=== PATIENT | female | born 1990 | race Caucasian/White ===

== ENCOUNTER 2019-09-07 11:00 | Emergency (ER) | payer OTHER, SELFPAY ==
[2019-09-07 11:12] VITALS: BP 126/60; PULSE 77; RESP 20; TEMP 37; O2SAT 100
--- NOTE | 2019-09-07 11:56 | ED.EYEPROB ---
HPI - Eye Problem General Chief complaint: Eye Problems Stated complaint: FB EYE Time Seen by Provider: 09/07/19 11:15 History of Present Illness HPI Narrative: This is a 28-year-old female who presents with complaint of foreign body sensation in the right eye. Patient states she had eyelash extensions placed 3 weeks ago and an eyelash fell out and into her eye last night. She was able to remove an eyelash but continued to have sensation of something in her eye. Positive complaint of tearing, no changes in vision. Last tetanus unknown. Related Data Home Medications Medication Instructions Recorded Confirmed fluoxetine 60 mg PO DAILY 09/07/19 09/07/19 Allergies Allergy/AdvReac Type Severity Reaction Status Date / Time No Known Allergies Allergy Verified 09/07/19 11:22 Review of Systems Review of Systems: Narrative: CONSTITUTIONAL: Denies fever, chills, or sweats. EYES: Reports foreign body sensation, tearing. ENT: Denies rhinorrhea, congestion, sore throat, or otalgia. RESPIRATORY: Denies cough or dyspnea. All systems reviewed & are unremarkable except as noted in HPI and below PMFSH Past Medical History Medical History (Updated 09/07/19 @ 12:57 by ANA Mims) Patient denies allergies Exam Narrative: Exam Narrative: GENERAL: Well-appearing, well-nourished, and in no acute distress. HEAD: Normocephalic, atraumatic. EYES: Tearing to the right eye, upper lid everted and no FB noted, no FB noted on external exam. Upper eyelid with mild erythema and edema-pt rubnbing eye in room. Kim lamp exam performed with corneal abrasion noted at approx 3 o'clock ENT: Nares clear, no rhinorrhea or epistaxis. Mucous membranes moist. CHEST: Clear to auscultation. No respiratory distress. HEART: Regular rate and rhythm. No murmur heard. Normal peripheral pulses. SKIN: Warm, dry, no rash. PSYCH: Normal mood and affect. Course Vital Signs Vital signs: Vital Signs Temperature 37.0 C 09/07/19 11:12 Pulse Rate 77 09/07/19 11:12 Respiratory Rate 20 09/07/19 11:12 Blood Pressure 126/60 09/07/19 11:12 Pulse Oximetry 100 09/07/19 11:12 Temperature 37.0 C 09/07/19 11:12 Pulse Rate 77 09/07/19 11:12 Respiratory Rate 20 09/07/19 11:12 Blood Pressure 126/60 09/07/19 11:12 Pulse Oximetry 100 09/07/19 11:12 Procedures Other Procedure Procedure 1: Other Procedure: Right eye Kim lamp exam performed. Tetracaine and fluorescein to the right eye and evaluated under lamp. Small cresecent shaped line with fluorescein uptake at approx 3 o'clock. Eye irrigated with NS post examination. MDM - Eye Problem MDM Narrative Medical decision making narrative: Kmi lamp exam revealed small corneal abrasion at 3 o'clock. Given FB sensation and history of FB of eyelash extension noted in eye last night with treat for corneal abrasion. TDAP updated as well. Will follow up with eye doctor or PCP. Differential Diagnosis Differential diagnosis: Likely corneal abrasion, conjunctivitis, periorbital cellulitis, corneal ulcer and other (FB) Discharge Plan Discharge Clinical Impression: Corneal abrasion Qualifiers: Encounter type: initial encounter Laterality: right Qualified Code(s): S05.01XA - Injury of conjunctiva and corneal abrasion without foreign body, right eye, initial encounter Patient Disposition: Home, Self-Care Condition: Improved Instructions: Antibiotic Form Additional Instructions: Follow up with your primary care doctor or eye doctor in 48 hours if no relief--sooner for worsening. You should have a recheck in 72 hours otherwise. Return to the ER if you develop fever, pain, changes in vision, worsening of symptoms.You had a TDAP immunization today. Prescriptions: New ciprofloxacin HCl 0.3 % drops See Rx Instructions .ROUTE .COMPLEX Qty: 5 RF: 0 No Action fluoxetine 60 mg tablet 60 mg PO DAILY RF: 0 Follow-up/Referrals: Phong,Lauren Mendez, ANA-
[2019-09-07] MEDS: TETANUS,DIPHTHERIA,AC PERTUSSIS ADULT 0.5 ML (ADACEL) IM (12:33)
[2019-09-07 12:55] VITALS: BP 113/85; PULSE 86; RESP 18; TEMP 36.6; O2SAT 100
== END 2019-09-07 12:55 | disposition home or self-care (01) ==
PROVIDERS: PCP Nurse Practitioner Family
DX: S05.01XA Injury of conjunctiva and corneal abrasion without foreign body, right eye, initial encounter (principal); Z23 Encounter for immunization; X58.XXXA Exposure to other specified factors, initial encounter
CPT/HCPCS: 65222; 90471; 90715; 99283; A9270

== ENCOUNTER 2020-02-27 20:45 | Emergency (ER) | payer OTHER, SELFPAY ==
--- NOTE | ~2020-02-27 | XR_ITS ---
XR tibia fibula RT 2V DATE: 02/27/2020 21:01 INDICATION: Injury, pain TECHNIQUE: AP and lateral views COMPARISON: None FINDINGS: No fracture or dislocation, periosteal reaction or bone destruction. IMPRESSION: Negative Reviewed, dictated and finalized at location A. IMPRESSION: Negative
[2020-02-27 20:48] VITALS: BP 122/74; PULSE 79; RESP 18; TEMP 36.3; O2SAT 100
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
== END 2020-02-27 21:40 | disposition home or self-care (01) ==
LOC: ANHED 21:17
PROVIDERS: Emergency Provider Emergency Medicine; PCP Nurse Practitioner Family
DX: S80.11XA Contusion of right lower leg, initial encounter (principal); W22.8XXA Striking against or struck by other objects, initial encounter
CPT/HCPCS: 73590; 99283

== ENCOUNTER 2020-03-02 19:20 | Emergency (ER) | payer OTHER, SELFPAY ==
--- NOTE | ~2020-03-02 | XR_ITS ---
EXAMINATION: XR tibia fibula RT 2V EXAM DATE: 03/02/2020 20:27 INDICATION: Initial encounter following injury, with pain of the right tibia/fibula. TECHNIQUE: Right tibia/fibula frontal and lateral projections obtained and reviewed. Correlation is m rick to right ankle exam same date. FINDINGS: Right tibial and fibular shafts unremarkable. There are no acute fractures or dislocations identified. There is no subcutaneous gas. The soft tissue is unremarkable. There are no radiopaq ue foreign bodies. IMPRESSION: 1. Right tibia/fibula exam without acute osseous findings. Reviewed, dictated and finalized at location A.
--- NOTE | ~2020-03-02 | XR_ITS ---
EXAMINATION: XR ankle RT min 3V EXAM DATE: 03/02/2020 19:58 INDICATION: Fall, right ankle pain. Initial encounter. TECHNIQUE: Right ankle frontal, lateral and oblique projections obtained and reviewed. There is no p rior study for comparison. FINDINGS: The right ankle mortise appears intact. Sequela from prior lateral malleolar avulsion fr acture. There are no acute fractures or dislocations identified. There is no subcutaneous gas. The soft tissue is unremarkable. There are no radiopaque foreign bodies. IMPRESSION: 1. XR ankle RT min 3V exam without acute osseous findings. Reviewed, dictated and finalized at location A.
[2020-03-02 19:34] VITALS: BP 113/84; PULSE 79; RESP 17; TEMP 36.3; O2SAT 98
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
[2020-03-02] MEDS: IBUPROFEN 600 MG TABLET PO (19:58)
== END 2020-03-02 21:12 | disposition home or self-care (01) ==
PROVIDERS: Emergency Provider Emergency Medicine; PCP Nurse Practitioner Family
DX: S80.11XA Contusion of right lower leg, initial encounter (principal); W22.8XXA Striking against or struck by other objects, initial encounter
CPT/HCPCS: 73590; 73610; 99284; A9270

== ENCOUNTER 2022-04-02 09:32 | Outpatient (CLI) | payer OTHER, SELFPAY ==
--- NOTE | ~2022-04-02 | XR_ITS ---
EXAMINATION: XR ankle RT min 3V DATE: 04/02/2022 09:58 INDICATION: Right ankle injury and pain. TECHNIQUE: 4 views of right ankle were obtained. COMPARISON: Right ankle radiographs 03/02/2020 FINDINGS: Bone alignment is normal. No acute fracture. There is chronic heterotopic ossification dist al to lateral malleolus. There is mild osteoarthritis of talonavicular joint. There is ankle soft tis felicia swelling. IMPRESSION: 1. No acute fracture. Reviewed, dictated and finalized at location A. IMPRESSION: 1. No acute fracture.
== END 2022-04-02 09:33 | disposition home or self-care (01) ==
PROVIDERS: PCP Nurse Practitioner Family; Visit Provider Pediatrics Adolescent Medicine
DX: M79.671 Pain in right foot (principal)
CPT/HCPCS: 73610

== ENCOUNTER 2022-04-15 17:08 | Outpatient (CLI) | payer OTHER, SELFPAY ==
--- NOTE | ~2022-04-15 | XR_ITS ---
XR ankle RT min 3V DATE: 04/15/2022 17:33 INDICATION: Lateral ankle pain after rolling ankle 2 weeks ago TECHNIQUE: 4 views COMPARISON: 04/02/2022 right ankle FINDINGS: There is mild lateral soft tissue swelling. No fracture or dislocation of the ankle or disr uption of the ankle mortise is detected. Chronic accessory ossicle subjacent to the lateral malleolus . IMPRESSION: Mild lateral soft tissue swelling; no fracture or dislocation Reviewed, dictated and finalized at location A.
== END 2022-04-15 17:09 | disposition home or self-care (01) ==
LOC: ANHIMG 17:11
PROVIDERS: PCP Nurse Practitioner Family; Visit Provider Pediatrics Adolescent Medicine
DX: M25.571 Pain in right ankle and joints of right foot (principal); M79.89 Other specified soft tissue disorders
CPT/HCPCS: 73610

== ENCOUNTER 2024-12-04 15:35 | Emergency (ER) | payer OTHER, SELFPAY ==
[2024-12-04] VITALS (7 sets, daily range): BP systolic 95–112; BP diastolic 34–65; PULSE 78–96; RESP 16–22; TEMP 36.7; O2SAT 97–100
--- NOTE | 2024-12-04 15:55 | ECG_ITS ---
Test Date: 2024-12-04 16:14:27 Measurements Intervals [place] Rate: 76 P: 51 NH: 153 QRS: 52 QRSD: 96 T: 25 QT: 368 QTc: 415 Interpretive Statements SINUS RHYTHM BASELINE ARTIFACT- I, II, AVR, AVL NORMAL ECG No previous ECG available for comparison Electronically Signed On 12-04-2024 20:54:20 CDT by Dalton Brown D.O.
--- NOTE | 2024-12-04 15:56 | ED_ITS ---
HPI - General Adult General Chief complaint: Syncope Stated complaint: syncope History of Present Illness HPI narrative: 33-year-old female presents to the emergency department for evaluation for a near syncopal episode. Patient states she has not had much food to eat but did have some water but patient has been having a headache today and patient was attempting to get a soda at a gas station when she had onset of lightheaded dizziness and had a near syncopal episode. Patient was able to announce to her that she was having this episode and he was able to catch her and prevent her from having an injury. EMS was called. Patient states she does still have a mild headache but denies any chest pain shortness of breath. Patient denies any nausea vomiting diarrhea. Patient denies any abdominal pain or vaginal bleeding. Patient is approximately 13 weeks . Patient did have a prior episode of syncope with her 1st but has no other issues with syncope. Patient denies any cardiac history. Related Data Home Medications ?Medication ?Instructions ?Recorded ?Confirmed ?Last Taken ?Type fluoxetine 60 mg tablet 60 mg PO DAILY 09/07/19 09/07/19 09/07/19 History 60 mg Allergies Allergy/AdvReac Type Severity Reaction Status Date / Time No Known Allergies Allergy Verified 12/04/24 17:27 Review of Systems 2 Review of Systems: All systems reviewed & are unremarkable except as noted in HPI and below PMFSH Past Medical History Medical History (Updated 12/04/24 @ 17:41 by Benjamin Cohn MD) Patient denies allergies Social History Social History Gender identity (if verbalized by the patient): Female Exam 2 Narrative: APPEARANCE: Well appearing, no pain, no distress, well-nourished. HEAD: normocephalic, atraumatic. EYES: PERRLA/EOMI, conjunctivae clear. NOSE: Normal no drainage EARS:TMS clear with good light reflex. THROAT: Pharynx clear, no exudate. NECK: Supple. No adenopathy, no masses. RESPIRATORY: Airway patent, respirations nonlabored. Clear to auscultation bilaterally, no rales, rhonchi, wheezing. CARDIOVASCULAR: Regular rate and rhythm without murmurs rubs or gallops. ABDOMINAL: Soft, nontender, nondistended, normal bowel sounds MUSCULOSKELETAL: Moves all extremities. Strength/ROM intact, No edema, No calf tenderness. NEURO: Alert. Cranial nerves II through XII intact. Good gait. Good coordination SKIN: Warm, dry. Normal Color Course Vital Signs Vital signs: Vital Signs Temperature 98.1 F 12/04/24 15:31 Pulse Rate 96 12/04/24 15:31 Respiratory Rate 16 12/04/24 15:31 Blood Pressure 112/58 L 12/04/24 15:31 Pulse Oximetry 100 12/04/24 15:31 Oxygen Delivery Room Air 12/04/24 15:31 Temperature 98.1 F 12/04/24 15:31 Pulse Rate 80 12/04/24 17:50 Respiratory Rate 16 12/04/24 17:50 Blood Pressure 100/53 L 12/04/24 17:50 Pulse Oximetry 97 12/04/24 17:50 Oxygen Delivery Room Air 12/04/24 15:31 Medical Decision Making MDM Narrative Medical decision making narrative: 33-year-old female presents to the emergency department for evaluation for a syncopal episode. Patient did feel lightheaded prior to the episode. Patient states she did not drink much fluid did not have very much to eat today. Patient did feel improved with rehydration. Patient does have a leukocytosis of 10.1 hemoglobin of 12.4. UA did have trace red blood cells trace white blood cells with rare bacteria, urine culture was ordered. Suspect orthostatic hypotension versus dehydration. Patient was updated the results of her workup patient was comfortable the plan for discharge and close follow-up. Differential Diagnosis Differential Diagnosis: Syncope, dehydration, UTI, orthostatic hypotension Vital Signs Vital Signs: Vital Signs Temperature 98.1 F 12/04/24 15:31 Pulse Rate 96 12/04/24 15:31 Respiratory Rate 16 12/04/24 15:31 Blood Pressure 112/58 L 12/04/24 15:31 Pulse Oximetry 100 12/04/24 15:31 Oxygen Delivery Room Air 12/04/24 15:31 Temperature 98.1 F 12/04/24 15:31 Pulse Rate 80 12/04/24 17:50 Respiratory Rate 16 12/04/24 17:50 Blood Pressure 100/53 L 12/04/24 17:50 Pulse Oximetry 97 12/04/24 17:50 Oxygen Delivery Room Air 12/04/24 15:31 Lab Data Lab results reviewed: Yes I reviewed the patient's lab results. 12/04/24 16:33 Labs: Lab Results 12/04/24 Range/Units 16:33 WBC 10.1 H (4.5-10.0) K/mm3 RBC 3.91 L (4.2-5.4) M/mm3 Hgb 12.4 (12.0-15.0) g/dL Hct 36.1 L (37.0-47.0) % MCV 92.3 (80-100) fl MCH 31.7 (26-34) pg MCHC 34.3 (32-36) g/dl RDW 12.4 (11.5-14.5) % Plt Count 202 (150-375) k/mm3 MPV 10.1 (7.4-10.4) fl Immature Gran % (Auto) 0.3 (0-0.5) % Neut % (Auto) 80.1 H (45.5-73.1) % Lymph % (Auto) 13.2 L (18.3-44.2) % Humphreys % (Auto) 5.3 (2.6-8.5) % Eos % (Auto) 0.8 (0-4.4) % Baso % (Auto) 0.3 (0.2-1.2) % Lymph # (Auto) 1.33 (0.9-3.2) K/mm3 Humphreys # (Auto) 0.5 (0.1-0.6) K/mm3 Eos # (Auto) 0.1 (0-0.3) K/mm3 Baso # (Auto) 0.0 (0.0-0.1) K/mm3 Abs Immat Gran (auto) 0.03 (0.00-0.031) K/mm3 Absolute Neuts (auto) 8.1 H (1.3-6.7) K/mm3 Absolute Nucleated RBC 0.000 (0.0-0.012) K/mm3 Nucleated RBC % 0.0 (0.0-0.2) % Lactic Acid 1.0 (0.7-2.0) mmol/L Urine Color Yellow (Yellow) Urine Appearance Clear (Clear) Urine pH 5.0 (5.0-9.0) Ur Specific Marshall 1.027 (1.001-1.035) Urine Protein Trace (Negative) mg/dL Urine Glucose (UA) Negative (Negative) mg/dL Urine Ketones Trace H (Negative) mg/dL Ur Blood (Man) Trace (Negative) Urine Nitrate Negative (Negative) Urine Bilirubin Negative (Negative) Urine Urobilinogen 1.0 (<2.0) mg/dL Add Ur Microanalysis Reviewed Leukocyte Esterase Rfl Negative (Negative) CELIA/UL Urine RBC 3-5 H (0-2) /hpf Urine WBC 6-10 H (0-3) /hpf Ur Squamous Epith Cells Few (Few) /hpf Calcium Oxalate Crystal Present (None) /hpf Urine Bacteria Rare /hpf Urine Casts 11-20 Urine Mucus Present /lpf Discharge Plan Discharge Clinical Impression: Vasovagal syncope Patient Disposition: Home Condition: Stable Instructions: Antibiotic Form, Hypotension (ED) Additional Instructions: Drink plenty of fluids. Follow a well-balanced diet. Have close follow-up with your primary care physician have close follow-up with OB Gyne. If you have any worsening symptoms and please call or return to the emergency department. Patient Language: Ethiopian Prescriptions: No Action ibuprofen [IBU] 600 mg tablet 600 mg PO Q6H PRN (Reason: pain) Qty: 20 0RF fluoxetine 60 mg tablet 60 mg PO DAILY Follow-up/Referrals: Berlin,Raji Cr MD [Primary Care Provider] -
--- OUTSIDE RECORDS SUMMARY | 2024-12-04 15:57 | XMS_ITS | Data Portability ---
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 Plan of Treatment Reminders Order Date Submit Date Provider Last Modified By Organization Details Last Modified Time Details Appointments OB ROUTINE 2024 03:00P M Shantelle Reyes CNM Not available Not available Not available U/S OB BASELIN E 2024 08:30A M ULTRASOUND Not available Not available Not available OB ROUTINE 2024 09:45A M GARY RochaM Not available Not available Not available Lab drug screen, urine 2024 025 [email or web address] [place] [facility] [address], [address], [place], [address], 12/01/2024 11:14:45 culture , urine 2024 025 [facility] (Lab), [address] [place], [address], 12/02/2024 22:47:14 CT + NG + TV, RNA, unspeci fied specime n 2024 025 [facility] (Lab), [address] [place], [address], 10/20/2024 13:32:11 Referral None recorde d. Procedures None recorde d. Surgeries None recorde d. Imaging US, obstetr ic, nuchal translu cency 2024 025 [email or web address] [facility], [place], [address], 12/01/2024 19:10:16 US, obstetr ic, transva ginal 2024 025 [email or web address] [facility], [place], [address], 10/20/2024 15:13:10 Medication Orders Reglan 10 mg tablet 2024 025 [facility] #[id number], [address] , [place], [place], [id number], 10/19/2024 12:24:54 Prenata l 28 mg iron-80 0 mcg tablet 2024 025 [facility] #[id number], [address], [place], [place], [id number], 10/19/2024 12:24:53 Patient TargetsNo targets recorded. Patient InstructionsNo instructions recorded. Reason for Referral None Reported. Results Created Date Observation Date Name Description Value Unit Range Abnormal Flag Note LastModifiedBy Organization Detail LastModifiedTime 10/20/1910/19/2024 CT/GC AND TRICH OMONA S VAGIN KIKO (RRNA ), URINE chlamydia trachomatis, PCR Negati ve negati ve Not Available [facility] (Lab) [address] [facility], [place], [address], 10/20/2024 13:32:11 10/20/19 25 10/19/2024 CT/GC AND TRICH OMONA S VAGIN KIKO (RRNA ), URINE neisseria gonorrhoeae, PCR Negati ve negati ve Not Available [facility] (Lab) [address] [place], [address], 10/20/2024 13:32:11 10/20/19 25 10/19/2024 CT/GC AND TRICH OMONA S VAGIN KIKO (RRNA ), URINE trichomonas vaginalis ribosomal RNA (rrna) Negati ve negati ve Not Available [facility] (Lab) [address], [place], [address], 10/20/2024 13:32:11 12/02/1912/01/2024 HIV 1/2 ANTIG EN/AN TIBOD Y, REFLE X CONFI RMATI ON HIV antigen/anti body Nonrea ctive nonrea ctive HIV-1 antig en and HIV-1 /HIV- 2 antib odies were not detec julieta. No labor atory evide nce of HIV infec tion. Not Available [facility] (Lab) [address], [place], [address], 12/02/2024 10:19:34 12/02/19 25 12/01/2024 HEPAT ITIS B SURFA CE ANTIG EN hepatitis B surface antigen Non-re active non-re active This assay was perfo rmed using [employer] ratio n reage nts and test kits. Value s obtai edison with other assay metho ds or kits canno t be used inter kelley eably . Not Available [facility] (Lab) [address], [place], [address], 12/02/2024 10:19:35 12/02/19 25 12/01/2024 HEPAT ITIS C ANTIB MOLLY SCREE N, REFLE X TO CONFI RMATI ON hepatitis C antibody Non-re active non-re active Antib odies to HCV Not Detec julieta, does not exclu de the possi bilit y of expos ure to HCV. Not Available [facility] (Lab) [address], [place], [address], 12/02/2024 10:19:35 12/02/19 25 12/01/2024 CBC W/DIF F WBC 8.1 10'3/ uL 3.5-10 .5 Not Available [facility] (Lab) [address], [place], [address], 12/02/2024 10:19:35 12/02/19 25 12/01/2024 CBC W/DIF F RBC 3.87 10'6/ uL (based on docume nted legal sex) 3.80-5 .20 Not Available [facility] (Lab) [address] , [place], [address], 12/02/2024 10:19:35 12/02/1912/01/2024 CBC W/DIF F HGB 12.4 g/dL (based on docume nted legal sex) 11.6-1 5.4 Not Available [facility] (Lab) [address] [facility], [place], [address], 12/02/2024 10:19:35 12/02/19 25 12/01/2024 CBC W/DIF F HCT 36.6 % (based on docume nted legal sex) 34.0-4 5.0 Not Available [facility] (Lab) [address], [place], [address], 12/02/2024 10:19:35 12/02/19 25 12/01/2024 CBC W/DIF F MCV 94.6 fL 80.0-9 9.0 Not Available [facility] (Lab) [address] [facility], [place], [address], 12/02/2024 10:19:35 12/02/1912/01/2024 CBC W/DIF F MCH 32.0 pg 27.0-3 4.0 Not Available [facility] (Lab) [address] [facility], [place], [address], 12/02/2024 10:19:35 12/02/19 25 12/01/2024 CBC W/DIF F MCHC 33.9 g/dL 32.0-3 5.5 Not Available [facility] (Lab) [address] [facility], [place], [address], 12/02/2024 10:19:35 12/02/19 25 12/01/2024 CBC W/DIF F RDW 12.2 % 11.0-1 5.0 Not Available [facility] (Lab) [address] [facility], [place], [address], 12/02/2024 10:19:35 12/02/19 25 12/01/2024 CBC W/DIF F plt 220 10'3/ uL 150-40 0 Not Available [facility] (Lab) [address] [facility], [place], [address], 12/02/2024 10:19:35 12/02/19 25 12/01/2024 CBC W/DIF F MPV 11.6 fL 8.8-12 .1 Not Available [facility] (Lab) [address] [facility], [place], [address], 12/02/2024 10:19:35 12/02/19 25 12/01/2024 CBC W/DIF F NRBC's 0.0 % 0.0 Not Available [facility] (Lab) [address] [facility], [place], [address], 12/02/2024 10:19:35 12/02/19 25 12/01/2024 CBC W/DIF F absolute NRBCs 0.0 10'3/ uL no refere nce range establ ished Not Available [facility] (Lab) [address] [facility], [place], [address], 12/02/2024 10:19:35 12/02/1912/01/2024 CBC W/DIF F neutrophils 77.4 % 34.0-7 3.0 high Not Available [facility] (Lab) [address] [facility], [place], [address], 12/02/2024 10:19:35 12/02/19 25 12/01/2024 CBC W/DIF F lymphocytes 15.0 % 15.0-5 0.0 Not Available [facility] (Lab) [address] [facility], [place], [address], 12/02/2024 10:19:35 12/02/19 25 12/01/2024 CBC W/DIF F monocytes 6.3 % 1.0-15 .0 Not Available [facility] (Lab) [address] [facility], [place], [address], 12/02/2024 10:19:35 12/02/19 25 12/01/2024 CBC W/DIF F eosinophils 0.7 % 0.0-8. 0 Not Available [facility] (Lab) [address] [facility], [place], [address], 12/02/2024 10:19:35 12/02/19 25 12/01/2024 CBC W/DIF F basophils 0.2 % 0.0-2. 0 Not Available [facility] (Lab) [address] [facility], [place], [address], 12/02/2024 10:19:35 12/02/19 25 12/01/2024 CBC W/DIF F immature granulocytes 0.4 % no define d refere nce range Immat ure Granu locyt es (IG) repre sents autom ated enume ratio n of Metam yeloc ytes, Myelo cytes and Promy elocy niki when IG is < 5%. Blast s are not inclu ded in IG and repor julieta separ ately if prese nt. Not Available [facility] (Lab) [address], [place], [address], 12/02/2024 10:19:35 12/02/19 25 12/01/2024 CBC W/DIF F absolute neutrophils 6.3 10'3/ uL 1.5-8. 0 Not Available [facility] (Lab) [address] [facility], [place], [address], 12/02/2024 10:19:35 12/02/19 25 12/01/2024 CBC W/DIF F absolute lymphocytes 1.2 10'3/ uL 1.0-4. 0 Not Available [facility] (Lab) [address] [facility], [place], [address], 12/02/2024 10:19:35 12/02/19 25 12/01/2024 CBC W/DIF F absolute monocytes 0.5 10'3/ uL 0.2-1. 0 Not Available [facility] (Lab) [address] [facility], [place], [address], 12/02/2024 10:19:35 12/02/19 25 12/01/2024 CBC W/DIF F absolute eosinophils 0.1 10'3/ uL 0.0-0. 6 Not Available [facility] (Lab) [address] [facility], [place], [address], 12/02/2024 10:19:35 12/02/19 25 12/01/2024 CBC W/DIF F absolute basophils 0.0 10'3/ uL 0.0-0. 3 Not Available [facility] (Lab) [address], [place], [address], 12/02/2024 10:19:35 12/02/19 25 12/01/2024 CBC W/DIF F absolute immature granulocytes 0.0 10'3/ uL 0.00-0 .10 Refer ence range s for nonbi nary/ inter sex or unspe cifie d gende r patie nts have not been estab lishe d. Pleas e refer to the [facility] table for range s estab lishe d for cisge nder patie nts and evalu ate in the clini daniel paula xt of the indiv idual patie nt: https ://kaela tucker book. nm.or g/gen derx Not Available [facility] (Lab) [address], [place], [address], 12/02/2024 10:19:35 12/02/19 25 12/01/2024 RUBEL LA IGG ANTIB MOLLY, QUANT rubella antibodies, IgG Reacti ve reacti ve Not Available [facility] (Lab) [address] [facility], [place], [address], 12/02/2024 10:19:36 12/02/19 25 12/01/2024 RUBEL LA IGG ANTIB MOLLY, QUANT rubella antibodies, IgG quant 17.9 IU/mL >=10 Non-r eacti ve (Non- Immun e) <10 IU/mL React marely (Immu ne) > or = 10 IU/mL Not Available [facility] (Lab) [address] [facility], [place], [address], 12/02/2024 10:19:36 12/02/19 25 12/01/2024 TYPE/ RH/SC REEN ABO/Rh type A NEG Not Available [facility] (Lab) [address] [facility], [place], [address], 12/02/2024 10:19:36 12/02/19 25 12/01/2024 TYPE/ RH/SC REEN antibody screen NEG Not Available [facility] (Lab) [address] [facility], [place], [address], 12/02/2024 10:19:36 12/02/19 25 12/01/2024 TYPE/ RH/SC REEN exp date 2024 23:59 Not Available [facility] (Lab) [address] [facility], [place], [address], 12/02/2024 10:19:36 12/02/19 25 12/01/2024 HEMOG LOBIN A1C hemoglobin A1C 4.8 % 4.0-5. 6 The Ameri can Diabe niki Ass[employer] iatio n recom mends that a prima ry goal of thera py anamika d be a HBA1C of < 7% and that physi cians shoul d reeva luate the treat ment regim en in patie nts with HBA1C value s consi stent ly > 8%. <5.7% Mar l 5.7 - 6.4% Incre ased risk for diabe niki >=6.5 % Diagn ostic of diabe niki <7.0% Goal of thera py >8.0% Actio n sugge sted Not Available [facility] (Lab) [address] [facility], [place], [address], 12/02/2024 10:19:37 12/02/19 25 12/01/2024 RPR SCREE N, REFLE X TITER /CONF IRMAT ION RPR qualitative Nonrea ctive nonrea ctive Not Available [facility] (Lab) [address] [facility], [place], [address], 12/02/2024 10:19:37 12/02/19 25 12/01/2024 CULTU RE: URINE result report SEE RESULT S BELOW Test: Cultu re: Urine Speci men Sourc e: Urine Voide d Speci men Type: Urine Speci men Date: 2024 1100 Resul t Date: 2024 Resul t Statu s: Final resul t Abnor mal: No Resul ting Lab: [facility] [address] [facility] [address] Tel: CULTU RE ----- ----- ----- --- No growt h in 1 day (dete ction level of 10,00 0 colon ies / ml.) Not Available [facility] (Lab) [address] , [place], [address], 12/02/2024 22:47:13 12/02/19 25 12/01/2024 drug scree n, urine Amphetamines : negati ve Not Available [facility] [address], [place], [address], 12/01/2024 11:13:13 12/02/19 25 12/01/2024 drug scree n, urine Cannabinoids : negati ve Not Available [facility] [address], [place], [address], 12/01/2024 11:13:13 12/02/19 25 12/01/2024 drug scree n, urine Cocaine: negati ve Not Available [facility] [address], [place], [address], 12/01/2024 11:13:13 12/02/19 25 12/01/2024 drug scree n, urine Opiates: negati ve Not Available [facility] [address], [place], [address], 12/01/2024 11:13:13 12/02/19 25 12/01/2024 drug scree n, urine Phenocyclidi ne: negati ve Not Available [facility] [address], [place], [address], 12/01/2024 11:13:13 12/02/19 25 12/01/2024 drug scree n, urine Barbiturates : negati ve Not Available [facility] [address], [place], [address], 12/01/2024 11:13:13 12/02/19 25 12/01/2024 drug scree n, urine Benzodiazepi haris: negati ve Not Available [facility] [address], [place], [address], 12/01/2024 11:13:13 12/02/19 25 12/01/2024 drug scree n, urine Ethanol: negati ve Not Available [facility] [address], [place], [address], 12/01/2024 11:13:13 12/02/19 25 12/01/2024 drug scree n, urine Hallucinogen s: negati ve Not Available [facility] [address], [place], [address], 12/01/2024 11:13:13 12/02/19 25 12/01/2024 drug scree n, urine Inhalants: negati ve Not Available [facility] [address], [place], [address], 12/01/2024 11:13:13 12/02/19 25 12/01/2024 drug scree n, urine Anabolic Steroids: negati ve Not Available [facility] [address], [place], [address], 12/01/2024 11:13:13 12/02/19 25 12/01/2024 drug scree n, urine Other: positi ve Not Available [facility] [address], [place], [address], 12/01/2024 11:13:13 10/20/19 25 10/19/2024 US, obste tric, trans vagin al No observ ation record ed. [email or web address] [facility] [address], [place], [address], 10/19/2024 15:37:37 10/20/19 25 10/19/2024 US, obste tric, trans vagin al No observ ation record ed. [email or web address] [address], [place], [address], 10/20/2024 12:56:20 12/02/19 25 12/01/2024 US, obste tric, nucha l trans lucen cy No observ ation record ed. [email or web address] [facility] [address], [place], [address], 12/01/2024 14:38:13 12/02/19 25 12/01/2024 US, obste tric, follo w-up No observ ation record ed. [email or web address] [address], [place], [address], 12/01/2024 18:45:45 Result Notes None recorded. Problems Name Problem SNOMED Code Status Onset Date Resolution Date Notes Provider Name and Address Organization Details Recorded Time 11110426 Active 2024 Mary Murillo [facility], [place] - [facility] 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 10:11:05 Problem Notes None recorded. Medical Equipment None Reported. Allergies Allergen ID Allergen Name Allergen Category Reaction Reaction Severity Criticality Documentation Date Start Date Code Code System Note Provider Name and Address Organization Details Recorded Time 81762 latex environme nt,medica tion Not available Not available Not available 12/01/2024 02752 91 RxNorm Mary Castrotz [facility], [facility] 11:38:56 Medications Name Sig Start Date Stop Date Status Note LastModified by Organization Details LastModified Time azithromycin 250 mg tablet TAKE 2 TABLETS BY MOUTH ON DAY 1 THEN TAKE 1 TABLET BY MOUTH ON DAYS 2-5 12/01 completed Not Available Not Available Not Available ibuprofen 800 mg tablet TAKE 1 TABLET BY MOUTH DAILY NEEDED 12/01 completed Not Available Not Available Not Available metronidazol e 500 mg tablet TAKE 1 TABLET BY MOUTH TWICE DAILY FOR 7 DAYS 12/01 completed Not Available Not Available Not Available amoxicillin 500 mg tablet TAKE 1 TABLET BY MOUTH EVERY 8 HOURS UNTIL ALL TAKEN 12/01 completed Not Available Not Available Not Available amoxicillin 875 mg tablet TAKE 1 TABLET BY MOUTH TWICE DAILY 12/01 completed Not Available Not Available Not Available oseltamivir 75 mg capsule TAKE 1 CAPSULE BY MOUTH TWICE DAILY 12/01 completed Not Available Not Available Not Available metocloprami de 10 mg tablet TAKE 1 TABLET BY MOUTH FOUR TIMES DAILY active Not Available Not Available No t Available 28 mg iron-800 mcg tablet TAKE 1 TABLET BY MOUTH DAILY active Not Available Not Available No t Available cefixime 400 mg capsule TAKE 1 CAPSULE BY MOUTH TWICE DAILY FOR 10 DAYS 12/01 completed Not Available Not Available Not Available Blisovi Fe 1/20 (28) 1 mg-20 mcg (21)/75 mg (7) tablet TAKE 1 TABLET BY MOUTH EVERY DAY 12/01 completed Not Available Not Available Not Available Vitals Date Recorded Body height Body mass index (BMI) Body weight Systolic blood pressure Diastolic blood pressure Provider Name and Address Organization Details Last Updated DateTime 10/19/2024 162.56 cm 25.2 kg/m2 33987.08 g 108 mm[Hg] 67 mm[Hg] Mary Murillo [facility] 5 13:24:08 Date Recorded Body height Body mass index (BMI) Body weight Systolic blood pressure Diastolic blood pressure Provider Name and Address Organization Details Last Updated DateTime 12/01/2024 162.56 cm 25.4 kg/m2 45309.67 g 104 mm[Hg] 66 mm[Hg] Mary Murillo [facility] 11:07:35 Social History Question Answer Notes LastModified by Organizat ion Details LastModified Time Tobacco Smoking Status Never Smoker Mary Murillo [facility] 12/01/2024 11:12:14 Do You Have An Advance Directive? No [email or web address] Information n ot available 12/01/2024 If You Are , What Was Your Level Of Alcohol Consumption Prior To ? Occasional [email or web address] Information not available 12/01/2024 How Many Years Have You Consumed Alcohol? 0 [email or web address] Information not available 12/01/2024 Are You Blind Or Do You Have Difficulty Seeing? No [email or web address] Information n ot available 12/01/2024 What Is Your Level Of Caffeine Consumption? Moderate [email or web address] Information not available 12/01/2024 How Much Tobacco Do You Chew? None [email or web address] Information not available 12/01/2024 In The 14 Days Before Symptom Onset, Have You Had Close Contact With A Laboratory-confirm ed COVID-19 While That Case Was Ill? No [email or web address] Information n ot available 12/01/2024 In The 14 Days Before Symptom Onset, Have You Had Close Contact With A Person Who Is Under Investigation For COVID-19 While That Person Was Ill? No [email or web address] Information not available 12/01/2024 Have You Been To An Area Known To Be High Risk For COVID-19? No [email or web address] Information not available 12/01/2024 Are You Deaf Or Do You Have Serious Difficulty Hearing? No [email or web address] Information not available 12/01/2024 What Type Of Diet Are You Following? REGULAR [email or web address] Information n ot available 12/01/2024 What Is The Highest Grade Or Level Of School You Have Completed Or The Highest Degree You Have Received? [id number] Information not available 12/01/2024 Are There Any Guns Present In Your Home? No [email or web address] Information not available 12/01/2024 Do You Use Protection During Sex? No [email or web address] Information not available 12/01/2024 Do You Use Your Seat Belt Or Car Seat Routinely? Yes [email or web address] Information not available 12/01/2024 Do You Have Smoke And Carbon Monoxide Detectors In Your Home? Yes [email or web address] Information not available 12/01/2024 How Much Tobacco Do You Smoke? No [email or web address] Information not available 12/01/2024 Do You Use Sunscreen Routinely? Yes [email or web address] Information not available 12/01/2024 Has Tobacco Cessation Counseling Been Provided? Yes [email or web address] Information not available 12/01/2024 On What Date Was Tobacco Cessation Counseling Provided? 12/01/2024 [email or web address] Information not available 12/01/2024 How Many Years Have You Smoked Tobacco? 0 [email or web address] Information not available 12/01/2024 Have You Used IV Drugs? No [email or web address] Information not available 12/01/2024 Do You Have Difficulty Walking Or Climbing Stairs? No [email or web address] Information not available 12/01/2024 Sex: Unknown Functional Status Question Answer Note LastModified by Organizat ion Details LastModified Time Do you use any illicit or recreational drugs? Yes [email or web address] Information not available 12/01/2024 Do you or have you ever used any other forms of tobacco or nicotine? No [email or web address] Information not available 12/01/2024 What is your level of alcohol consumption? None [email or web address] Information not available 12/01/2024 Are you able to walk? YESWOREST [email or web address] Information not available 12/01/2024 Are you able to care for yourself? 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 Occasional [email or web address] Information not available 12/01/2024 Mental Status Question Answer Note LastModified by Organization D etails LastModified Time Do you feel stressed (tense, restless, nervous, or anxious, or unable to sleep at night)? [id number] [email or web address] Information not available 12/01/2024 Family History Relationship Description Onset Age of this Age Resolved Age Notes LastModified by Organization Details LastModified Time Unspecified Relation Family history unknown [email or web address] Not available 12/01 11:08:09 Maternal Grandmother Diabetes mellitus [email or web address] Not available 12/01 11:11:55 Medical History Condition Response Allergies (Food, seasonal, environmental ) N Other N Breast Cancer N Drug/Latex Allergies/Reactions N Blood Transfusion N Dermatologic Disorders N Lung Disease N Defects or Inherited Disease N Breast Problem N Gestational Diabetes N Hematologic disorders N Anesthesia Complications N History of STI N Deep Vein Thrombosis N Polycystic ovary syndrome N Anxiety Disorder N Autoimmune disease N Arthritis N Infertility N Polyps N Acid Reflux (GERD) N History of abnormal pap N Cancer N Stroke N Varicosities N Neurologic/Epilepsy N Endometriosis N High Cholesterol N Headaches N Fibromyalgia N Kidney Disease N Heart Problems N Kidney or Bladder Problems N Thyroid Problems N GI Problems N Eating Disorder N Anemia N Art (IVF or FET) N Psychiatric Illness N Ovarian Cancer N Diabetes N Pulmonary (TB, Asthma) N Hepatitis/Liver Disease N No Past Medical History Y Eczema N Urinary Tract Infection N Abuse/Domestic Violence N Asthma N Trauma/Violence N Depression/ depression N Heart Disease N Pre-Eclampsia N Hypertension N Osteoporosis N Thrombophilias N Gynecological History Statement/Question Response Abnormal Pap N Date of Last Mammogram Date of LMP 08/09/2024 On BCP's at Conception? N N Was last menstrual period normal Y STIs/STDs N HPV Vaccine N Current Control Method Age at First Child 21 Date of Last Colonoscopy Sexually Active? Y Sterilization Date of DEXA bone scan Age of first menstrual cycle 14 Date of Last Pap Smear Sexual Problems? N LMP Approximate N Obstetrics History GPAL:G 4 P 3 0 0 3 Type Value Full Term 3 Living 3 Total 4 Past Encounters Encounter ID Performer Location Encounter Start Date Encounter Closed Date Diagnosis/Indication Diagnosis SNOMED-CT Code Diagnosis ICD10 Code Diagnosis Note [id number] Clayton Byrd MD [facility] [address] [address] 10/19/2024 10:46:34 10/19/2024 11:38:51 Fundal height high for dates 277155387 O26.849 Z3A.01 [id number] [facility] [address] [address] 10/19/2024 10:47:32 10/19/2024 12:29:28 Amenorrhea 16757319 N91.2 pnv dailyregla n as needed for nasueapap up to dateprecau tions and educationr eviewetiffany [place], will change EDC to 06/11/25f/ u new ob and first look Nausea and vomiting 1693 1999 R11.2 Bacterial disease screening 058883665 Z11.8 [id number] Shantelle [facility] [address] [address] 12/01/2024 09:44:23 12/01/2024 13:21:24 state of fetus 10965990 Z34.90 Gestation period, 12 weeks 20708960 Z3A.12 [id number] Clayton Byrd MD [facility] [address] [address] 12/01/2024 09:45:29 12/01/2024 10:45:00 screening 184366012 Z36.82 Z3A.12 Health Concerns Section Related Observation LastModified by Organization Detai ls LastModified Time None Recorded Concern Status LastModified by Organization Details LastModified Time None Recorded Advance Directives Directive N: Payers Insurance Date Sequence Insurance Name Policy Number Policy Bot[place] Covered Member ID Botello Member ID Guarantor Name 11/30/2024 1 [employer] [facility] (MEDICAID HMO) [id number] 0003 Sahra Novak [id number] Sahra Novak Notes Date Note Type Note Provider Name and Address Organization Details Recorded Time 10/19/2024 text/html amenorrhea, unsu re of cycles, +UPThx 3 vaginal deliveries at termdelivered last [address] newell complictionspap up to date Mary Murillo [facility] 10/19/2024 13:28:54 OBGyn Episode Ob Episode Information Episode Created Date Number of Fetuses Patient Bloodtype Patient rh Status Prepregnancy Weight lbs Domestic Partner Domestic Partner Phone Father Name Manager Food Status 12/02/19 25 1 CLOSED Fetus Data First Name Last Name Admitted to NICU Weight (g) Sex Living Outcome Pediatric Complications Fetus ID Race Codes Race Delivery Type 3061.74 6 F Full Term [id number] Vaginal Delivery Artis Calculation Initial Artis Date Initial Exam Date Initial Exam Provider Initial Ultrasound Date Last Menstrual Period Date Ultra Sound Weeks Gestation 0 Eighteen To Twenty Week Artis Update Ultra Sound Date Fundal Height At Umbil Quickening Date Ultra Sound Latest Weeks Gestation Final Artis Confirmed By Final Artis Confirmed Date Final Artis Date Ultra Sound Latest Days Gestation 0 0 Menstrual History Last Menstrual Date Menses Monthly On Bcp Conception Prior Menses Frequency Hcg Plus Date Menarche Onset Age Delivery Information Delivery Date Delivery Type Labor Anesthesia Weeks Gestation Incision Type Labor Labor Length Hrs Delivered By Post Complications Tubal Sterilization Discharge Date Comments 3 39 Discharge Information Feeding Method Contraceptive Method Maternal HG B and HCT Levels Ob Episode Information Episode Created Date Number of Fetuses Patient Bloodtype Patient rh Status Prepregnancy Weight lbs Domestic Partner Domestic Partner Phone Father Name Manager Food Status 12/02/19 25 1 Akshat Hildebr and OPEN Fetus Data First Name Last Name Admitted to NICU Weight (g) Sex Living Outcome Pediatric Complications Fetus ID Race Codes Race Delivery Type [id number] Problems Problem Notes Problem Name Start Date End Date Resolution Snomed Code Not e RhD negative 12/03/2024 [id number] A-, ne ed rhogam 28 weeks Artis Calculation Initial Artis Date Initial Exam Date Initial Exam Provider Initial Ultrasound Date Last Menstrual Period Date Ultra Sound Weeks Gestation 05/16/2025 10/19/2024 [email or web address] 10/19/2024 08/09/2024 6 Eighteen To Twenty Week Artis Update Ultra Sound Date Fundal Height At Umbil Quickening Date Ultra Sound Latest Weeks Gestation Final Artis Confirmed By Final Artis Confirmed Date Final Artis Date Ultra Sound Latest Days Gestation 0 06/11/20 25 0 Pre-south Flowsheet Flowsheet Date 12/01/2024 Mcdonough Score Blood Edema Fundus Height Fundus Units Glucose Ketones Leukocytes Nitrite Labor Signs Protein Cervic Dilation Cervic Effacement Cervic Station neg none none trace Type Weight in lbs Pre/Post Dialysis Refused Weight [id number] BP Diastolic BP Location Tested BP Systolic BP Type 66 104 Fetus Heart Rate Present Fetus Movement A No Comments hx of 3 previous uncomplicat ed vaginal deliveries, precautions and education, NIPT and labs today, begin routine care Menstrual History Last Menstrual Date Menses Monthly On Bcp Conception Prior Menses Frequency Hcg Plus Date Menarche Onset Age 0208/09/2024 Delivery Information Delivery Date Delivery Type Labor Anesthesia Weeks Gestation Incision Type Labor Labor Length Hrs Delivered By Post Complications Tubal Sterilization Discharge Date Comments Discharge Information Feeding Method Contraceptive Method Maternal HG B and HCT Levels Ob Episode Information Episode Created Date Number of Fetuses Patient Bloodtype Patient rh Status Prepregnancy Weight lbs Domestic Partner Domestic Partner Phone Father Name Manager Food Status 12/02/19 25 1 CLOSED Fetus Data First Name Last Name Admitted to NICU Weight (g) Sex Living Outcome Pediatric Complications Fetus ID Race Codes Race Delivery Type 3259.96 5704 F Full Term [id number] Vaginal Delivery Artis Calculation Initial Artis Date Initial Exam Date Initial Exam Provider Initial Ultrasound Date Last Menstrual Period Date Ultra Sound Weeks Gestation 0 Eighteen To Twenty Week Artis Update Ultra Sound Date Fundal Height At Umbil Quickening Date Ultra Sound Latest Weeks Gestation Final Artis Confirmed By Final Artis Confirmed Date Final Artis Date Ultra Sound Latest Days Gestation 0 0 Menstrual History Last Menstrual Date Menses Monthly On Bcp Conception Prior Menses Frequency Hcg Plus Date Menarche Onset Age Delivery Information Delivery Date Delivery Type Labor Anesthesia Weeks Gestation Incision Type Labor Labor Length Hrs Delivered By Post Complications Tubal Sterilization Discharge Date Comments 2 41 Discharge Information Feeding Method Contraceptive Method Maternal HG B and HCT Levels Ob Episode Information Episode Created Date Number of Fetuses Patient Bloodtype Patient rh Status Prepregnancy Weight lbs Domestic Partner Domestic Partner Phone Father Name Manager Food Status 12/02/19 25 1 CLOSED Fetus Data First Name Last Name Admitted to NICU Weight (g) Sex Living Outcome Pediatric Complications Fetus ID Race Codes Race Delivery Type 3175.14 4 F Full Term [id number] Vaginal Delivery Artis Calculation Initial Artis Date Initial Exam Date Initial Exam Provider Initial Ultrasound Date Last Menstrual Period Date Ultra Sound Weeks Gestation 0 Eighteen To Twenty Week Artis Update Ultra Sound Date Fundal Height At Umbil Quickening Date Ultra Sound Latest Weeks Gestation Final Artis Confirmed By Final Artis Confirmed Date Final Artis Date Ultra Sound Latest Days Gestation 0 0 Menstrual History Last Menstrual Date Menses Monthly On Bcp Conception Prior Menses Frequency Hcg Plus Date Menarche Onset Age Delivery Information Delivery Date Delivery Type Labor Anesthesia Weeks Gestation Incision Type Labor Labor Length Hrs Delivered By Post Complications Tubal Sterilization Discharge Date Comments 8 39 cord was around neck Discharge Information Feeding Method Contraceptive Method Maternal HG B and HCT Levels
--- OUTSIDE RECORDS SUMMARY | 2024-12-04 15:57 | XMS_ITS | Continuity of Care Document ---
Author Organization Merged with [facility] Address [address] [place] [address] [address] [place] [address] Phone Care Team Providers Care Lead Shipper Name Role Phone Katey Pineda Unavailable Unavailable Procedures Procedure Date Eye Exam, New Patient Advance Directives Directive Yes / No Effective Date File Name No Information Encounters Encounter Description Practice Location Reason(s) For Visit Diagnoses Date Provider Providers Copied on Encounter [facility], [address] [place], [place], [id number], [place] tel:[phone] [facility] [place] No Information [address] Miriam Del Toro. [address] , [address], [place], [address], [place]. tel:[phone] Family History Family Member Type Diagnosis Age At Onset No Information Payers Payer name Insurance type Covered constitution party ID Authoriza tijosy(s) Medicaid [facility] [id number] Social History Type Description Quantity Date Captured [...]
--- OUTSIDE RECORDS SUMMARY | 2024-12-04 15:57 | XMS_ITS | Data Portability ---
Author Organization [facility] Address [address] [facility] [place] [address] Care Team Providers Care Erp Engineer Name Role Phone RAJI TURNER Primary Care Provider JANEEN ANNE Multiple Games Dealer Unavailable Assessment Encounter Date Assessment Date Assessment LastModified by Organization Details LastModified Time 04/26/2022 04/26/2022 DASIA Villa Not available 04/26/2022 11:34:18 08/09/2024 08/09/2024 Return to office in 1 year or as needed Not available 08/13/2024 09:58:52 Plan of Treatment Reminders Order Date Submit Date Provider Last Modified By Organization Details Last Modified Time Details Appointments None recorded . Lab HIV 1 + 2, meaningf ul use set 2024 025 [facility], [address] [place] [address], [facility] [address], [place], [address], 5 08:25:03 RPR (rapid plasma reagin), serum 2024 025 [facility], [address] [place] [address], [address], [place], [address], 5 08:25:01 HBsAg (hepatit is B surface Ag), EIA, serum 2024 025 [facility], [address] [place] [address], [address], [place], [address], 5 08:24:59 Hepatiti s C IgG Ab, qual, serum 2024 025 MARISA DORANTES, [address], [address], [place], [address], 5 08:24:58 vaginal pathogen s panel, VICKY+prob e, vaginal fluid 2024 025 MARISA ALFORDFLRP, [facility] [address], [address], [place], [address], 5 03:08:33 CMP, serum or plasma 2023 024 MARISA DORANTES, [facility] [address], [address], [place], [address], 4 07:12:24 CBC 2023 024 [facility], [address] [place], [place] [address], [address], [place], [address], 4 07:12:28 HbA1c (hemoglo bin A1c), blood 2023 024 MARISA VELASQUEZ, [facility] [address], [address], [place], [address], 4 07:12:27 TSH, ultra-se nsitive, serum 2023 024 [facility], [facility] [address], [address], [place], [address], 4 07:12:26 lipid panel, serum 2023 024 MARISA VELASQUEZ, [facility] [address], [address], [place], [address], 4 07:12:23 pap, IG + HPV, cervical 2021 [facility], [address] [facility], [address], [place], [address], 2 07:07:39 pregnanc y test, urine 2021 In-Office Order, Internal Use Only DO Not Attach Compendium DO Not Attach Compendium, Do Not Delete/merge, [id number] 2 15:45:19 Referral behavior al health referral 2023 024 bob Valle (), [address] [place], [address], 4 14:24:39 orthoped ic surgeon referral - Recurren t sprain of R ankle, wants second opinion by ortho 2021 022 [facility], [address] [facility] [address], [place], [address], 2 13:36:36 Procedures None recorded . Surgeries None recorded . Imaging None recorded . Medication Orders Loestrin Fe 07/12 (28-Day) 1 mg-20 mcg (21)/75 mg (7) tablet 2024 025 [id number], [address], [place], [place], [phone], 5 16:17:30 Vitamin 27 mg iron-0.8 mg tablet 2024 025 [facility][id number], [address] [facility], [place], [place], [phone], 5 16:17:29 Kyleena 17.5 mcg/24 hr (up to 5 years) 19.5 mg intraute rine device 2021 022 [email or web address] Not available 15:18:46 Patient TargetsNo targets recorded. Patient Instructions Encounter Date Encounter Id Patient Instructions Last Modified By Organization Details Last Modified Time 04/26/2022 [id number] ankle sprain: ca re instructions Not available 04/26/2022 11:24:30 learning about rice (rest, ice, compression, and elevation) Not available 04/26/2022 11:24:30 ankle sprain: rehab exercises Not available 04/26/2022 11:24:30 learning about control: intrauterine device (iud) Not available 04/26/2022 11:23:59 06/06/2022 [id number] intrauterine device (IUD) for control: care instructions Not available 06/06/2022 15:08:46 intrauterine device (IUD) insertion: care instructions Not available 06/06/2022 15:08:46 A healthy lifestyle: care instructions Not available 06/06/2022 15:07:54 07/18/2022 [id number] A healthy lifestyle: care instructions Not available 07/18/2022 15:18:47 08/09/2024 [id number] Attending Physician Attestation S: 33 yo F here for well woman exam and IUD removal. Would like to use control pills until ready to try for . O: BP 110/68. BMI 25. A/P: Well woman exam - UTD on cervical cancer screening. Contraception - IUD removed. I was physically present during the entire procedure and provided direct supervision throughout procedure duration. Will switch to control pills. Advised starting PNV. STI testing - F/u NuSwab and serum tests. I personally saw the patient with the resident. Plan discussed with resident as documented in my brief note above. Janeen Anne MD [email or web address] Not available 08/09/2024 16:05:47 Reason for Referral Orthopedic Surgeon Referral for Sprain of right ankle Recurrent sprain of R ankle, wants second opinion by ortho Referring Physician: Hilda Darling, Water Reuse Program Manager, Encounter Date: 06/06/2022 Behavioral Health Referral f or History of mood disorder Referring Physician: Raji Turner, Internal Medicine, Encounter Date: 06/15/2024 Results Created Date Observation Date Name Description Value Unit Range Abnormal Flag Note LastModifiedBy Organization Detail LastModifiedTime 06/06/20 22 06/08/2022 IGP, APTIM A HPV HPV aptima Negati ve negati ve This nucle ic acid ampli ficat ion test detec ts fourt een high- risk HPV types (16,1 8,31, 33,35 ,39,4 5,51, 52,56 ,58,5 9,66, 68) witho ut diffe renti ation . Not Available [facility] ([facility]) [address] [place], [address], 06/18/2022 07:07:38 06/06/20 22 06/18/2022 IGP, APTIM A HPV diagnosis: Jade salcedo NEGAT DOMINGO FOR INTRA EPITH ELIAL SONYA Herrera OR ALEJANDRA BROWN . Not Available [facility] ([facility]) [address] [place], [address], 06/18/2022 07:07:38 06/06/20 22 06/18/2022 IGP, APTIM A HPV specimen adequacy: Jade salcedo Satis facto jaime for evalu ation . Endoc ervic al and/o r squam ous metap lasti c cells (endo cervi daniel compo nent) are prese nt. Not Available [facility] ([facility]) [address] [place], [address], 06/18/2022 07:07:38 06/06/20 22 06/18/2022 IGP, APTIM A HPV clinician provided ICD10: Jade salcedo Z01.4 19 Not Available [facility] ([facility]) [address] [place], [address], 06/18/2022 07:07:38 06/06/20 22 06/18/2022 IGP, APTIM A HPV performed by: Jade headley, Cytot echno logis t (ASCP ) Not Available [facility] ([facility]) [address] [facility], [place], [address], 06/18/2022 07:07:38 06/06/20 22 06/18/2022 IGP, APTIM A HPV . . Not Available [facility] ([facility]) [address] [facility], [place], [address], 06/18/2022 07:07:38 06/06/20 22 06/18/2022 IGP, APTIM A HPV note: Commen t The Pap smear is a scree damion test desig edison to aid in the detec tion of amrit ligna nt and malig nant condi tions of the uteri ne cervi x. It is not a diagn ostic proce dure and shoul d not be used as the sole means of detec ting cervi daniel cance r. Both false -posi tive and false -nega tive repor ts do occur . Not Available [facility] ([facility]) [address] [facility], [place], [address], 06/18/2022 07:07:38 06/06/20 22 06/18/2022 IGP, APTIM A HPV test methodology: Commen t This liqui d based ThinP rep(R ) pap test was scree edison with the use of an image guide d syste m. Not Available [facility] ([facility]) [address] [facility], [place], [address], 06/18/2022 07:07:38 06/06/20 22 06/06/2022 pregn hillary test, urine HCG negati ve Not Available In-Office Order Internal Use Only DO Not Attach Compendium DO Not Attach Compendium, Do Not Delete/merge, [id number] 06/06/2022 15:08:21 06/15/20 24 06/16/2024 LIPID PANEL cholesterol, total 137 mg/dL 100-19 9 Not Available [facility] ([facility]) [address] [facility], [place], [address], 06/16/2024 07:12:23 06/15/20 24 06/16/2024 LIPID PANEL triglyceride s 56 mg/dL 0-149 Not Available [facility] ([facility]) [address] [place], [address], 06/16/2024 07:12:23 06/15/20 24 06/16/2024 LIPID PANEL HDL cholesterol 46 mg/dL >39 Not Available [facility] ([facility]) [address] [place], [address], 06/16/2024 07:12:23 06/15/20 24 06/16/2024 LIPID PANEL VLDL cholesterol daniel 12 mg/dL 5-40 Not Available [facility] ([facility]) [address] [place], [address], 06/16/2024 07:12:23 06/15/20 24 06/16/2024 LIPID PANEL LDL chol calc ([facility]) 79 mg/dL 0-99 Not Available [facility] ([facility]) [address] [place], [address], 06/16/2024 07:12:23 06/15/20 24 06/16/2024 COMP. METAB OLIC PANEL (14) glucose 86 mg/dL 70-99 Not Available [facility] ([facility]) [address] [place], [address], 06/16/2024 07:12:24 06/15/20 24 06/16/2024 COMP. METAB OLIC PANEL (14) BUN 8 mg/dL 6-20 Not Available [facility] ([facility]) [address] [place], [address], 06/16/2024 07:12:24 06/15/20 24 06/16/2024 COMP. METAB OLIC PANEL (14) creatinine 0.79 mg/dL 0.57-1 .00 Not Available [facility] ([facility]) [address] [place], [address], 06/16/2024 07:12:24 06/15/20 24 06/16/2024 COMP. METAB OLIC PANEL (14) eGFR 101 mL/mi n/1.7 3 >59 Not Available [facility] ([facility]) [address] [facility], [place], [address], 06/16/2024 07:12:24 06/15/20 24 06/16/2024 COMP. METAB OLIC PANEL (14) BUN/creatini ne ratio 10 9-23 Not Available [facility] ([facility]) [address] [facility], [place], [address], 06/16/2024 07:12:24 06/15/20 24 06/16/2024 COMP. METAB OLIC PANEL (14) sodium 142 mmol/ L 134-14 4 Not Available [facility] ([facility]) [address] [facility], [place], [address], 06/16/2024 07:12:24 06/15/20 24 06/16/2024 COMP. METAB OLIC PANEL (14) potassium 3.7 mmol/ L 3.5-5. 2 Not Available [facility] ([facility]) [address] [facility], [place], [address], 06/16/2024 07:12:24 06/15/20 24 06/16/2024 COMP. METAB OLIC PANEL (14) chloride 102 mmol/ L 96-106 Not Available [facility] ([facility]) [address] [facility] [place], [address], 06/16/2024 07:12:24 06/15/20 24 06/16/2024 COMP. METAB OLIC PANEL (14) carbon dioxide, total 27 mmol/ L 20-29 Not Available [facility] ([facility]) [address] [facility] [place], [address], 06/16/2024 07:12:24 06/15/20 24 06/16/2024 COMP. METAB OLIC PANEL (14) calcium 9.5 mg/dL 8.7-10 .2 Not Available [facility] ([facility]) [address] [facility], [place], [address], 06/16/2024 07:12:24 06/15/20 24 06/16/2024 COMP. METAB OLIC PANEL (14) protein, total 6.7 g/dL 6.0-8. 5 Not Available [facility] ([facility]) [address] [facility], [place], [address], 06/16/2024 07:12:24 06/15/20 24 06/16/2024 COMP. METAB OLIC PANEL (14) albumin 4.5 g/dL 3.9-4. 9 Not Available [facility] ([facility]) [address] [facility], [place], [address], 06/16/2024 07:12:24 06/15/20 24 06/16/2024 COMP. METAB OLIC PANEL (14) globulin, total 2.2 g/dL 1.5-4. 5 Not Available [facility] ([facility]) [address] [facility], [place], [address], 06/16/2024 07:12:24 06/15/20 24 06/16/2024 COMP. METAB OLIC PANEL (14) bilirubin, total 0.4 mg/dL 0.0-1. 2 Not Available [facility] ([facility]) [address] [facility], [place], [address], 06/16/2024 07:12:24 06/15/20 24 06/16/2024 COMP. METAB OLIC PANEL (14) alkaline phosphatase 64 IU/L 44-121 Not Available [facility] ([facility]) [address] [facility], [place], [address], 06/16/2024 07:12:24 06/15/20 24 06/16/2024 COMP. METAB OLIC PANEL (14) AST (SGOT) 17 IU/L 0-40 Not Available [facility] ([facility]) [address] [place], [address], 06/16/2024 07:12:24 06/15/20 24 06/16/2024 COMP. METAB OLIC PANEL (14) ALT (SGPT) 16 IU/L 0-32 Not Available [facility] ([facility]) [address] [place], [address], 06/16/2024 07:12:24 06/15/20 24 06/16/2024 TSH RFX ON ABNOR MAL TO FREE T4 TSH 0.590 uIU/m L 0.450- 4.500 Not Available [facility] ([facility]) [address] [place], [address], 06/16/2024 07:12:26 06/15/20 24 06/16/2024 HEMOG LOBIN A1C hemoglobin A1C 5.2 % 4.8-5. 6 Predi abete s: 5.7 - 6.4 Diabe niki: >6.4 Glyce doc contr ol for adult s with diabe niki: <7.0 Not Available [facility] ([facility]) [address] [place], [address], 06/16/2024 07:12:27 06/15/20 24 06/16/2024 CBC, PLATE LET, NO DIFFE RENTI AL WBC 6.1 x10e3 /uL 3.4-10 .8 Not Available [facility] ([facility]) [address] [place], [address], 06/16/2024 07:12:28 06/15/20 24 06/16/2024 CBC, PLATE LET, NO DIFFE RENTI AL RBC 4.85 x10e6 /uL 3.77-5 .28 Not Available [facility] ([facility]) [address] [place], [address], 06/16/2024 07:12:28 06/15/20 24 06/16/2024 CBC, PLATE LET, NO DIFFE RENTI AL hemoglobin 15.3 g/dL 11.1-1 5.9 Not Available [facility] ([facility]) [address] [facility], [place], [address], 06/16/2024 07:12:28 06/15/2006/16/2024 CBC, PLATE LET, NO DIFFE RENTI AL hematocrit 45.4 % 34.0-4 6.6 Not Available [facility] ([facility]) [address] [facility], [place], [address], 06/16/2024 07:12:28 06/15/20 24 06/16/2024 CBC, PLATE LET, NO DIFFE RENTI AL MCV 94 fL 79-97 Not Available [facility] ([facility]) [address] [facility], [place], [address], 06/16/2024 07:12:28 06/15/20 24 06/16/2024 CBC, PLATE LET, NO DIFFE RENTI AL MCH 31.5 pg 26.6-3 3.0 Not Available [facility] ([facility]) [address] [facility], [place], [address], 06/16/2024 07:12:28 06/15/20 24 06/16/2024 CBC, PLATE LET, NO DIFFE RENTI AL MCHC 33.7 g/dL 31.5-3 5.7 Not Available [facility] ([facility]) [address] [facility], [place], [address], 06/16/2024 07:12:28 06/15/2006/16/2024 CBC, PLATE LET, NO DIFFE RENTI AL RDW 12.0 % 11.7-1 5.4 Not Available [facility] ([facility]) [address] [place], [address], 06/16/2024 07:12:28 06/15/20 24 06/16/2024 CBC, PLATE LET, NO DIFFE RENTI AL platelets 257 x10e3 /uL 150-45 0 Not Available [facility] ([facility]) [address] [facility], [place], [address], 06/16/2024 07:12:28 08/09/19 25 08/10/2024 INTER PRETA TION: interpretati on: Commen t Not infec julieta with HCV unles s early or acute infec tion is suspe cted (whic h may be delay ed in an immun ocomp romis ed indiv idual ), or other evide nce exist s to indic ate HCV infec tion. Not Available [facility] ([facility]) [address] [facility], [place], [address], 08/10/2024 08:24:57 08/09/1908/10/2024 HCV ANTIB MOLLY RFX TO QUANT PCR HCV Ab NON REACTI VE nonrea ctive Not Available [facility] ([facility]) [address] [facility], [place], [address], 08/10/2024 08:24:58 08/09/19 25 08/10/2024 HBSAG SCREE N HBsAg screen NEGATI VE negati ve Not Available [facility] ([facility]) [address] [facility], [place], [address], 08/10/2024 08:24:59 08/09/19 25 08/10/2024 RPR, RFX QN RPR/C ONFIR M TP RPR NON REACTI VE nonrea ctive Not Available [facility] ([facility]) [address] [place], [address], 08/10/2024 08:25:01 08/09/19 25 08/10/2024 HIV AB/P2 4 AG WITH REFLE X HIV Ab/P24 Ag screen NON REACTI VE nonrea ctive HIV-1 /HIV- 2 antib odies and HIV-1 p24 antig en were NOT detec julieta. There is no labor atory evide nce of HIV infec tion. HIV Negat domingo Not Available [facility] ([facility]) [address] [place], [address], 08/10/2024 08:25:03 08/09/19 25 08/10/2024 NUA B VAGIN ITIS PLUS (VG+) atopobium vaginae HIGH - 2 score abnormal Not Available [facility] ([facility]) [address] [facility], [place], [address], 08/11/2024 03:08:33 08/09/1908/10/2024 NUA B VAGIN ITIS PLUS (VG+) bvab 2 HIGH - 2 score abnormal Not Available [facility] ([facility]) [address] [facility], [place], [address], 08/11/2024 03:08:33 08/09/1908/10/2024 NUA B VAGIN ITIS PLUS (VG+) megasphaera 1 LOW - 0 score Calcu late total score by arsen g the 3 indiv idual bacte rial vagin osis (BV) marke r score s toget her. Total score is inter prete d as follo ws: Total score 0-1: Indic ates the absen ce of BV. Total score 2: Indet ermin ate for BV. Addit ional clini daniel data shoul d be evalu ated to estab jaky a diagn osis. Total score 3-6: Indic ates the prese nce of BV. Not Available [facility] ([facility]) [address] [facility], [place], [address], 08/11/2024 03:08:33 08/09/1908/10/2024 NUA B VAGIN ITIS PLUS (VG+) francoise albicans, VICKY NEGATI VE negati ve Not Available [facility] ([facility]) [address] [place], [address], 08/11/2024 03:08:33 08/09/19 25 08/10/2024 NUSWA B VAGIN ITIS PLUS (VG+) francoise glabrata, VICKY NEGATI VE negati ve Not Available [facility] ([facility]) [address] [facility], [place], [address], 08/11/2024 03:08:33 08/09/19 25 08/11/2024 NUA B VAGIN ITIS PLUS (VG+) trich vag by VICKY NEGATI VE negati ve Not Available [facility] ([facility]) [address] [place], [address], 08/11/2024 03:08:33 08/09/19 25 08/11/2024 NUA B VAGIN ITIS PLUS (VG+) chlamydia trachomatis, VICKY NEGATI VE negati ve Not Available [facility] ([facility]) [address] [facility], [place], [address], 08/11/2024 03:08:33 08/09/19 25 08/11/2024 NUA B VAGIN ITIS PLUS (VG+) neisseria gonorrhoeae, VICKY NEGATI VE negati ve Not Available [facility] ([facility]) [address] [facility], [place], [address], 08/11/2024 03:08:33 04/26/20 22 04/26/2022 XR, ankle , 3 or more view No observ ation record ed. BARCODE Not Available 2021 11:36:53 Result Notes None recorded. Problems Name Problem SNOMED Code Status Onset Date Resolution Date Notes Provider Name and Address Organization Details Recorded Time Adult health examination Active 2023 Raji Turner MD Attn: Jeffrey lou,[address] [facility], [place], [address], [facility] 10:20:01 Family history of diabetes mellitus 318941052 Active 2023 Mara Hernadez MD Attn: Jeffrey lou,[address] [facility], [place], [address], [place] [facility] 5 15:00:26 History of mood disorder 097552132 Active 2023 Mara Hernadez MD Attn: Jeffrey lou,[address] [facility], [place], [address], [place] [facility] 5 15:00:28 Bacterial vaginosis 743628752 Active 2024 Mara Hernadez MD Attn: Jeffrey lou,[address] [facility], [place], [address], [place] [facility] 5 09:49:11 Marijuana user 090971311 Active 2024 Mara Hernadez MD Attn: Jeffrey lou,[address] [place], [address], [place] [facility] 5 09:57:41 Removal of intrauterin e contracepti ve device Active 2024 Mara Hernadez MD Attn: Jeffrey lou,[address] [facility], [place], [address], [place] [facility] 5 09:57:28 Venereal disease screening Active 2024 Mara Hernadez MD Attn: Jeffrey lou,[address] [place], [address], [place] [facility] 5 09:57:30 Contracepti on care management Active 2024 Mara Hernadez MD Attn: Jeffrey lou,[address] [place], [address], [place] [facility] 5 09:57:31 Subcutaneou s contracepti ve implant palpable 099601933 Completed 201605/27/2017 CARY Rojas [place] - [facility] 7 16:29:13 Contracepti on care Completed 201605/27/2017 SIVAKUMAR [place] - [facility] 7 17:43:11 Gynecologic examination Completed 201605/27/2017 Yumiko Choi MA null, [place] - [facility] 7 16:29:17 Candidiasis of vagina 06120753 Completed 201603/24/2019 ELSA BARBER Attn: Jeffrey lou,[address] [facility], [place], [address], [place] - [facility] 9 14:12:38 Bacterial vaginosis 806788325 Completed 201603/24/2019 Mara Hernadez MD Attn: Krystlejose ramon carmine,[address] [facility], [place], [address], [place] [facility] 5 09:49:12 29108027 Completed 201605/27/2017 Josesito FreyMarci null, [place] - [facility] 7 17:43:08 Serum thyroid stimulating hormone level outside reference range 407322399 Completed 201605/27/2017 Josesito Covarrubias null, [place] - [facility] 7 17:42:59 Bacterial vaginosis 008085488 Completed 2016 Letty Wu MA null, [place] - [facility] 8 10:58:35 Problem Notes None recorded. Procedures Surgical History Date Name Laterality Status Provider Name and Address Organization Details Recorded Time 5 IUD Removal completed Mara Hernadez MD Attn: Accounting,[address] [place], [address], [place] [facility] 08/13/2024 09:56:05 2 Control Implant Removal completed ELSA BARBER Attn: Accounting,[address] [facility], [place], [address], [place] [facility] 06/06/2022 15:44:04 2 IUD Insertion completed ELSA BARBER Attn: Accounting,[address] [facility], [place], [address], [place] - [facility] 06/06/2022 15:44:17 2 Date of Last Pap Smear completed Letty Wu MA [place] - [facility] 08/09/2024 15:13:52 8 Control Implant Insertion completed Letty Wu MA [place] - [place] 11/10/2017 11:02:06 7 Control Implant Removal completed Donna Hall PA-C Attn: Accounting, [facility], [place], [address], [facility] 08/30/2016 10:13:45 Imaging Results None recorded. Procedure Notes None recorded. Medical Equipment None Reported. Allergies Allergen ID Allergen Name Allergen Category Reaction Reaction Severity Criticality Documentation Date Start Date Code Code System Note Provider Name and Address Organization Details Recorded Time 547786 latex environme nt,medica tion hives Not available Not available 05/05/2019 19036 91 RxNorm CARY Youssef, [place] - [place] 9 14:20:22 240634 adhesive tape environme nt,medica tion hives Not available Not available 05/05/2019 79911 UNK Yumiko Swift MA null, [place] - [place] 9 14:20:33 470352 ethinyl estradiol / norelgest romin medicatio n hives Not available Not available 05/05/2019 41723 7 RxNorm from the adhes domingo tape ELSA BARBER Attn: Jeffrey carmine,[address] [facility], [place], [address], [facility] 9 14:39:32 Medications Name Sig Start Date Stop Date Status Note LastModified by Organization Details LastModified Time multivitami n tablet Take 1 tablet every day by oral route. 03/24 completed Not Available Not Available Not Available fluoxetine 40 mg capsule 05/07 completed Not Available Not Available Not Available amoxicillin 500 mg capsule 04/30 completed Not Available Not Available Not Available Tab-A-Sara tablet active Not Available Not Available Not Available azithromyci n 250 mg tablet TAKE 2 TABLETS BY MOUTH ON DAY 1 THEN TAKE 1 TABLET BY MOUTH ON DAYS 2-5 active Not Available Not Available No t Available ibuprofen 800 mg tablet TAKE 1 TABLET BY MOUTH DAILY NEEDED active Not Available Not Available No t Available ofloxacin 0.3 % eye drops 03/24 completed Not Available Not Available Not Available fluconazole 150 mg tablet Take 1 tablet every day by oral route. 04/30 completed Not Available Not Available Not Available ondansetron HCl 4 mg tablet 08/30 completed Not Available Not Available Not Available prednisone 20 mg tablet TAKE 3 TABLETS BY MOUTH DAILY 04/26 completed Not Available Not Available Not Available metronidazo le 500 mg tablet TAKE 1 TABLET BY MOUTH TWICE DAILY FOR 7 DAYS active Not Available Not Available No t Available triamcinolo ne acetonide 0.1 % topical cream 08/30 completed Not Available Not Available Not Available amoxicillin 500 mg tablet TAKE 1 TABLET BY MOUTH EVERY 8 HOURS UNTIL ALL TAKEN 06/15 completed Not Available Not Available Not Available Vitamin tablet Take 1 tablet every day by oral route as directed for 90 days. 07/22 completed Not Available Not Available Not Available oxycodone-a cetaminophe n 5 mg-325 mg tablet 03/24 completed Not Available Not Available Not Available amoxicillin 875 mg tablet TAKE 1 TABLET BY MOUTH TWICE DAILY active Not Available Not Available No t Available oseltamivir 75 mg capsule TAKE 1 CAPSULE BY MOUTH TWICE DAILY active Not Available Not Available No t Available ferrous sulfate 325 mg (65 mg iron) tablet 03/24 completed Not Available Not Available Not Available Banophen 25 mg capsule 08/30 completed Not Available Not Available Not Available hydrocortis one 2.5 % topical cream APPLY TOPICALLY TO THE AFFECTED AREA TWICE DAILY 04/26 completed Not Available Not Available Not Available norethindro ne (contracept domingo) 0.35 mg tablet 03/24 completed Not Available Not Available Not Available fluoxetine 20 mg capsule Take 2 capsules every day by oral route as directed for 30 days. 08/30 completed Not Available Not Available Not Available clotrimazol e 1 % topical cream 08/30 completed Not Available Not Available Not Available metoclopram kvng 10 mg tablet Take 1 tablet 4 times a day by oral route. 04/30 completed Not Available Not Available Not Available Vitamin 27 mg iron-0.8 mg tablet Take 1 tablet every day by oral route for 31 days. 2024 active Not Available Not Available Not Avai lable NuvaRing 0.12 mg-0.015 mg/24 hr vaginal Insert 1 vaginal ring every month by vaginal route. 04/30 completed Not Available Not Available Not Available Junel 07/12 (21) 1 mg-20 mcg tablet Take 1 tablet every day by oral route. 11/10 completed Not Available Not Available Not Available Calcium 600 + D(3) 600 mg-10 mcg (400 unit) tablet 07/22 completed Not Available Not Available Not Available Calcium with Vitamin D3 600 mg (carbonate) -10 mcg (400 unit) capsule Take 1 capsule twice a day by oral route. 03/24 completed Not Available Not Available Not Available Natroba 0.9 % topical suspension APPLY TO THE SCALP DIRECTED PER DIRECTION S ON BOX. REPEAT IN 1 WEEK IF NECESSARY active Not Available Not Available No t Available Nexplanon 68 mg subdermal implant Inject 1 implant by subcutane ous route. 06/06 completed Not Available Not Available Not Available fluoxetine 60 mg tablet Take 1 tablet every day by oral route as directed for 30 days. 07/18 completed Not Available Not Available Not Available vits 96-ferrous fumarate 27 mg iron-folic acid 800 mcg tablet 03/24 completed Not Available Not Available Not Available calcium 600 mg (as carbonate)- vitamin D3 20 mcg (800 unit) tablet Take 1 tablet twice a day by oral route. 03/24 completed Not Available Not Available Not Available Estarylla 0.25 mg-0.035 mg tablet Take 1 tablet every day by oral route as directed for 28 days. 08/30 completed Not Available Not Available Not Available cefixime 400 mg capsule TAKE 1 CAPSULE BY MOUTH TWICE DAILY FOR 10 DAYS active Not Available Not Available No t Available Xulane 150 mcg-35 mcg/24 hr transdermal patch Apply 1 patch every week by transderm al route as directed. 05/05 completed Not Available Not Available Not Available Junel Fe 24 1 mg-20 mcg (24)/75 mg (4) tablet TAKE 1 TABLET BY MOUTH ONCE DAILY 11/10 completed Not Available Not Available Not Available Blisovi Fe 07/12 (28) 1 mg-20 mcg (21)/75 mg (7) tablet TAKE 1 TABLET BY MOUTH EVERY DAY active Not Available Not Available No t Available Kyleena 17.5 mcg/24 hr (up to 5 years) 19.5 mg intrauterin e device Take 1 device by intrauter ine route. 08/09 completed Not Available Not Available Not Available Vitals Date Recorded Body height Body mass index (BMI) Body weight Heart rate Body temperature Oxygen saturation Oxygen saturation in Arterial blood by Pulse oximetry Systolic blood pressure Diastolic blood pressure Provider Name and Address Organization Details Last Updated DateTime 3 165.1 cm 29.8 kg/m2 03153.4 3 g 73 /min 98.7 [degF] 100 % 100 % 104 mm[Hg] 68 mm[Hg] Yumiko Swift MA [facility] 3 15:06:41 Date Recorded Body height Body mass index (BMI) Body weight Systolic blood pressure Diastolic blood pressure Provider Name and Address Organization Details Last Updated DateTime 08/09/2024 165.1 cm 25 kg/m2 27593.86 g 110 mm[Hg] 68 mm[Hg] Letty Wu MA [facility] 5 15:23:39 Date Recorded Body height Body mass index (BMI) Body weight Heart rate Body temperature Oxygen saturation Oxygen saturation in Arterial blood by Pulse oximetry Systolic blood pressure Diastolic blood pressure Provider Name and Address Organization Details Last Updated DateTime 2 165.1 cm 29.9 kg/m2 31804.8 3 g 62 /min 98.7 [degF] 99 % 99 % 114 mm[Hg] 80 mm[Hg] Yumiko Swift MA [facility] 2 10:47:54 Date Recorded Body height Body mass index (BMI) Body weight Heart rate Body temperature Oxygen saturation Oxygen saturation in Arterial blood by Pulse oximetry Systolic blood pressure Diastolic blood pressure Provider Name and Address Organization Details Last Updated DateTime 2 165.1 cm 29.5 kg/m2 93419.6 5 g 83 /min 98.8 [degF] 100 % 100 % 104 mm[Hg] 76 mm[Hg] Yumiko Swift MA [facility] 2 15:04:39 Date Recorded Body height Body mass index (BMI) Body weight Heart rate Oxygen saturation Oxygen saturation in Arterial blood by Pulse oximetry Systolic blood pressure Diastolic blood pressure Provider Name and Address Organization Details Last Updated DateTime 4 165.1 cm 25 kg/m2 87307 g 66 /min 98 % 98 % 122 mm[Hg] 80 mm[Hg] Carmen Rice MA MD - [facility] 4 10:03:37 Social History Question Answer Notes LastModified by Organizat ion Details LastModified Time Tobacco Smoking Status Never Smoker Anna Pina MA null, MD - [facility] 08/30/2016 09:05:57 Do You Have An Advance Directive? No Information not available 02/25/2017 If You Are , What Was Your Level Of Alcohol Consumption Prior To ? Occasional Information not available 02/25/2017 Is Anesthesia Consult Planned? Yes Information not available 02/25/2017 Plan Yes Vaginal With Epidural [email or web address] Information not available 04/30/2017 Is Blood Transfusion Acceptable In An Emergency? Yes Information not available 02/25/2017 What Is Your Level Of Caffeine Consumption? Moderate Information not available 02/25/2017 Live With Cats/exposure To Cat Litter No Information not available 02/25/2017 How Much Tobacco Do You Chew? None Information not available 02/25/2017 What Type Of Diet Are You Following? REGULAR Information not available 02/25/2017 Which Illicit Or Recreational Drugs Have You Used? None Information not available 02/25/2017 Education 12 Information no t available 02/25/2017 Have There Been Any Changes To Your Family Or Social Situation? No [email or web address] Information not available 04/30/2017 Frequent Air Travel No Information not available 02/25/2017 Illicit Drugs Pre- None Information not available 02/25/2017 Live Alone Or With Others? With Others Information not available 02/25/2017 Marital Status Single Informatio n not available 02/25/2017 What Was The Date Of Your Most Recent Tobacco Screening? 08/09/2024 Information not available 08/09/2024 How Many Children Do You Have? 2 Information not available 02/25/2017 Performs Monthly Self-breast Exam? No Information not available 02/25/2017 Do You Use Protection During Sex? Usually Information not available 02/25/2017 What Is Your Relationship Status? Single Information not available 02/25/2017 Seat Belts Used Routinely Yes Information not available 02/25/2017 Are You Sexually Active? Yes Information not available 02/25/2017 Do You Have Smoke And Carbon Monoxide Detectors In Your Home? Yes Information not available 02/25/2017 Are You Passively Exposed To Smoke? Yes Information not available 02/25/2017 How Much Tobacco Do You Smoke? No [email or web address] Information not available 03/26/2017 Smoking Pre- No Information not available 02/25/2017 General Stress Level Medium Information not available 02/25/2017 Do You Use Sunscreen Routinely? Yes Information not available 02/25/2017 Supplements Prenatals Information n ot available 02/25/2017 Has Tobacco Cessation Counseling Been Provided? Yes Information not available 08/09/2024 On What Date Was Tobacco Cessation Counseling Provided? 08/09/2024 Information not available 08/09/2024 Sex: Unknown Functional Status Question Answer Note LastModified by Organization Details LastModified Time Do you use any illicit or recreational drugs? No [email or web address] Information not available 04/26/2022 Do you or have you ever used any other forms of tobacco or nicotine? No Information not available 08/09/2024 What is your level of alcohol consumption? None Information not available 02/25/2017 Are you currently employed? Yes [employer] Information not available 07/22/2017 What is your occupation? [employer] Information not available 02/25/2017 What is your exercise level? Occasional Information not available 02/25/2017 Mental Status None recorded. Family History Relationship Description Onset Age of this Age Resolved Age Notes LastModified by Organization Details LastModified Time Maternal Grandmother Diabetes mellitus [email or web address] Not available 2016 09:10:24 Father No current problems or disability [email or web address] Not available 10/2016 15:12:56 Mother No current problems or disability [email or web address] Not available 10/2016 15:12:56 Medical History Condition Response Other N High Blood Pressure N Breast Cancer N Thyroid Problems N Kidney or Bladder Problems N GI Problems N Depression N Blood Clots N Lung Disease N Acne N Breast Problem N Eating Disorder N Anemia N Anesthesia Complications N Headaches/Migraines N Anxiety Disorder N Diabetes N Ovarian Cancer N Muscle, Joint, or Bone Problems N Blood Transfusions N Seizures/Epilepsy N Polyps N Infertility N Acid Reflux (GERD) N Cancer N Abuse/Domestic Violence N Asthma N Endometriosis N High Cholesterol N Hepatitis N Liver Disease N Heart Disease N Pre-Eclampsia N Osteoporosis N Gynecological History Statement/Question Response Abnormal Pap N Date of LMP 03/29/2022 On BCP's at Conception? N STIs/STDs Y HPV Vaccine N Age at Menarche 15 Current Control Method BCPs Age at First Child 21 Sexually Active? Y Menses Monthly N Date of Last Pap Smear 06/06/2022 Sexual Problems? N LMP Definite Desired Control Method BCPs Obstetrics History GPAL:G 3 P 3 0 0 3 Type Value Multiple Births 0 Full Term 3 Induced 0 Spontaneous 0 Premature 0 Living 3 Ectopics 0 Total 3 Immunizations Vaccine Type Date Status Note Provider Nam e and Address Organization Details Recorded Time COVID-19, mRNA, LNP-S, PF, 100 mcg/0.5mL dose or 50 mcg/0.25mL dose 1 completed SIVAKUMAR Galan - [facility] 12/27/2020 17:04:48 COVID-19, mRNA, LNP-S, PF, 100 mcg/0.5mL dose or 50 mcg/0.25mL dose 1 completed Alex britton MD - [facility] 12/27/2020 17:07:09 Influenza, split virus, quadrivalent, preservative 7 completed Not Available [facility] 07/10/2019 02:34:22 Tdap 8 completed Not Available [facility] 07/10/2019 02:34:56 Past Encounters Encounter ID Performer Location Encounter Start Date Encounter Closed Date Diagnosis/Indication Diagnosis SNOMED-CT Code Diagnosis ICD10 Code Diagnosis Note [id number] MD Tori Cerrato ([facility]) [address] [place] [address] 08/30/2016 08:43:03 09/03/2016 14:40:04 Subcutaneous contraceptive implant palpable 077919941 Z30.49 Removed today - due out 05/11/2016 Contraception care 67567 5005 Z30.40 Patient would like to switch to NuvaringSh e is currently on her cycleAdvis ed to place on oms for the first week [id number] MD Tori Cerrato (Adult Med) [address] [place] [phone] 0 09/24/2016 13:51:20 09/24/2016 17:42:35 Gynecologic examination 40374960 Z01.419 Contraception care 00223 5005 Z30.40 Patient would like to switch to NuvaringSh e is currently on her cycleAdvis ed to place on oms for the first week [id number] MD Tori Stahl ([facility]) [address] [place] [address] [phone] 0 02/25/2017 14:01:32 02/25/2017 15:28:03 Routine care 762693731 Z34.90 Nausea and vomiting 1693 2000 R11.2 [id number] MD Tori Stahl ([facility]) [address] [place] [address] [phone] 0 03/14/2017 09:17:15 03/14/2017 11:25:55 Routine care 514695705 Z34.90 [id number] MD Tori Stahl ([facility]) [address] [place] [address] [phone] 0 03/26/2017 14:37:33 03/27/2017 14:31:41 Routine care 636282456 Z34.01 Administra tion of influenza vaccine 83048571 Z23 Bacterial vaginosis 4197 85742 N76.0 [id number] MD Tori Stahl ([facility]) [address] [place] [address] [id number] 0 04/30/2017 15:33:15 05/01/2017 13:20:34 Routine care 338842374 Z34.01 Serum thyr oid stimulating hormone level outside reference range 710350412 R79.89 [id number] MD Tori Stahl ([facility]) [address] [place] [address] [phone] 0 05/27/2017 16:01:46 05/27/2017 17:19:39 Routine care 463337362 Z34.01 [id number] [facility] [address] [place] [address] [id number] 0 06/24/2017 16:33:29 06/24/2017 17:14:45 Routine care 294487221 Z34.01 screening 2437 00866 Z36.9 [id number] [facility] [address] [place] [address] [id number] 0 07/22/2017 09:31:39 07/22/2017 12:04:30 Routine care 421451389 Z34.01 [id number] MD Tori Stahl ([facility]) [address] [place] [address] [id number] 0 08/11/2017 10:18:16 08/11/2017 13:35:47 Routine care 669423550 Z34.01 [id number] [facility] [address] [place] [address] [id number] 0 08/25/2017 15:00:22 08/25/2017 16:34:25 Routine care 210979220 Z34.01 [id number] [facility] [address] [place] [address] [id number] 0 09/11/2017 16:32:24 09/11/2017 17:35:09 Routine care 672493103 Z34.01 [facility] surveillance 863113923 Z30.09 [id number] [facility] [address] [place] [address] [phone] 0 09/25/2017 09:42:46 09/25/2017 10:47:47 Routine care 921770975 Z34.01 [id number] MD Tori Stahl ([facility]) [address] [place] [address] [phone] 0 10/02/2017 09:53:09 10/02/2017 11:12:05 Routine care 267024059 Z34.01 [id number] [facility] [address] [place] [address] [id number] 0 11/10/2017 10:08:06 11/10/2017 12:12:37 care 931750001 Z39.2 Exposure t o sexually transmissible disorder 858943363 Z20.2 Implantati on of subcutaneous contraceptive 109672471 Z30.017 Routine an tenatal care 887864833 Z34.01 [id number] [facility] [address] [place] [address] [id number] 0 01/12/2018 09:56:40 01/12/2018 12:28:27 Subcutaneous contraceptive implant palpable 708429966 Z30.46 Family horacio nning surveillance 208913615 Z30.09 [id number] ELSA BARBER (Adult Med) [address] [place] [address] [id number] 0 03/24/2019 13:53:11 03/24/2019 14:38:35 Surveillance of subcutaneous contraceptive implant 779419596 Z30.46 Nexplanon palpated in the upper arm Major depr essive disorder 082311825 F32.9 Admits to increased depression and anxiety over the past 1.5 years Admits to decreased energy, increased social isolation, and less interest in the things that make her happyAdmit s to ups and downs at homeDenies HI/SIPHQ 2/9 was mild in office today 11 out of 27)ADELA was 11 out of 27 in office todayCryin g during this part of the visit- Will start fluoxetine 20 mg, patient aware it will take 4-6 weeks to reach full efficacy of medication - Patient to make follow up visit in 6 weeks to reassess depression and irregular bleeding Irregular intermenstrual bleeding 30562530 N92.1 Starting to have irregular/ constant bleeding x 1 month with nexplanon- Will start xulane patch to help regulate her hormones [id number] ELSA BARBER (Adult Med) [address] [place] [address] [id number] 0 05/05/2019 14:13:12 05/05/2019 14:33:49 Surveillance of subcutaneous contraceptive implant 560407522 Z30.46 Nexplanon palpated in the upper arm Irregular intermenstrual bleeding 11999167 N92.1 Was having irregular/ constant bleeding x 1 month with nexplanon about 1 month agoStarted xulane patches to help but patient had an allergic reaction to the adhesive tape, patient still completed 3 weeks worth and states it helped regulate her period- Will send rx of combinatio n control pills, use if irregular bleeding occurs again Major depr essive disorder 178287830 F32.9 Admits to improvemen t in symptoms with fluoxetine , but feels like it could be increased morePer last visit: Admits to increased depression and anxiety over the past 1.5 yearsAdmit s to decreased energy, increased social isolation, and less interest in the things that make her happyDenie s HI/SI- Will increase fluoxetine from 20 mg to 40 mg qd- Patient to follow up in 3 months if medication is treating her symptoms, she can always return sooner if she feels like an increase in medication is needed again [id number] ELSA BARBER (Adult Med) [address] [place] [address] [phone] 0 08/31/2019 14:06:12 09/01/2019 08:54:58 Irregular intermenstrual bleeding 96643316 N92.1 Nexplanon placed 10/2017, due for removal 10/2020.Was having irregular/ constant bleeding on nexplanon and tried Xulane patches, but was allergic to the adhesive.S tart OCPs at OV on 04/2019 for sx. Worked well x 2 months but then had two weeks of menstrual bleeding last month. - Pt to restart OCPs for two more months, then try off the medication again- if BTB restarts, discuss further with OBGYN Major depr essive disorder 245756067 F32.9 Reports significan t improvemen t in symptoms with fluoxetine , but feels like it could be increased more.About 2 year history of depression Admits to mild persistent decreased energy, but improvemen t in social interest and hedonia.De nies HI/SI- Will increase fluoxetine from 40 mg to 60 mg QD- Patient to follow up in 6 months [id number] ELSA BARBER (Adult Med) [address] [place] [address] [id number] 0 04/26/2022 10:31:54 04/26/2022 11:41:27 Sprain of right ankle [id number] S93.401D Sprain of lateral right ankle 3 wks ago. Edema, ecchymosis , and tenderness have subsided. Only 5/10 severity pain when mimicking rolling ankle motion.-Ad vised pt sprains can take 4-6 wks to fully heal-Ibupr ofen prn for pain; RICE-Provi ded info sheets on ankle sprain in office today Contraception care 03008 5005 Z30.40 Nexplanon was due for removal 10/2020. Set f/u for removalPt is interested in starting IUD. 1. All forms of control reviewed with patient including risks, benefits, pros and cons.2. Patient verbalized understand ing of all forms and that abstinence is the only true form of control. 3. Condom use reviewed as well and prevention and transmissi on of STD's. 4. Pt to schedule appt on next menses for insertion or after negative serum HCG. 5. Pt counseled on use of condoms until control placed but especially with control to prevent STD's. Pt verbalized understand ing.-Pt has regular, monthly periods, lasts 1 week, some cramping. Does not use any other form of contracept ion currently. Brochure regarding varying BC options provided. Pt to inform office of her decision.- Pt not interested in conceiving for min another 1-2 yrs. Screening for malignant neoplasm of cervix 144020955 Z12.4 Last pap 2017. Set f/u for updated PAP. 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 Denies any ankle pain prior to injury.- discussed benign incidental finding with patient-Ad vised pt no need for ortho referral at this time. Pt agreed to hold off. [id number] ELSA BARBER (Adult Med) [facility] [place] [address] 06/06/2022 14:52:37 06/07/2022 10:28:47 Overweight 914231948 E66.3 Advised decreased portion sizes, good food choices, limited eating out or fast food and eliminate soda and juice from diet. Advised physical activity daily and offered encouragem ent to continue with positive changes made so far. Removal of subcutaneous contraceptive 593890002 Z30.46 Nexplanon removed from the left arm today prior to IUD insertion, patient tolerated procedure well- keep wound clean and dry, keep coban on x 24 hours, keep steri-stri ps on x 48 hours Insertion of intrauterine contraceptive device 27997345 Z30.430 Patient wants Kyleena IUD todayDenie s concern for STDs and no abnormal vaginal dischargeU rine test negative in the office todayConse nt form completed prior to the procedure- Kyleena inserted in the office today, patient tolerated procedure well- provided her care instructio ns for post IUD insertion, encouraged her to take ibuprofen with food PRN for pain can also apply heating back to help with cramps- encouraged her to avoid sexual intercours e for at least once week after placement, longer if still having pelvic pain and cramps. Encouraged to still wear protection to protect again STDs- abnormal bleeding is normal for the first 3-6 months after IUD insertion. If extremely heavy bleeding is present, please contact office- f/u in 6 weeks for string check Contraception care 86002 6826 Z30.40 Nexplanon was due for removal 10/2020, no SE. Pt has regular, monthly periods, lasts 1 week, some cramping. Pt not interested in conceiving for min another 1-2 yrs. Last pap smear 10/2017, due for repeat today. Wanting to switch to Kylenna IUD.Feelin g well today with no complaints - urine preg. test negative in the office today- nexplanon removed, Kyleena inserted today, patient tolerated procedures well Sprain of right ankle 11 [id number] S93.401D Sprain of lateral right ankle 1.5 months ago, sprained same ankle a few weeks ago and still having pain. requesting referral for recurrents sprains.- referral placed Gynecologi c examination 50785727 Z01.419 Due for pap smear todayNo prior history of abnormal paps- pap smear completed in the office, will call with results [id number] ELSA BARBER (Adult Med) [facility] [place] [address] 07/18/2022 14:57:04 07/23/2022 12:46:47 Sprain of right ankle [id number] S93.401D Sprain of lateral right ankle 2-3 months ago, requested referral at last visit to ensure all was fineSaw ortho 05/2022 and confirmed likely a sprain, rec. supportive care- patient feels better knowing that after second opinion, she is doing good today Overweight 790815304 E66 .3 Advised decreased portion sizes, good food choices, limited eating out or fast food and eliminate soda and juice from diet. Advised physical activity daily and offered encouragem ent to continue with positive changes made so far. IUD check 038418248 Z30. 431 Nexplanon removed and Kyleena replaced 6 weeks agoHere today for IUD check, she is doing well with the IUD. No complaints today, denies pelvic pain.Start ed spotting a few days ago and today bleeding seems a bit heavier so wondering if about to start her menses- IUD appears in place today, strings visible and roughly 2 cm in length, tucked behind cervix.- f/u as needed [id number] MD Tori Villarreal (Adult Med) [address] [place] [address] [phone] 06/15/2024 09:45:47 06/18/2024 14:24:09 Adult health examination [id number] Z00.00 Family his tory of diabetes mellitus [id number] Z83.3 History of mood disorder 562367252 Z86.59 Refer to [id number] MD Tori BARNHART ([facility]) [address] [place] [address] [phone] 08/09/2024 14:54:05 08/23/2024 09:35:06 Contraception care management [id number] Z30.9 Discussed options. Patient desires IUD removal, start cOCP for improved control over discontinu ation. Planning in near future. Denies history of migraine and tobacco use.- IUD removed without difficulty , patient tolerated well- counselled on taking pill at same time daily- start PNV Venereal d isease screening [id number] Z11.3 Discussed HIV and other STI screening, patient is agreeable to screening today. Removal of intrauterine contraceptive device [id number] Z30.432 IUD removed as above. Patient tolerated well. Adult [facility] th examination [id number] Z00.00 Patient presenting for routine ob gyn physician assistant exam with abnormal findings as below.Last pap smear 06/06/2022 , normal. Not due for mammogram. - screening negative for domestic violence, SI- counselled on healthy lifestyle, balanced diet, regular exercise- reinforced avoidance of tobacco, recreation al drugs, and excessive alcohol Marijuana user [id number] F12.90 Counselled on risks of cognitive impairment , lung damage, increased blood pressure and heart rate. Health Concerns Section Related Observation LastModified by Organization Detai ls LastModified Time None Recorded Concern Status LastModified by Organization Details LastModified Time None Recorded Advance Directives Directive N: Payers Insurance Date Sequence Insurance Name Policy Number Policy Botello Covered Member ID Botello Member ID Guarantor Name 10/17/2024 1 [facility] (MEDICAID HMO) [id number] Sahra Novak [id number] Sahra Novak Notes Date Note Type Note Provider Name and Address Organization Details Recorded Time 04/26/2022 text/html 31 y/o F present s to discuss injured ankle and contraception. Pt states she rolled lateral side of right ankle while at work 04/02/22. Completed x-ray at [facility] same day, no acute fracture seen. Had swelling and bruising, which have since subsided. Took Ibuprofen prn, no longer needed. Pt had a 2nd x-ray completed for a second take.-Denies any pain w/ movement or bearing weight. Only has 5/10 severity pain when mimicking motion of injury, otherwise no pain. -X-ray showed incidental finding of chronic heterotopic ossification, is interested in seeing ortho. Denies any ankle pain prior to injury. Nexplanon was due for removal 10/2020, no SE. Pt is interested in starting copper IUD.-Pt has regular, monthly periods, lasts 1 week, some cramping. Does not use any other form of contraception currently.-Pt not interested in conceiving for min another 1-2 yrs. Is due for pap smear. Last pap 11/10/17. ELSA BARBER Attn: Accounting,[address] [facility], [place], [address], [facility] 04/26/2022 14:03:02 06/06/2022 text/html Sahra is a 31 ye ar old female who presents today for nexplanon removal and IUD insertion. Nexplanon was due for removal 10/2020, no SE. Pt has regular, monthly periods, lasts 1 week, some cramping. Pt not interested in conceiving for min another 1-2 yrs. Last pap smear 10/2017, due for repeat today. Wanting to switch to Kylenna IUD. Feeling well today with no complaints, denies fever, chills, nausea, vomiting, abodminal pain, dysuria, vaginal dicharge, or hematuria. ELSA BARBER Attn: Accounting[address] [place], [address], [facility] 06/06/2022 15:52:08 07/18/2022 text/html 31 year old fempatricia emerson presents today for 6 week IUD check. She is doing well with IUD, no complaints today. Started spotting a few days ago and today bleeding seems a bit heavier so wondering if starting her cycle. Denies fever, chills, nausea, vomiting, headaches, chest pain, SOB, abdominal pain, diarrhea, constipation, dyspareunia, or dysuria. ELSA BARBER Attn: Accounting[address] [place], [address], [place] [facility] 07/18/2022 15:23:17 06/15/2024 text/html Here for a gener al check up. She is concerned about anxiety. She was treated with fluoxetine in the past but did not find it helpful. Raji Turner MD Attn: Accounting[address] [place], [address], [place] [facility] 06/15/2024 10:25:09 08/09/2024 text/html Sahra is a generally healthy 33 y/o presenting for a well woman exam and IUD removal. Hormonal IUD in place, not causing pain, no bleeding. Desires removal due to partner discomfort and desire for increased control over discontinuing contraception, especially if insurance changes. Planning in near future and desires cOCP in the meantime. Has been on cOCP in the past and overall was satisfied, however did become . Endorses better ability to take it now that she is more mature and aware of risks of missing dose. Denies history of migraine with aura and tobacco use. Lives at home with partner, feels safe. Alcohol socially, uses marijuana pen a few times per week. JANEEN ANNE MD Attn: Accounting[address] [place], [address], [facility] 08/21/2024 19:33:11 08/09/2024 text/html Annual GYNReport ed bypatient.History:n o gynecologic complaints Menstrual cycle:no bleeding, IUD Urinary symptoms:No hematuria; No incontinence Vulva:No genital lesion Vagina:Normal vaginal discharge Breast:No breast pain; No breast lump; No nipple discharge Current Contraception:Switc h from IUD to cOCP Sexual complaints:No sexual complaints; No pain during intercourse; Normal libido Menopausal Symptoms:No menopausal symptoms; Normal vaginal lubrication Psychological symptoms:No depression;Anxiety; improving, upcoming appointment with therapist Preventive measures:Encourage regular exercise; Encourage no tobacco use JANEEN ANNE MD Attn: Accounting[address] [facility], [place], [address], [facility] 08/21/2024 19:33:11 OBGyn Episode Ob Episode Information Episode Created Date Number of Fetuses Patient Bloodtype Patient rh Status Prepregnancy Weight lbs Domestic Partner Domestic Partner Phone Father Name Mapping Engineer Status 02/26/20 17 1 A Positive 146 Jimmy gomez [facility] CLOSED Fetus Data First Name Last Name Admitted to NICU Weight (g) Sex Living Outcome Pediatric Complications Fetus ID Race Codes Race Delivery Type Gwendo charlie Rachel Smithe lla false 3175.14 4 F true Full Term [id number] 2106-3 White Vaginal Problems Problem Notes 06/24/17 baby girl, Gwbill ligia hansen sandella, breast and bottle going to try to breastfeed, epidural, PEDS [facility], PPBC jeromy avalos-owen verified 07/22/2017 mds Problem Name Start Date End Date Resolution Snomed Code Not e Bacterial vaginosis 09/30/2016 [id number] Artis Calculation Initial Artis Date Initial Exam Date Initial Exam Provider Initial Ultrasound Date Last Menstrual Period Date Ultra Sound Weeks Gestation 10/07/2017 02/25/2017 butch 03/04/2017 12/12/2016 9 Eighteen To Twenty Week Artis Update Ultra Sound Date Fundal Height At Umbil Quickening Date Ultra Sound Latest Weeks Gestation Final Artis Confirmed By Final Artis Confirmed Date Final Artis Date Ultra Sound Latest Days Gestation 03/04/20 17 9 [email or web address] 03/26/2017 10/08/19 18 0 Pre- Flowsheet Flowsheet Date 02/25/2017 Mcdonough Score Blood Edema Fundus Height Fundus Units Glucose Ketones Leukocytes Nitrite Labor Signs Protein Cervic Dilation Cervic Effacement Cervic Station neg none 10 wks none negative neg Type Weight in lbs Pre/Post Dialysis Refused 146.733882926314 BP Diastolic BP Location Tested BP Systolic BP Type 72 120 sitting Fetus Heart Rate Present Fetus Movement Comments nob Flowsheet Date 03/14/2017 Mcdonough Score Blood Edema Fundus Height Fundus Units Glucose Ketones Leukocytes Nitrite Labor Signs Protein Cervic Dilation Cervic Effacement Cervic Station Type Weight in lbs Pre/Post Dialysis Refused BP Diastolic BP Location Tested BP Systolic BP Type Fetus Heart Rate Present Fetus Movement Comments Flowsheet Date 03/26/2017 Mcdonough Score Blood Edema Fundus Height Fundus Units Glucose Ketones Leukocytes Nitrite Labor Signs Protein Cervic Dilation Cervic Effacement Cervic Station neg none 12.2 wks none negative neg Type Weight in lbs Pre/Post Dialysis Refused 142.892863392377 BP Diastolic BP Location Tested BP Systolic BP Type 58 104 sitting Fetus Heart Rate Present Fetus Movement Comments Flowsheet Date 04/30/2017 Mcdonough Score Blood Edema Fundus Height Fundus Units Glucose Ketones Leukocytes Nitrite Labor Signs Protein Cervic Dilation Cervic Effacement Cervic Station neg none 17 wks none negative none neg Type Weight in lbs Pre/Post Dialysis Refused 148.057286065885 BP Diastolic BP Location Tested BP Systolic BP Type 60 120 sitting Fetus Heart Rate Present A 150 Present Fetus Movement A No Comments afp/tsh/us Flowsheet Date 05/27/2017 Mcdonough Score Blood Edema Fundus Height Fundus Units Glucose Ketones Leukocytes Nitrite Labor Signs Protein Cervic Dilation Cervic Effacement Cervic Station neg none 21 wks none negative none neg Type Weight in lbs Pre/Post Dialysis Refused 152.475714185621 BP Diastolic BP Location Tested BP Systolic BP Type 64 120 sitting Fetus Heart Rate Present A 145 Present Fetus Movement A Yes Comments PINK!! Flowsheet Date 06/24/2017 Mcdonough Score Blood Edema Fundus Height Fundus Units Glucose Ketones Leukocytes Nitrite Labor Signs Protein Cervic Dilation Cervic Effacement Cervic Station neg none 26 cm none negative none neg Type Weight in lbs Pre/Post Dialysis Refused 155.90857287010 BP Diastolic BP Location Tested BP Systolic BP Type Fetus Heart Rate Present A 154 Present Fetus Movement A Yes Comments OBFU glucose challenge test and Tdap next Flowsheet Date 07/22/2017 Mcdonough Score Blood Edema Fundus Height Fundus Units Glucose Ketones Leukocytes Nitrite Labor Signs Protein Cervic Dilation Cervic Effacement Cervic Station neg none 29 cm none negative none neg Type Weight in lbs Pre/Post Dialysis Refused 158.310060499699 BP Diastolic BP Location Tested BP Systolic BP Type 70 110 sitting Fetus Heart Rate Present A 145 Present Fetus Movement A Yes Comments gtt, tdap, us Flowsheet Date 08/11/2017 Mcdonough Score Blood Edema Fundus Height Fundus Units Glucose Ketones Leukocytes Nitrite Labor Signs Protein Cervic Dilation Cervic Effacement Cervic Station neg none 32 cm none negative none neg Type Weight in lbs Pre/Post Dialysis Refused 161.380348439231 BP Diastolic BP Location Tested BP Systolic BP Type 70 110 sitting Fetus Heart Rate Present A 152 Present Fetus Movement A Yes Comments gtt nl/ cbc nl/ tsh nl Flowsheet Date 08/25/2017 Mcdonough Score Blood Edema Fundus Height Fundus Units Glucose Ketones Leukocytes Nitrite Labor Signs Protein Cervic Dilation Cervic Effacement Cervic Station neg none 33 cm none negative none neg Type Weight in lbs Pre/Post Dialysis Refused 160.001741090287 BP Diastolic BP Location Tested BP Systolic BP Type 62 110 Fetus Heart Rate Present A 143 Present Fetus Movement A Yes Comments 36 week labs next time Flowsheet Date 09/11/2017 Mcdonough Score Blood Edema Fundus Height Fundus Units Glucose Ketones Leukocytes Nitrite Labor Signs Protein Cervic Dilation Cervic Effacement Cervic Station neg none 36 wks none negative none neg 0cm 50% - 3 Type Weight in lbs Pre/Post Dialysis Refused 163.646512651939 BP Diastolic BP Location Tested BP Systolic BP Type 60 100 sitting Fetus Heart Rate Present A 144 Present Fetus Movement A Yes Comments 36w labs wtc/wlb Flowsheet Date 09/25/2017 Mcdonough Score Blood Edema Fundus Height Fundus Units Glucose Ketones Leukocytes Nitrite Labor Signs Protein Cervic Dilation Cervic Effacement Cervic Station neg none 38 cm none negative none neg 0cm 20% - 3 Type Weight in lbs Pre/Post Dialysis Refused 161.368711197477 BP Diastolic BP Location Tested BP Systolic BP Type 82 120 sitting Fetus Heart Rate Present A 154 Present Fetus Movement A Yes Comments mil 10/07/17 Flowsheet Date 10/02/2017 Mcdonough Score Blood Edema Fundus Height Fundus Units Glucose Ketones Leukocytes Nitrite Labor Signs Protein Cervic Dilation Cervic Effacement Cervic Station neg none 39 cm none negative none neg 0cm 50% - 4 Type Weight in lbs Pre/Post Dialysis Refused 163.179728118695 BP Diastolic BP Location Tested BP Systolic BP Type 68 128 sitting Fetus Heart Rate Present A 136 Present Fetus Movement A Yes Comments Induction of labor 10/03/17 Flowsheet Date 11/10/2017 Mcdonough Score Blood Edema Fundus Height Fundus Units Glucose Ketones Leukocytes Nitrite Labor Signs Protein Cervic Dilation Cervic Effacement Cervic Station Type Weight in lbs Pre/Post Dialysis Refused 155.81279124490 BP Diastolic BP Location Tested BP Systolic BP Type Fetus Heart Rate Present Fetus Movement Comments Menstrual History Last Menstrual Date Menses Monthly On Bcp Conception Prior Menses Frequency Hcg Plus Date Menarche Onset Age 0612/12/2016 true false 11/11/2016 28 02/26/20 1 7 15 Genetic Screening And Infection History Question Response Note Patient's Age Will Be 35 Years Or Older At Estim ated Date of Delivery false Thalassemia (Lao, Hong Konger, Mediterranean, Or Background): MCV < 80 false Neural Tube Defect (Meningomyelocele, Spina Bifi da, Or Anencephaly) false Congenital Heart Defect false Down Syndrome false Felipe-Sachs (eg, Religious, Cajun, American-Doyline) f alse Mariana Disease false Sickle Cell Disease Or Trait () false Hemophilia Or Other Blood Disorders false Muscular Dystrophy false Cystic Fibrosis false Marion's Chorea false Mental Retardation/Autism false If Yes, Was Person Tested For Fragile X? false Other Inherited Genetic Or Chromosomal Disorder false Maternal Metabolic Disorder (eg, Type 1 Diabetes , PKU) false Patient Or Baby's Father Had A Child With Defects Not Listed Above false Recurrent Loss, Or A Stillbirth false Medications (including Suppl ements, Vitamins, Herbs, OTC Drugs), Illicit/Recreational Drugs, Alcohol false If Yes, Agent(s) And Strength/Dosage false Any Other Genetic History false Live With Someone With TB Or Exposed To TB false Patient Or Partner Has History Of Genital Herpes false Rash Or Viral Illness Since Last Menstrual Perio d false History Of STD, Gonorrhea, Chlamydia, HPV, Syphi lis false Other Infection History true BV Plans and Education First Trimester Discussed Date Discussion Item Discussion Note Discuss ed By 03/14/2017 Anticipated course o f care [place]03/14/2017 Alcohol [facility]03/14/2017 Intimate partner violence [facility]03/14/2017 Environmental/work hazards [facility]03/14/2017 Screening for aneuploidy [facility]hu [facility]03/14/2017 Nutrition counseling ; special diet; dietary precautions (mercury, listeriosis) [facility]03/14/2017 Childbirth classes/h ospital facilities given list of classes offered at [facility]03/14/2017 HIV and other routin e tests at initial ob visit [facility]03/14/2017 [facility] factors identif ied [facility] 03/[facility]/2017 [facility] [facility]03/14/[address] [facility]03/14/2017 Use of any medicatio ns (including supplements, vitamins, herbs, or OTC drugs) [place] [id number] 03/14/2017 06/24/17 Try , jeromy-owen [facility]03/14/2017 Sexual activity [place] [address] 03/14/2017 Tobacco/smoking cess ation counseling (ask, advise, assess, assist, and arrange) [place] [address] 03/14/2017 Illicit/recreational drugs [place] [address] 03/14/2017 Dental care given dental con sent at initial ob visit [facility]03/14/[address] [facility]03/14/2017 Seat belt use [place] [address] 03/14/2017 Indications for ultrasonography [place] [address] 03/14/2017 Avoidance of saunas or hot tubs [place] [address] 03/14/2017 Toxoplasmosis precau tions (cats/raw meat) [place] [address] Second Trimester Discussed Date Discussion Item Discussion Note Discuss ed By 06/24/2017 Selecting a care provider 09/11/17 Unique Mendez cb-rma [facility] 06/24/2017 family planning/tubal sterilization 06/24/17 PPBC Nexplanon, cb-rma [email or web address] Third Trimester Discussed Date Discussion Item Discussion Note Discuss ed By 06/24/2017 Anesthesia plans 06/24/17 yes to epidural , cb-rma [email or web address] 06/24/2017 Circumcision 06/24/17 baby gi rl, yes to circ if boy, cb-rma [email or web address] 06/24/2017 06/24/17 breast feed, cb-rm a [email or web address] Delivery Information Delivery Date Delivery Type Labor Anesthesia Weeks Gestation Incision Type Labor Labor Length Hrs Delivered By Post Complications Tubal Sterilization Discharge Date Comments 8 Induce d Regional-Ep idural 39.[address] Covarrubias None false 10/06/2017 Pediatric chad: [facility] Discharge Information Feeding Method Contraceptive Method Maternal HG B and HCT Levels Bottle Nexplanon Ob Episode Information Episode Created Date Number of Fetuses Patient Bloodtype Patient rh Status Prepregnancy Weight lbs Domestic Partner Domestic Partner Phone Father Name Mapping Engineer Status 02/26/20 17 1 CLOSED Fetus Data First Name Last Name Admitted to NICU Weight (g) Sex Living Outcome Pediatric Complications Fetus ID Race Codes Race Delivery Type 3033.16 9704 F Full Term [address]45 Vaginal Only Artis Calculation Initial Artis Date Initial Exam [...] Complications Tubal Sterilization Discharge Date Comments 3 Regional-Ep idural Discharge Information Feeding Method Contraceptive Method Maternal HG B and HCT Levels Ob Episode Information Episode Created Date Number of Fetuses Patient Bloodtype Patient rh Status Prepregnancy Weight lbs Domestic Partner Domestic Partner Phone Father Name Mapping Engineer Status 02/26/20 17 1 CLOSED Fetus Data First Name Last Name Admitted to NICU Weight (g) Sex Living Outcome Pediatric Complications Fetus ID Race Codes Race Delivery Type 3259.96 5704 F Full Term [address]602 Vaginal Artis Calculation Initial Artis Date Initial Exam [...] Complications Tubal Sterilization Discharge Date Comments 2 Regional-Ep idural Discharge Information Feeding Method Contraceptive Method Maternal HG B and HCT Levels
[2024-12-04] MEDS: LACTATED RINGERS 2,000 ML 999 ML IV CONT (16:00)
[2024-12-04 16:40] LABS: Basophils Percent Auto 0.3 % (0.2-1.2); Eosinophils Absolute Auto 0.1 K/mm3 (0-0.3); Eosinophils Percent Auto 0.8 % (0-4.4); Hematocrit 36.1 % (37.0-47.0); Hemoglobin 12.4 g/dL (12.0-15.0); Immature Granulocyte Absolute 0.03 K/mm3 (0.00-0.031); Immature Granulocyte Percent A 0.3 % (0-0.5); Lymphocytes Absolute Auto 1.33 K/mm3 (0.9-3.2); Lymphocytes Percent Auto 13.2 % (18.3-44.2); Mean Corpuscular HGB Conc 34.3 g/dl (32-36); Mean Corpuscular Hemoglobin 31.7 pg (26-34); Mean Corpuscular Volume 92.3 fl (80-100); Mean Platelet Volume 10.1 fl (7.4-10.4); Monocytes Absolute Auto 0.5 K/mm3 (0.1-0.6); Monocytes Percent Auto 5.3 % (2.6-8.5); Neutrophils Absolute Auto 8.1 K/mm3 (1.3-6.7); Neutrophils Percent Auto 80.1 % (45.5-73.1); Platelet Count Result 202 k/mm3 (150-375); Red Blood Count 3.91 M/mm3 (4.2-5.4); Red Cell Distribution Width 12.4 % (11.5-14.5); White Blood Count 10.1 K/mm3 (4.5-10.0)
[2024-12-04 16:53] LABS: Add Urine Microscopic? YES; Appearance Urine Clear (Clear); Bacteria Urine Rare /hpf; Bilirubin Urine Negative (Negative); Blood Urine Trace (Negative); Calcium Oxalate Crystals Urine Present /hpf; Color Urine Yellow (Yellow); Glucose Urine UA Negative (Negative); Ketones Urine Trace mg/dL (Negative); Leukocyte Esterase Ur Negative LEU/UL (Negative); Mucus Urine Present /lpf; Need Manual Microscopic Reviewed; Nitrate Urine Negative (Negative); Protein Urine Trace mg/dL (Negative); Specific Grav Ur 1.027 (1.001-1.035); Squamous Epithelial Cell Urine Few /hpf (Few)
== END 2024-12-04 17:50 | disposition home or self-care (01) ==
PROVIDERS: Emergency Provider Emergency Medicine; PCP Internal Medicine Gastroenterology
DX: R55 Syncope and collapse (principal)
CPT/HCPCS: 36415; 81001; 83605; 85025; 87086; 93005; 96360; 96361; 99283; J7120

== ENCOUNTER 2025-02-25 16:47 | Outpatient (CLI) | payer OTHER, SELFPAY ==
--- OUTSIDE RECORDS SUMMARY | 2007-09-24 10:48 | XMS_ITS | Continuity of Care Document ---
Author Organization [facility] Address [address] [place] [address] [address] [place] [address] Phone Care Team Providers Care Supply Chain Procurement Manager Name Role Phone Katey Pineda Unavailable Unavailable Procedures Procedure Date Eye Exam, New Patient Advance Directives Directive Yes / No Effective Date File Name No Information Encounters Encounter Description Practice Location Reason(s) For Visit Diagnoses Date Provider Providers Copied on Encounter Formerly [facility], [address], [place], [place], [id number], [place] tel:[phone] [facility] [place] No Information [address] Toro. [address] [facility] , [address], [place], [address], [place]. tel:[phone] Family History Family Member Type Diagnosis Age At Onset No Information Payers Payer name Insurance type Covered democrat ID Authoriza tijosy(s) Medicaid [facility] [id number] Social History Type Description Quantity Date Captured Comments Sex Female Smoking Status No Information Chief Complaint And Reason For Visit No Information Reason For Referral Reason For Referral No Information History Of Present Illness Encounter Date Complaint History Of Prese nt Illness No Information Functional Status Date Functional Assessmen t No Information Instructions Date Instruction Additional Infor mation No Information Assessments Type Assessment Date No Information Patient Care Teams Name Effective Dates (start - stop) Status Members No Information
== END 2025-02-25 16:48 | disposition home or self-care (01) ==
PROVIDERS: PCP Internal Medicine Gastroenterology; Visit Provider Advanced Practice Midwife
DX: Z36.89 Encounter for other specified antenatal screening (principal); Z3A.00 Weeks of gestation of pregnancy not specified
CPT/HCPCS: 36415; 86850; 86900; 86901

== ENCOUNTER 2025-03-23 11:11 | Outpatient (RCR) | payer OTHER, SELFPAY ==
[2025-03-23 12:46] LABS: Hematocrit 34.9 % (37.0-47.0); Hemoglobin 11.8 g/dL (12.0-15.0)
[2025-03-23 13:05] LABS: Glucose 1 Hour PP 50gm Dose 125 mg/dL
[2025-03-23 13:36] LABS: Syphilis IgG/IgM Antibody Non-Reactive (Nonreactive)
[2025-03-23 13:46] LABS: HIV 1/2 Ab P24 Ag Result Negative (Negative)
== END 2025-06-21 23:59 | disposition home or self-care (01) ==
LOC: ANHLAB 11:11
PROVIDERS: PCP Internal Medicine Gastroenterology; Visit Provider Advanced Practice Midwife
DX: Z11.4 Encounter for screening for human immunodeficiency virus [HIV] (principal); Z11.3 Encounter for screening for infections with a predominantly sexual mode of transmission; Z29.13 Encounter for prophylactic Rho(D) immune globulin; O36.0130 Maternal care for anti-D [Rh] antibodies, third trimester, not applicable or unspecified; Z3A.00 Weeks of gestation of pregnancy not specified
CPT/HCPCS: 36415; 81279; 82947; 85014; 85018; 85461; 86593; 86703; 86850; 86900; 86901; G0432

== ENCOUNTER 2025-04-06 16:15 | Outpatient (CLI) | payer OTHER, SELFPAY ==
--- OUTSIDE RECORDS SUMMARY | 2007-09-24 10:48 | XMS_ITS | Continuity of Care Document ---
Author Organization [facility] Address [address] [place] [address] [address] [place] [address] Phone Care Team Providers Care Adult Education Instructor Name Role Phone Katey Pineda Unavailable Unavailable Procedures Procedure Date Eye Exam, New Patient Advance Directives Directive Yes / No Effective Date File Name No Information Encounters Encounter Description Practice Location Reason(s) For Visit Diagnoses Date Provider Providers Copied on Encounter [facility], [address], [place], [place], [id number], [place] tel:[phone] [facility] [place] No Information [address] Miriam Del Toro. [address] [facility] , [address], [place], [address], [place]. tel:[phone] Family History Family Member Type Diagnosis Age At Onset No Information Payers Payer name Insurance type Covered constitution party ID Authoriza tijosy(s) Medicaid [facility] [id number] Social History Type Description Quantity Date Captured [...]
--- OUTSIDE RECORDS SUMMARY | 2025-04-06 17:44 | XMS_ITS | Data Portability ---
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 Lab HIV 1 + 2, meaningf ul use set 2024 025 [facility], [address] [place] [address], [address], [place], [address], 5 08:25:03 RPR (rapid plasma reagin), serum 2024 025 [facility], [address] [place] [address], [address], [place], [address], 5 08:25:01 HBsAg (hepatit is B surface Ag), EIA, serum 2024 025 [facility], [address] [place] [address], [address], [place], [address], 5 08:24:59 Hepatiti s C IgG Ab, qual, serum 2024 025 [facility], [facility] [address], [address], [place], [address], 5 08:24:58 vaginal pathogen s panel, VICKY+prob e, vaginal fluid 2024 025 [facility], [facility] [address], [address], [place], [address], 5 03:08:33 CMP, serum or plasma 2023 024 [facility], [facility] [address], [address], [place], [address], 4 07:12:24 CBC 2023 024 [facility], [address] [place] [address], [address], [place], [address], 4 07:12:28 HbA1c (hemoglo bin A1c), blood 2023 024 [facility], [facility] [address], [address], [place], [address], 4 07:12:27 TSH, ultra-se nsitive, serum 2023 024 [facility], [address] [place], [place] [address]rudy [address], [address], [place], [address], 4 07:12:26 lipid panel, serum 2023 024 [facility], [facility] [address], [address], [place], [address], 4 07:12:23 pap, IG + HPV, cervical 2021 022 [facility], [address] [facility] [facility], [address], [place], [address], 2 07:07:39 pregnanc y test, urine 2021 In-Office Order, Internal Use Only DO Not Attach Compendium DO Not Attach Compendium, Do Not Delete/merge, [id number] 2 15:45:19 Referral behavior al health referral 2023 024 bob Valle (), [address] [place], [address], 4 14:24:39 orthoped ic surgeon referral - Recurren t sprain of R ankle, wants second opinion by ortho 2021 [facility], [address], [place], [address], 2 13:36:36 Procedures None recorded . Surgeries None recorded . Imaging None recorded . Medication Orders Loestrin Fe 07/12 (28-Day) 1 mg-20 mcg (21)/75 mg (7) tablet 2024 025 [id number], [address], [place], [place], [id number], 5 16:17:30 Vitamin 27 mg iron-0.8 mg tablet 2024 025 [facility] #[id number], [address], [place], [place], [id number], 5 16:17:29 Kyleena 17.5 mcg/24 hr (up to 5 years) 19.5 mg intraute rine device 2021 022 [email or web address] Not available 5 15:18:46 Patient TargetsNo targets recorded. Patient Instructions Encounter Date Encounter Id Patient Instructions Last Modified By Organization Details Last Modified Time 04/26/2022 [id number] ankle sprain: ca re instructions Not available 04/26/2022 11:24:30 learning about rice (rest, ice, compression, and elevation) Not available 04/26/2022 11:24:30 ankle sprain: rehab exercises Not available 04/26/2022 11:24:30 learning about control: intrauterine device (iud) Not available 04/26/2022 11:23:59 06/06/2022 [id number] intrauterine device (IUD) for control: care instructions Not available 06/06/2022 15:08:46 intrauterine device (IUD) insertion: care instructions Not available 06/06/2022 15:08:46 A healthy lifestyle: care instructions Not available 06/06/2022 15:07:54 07/18/2022 [id number] A healthy lifestyle: care instructions Not available 07/18/2022 15:18:47 08/09/2024 [id number] Attending Physician Attestation S: 33 yo F [...] my brief note above. Janeen Anne MD [email or web address] Not available 08/09/2024 16:05:47 Reason for Referral Orthopedic Surgeon Referral for Sprain of right ankle Recurrent sprain of R ankle, wants second opinion by ortho Referring Physician: Hilda Darling, Machine Striper, Encounter Date: 06/06/2022 Behavioral Health Referral f or History of mood disorder Referring Physician: Raji Slade, Internal Medicine, Encounter Date: 06/15/2024 Results Created [...] diffe renti ation . Not Available [facility] ([facility]) [address] [place], [address], 06/18/2022 07:07:38 06/06/20 22 06/18/2022 IGP, APTIM A HPV diagnosis: Jade t NEGAT DOMINGO FOR INTRA EPITH ELIAL LESCORINNA N OR ALEJANDRA BROWN . Not Available [facility] ([facility]) [address] [facility], [place], [address], 06/18/2022 07:07:38 06/06/20 22 06/18/2022 IGP, APTIM A HPV specimen adequacy: Jade t Satis facto ry for evalu ation . Endoc ervic al and/o r squam ous metap lasti c cells (endo cervi daniel compo nent) are prese nt. Not Available [facility] ([facility]) [address] [place], [address], 06/18/2022 07:07:38 06/06/20 22 06/18/2022 IGP, APTIM A HPV clinician provided ICD10: Jade salcedo Z01.4 19 Not Available [facility] ([facility]) [address] [place], [address], 06/18/2022 07:07:38 06/06/20 22 06/18/2022 IGP, APTIM A HPV performed by: Jade t Philly headley, Cytot adilene salcedo (ASCP ) Not Available [facility] ([facility]) [address] [facility], [place], [address], 06/18/2022 07:07:38 06/06/20 22 06/18/2022 IGP, APTIM A HPV . . Not Available [facility] ([facility]) [address] [facility], [place], [address], 06/18/2022 07:07:38 06/06/20 22 06/18/2022 IGP, APTIM [...] ts do occur . Not Available [facility] ([facility]) [address] [facility], [place], [address], 06/18/2022 07:07:38 06/06/20 22 06/18/2022 IGP, APTIM A HPV test methodology: Commen t This liqui d based ThinP rep(R ) pap test was scree edison with the use of an image guide d systalfonzo m. Not Available [facility] ([facility]) [address] [facility], [place], [address], 06/18/2022 07:07:38 06/06/20 22 06/06/2022 pregn hillary test, urine HCG negati ve Not Available In-Office Order Internal Use Only DO Not Attach Compendium DO Not Attach Compendium, Do Not Delete/merge, [id number] 06/06/2022 15:08:21 06/15/20 24 06/16/2024 LIPID PANEL cholesterol, total 137 mg/dL 100-19 9 Not Available [facility] ([facility]) [address] [facility], [place], [address], 06/16/2024 07:12:23 06/15/20 24 06/16/2024 LIPID PANEL triglyceride s 56 mg/dL 0-149 Not Available [facility] ([facility]) [address] [place], [address], 06/16/2024 07:12:23 06/15/20 24 06/16/2024 LIPID PANEL HDL cholesterol 46 mg/dL >39 Not Available [facility] ([facility]) [address] [place], [address], 06/16/2024 07:12:23 06/15/20 24 06/16/2024 LIPID PANEL VLDL cholesterol daniel 12 mg/dL 5-40 Not Available [facility] ([facility]) [address] [place], [address], 06/16/2024 07:12:23 06/15/20 24 06/16/2024 LIPID PANEL LDL chol calc ([facility]) 79 mg/dL 0-99 Not Available [facility]) [address] [place], [address], 06/16/2024 07:12:23 06/15/20 24 06/16/2024 COMP. METAB OLIC PANEL (14) glucose 86 mg/dL 70-99 Not Available [facility] ([facility]) [address] [place], [address], 06/16/2024 07:12:24 06/15/20 24 06/16/2024 COMP. METAB OLIC PANEL (14) BUN 8 mg/dL 6-20 Not Available [facility] ([facility]) [address] [place], [address], 06/16/2024 07:12:24 06/15/20 24 06/16/2024 COMP. METAB OLIC PANEL (14) creatinine 0.79 mg/dL 0.57-1 .00 Not Available [facility] ([facility]) [address] [place], [address], 06/16/2024 07:12:24 06/15/20 24 06/16/2024 COMP. METAB OLIC PANEL (14) eGFR 101 mL/mi n/1.7 3 >59 Not Available [facility] ([facility]) [address] [facility], [place], [address], 06/16/2024 07:12:24 06/15/20 24 06/16/2024 COMP. METAB OLIC PANEL (14) BUN/creatini ne ratio 10 9-23 Not Available [facility] ([facility]) [address] [facility], [place], [address], 06/16/2024 07:12:24 06/15/20 24 06/16/2024 COMP. METAB OLIC PANEL (14) sodium 142 mmol/ L 134-14 4 Not Available [facility] ([facility]) [address] [facility], [place], [address], 06/16/2024 07:12:24 06/15/20 24 06/16/2024 COMP. METAB OLIC PANEL (14) potassium 3.7 mmol/ L 3.5-5. 2 Not Available [facility] ([facility]) [address] [facility], [place], [address], 06/16/2024 07:12:24 06/15/20 24 06/16/2024 COMP. METAB OLIC PANEL (14) chloride 102 mmol/ L 96-106 Not Available [facility] ([facility]) [address] [facility], [place], [address], 06/16/2024 07:12:24 06/15/20 24 06/16/2024 COMP. METAB OLIC PANEL (14) carbon dioxide, total 27 mmol/ L 20-29 Not Available [facility] ([facility]) [address] [facility], [place], [address], 06/16/2024 07:12:24 06/15/20 24 06/16/2024 COMP. METAB OLIC PANEL (14) calcium 9.5 mg/dL 8.7-10 .2 Not Available [facility] ([facility]) [address] [place], [address], 06/16/2024 07:12:24 06/15/20 24 06/16/2024 COMP. METAB OLIC PANEL (14) protein, total 6.7 g/dL 6.0-8. 5 Not Available [facility] ([facility]) [address] [place], [address], 06/16/2024 07:12:24 06/15/20 24 06/16/2024 COMP. METAB OLIC PANEL (14) albumin 4.5 g/dL 3.9-4. 9 Not Available [facility] ([facility]) [address] [place], [address], 06/16/2024 07:12:24 06/15/20 24 06/16/2024 COMP. METAB OLIC PANEL (14) globulin, total 2.2 g/dL 1.5-4. 5 Not Available [facility] ([facility]) [address] [place], [address], 06/16/2024 07:12:24 06/15/20 24 06/16/2024 COMP. METAB OLIC PANEL (14) bilirubin, total 0.4 mg/dL 0.0-1. 2 Not Available [facility] ([facility]) [address] [place], [address], 06/16/2024 07:12:24 06/15/20 24 06/16/2024 COMP. METAB OLIC PANEL (14) alkaline phosphatase 64 IU/L 44-121 Not Available [facility] ([facility]) [address] [place], [address], 06/16/2024 07:12:24 06/15/20 24 06/16/2024 COMP. METAB OLIC PANEL (14) AST (SGOT) 17 IU/L 0-40 Not Available [facility] ([facility]) [address] [facility], [place], [address], 06/16/2024 07:12:24 06/15/20 24 06/16/2024 COMP. METAB OLIC PANEL (14) ALT (SGPT) 16 IU/L 0-32 Not Available [facility] ([facility]) [address] [facility], [place], [address], 06/16/2024 07:12:24 06/15/20 24 06/16/2024 TSH RFX ON ABNOR MAL TO FREE T4 TSH 0.590 uIU/m L 0.450- 4.500 Not Available [facility] ([facility]) [address] [facility], [place], [address], 06/16/2024 07:12:26 06/15/20 24 06/16/2024 HEMOG LOBIN A1C hemoglobin A1C 5.2 % 4.8-5. 6 Predi abete s: 5.7 - 6.4 Diabe niki: >6.4 Glyce doc contr ol for adult s with diabe niki: <7.0 Not Available [facility] ([facility]) [address] [facility], [place], [address], 06/16/2024 07:12:27 06/15/20 24 06/16/2024 CBC, PLATE LET, NO DIFFE RENTI AL WBC 6.1 x10e3 /uL 3.4-10 .8 Not Available [facility] ([facility]) [address] [place], [address], 06/16/2024 07:12:28 06/15/20 24 06/16/2024 CBC, PLATE LET, NO DIFFE RENTI AL RBC 4.85 x10e6 /uL 3.77-5 .28 Not Available [facility] ([facility]) [address] [place], [address], 06/16/2024 07:12:28 12/24/20 24 06/16/2024 CBC, PLATE LET, NO DIFFE RENTI AL hemoglobin 15.3 g/dL 11.1-1 5.9 Not Available [facility] ([facility]) [address] [facility], [place], [address], 06/16/2024 07:12:28 06/15/2006/16/2024 CBC, PLATE LET, NO DIFFE RENTI AL hematocrit 45.4 % 34.0-4 6.6 Not Available [facility] ([facility]) [address] [facility], [place], [address], 06/16/2024 07:12:28 06/15/2006/16/2024 CBC, PLATE LET, NO DIFFE RENTI AL MCV 94 fL 79-97 Not Available [facility] ([facility]) [address] [facility], [place], [address], 06/16/2024 07:12:28 06/15/2006/16/2024 CBC, PLATE LET, NO DIFFE RENTI AL MCH 31.5 pg 26.6-3 3.0 Not Available [facility] ([facility]) [address] [facility], [place], [address], 06/16/2024 07:12:28 06/15/20 24 06/16/2024 CBC, PLATE LET, NO DIFFE RENTI AL MCHC 33.7 g/dL 31.5-3 5.7 Not Available [facility] ([facility]) [address] [facility], [place], [address], 06/16/2024 07:12:28 06/15/2006/16/2024 CBC, PLATE LET, NO DIFFE RENTI AL RDW 12.0 % 11.7-1 5.4 Not Available [facility] ([facility]) [address] [facility], [place], [address], 06/16/2024 07:12:28 06/15/2006/16/2024 CBC, PLATE LET, NO DIFFE RENTI AL platelets 257 x10e3 /uL 150-45 0 Not Available [facility] ([facility]) [address] [place], [address], 06/16/2024 07:12:28 08/09/19 25 08/10/2024 INTER PRETA TION: interpretati on: Commen t Not infec julieta with HCV unles s early or acute infec tion is suspe cted (whic h may be delay ed in an immun ocomp romis ed indiv idual ), or other evide nce exist s to indic ate HCV infec tion. Not Available [facility] ([facility]) [address] [facility], [place], [address], 08/10/2024 08:24:57 08/09/1908/10/2024 HCV ANTIB MOLLY RFX TO QUANT PCR HCV Ab NON REACTI VE nonrea ctive Not Available [facility] ([facility]) [address] [facility], [place], [address], 08/10/2024 08:24:58 08/09/1908/10/2024 HBSAG SCREE N HBsAg screen NEGATI VE negati ve Not Available [facility] ([facility]) [address] [place], [address], 08/10/2024 08:24:59 08/09/1908/10/2024 RPR, RFX QN RPR/C ONFIR M TP RPR NON REACTI VE nonrea ctive Not Available [facility] ([facility]) [address] [place], [address], 08/10/2024 08:25:01 08/09/1908/10/2024 HIV AB/P2 4 AG WITH REFLE X HIV Ab/P24 Ag screen NON REACTI VE nonrea ctive HIV-1 /HIV- 2 antib odies and HIV-1 p24 antig en were NOT detec julieta. There is no labor atory evide nce of HIV infec tion. HIV Negat domingo Not Available [facility] ([facility]) [address] [facility], [place], [address], 08/10/2024 08:25:03 08/09/1908/10/2024 NUA B VAGIN ITIS PLUS (VG+) atopobium vaginae HIGH - 2 score abnormal Not Available [facility] ([facility]) [address] [facility], [place], [address], 08/11/2024 03:08:33 08/09/1908/10/2024 NUA B VAGIN ITIS PLUS (VG+) bvab 2 HIGH - 2 score abnormal Not Available [facility] ([facility]) [address] [facility], [place], [address], 08/11/2024 03:08:33 08/09/1908/10/2024 NUA B VAGIN ITIS PLUS (VG+) megasphaera 1 LOW - 0 score Calcu late total score by arsen lou the 3 indiv idual bacte rial vagin [...] prese nce of BV. Not Available [facility] ([facility]) [address] [facility], [place], [address], 08/11/2024 03:08:33 08/09/1908/10/2024 NUA B VAGIN ITIS PLUS (VG+) francoise albicans, VICKY NEGATI VE negati ve Not Available [facility] ([facility]) [address] [facility], [place], [address], 08/11/2024 03:08:33 08/09/19 25 08/10/2024 NUA B VAGIN ITIS PLUS (VG+) francoise glabrata, VICKY NEGATI VE negati ve Not Available [facility] ([facility]) [address] [facility], [place], [address], 08/11/2024 03:08:33 08/09/19 25 08/11/2024 NUA B VAGIN ITIS PLUS (VG+) trich vag by VICKY NEGATI VE negati ve Not Available [facility] ([facility]) [address] [facility], [place], [address], 08/11/2024 03:08:33 08/09/1908/11/2024 NUA B VAGIN ITIS PLUS (VG+) chlamydia trachomatis, VICKY NEGATI VE negati ve Not Available [facility] ([facility]) [address] [facility], [place], [address], 08/11/2024 03:08:33 08/09/1908/11/2024 NUA B VAGIN ITIS PLUS (VG+) neisseria gonorrhoeae, VICKY NEGATI VE negati ve Not Available [facility] ([facility]) [address] [facility], [place], [address], 08/11/2024 03:08:33 04/26/20 22 04/26/2022 XR, ankle , 3 or more view No observ ation record ed. BARCODE Not Available 2021 11:36:53 Result Notes None recorded. Problems Name Problem SNOMED Code Status Onset Date Resolution Date Notes Provider Name and Address Organization Details Recorded Time Subcutaneou s contracepti ve implant palpable 683195152 Completed 201605/27/2017 CARY Rojas [place] - [facility] 7 16:29:13 Contracepti on care Completed 201605/27/2017 SIVAKUMAR [place] 7 17:43:11 Gynecologic examination Completed 201605/27/2017 CARY Rojas [place] [facility] 7 16:29:17 Candidiasis of vagina 84695720 Completed 201603/24/2019 ELSA BARBER Attn: Krystlejose ramon lou,[address] [facility], [place], [address], [place] - [facility] 9 14:12:38 Bacterial vaginosis 400073490 Completed 201603/24/2019 Mara Hernadez MD Attn: Jeffrey lou,[address] [facility], [place], [address], [place] [facility] 5 09:49:12 Bacterial vaginosis 780392418 Completed 2016 Letty Wu [place] null, [place] - [facility] 8 10:58:35 65867917 Completed 201605/27/2017 Josesito Covarrubias null, [place] [facility] 7 17:43:08 Serum thyroid stimulating hormone level outside reference range 376754615 Completed 201605/27/2017 Josesito FreyMarci [place] [facility] 7 17:42:59 Adult health examination Active 2023 Raji Slade MD Attn: Jeffrey lou,[address] [place], [address], [place] [facility] 4 10:20:01 Family history of diabetes mellitus 304255827 Active 2023 Mara Hernadez MD Attn: Jeffrey lou,[address] [place], [address], [place] [facility] 5 15:00:26 History of mood disorder 757320026 Active 2023 Mara Hernadez MD Attn: Jeffrey lou,[address] [place], [address], [place] [facility] 5 15:00:28 Bacterial vaginosis 885059181 Active 2024 Mara Hernadez MD Attn: Jeffrey lou,[address] [place], [address], [place] [facility] 5 09:49:11 Marijuana user 297035061 Active 2024 Mara Hernadez MD Attn: Jeffrey lou,[address] [facility], [place], [address], [place] [facility] 5 09:57:41 Removal of intrauterin e contracepti ve device Active 2024 Mara Hernadez MD Attn: Jeffrey lou,[address] [facility], [place], [address], [place] [facility] 5 09:57:28 Venereal disease screening Active 2024 Mara Hernadez MD Attn: Jeffrey lou,[address] [place], [address], [place] [facility] 5 09:57:30 Contracepti on care management Active 2024 Mara Hernadez MD Attn: Jeffrey lou,[address] [facility], [place], [address], [place] [facility] 5 09:57:31 Problem Notes None recorded. Procedures Surgical History Date Name Laterality Status Provider Name and Address Organization Details Recorded Time 5 IUD Removal completed Mara Hernadez MD Attn: Accounting,[address] [place], [address], [place] [facility] 08/13/2024 09:56:05 2 Control Implant Removal completed ELSA BARBER Attn: Accounting,[address] [place], [address], [place] [facility] 06/06/2022 15:44:04 2 IUD Insertion completed ELSA BARBER Attn: Accounting,[address] [place], [address], [place] [facility] 06/06/2022 15:44:17 2 Date of Last Pap Smear completed Letty Wu [place] [facility] 08/09/2024 15:13:52 8 Control Implant Insertion completed Letty Wu [place] - [facility] 11/10/2017 11:02:06 7 Control Implant Removal completed Donna Hall PA-C Attn: Accounting,[address] [facility], [place], [address], [facility] - [facility] 08/30/2016 10:13:45 Imaging Results None recorded. Procedure Notes None recorded. Medical Equipment None Reported. Allergies Allergen ID Allergen Name Allergen Category Reaction Reaction Severity Criticality Documentation Date Start Date Code Code System Note Provider Name and Address Organization Details Recorded Time 153505 latex environme nt,medica tion hives Not available Not available 05/05/2019 78387 91 RxNorm Yumiko Swift MA null, [place] - [facility] 9 14:20:22 179084 adhesive tape environme nt,medica tion hives Not available Not available 05/05/2019 Yumiko Swift MA null, [place] - [facility] 9 14:20:33 434326 ethinyl estradiol / norelgest romin medicatio n hives Not available Not available 05/05/2019 73089 7 RxNorm from the adhes domingo tape ELSA BARBER Attn: Jeffrey g,[address] [facility], [place], [address], [facility] - [facility] 9 14:39:32 Medications Name [...] completed Not Available Not Available Not Available 07/12 (21) 1 mg-20 mcg tablet Take [...] in Arterial blood by Pulse oximetry Systolic And Diastolic Provider Name and Address Organization Details Last Updated DateTime 3 165.1 cm 29.8 kg/m2 29470.4 3 g 73 /min 98.7 [degF] 100 % 100 % 104/68 mm[Hg] Yumiko Swift MA [facility] 3 15:06:41 Date Recorded Body height Body mass index (BMI) Body weight Systolic And Diastolic Provider Name and Address Organization Details Last Updated DateTime 08/09/2024 165.1 cm 25 kg/m2 00275.86 g 110/68 mm[Hg] Letty Wu MA [facility] 08/09/2024 15:23:39 Date Recorded Body height Body mass index (BMI) Body weight Heart rate Body temperature Oxygen saturation Oxygen saturation in Arterial blood by Pulse oximetry Systolic And Diastolic Provider Name and Address Organization Details Last Updated DateTime 2 165.1 cm 29.9 kg/m2 12472.8 3 g 62 /min 98.7 [degF] 99 % 99 % 114/80 mm[Hg] Yumiko Swift MA [facility] 2 10:47:54 Date Recorded Body height Body mass index (BMI) Body weight Heart rate Body temperature Oxygen saturation Oxygen saturation in Arterial blood by Pulse oximetry Systolic And Diastolic Provider Name and Address Organization Details Last Updated DateTime 2 165.1 cm 29.5 kg/m2 46152.6 5 g 83 /min 98.8 [degF] 100 % 100 % 104/76 mm[Hg] Yumiko Swift MA [facility] 2 15:04:39 Date Recorded Body height Body mass index (BMI) Body weight Heart rate Oxygen saturation Oxygen saturation in Arterial blood by Pulse oximetry Systolic And Diastolic Provider Name and Address Organization Details Last Updated DateTime 4 165.1 cm 25 kg/m2 81663 g 66 /min 98 % 98 % 122/80 mm[Hg] Carmen Rice MA [facility] 4 10:03:37 Social History Question Answer Notes LastModified by Organizat ion Details LastModified Time Tobacco Smoking Status Never Smoker Anna Pina MA [facility], [place] - [facility] 08/30/2016 09:05:57 Do You Have An Advance Directive? No Information not available 02/25/2017 If You Are , What Was Your Level Of Alcohol Consumption Prior To ? Occasional Information not available 02/25/2017 Is Anesthesia Consult Planned? Yes Information not available 02/25/2017 Plan Yes Vaginal With Epidural [email or web address] Information not available 04/30/2017 Is Blood Transfusion [...] To Your Family Or Social Situation? No [email or web address] Information not available 04/30/2017 Frequent Air Travel [...] available 02/25/2017 Are you currently employed? 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 02/25/2017 What is your [...] Problems N Kidney or Bladder Problems N Lung Disease N GI Problems N Depression N Blood Clots N Acne N Eating Disorder N Breast Problem N Anemia N Anesthesia Complications N Headaches/Migraines N Ovarian Cancer N Diabetes N Anxiety Disorder N Muscle, Joint, or Bone Problems N [...] 50 mcg/0.25mL dose 1 completed Alex britton [place] - [facility] 12/27/2020 17:04:48 COVID-19, mRNA, LNP-S, PF, 100 mcg/0.5mL dose or 50 mcg/0.25mL dose 1 completed Alex britton [place] - [facility] 12/27/2020 17:07:09 Influenza, split virus, quadrivalent, preservative 7 completed Not Available [facility] 07/10/2019 02:34:22 Tdap 8 completed Not Available [facility] 07/10/2019 02:34:56 Past Encounters Encounter ID Performer Location Encounter Start Date Encounter Closed Date Diagnosis/Indication Diagnosis SNOMED-CT Code Diagnosis ICD10 Code Diagnosis IMO Codes Diagnosis Note [id number] MD Tori Cerrato (PROFILER HAND) [facility] [place] [address] 08/30/2016 08:43:03 09/03/2016 14:40:04 Subcutaneous contraceptive implant palpable 735230146 Z30.49 Removed today - due out 05/11/2016 Contraception care 86633 5005 Z30.40 Patient would like to switch to NuvaringSh e is currently on her cycleAdvis ed to place on oms for the first week [id number] MD Tori Cerarto (Adult Med) [address] [place] [address] 0 09/24/2016 13:51:20 09/24/2016 17:42:35 Gynecologic examination 05645471 Z01.419 Contraception care 14352 5005 Z30.40 Patient would like to switch to NuvaringSh e is currently on her cycleAdvis ed to place on oms for the first week [id number] MD Tori Stahl (PROFILER HAND) [address] [place] [address]12[address]190 0 02/25/2017 14:01:32 02/25/2017 15:28:03 Routine care 405185298 Z34.90 Nausea and vomiting 1693 2000 R11.2 [id number] [facility] [address] [place] [address]97[address] 0 03/14/2017 09:17:15 03/14/2017 11:25:55 Routine care 134034677 Z34.90 [id number] MD Tori Stahl (PROFILER HAND) [address] [place] [address] 17572[address]815 0 03/26/2017 14:37:33 03/27/2017 14:31:41 Routine care 168778395 Z34.01 Administra tion of influenza vaccine 75140175 Z23 Bacterial vaginosis 4197 56767 N76.0 [id number] MD Tori Stahl (PROFILER HAND) [address] [place] [address] 01892-386 0 04/30/2017 15:33:15 05/01/2017 13:20:34 Routine care 604801428 Z34.01 Serum thyr oid stimulating hormone level outside reference range 977720895 R79.89 [id number] MD Tori Stahl (PROFILER HAND) [address] [place] [address] 93757-420 0 05/27/2017 16:01:46 05/27/2017 17:19:39 Routine care 935870955 Z34.01 [id number] MD Tori Stahl (PROFILER HAND) [address] [place] [address] 26624-320 0 06/24/2017 16:33:29 06/24/2017 17:14:45 Routine care 338645800 Z34.01 screening 2437 44829 Z36.9 [id number] [facility] [address] [place] [address]87[address]786 0 07/22/2017 09:31:39 07/22/2017 12:04:30 Routine care 596948443 Z34.01 [id number] [facility] [address] [place] [address] 19414-282 0 08/11/2017 10:18:16 08/11/2017 13:35:47 Routine care 890268121 Z34.01 [id number] Josesito Covarrubias MD [facility] (PROFILER HAND) [address] [place] [address] 07310-254 0 08/25/2017 15:00:22 08/25/2017 16:34:25 Routine care 351277764 Z34.01 [id number] [facility] [address] [place] [address] 13484-994 0 09/11/2017 16:32:24 09/11/2017 17:35:09 Routine care 609896113 Z34.01 [facility] surveillance 530640323 Z30.09 [id number] MD [facility] ([facility]OFILER HAND) [address] [place] [address] 39574-732 0 09/25/2017 09:42:46 09/25/2017 10:47:47 Routine care 353874015 Z34.01 [id number] MD Tori Stahl (PROFILER HAND) [address] [place] [address] 42300-291 0 10/02/2017 09:53:09 10/02/2017 11:12:05 Routine care 580800687 Z34.01 [id number] MD Tori Stahl (PROFILER HAND) [address] [place] [address] 69645-077 0 11/10/2017 10:08:06 11/10/2017 12:12:37 care 589281152 Z39.2 Exposure t o sexually transmissible disorder 008874635 Z20.2 Implantati on of subcutaneous contraceptive 112675050 Z30.017 Routine an tenatal care 000072460 Z34.01 [id number] MD Tori Stahl (PROFILER HAND) [address] [place] [address]807 0 01/12/2018 09:56:40 01/12/2018 12:28:27 Subcutaneous contraceptive implant palpable 667580006 Z30.46 Family horacio nning surveillance 514924555 Z30.09 [id number] ELSA BARBER (Adult Med) [address] [place] [address] 08534[address]974 0 03/24/2019 13:53:11 03/24/2019 14:38:35 Surveillance of subcutaneous contraceptive implant 929312825 Z30.46 Nexplanon palpated in the upper arm Major depr essive disorder 829590370 F32.9 Admits to increased depression and anxiety [...] depression and irregular bleeding Irregular intermenstrual bleeding 10651424 N92.1 Starting to have irregular/ constant bleeding x 1 month with nexplanon- Will start xulane patch to help regulate her hormones [id number] ELSA BARBER (Adult Med) [address] [place] [address]991[address]037 0 05/05/2019 14:13:12 05/05/2019 14:33:49 Surveillance of subcutaneous contraceptive implant 344459607 Z30.46 Nexplanon palpated in the upper arm Irregular intermenstrual bleeding 86901446 N92.1 Was having irregular/ constant bleeding x 1 month with nexplanon about 1 month agoStarted xulane patches to help but patient had an allergic reaction to the adhesive tape, patient still completed 3 weeks worth and states it helped regulate her period- Will send rx of combinatio n control pills, use if irregular bleeding occurs again Major depr essive disorder 870313260 F32.9 Admits to improvemen t in symptoms [...] an increase in medication is needed again [id number] ELSA BARBER (Adult Med) [address] [place] [address] 64328[address] 0 08/31/2019 14:06:12 09/01/2019 08:54:58 Irregular intermenstrual bleeding 54263995 N92.1 Nexplanon placed 10/2017, due for removal [...] further with OBGYN Major depr essive disorder 123276611 F32.9 Reports significan t improvemen t in symptoms with fluoxetine , but feels like it could be increased more.About 2 year history of depression Admits to mild persistent decreased energy, but improvemen t in social interest and hed[place].De nies HI/SI- Will increase fluoxetine from 40 mg to 60 mg QD- Patient to follow up in 6 months [id number] ELSA BARBER (Adult Med) [address] [place] [address] 11587[address]231 0 04/26/2022 10:31:54 04/26/2022 11:41:27 Sprain of right ankle 4504884278 0938286 S93.401D Sprain of lateral right ankle 3 wks ago. Edema, ecchymosis , and tenderness have subsided. Only 5/10 severity pain when mimicking rolling ankle motion.-Ad vised pt sprains can take 4-6 wks to fully heal-Priscilla rojas prn for pain; Yadi swenson info sheets on ankle sprain in office today Contraception care 22287 500 Z30.40 Nexplanon was due for removal 10/2020. [...] yrs. Screening for malignant neoplasm of cervix 865522704 Z12.4 Last pap 2017. Set f/u for updated PAP. 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 Denies any ankle pain prior to injury.- discussed benign incidental finding with patient-Ad vised pt no need for ortho referral at this time. Pt agreed to hold off. [id number] ELSA BARBER (Adult Med) [address] [place] [address] 06/06/2022 14:52:37 06/07/2022 10:28:47 Overweight 452540134 E66.3 Advised decreased portion sizes, good food choices, limited eating out or fast food and eliminate soda and juice from diet. Advised physical activity daily and offered encouragem ent to continue with positive changes made so far. Removal of subcutaneous contraceptive 079956613 Z30.46 Nexplanon removed from the left arm today prior to IUD insertion, patient tolerated procedure well- keep wound clean and dry, keep coban on x 24 hours, keep steri-stri ps on x 48 hours Insertion of intrauterine contraceptive device 94747898 Z30.430 Patient wants Kyleena IUD todayDenie s [...] 6 weeks for string check Contraception care 30104 6331 Z30.40 Nexplanon was due for removal 10/2020, [...] procedures well Sprain of right ankle 11 59620989 3111851 S93.401D Sprain of lateral right ankle 1.5 months ago, sprained same ankle a few weeks ago and still having pain. requesting referral for recurrents sprains.- referral placed Gynecologi c examination 51040761 Z01.419 Due for pap smear todayNo prior history of abnormal paps- pap smear completed in the office, will call with results [id number] ELSA BARBER (Adult Med) [address] [place] [address] 17706[address]688 0 07/18/2022 14:57:04 07/23/2022 12:46:47 Sprain of right ankle 8872074096 8390395 S93.401D Sprain of lateral right ankle 2-3 months ago, requested referral at last visit to ensure all was fineSaw ortho 05/2022 and confirmed likely a sprain, rec. supportive care- patient feels better knowing that after second opinion, she is doing good today Overweight 872255525 E66 .3 Advised decreased portion sizes, good food choices, limited eating out or fast food and eliminate soda and juice from diet. Advised physical activity daily and offered encouragem ent to continue with positive changes made so far. IUD check 168144627 Z30. 431 Nexplanon removed and Kyleena replaced [...] length, tucked behind cervix.- f/u as needed [id number] MD Tori Villarreal (Adult Med) [address] [place] [address]00[address] 0 06/15/2024 09:45:47 06/18/2024 14:24:09 Adult health examination 603505285 Z00.00 Family his tory of diabetes mellitus 567592674 Z83.3 History of mood disorder 725160523 Z86.59 Refer to [id number] MD Tori BARNHART (PROFILER HAND) [address] [place] [address] 03983[address]573 0 08/09/2024 14:54:05 08/23/2024 09:35:06 Contraception care management 504680175 Z30.9 Discussed options. Patient desires IUD removal, start cOCP for improved control over discontinu ation. Planning in near future. Denies history of migraine and tobacco use.- IUD removed without difficulty , patient tolerated well- counselled on taking pill at same time daily- start PNV Venereal d isease screening 902683378 Z11.3 Discussed HIV and other STI screening, patient is agreeable to screening today. Removal of intrauterine contraceptive device 9828988720 Z30.432 IUD removed as above. Patient tolerated well. 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 Not due for mammogram. - screening negative for domestic violence, SI- counselled on healthy lifestyle, balanced diet, regular exercise- reinforced avoidance of tobacco, recreation al drugs, and excessive alcohol Marijuana user 663890478 F12.90 Counselled on risks of cognitive impairment [...] [place]ello Member ID Guarantor Name 10/17/2024 1 [facility] (MEDICAID HMO) [id number] Sahra Novak [id number] Sahra Novak Notes Date Note Type Note Provider Name and Address Organization Details Recorded Time 2 text/html 31 y/o F presents to discuss injured ankle and contraception. Pt states she rolled lateral side of right ankle while at work 04/02/22. Completed x-ray at [facility] same day, no acute fracture seen. [...] smear. Last pap 11/10/17. ELSA BARBER Attn: Accounting,[address] [facility], [place], [address], [facility] 04/26/2022 14:03:02 2 text/html ROS as noted in the HPI Sahra is a 31 year old female who presents today for nexplanon [...] vaginal dicharge, or hematuria. ELSA BARBER Attn: Accounting,[address] [place], [address], [facility] - SI 06/06/2022 15:52:08 3 text/html ROS as noted in the HPI 31 year old female presents today for 6 week IUD check. She is doing well with IUD, no complaints today. Started spotting a few days ago and today bleeding seems a bit heavier so wondering if starting her cycle. Denies fever, chills, nausea, vomiting, headaches, chest pain, SOB, abdominal pain, diarrhea, constipation, dyspareunia, or dysuria. ELSA BARBER Attn: Accounting[address] [place], [address], [facility] 07/18/2022 15:23:17 4 text/html Here for a general check up. She is concerned about anxiety. She was treated with fluoxetine in the past but did not find it helpful. Raji Slade MD Attn: Accounting[address] [place], [address], [facility] - [facility] 06/15/2024 10:25:09 5 text/html Annual GYNReported by PatientHistoryFor history, patient reportsno gynecologic complaints.Genitourinary symptomsFor urinary symptoms, patient reportsno hematuriaandno incontinence. For vulva, patient reportsno genital lesion. For vagina, patient reportsnormal vaginal discharge. For menstrual cycle, (no bleeding, iud).Breast symptomsFor breast, patient reportsno breast pain,no breast lump, andno nipple discharge.ContraceptionFo r current contraception, (switch from iud to cocp).Endocrine symptomsFor sexual complaints, patient reportsno sexual complaints,no pain during intercourse, andnormal libido. For menopausal symptoms, patient reportsno menopausal symptomsandnormal vaginal lubrication.Psychological symptomsFor psychological symptoms, patient reportsanxietybut reportsno depression(improving, upcoming appointment with therapist).Preventative measuresFor preventive measures, patient reportsencourage regular exerciseandencourage no tobacco use.ROS as noted in the HPI Sahra is a generally healthy 33 y/o [...] times per week. JANEEN ANNE MD Attn: Accounting,[address] [place], [address], [facility] 08/21/2024 19:33:11 OBGyn Episode Ob Episode Information Episode Created Date Number of Fetuses Patient Bloodtype Patient rh Status Prepregnancy Weight lbs Domestic Partner Domestic Partner Phone Father Name Post Graduate Intern Status 02/26/20 17 1 A Positive 146 Jimmy gomez [facility] CLOSED Fetus Data First Name Last Name Admitted to NICU Weight (g) Sex Living Outcome Pediatric Complications Fetus ID Race Codes Race Delivery Type Gwendo charlie Rachel Smithe lla false 3175.14 4 F true Full Term 61040 2106-3 White Vaginal Problems Problem Notes 06/24/17 baby girl, Gwendoly n rachel sandella, breast and bottle going to try to breastfeed, epidural, PEDS [facility], PPBC nexplanon, cb-rma verified 07/22/2017 mds Problem Name Start Date End Date Resolution Snomed Code Not e Bacterial vaginosis 09/30/2016 [id number] Artis Calculation Initial Artis Date Initial Exam [...] Sound Latest Days Gestation 03/04/20 17 9 [email or web address] 03/26/2017 10/08/19 18 0 Pre-south Flowsheet Flowsheet Date 02/25/2017 Mcdonough Score Blood Edema Fundus Height Fundus Units Glucose Ketones Leukocytes Nitrite Labor Signs Protein Cervic Dilation Cervic Effacement Cervic Station neg none 10 wks none negative neg Type Weight in lbs Pre/Post Dialysis Refused 146.977145861865 BP Diastolic BP Location Tested BP Systolic [...] Type Weight in lbs Pre/Post Dialysis Refused 142.532774546476 BP Diastolic BP Location Tested BP Systolic BP Type 58 104 sitting Fetus Heart Rate Present Fetus Movement Comments Flowsheet Date 04/30/2017 Mcdonough Score Blood Edema Fundus Height Fundus Units Glucose Ketones Leukocytes Nitrite Labor Signs Protein Cervic Dilation Cervic Effacement Cervic Station neg none 17 wks none negative none neg Type Weight in lbs Pre/Post Dialysis Refused 148.815836882437 BP Diastolic BP Location Tested BP Systolic [...] Type Weight in lbs Pre/Post Dialysis Refused 152.465268025380 BP Diastolic BP Location Tested BP Systolic [...] Type Weight in lbs Pre/Post Dialysis Refused 155.74688098566 BP Diastolic BP Location Tested BP Systolic [...] Type Weight in lbs Pre/Post Dialysis Refused 158.742025292543 BP Diastolic BP Location Tested BP Systolic [...] Type Weight in lbs Pre/Post Dialysis Refused 161.913611821026 BP Diastolic BP Location Tested BP Systolic [...] Type Weight in lbs Pre/Post Dialysis Refused 160.009901160341 BP Diastolic BP Location Tested BP Systolic [...] Type Weight in lbs Pre/Post Dialysis Refused 163.031567328741 BP Diastolic BP Location Tested BP Systolic [...] Type Weight in lbs Pre/Post Dialysis Refused 161.878772059671 BP Diastolic BP Location Tested BP Systolic [...] Type Weight in lbs Pre/Post Dialysis Refused 163.109257806015 BP Diastolic BP Location Tested BP Systolic BP Type 68 128 sitting Fetus Heart Rate Present A 136 Present Fetus Movement A Yes Comments Induction of labor 10/03/17 Flowsheet Date 11/10/2017 Mcdonough Score Blood Edema Fundus Height Fundus Units Glucose Ketones Leukocytes Nitrite Labor Signs Protein Cervic Dilation Cervic Effacement Cervic Station Type Weight in lbs Pre/Post Dialysis Refused 155.01009264298 BP Diastolic BP Location Tested BP Systolic [...] Estim ated Date of Delivery false Thalassemia (Icelandic, French, Mediterranean, Or Background): MCV < 80 false Neural Tube Defect (Meningomyelocele, Spina Bifi da, Or Anencephaly) false Congenital Heart Defect false Down Syndrome false Felipe-Sachs (eg, Yarsanism, Cajun, Uzbek-[place]) f alse Mariana Disease false Sickle Cell Disease Or Trait () false Hemophilia Or Other Blood Disorders false Muscular Dystrophy false Cystic Fibrosis false Denton's Chorea false Mental Retardation/Autism false If Yes, [...] By 03/14/2017 Anticipated course o f care [email or web address] 03/14/2017 Alcohol [facility] 03/14/2017 Intimate partner violence rh unley03/14/2017 Environmental/work hazards r [place] [address] 03/14/2017 Screening for aneuploidy rhu nley03/14/2017 Nutrition counseling ; special diet; dietary precautions (mercury, listeriosis) [facility] 03/14/2017 Childbirth classes/h ospital facilities given list of classes offered at [place] [address] 03/14/2017 HIV and other routin e tests at initial ob visit [facility] 03/14/2017 Risk factors identif ied by history [facility] 03/14/2017 Weight gain counseling [facility] 03/14/2017 Exercise [place] [address] 03/14/2017 Teratogens [facility]03/14/2017 Use of any medicatio ns (including supplements, vitamins, herbs, or OTC drugs) [place] [address] 03/14/2017 06/24/17 Try , jeromy-owen [place] [address] 03/14/2017 Sexual activity [place] [address] 03/14/2017 Tobacco/smoking cess ation counseling (ask, advise, assess, assist, and arrange) [place] [address] 03/14/2017 Illicit[facility]recreational [facility] 03/14/2017 Dental care given dental con sent at initial ob visit [facility] 03/14/2017 Travel [place] [address] 03/14/2017 Seat belt use [place] [address] 03/14/2017 Indications for ultrasonography [place] [address] 03/14/2017 Avoidance of saunas or hot tubs [place] [address] 03/14/2017 Toxoplasmosis precau tions (cats/raw meat) [place] [address] Second Trimester Discussed Date Discussion Item Discussion Note Discuss ed By 06/24/2017 Selecting a care provider 09/11/17 Unique Mendez cb-rma [email or web address] 06/24/2017 family planning/tubal sterilization 06/24/17 PPBC Nexplanon, [...] Dr. Covarrubias None false 10/06/2017 Pediatric chad: [facility] Discharge Information Feeding Method Contraceptive Method Maternal HG B and HCT Levels Bottle Nexplanon Ob Episode Information Episode Created Date Number of Fetuses Patient Bloodtype Patient rh Status Prepregnancy Weight lbs Domestic Partner Domestic Partner Phone Father Name Post Graduate Intern Status 02/26/20 17 1 CLOSED Fetus Data First Name Last Name Admitted to NICU Weight (g) Sex Living Outcome Pediatric Complications Fetus ID Race Codes Race Delivery Type 3033.16 9704 F Full Term [address] Vaginal Only Artis Calculation Initial Artis Date [...] Domestic Partner Domestic Partner Phone Father Name Post Graduate Intern Status 02/26/20 17 1 CLOSED Fetus Data First Name Last Name Admitted to NICU Weight (g) Sex Living Outcome Pediatric Complications Fetus ID Race Codes Race Delivery Type 3259.96 5704 F Full Term [address]1223 Vaginal Artis Calculation Initial Artis Date Initial [...]
--- OUTSIDE RECORDS SUMMARY | 2025-04-06 17:44 | XMS_ITS | Encounter Summary ---
Author Organization [facility] Address [address] [place] [address] Phone Care Team Providers Care Foxing Cutting Machine Operator Name Role Phone No, Physician Primary Care Provider [phone] Reason for Visit * Reason Onset Date Comments [email or web address] 04/06/2025 Encounter Details Date Type Department Care Team (Late st Contact Info) Description 04/06/2025 Telephone [facility] Medicine Maternal- Medicine [address] [facility] 7th [address] [place] [address] Pamela Shen RN rhogam Social History Tobacco Use Types Packs/Day Years Used Date Smoking Tobacco: Never Smokeless Tobacco: Never Personal Safety Answer Date Recorded Getting School Help Needed Not on file 09/06 Estimated Date of Delivery Comme nts Yes 06/11/2025 Based on Ultraso und Sex and Gender Information Value Date Recorded Sex Assigned at Not on file Legal Sex Female 2:58 PM CDT Gender Identity Female 03/17/2025 3:07 PM CDT Sexual Orientation Not on file documented as of this encounter Miscellaneous Notes * Telephone Encounter - Pamela Shen RN - 04/06/2025 3:24 PM CDT Shea from [facility]'s health called and informed that Sahra will get Rhogam with their office since they got a hold of [facility] and got the testing results back. documented in this encounter Plan of Treatment Not on file documented as of this encounter Visit Diagnoses Not on filedocumented in this encounter Care Teams Foxing Cutting Machine Operator Relationship Specialty Start Date End Date No, Physician PCP - General 03/08/25 documented as of this encounter
--- OUTSIDE RECORDS SUMMARY | 2025-04-06 17:44 | XMS_ITS | Encounter Summary ---
Author Organization [facility] Address [address] [place] [address] Phone Care Team Providers Care Management Retail Intern Name Role Phone No, Physician Primary Care Provider [phone] Encounter Details Date Type Department Care Team (Late st Contact Info) Description 04/06/2025 Orders Only [facility] Medicine Maternal- Medicine [address] [place] [address] Health 7th [address] [place] [address] Pamela Loredo, QIANA Supervision of high-risk , second trimester (Primary Dx); Weak positive anti-D blood type Social History Tobacco Use Types Packs/Day Years [...] on file documented as of this encounter Plan of Treatment Scheduled Orders Name Type Priority Associated Diagnoses Orde r Schedule Type and screen Lab Routine Supervision of high-risk , second trimester Expected: 04/06/2025, Expires: 04/06/2026 documented as of this encounter Visit Diagnoses Diagnosis Supervision of high-risk , second trimester- Primary Weak positive anti-D blood type documented in this encounter Care Teams Management Retail Intern Relationship Specialty Start Date End Date No, Physician PCP - General 03/08/25 documented as of this encounter
--- OUTSIDE RECORDS SUMMARY | 2025-04-06 17:44 | XMS_ITS | Clinical Summary ---
Author Organization [facility] Address [address] [address] Care Team Providers Care Mechanical Detailer Name Role Phone Unavailable Primary Care Provider Unavailabl e Source Comments [facility],non-owned Affiliates and Associated Physician Practices is amultiple site organization consisting of ambulatory clinics and hospital sitesin [place], [place], [place]. This disclosure is being madepursuant to the Care Everywhere program and may not contain all information available regarding this patient. Last updated 18.[facility] Encounters Date Type Department Care Team Description 03/11/2025 Telephone [facility] Women's Health Maternal & Care [address] [place] [id number] Teresa Pacheco, RN Question (New info received about patient's insurance and called provider to check in ) from Last 3 Months Social History Tobacco Use Types Packs/Day Years Used Date Smoking Tobacco: Never Assessed Comments Yes Sex and Gender Information Value Date Recorded Sex Assigned at Not on file Legal Sex Female 5:35 AM HIDE EXAMINER Gender Identity Not on file Sexual Orientation Not on file Plan of Treatment Health Maintenance Due Date Last Done Comments HIV SCREENING 2005 HEPATITIS C SCREENING 12/18/2008 DTAP/TDAP/TD VACCINES (1 - Tdap) 2009 HEPATITIS B VACCINE (1 of 3 - 19+ 3-dose series) 2009 PAP SMEAR 12/24/2011 HPV VACCINE (1 - 3-dose SCDM series) 2017 DEPRESSION SCREENING 06/23/2024 COVID-19 VACCINE (1 - 2023-2 5 season) 2025 INFLUENZA VACCINE (#1) 2025 ZOSTER VACCINE (1 of 2) 2040 Respiratory Syncytial Virus (RSV) Vaccine Pt: or over 60 yrs (1 - 1-dose 75+ series) 2065 HIB VACCINE Aged Out No longer eligi ble based on patient's age to complete this topic MENINGOCOCCAL (Group B) VACC INE SHARED DECISION-MAKING Aged Out No longer eligibl e based on patient's age to complete this topic MENINGOCOCCAL GROUPS A/C/Y/W VACCINE Aged Out No longer eligible b ased on patient's age to complete this topic PNEUMOCOCCAL VACCINE Aged Out No long er eligible based on patient's age to complete this topic
--- OUTSIDE RECORDS SUMMARY | 2025-04-06 17:44 | XMS_ITS | Data Portability ---
Author Organization [facility] [place] Address [address] [place] [address] Assessment Encounter Date Assessment Date Assessment LastModified by Organization Details LastModified Time 02/23/2025 02/23/2025 Patient is _24__weeks . Discussed plan. [email or web address] Not available 02/23/2025 12:16:45 03/23/2025 03/23/2025 Patient is ___weeks . Discussed plan. [email or web address] Not available 03/23/2025 10:51:26 Plan of Treatment Reminders Order Date Submit Date Provider Last Modified By Organization Details Last Modified Time Details Appointments OB ROUTINE 2024 03:45P Yosef FINN MD Not available Not available Not available Lab None recorded. Referral None recorded. Procedures None recorded. Surgeries None recorded. Imaging US, obstetric , follow-up 2024 025 [email or web address] [place], [place], [address], 02/23/2025 17:08:27 US, obstetric , 2nd or 3rd trimester 2024 025 [email or web address] [place] [facility] [address], [place], [address], 01/26/2025 16:16:44 Medication Orders None recorded. Patient TargetsNo targets recorded. Patient InstructionsNo instructions recorded. Reason for Referral None Reported. Results Created Date Observation Date Name Description Value Unit Range Abnormal Flag Note LastModifiedBy Organization Detail LastModifiedTime 02/24/2002/23/2025 TYPE/ RH/SC REEN ABO/Rh type A NEG Not Available [facility] (Lab) [address], [place], [address], 02/24/2025 08:26:42 02/24/2002/23/2025 TYPE/ RH/SC REEN antibody screen NEG Not Available [facility] (Lab) [address], [place], [address], 02/24/2025 08:26:42 02/24/2002/23/2025 TYPE/ RH/SC REEN exp date 2024 23:59 Not Available [facility] (Lab) [address], [place], [address], 02/24/2025 08:26:42 01/27/20 25 01/26/2025 US, obste tric, 2nd or 3rd trime ster No observ ation record ed. [email or web address] [place] [address], [place], [address], 01/26/2025 12:36:41 01/27/20 25 01/26/2025 US, obste tric, 2nd or 3rd trime ster No observ ation record ed. [email or web address] [address], [place], [address], 01/26/2025 12:39:35 02/24/2002/23/2025 US, obste tric, follo w-up No observ ation record ed. [email or web address] [place] [address], [place], [address], 02/23/2025 18:48:54 02/24/20 25 02/23/2025 US, obste tric, follo w-up No observ ation record ed. [email or web address] [address], [place], [address], 02/23/2025 16:57:13 02/24/20 25 02/23/2025 US, obste tric, follo w-up No observ ation record ed. [email or web address] [address], [place], [address], 02/23/2025 16:55:34 03/21/20 25 03/21/2025 US, obste tric, follo w-up No observ ation record ed. [email or web address] [facility] (Psychiatry Department) [address], [place], [address], 03/23/2025 16:02:35 03/21/2003/21/2025 US, obste tric, follo w-up No observ ation record ed. [email or web address] [facility] [address], [place], [address], 03/22/2025 10:18:20 Result Notes None recorded. Problems Name Problem SNOMED Code Status Onset Date Resolution Date Notes Provider Name and Address Organization Details Recorded Time 19218308 Active 2024 Mary britton, [facility] 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 5 15:25:33 Placenta succentur iata 49490792 Active 2024 serial growth US Elizabet britton, [facility] 5 12:38:22 Problem Notes None recorded. Procedures Surgical History Date Name Laterality Status Provider Name and Address Organization Details Recorded Time 05/09/2024 Date of Last Pap Smear completed Katherine Hardwick [facility] 03/23/2025 10:52:23 Imaging Results None recorded. Procedure Notes None recorded. Medical Equipment None Reported. Allergies Allergen ID Allergen Name Allergen Category Reaction Reaction Severity Criticality Documentation Date Start Date Code Code System Note Provider Name and Address Organization Details Recorded Time latex environme nt,medica tion Not available Not available Not available 12/01/2024 55898 91 RxNorm Mary britton [facility] 11:38:56 Medications Name Sig Start Date [...] and Address Organization Details Last Updated DateTime 01/26/2025 167.64 cm 24.7 kg/m2 64491.63 g 100/63 mm[Hg] Katherine Hardwick [facility] 01/26/2025 09:24:25 Date Recorded Body height Body mass index (BMI) Body weight Systolic And Diastolic Provider Name and Address Organization Details Last Updated DateTime 02/23/2025 167.64 cm 25 kg/m2 07224.82 g 104/65 mm[Hg] Katherine Hardwick [facility] 02/23/2025 12:06:30 Date Recorded Body weight Systolic And Diastolic Provider Name and Address Organization Details Last Updated DateTime 03/23/2025 95824.96983 g 108/70 mm[Hg] VIK FINN MD [address], [place], [address], [facility] 03/23/2025 14:23:36 Date Recorded Body height Body mass index (BMI) Body weight Systolic And Diastolic Provider Name and Address Organization Details Last Updated DateTime 03/23/2025 167.64 cm 25.5 kg/m2 58214.59 g 108/70 mm[Hg] Katherine Hardwick [facility] 03/23/2025 10:51:52 Social History Question Answer Notes LastModified by Organizat ion Details LastModified Time Tobacco Smoking Status Never Smoker Mary britton, [facility] 12/01/2024 11:12:14 Do You Have An Advance Directive? No [email or web address] Information n ot available 12/01/2024 If You Are , What Was Your Level Of Alcohol Consumption Prior To ? Occasional [email or web address] Information not available 12/01/2024 How Many Years Have You Consumed Alcohol? 0 Information not available 12/01/2024 Are You Blind Or Do You Have Difficulty Seeing? No Information n ot available 12/01/2024 What Is Your Level Of Caffeine Consumption? Moderate [email or web address] Information not available 12/01/2024 How Much Tobacco Do You Chew? None [email or web address] Information not available 12/01/2024 In The 14 Days Before Symptom Onset, Have You Had Close Contact With A Laboratory-confirm ed COVID-19 While That Case Was Ill? No [email or web address] Information n ot available 12/01/2024 In The 14 Days Before Symptom Onset, Have You Had Close Contact With A Person Who Is Under Investigation For COVID-19 While That Person Was Ill? No [email or web address] Information not available 12/01/2024 Have You Been To An Area Known To Be High Risk For COVID-19? No [email or web address] Information not available 12/01/2024 Are You Deaf Or Do You Have Serious Difficulty Hearing? No [email or web address] Information not available 12/01/2024 What Type Of Diet Are You Following? REGULAR [email or web address] Information n ot available 12/01/2024 What Is The Highest Grade Or Level Of School You Have Completed Or The Highest Degree You Have Received? NH65499-8 [email or web address] Information not available 12/01/2024 Are There Any Guns Present In Your Home? No [email or web address] Information not available 12/01/2024 Do You Use Protection During Sex? No [email or web address] Information not available 12/01/2024 Do You Use Your Seat Belt Or Car Seat Routinely? Yes [email or web address] Information not available 12/01/2024 Do You Have Smoke And Carbon Monoxide Detectors In Your Home? Yes [email or web address] Information not available 12/01/2024 How Much Tobacco Do You Smoke? No [email or web address] Information not available 12/01/2024 Do You Use Sunscreen Routinely? Yes Information not available 12/01/2024 Has Tobacco Cessation Counseling Been Provided? Yes [email or web address] Information not available 12/01/2024 On What Date Was Tobacco Cessation Counseling Provided? 12/01/2024 [email or web address] Information not available 12/01/2024 How Many Years Have You Smoked Tobacco? 0 Information not available 12/01/2024 Have You Used IV Drugs? No [email or web address] Information not available 12/01/2024 Do You Have Difficulty Walking Or Climbing Stairs? No [email or web address] Information not available 12/01/2024 Sex: Unknown Functional Status Question Answer Note LastModified by Organizat ion Details LastModified Time Do you use any illicit or recreational drugs? No [email or web address] Information not available 03/23/2025 Do you or have you ever used any other forms of tobacco or nicotine? No [email or web address] Information not available 12/01/2024 What is your level of alcohol consumption? None [email or web address] Information not available 12/01/2024 Are you able to walk independently without assistance or assistive devices? YESWOREST [email or web address] Information not available 12/01/2024 Are you able to care for yourself independently? 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 Occasional [email or web address] Information not available 12/01/2024 Mental Status Question Answer Note LastModified by Organization D etails LastModified Time Do you feel stressed (tense, restless, nervous, or anxious, or unable to sleep at night)? [id number] [email or web address] Information not available 12/01/2024 Family History Relationship Description Onset Age of this Age Resolved Age Notes LastModified by Organization Details LastModified Time Unspecified Relation Family history unknown [email or web address] Not available 06/2024 10:11:22 Maternal Grandmother Diabetes mellitus [email or web address] Not available 12/01 11:11:55 Maternal Grandmother Hypertensive disorder [email or web address] Not available 12/06 20:18:07 Maternal Grandmother Hypercholest erolemia [email or web address] Not available 12/06 20:18:16 Medical History Condition Response Allergies (Food, seasonal, [...] N Thrombophilias N Gynecological History Statement/Question Response Date of Last Mammogram Date of LMP 09/09/2024 N Was last menstrual period normal Y STIs/STDs N Date of control 08/04/2024 Date of Last Colonoscopy Sterilization Desired Control Method Sterilizati on Abnormal Pap N On BCP's at Conception? N HPV Vaccine N Duration of Flow (days) 5 Current Control Method Age at First Child 21 Are cycles usually normal Y Frequency of Cycle (Q days) 6 Sexually Active? Y Date of DEXA bone scan Age of first menstrual cycle 16 Date of Last Pap Smear 05/09/2024 Sexual Problems? N LMP Approximate N Obstetrics History GPAL:G 4 P 3 0 0 3 Type Value Full Term 3 Living 3 Total 4 Past Encounters Encounter ID Performer Location Encounter Start Date Encounter Closed Date Diagnosis/Indication Diagnosis SNOMED-CT Code Diagnosis ICD10 Code Diagnosis IMO Codes Diagnosis Note [id number] Clayton Byrd MD [place] [address] [address] 10/19/2024 10:46:34 10/19/2024 11:38:51 Fundal height high for dates 295637950 O26.849 Z3A.01 236796 [id number] [facility] [address] [address] 10/19/2024 10:47:32 10/19/2024 12:29:28 Amenorrhea 11817523 N91.2 [id number] pnv dailyregla n as needed for nasueapap up to dateprecau tions and educationr eviewed US, will change EDC to 06/11/25f/ u new ob and first look Nausea and vomiting 1693 1999 R11.2 [id number] Bacterial disease screening 360581379 Z11.8 76296 [id number] Shantelle Reyes CNM [place] [address],[place] [address] 12/01/2024 09:44:23 12/01/2024 13:21:24 state of fetus 25605565 Z34.90 9592820454 Gestation period, 12 weeks 62663545 Z3A.12 3664286 [id number] Clayton Byrd MD [place] [address] [address] 12/01/2024 09:45:29 12/01/2024 10:45:00 screening 397735166 Z36.82 Z3A.12 5380301827 [id number] [facility] [address],[place] [address] 12/29/2024 15:47:58 12/29/2024 16:21:54 Gestation period, 16 weeks 25126090 Z3A.16 9923139 [id number] Clayton Byrd MD [place] [address],[place] [address] 01/26/2025 09:17:33 01/26/2025 10:29:55 Ultrasound scan - obstetric 280260325 Z36.3 Z3A.20 [id number] [facility] [address],[place] [address] 01/26/2025 09:17:48 01/26/2025 10:36:03 Gestation period, 20 weeks 46219596 Z3A.20 4272355 Placenta succenturiata 41495465 O43.192 43724648 [id number] Clayton Byrd MD [place] [address],[place] [address] 02/23/2025 11:22:36 02/23/2025 12:06:35 Anomaly of placenta 89012628 O43.102 Z3A.24 5105225 [id number] [facility] [address],[place] [address] 02/23/2025 11:22:59 02/23/2025 12:20:26 Gestation period, 24 weeks 921490733 Z3A.24 7797629 [id number] [facility] [address],[place] [address] 03/23/2025 10:11:18 03/25/2025 14:07:08 [id number] VIK FINN MD [place] [address],[facility] [address] 03/23/2025 11:39:03 03/23/2025 14:31:27 Placenta succenturiata 42785467 O43.192 87611280 - serial growth RhD negative 206476118 O 26.899 Z67.91 269832 - weak D antigen, seen by MFM who recommends RHogam Gestation period, 28 weeks 57640524 Z3A.28 7769576 - continue [facility] Health Concerns Section Related Observation LastModified by Organization Detai ls LastModified Time None Recorded Concern Status LastModified by Organization Details LastModified Time None Recorded Advance Directives Directive N: Payers Insurance Date Sequence Insurance Name Policy Number Policy Botello Covered Member ID Botello Member ID Guarantor Name 04/06/2025 1 [facility] (MEDICAID HMO) [id number] Sahra Novak [id number] Sahralauren Novak Notes Date Note Type Note Provider Name and Address Organization Details Recorded Time 01/26/2025 text/html Generic HPI TemplateReported by Patient Shantelle Reyes CNM [address], [place], [address], [facility] 01/26/2025 10:32:13 02/23/2025 text/html Generic HPI TemplateReported by Patient Shantelle Reyes CNM [address], [place], [address], [facility] 02/23/2025 12:17:02 03/23/2025 text/html Generic HPI TemplateReported by Patient Shantelle Reyes CNM [address], [place], [address], [facility] 03/25/2025 14:07:07 OBGyn Episode Ob Episode Information Episode Created Date Number of Fetuses Patient Bloodtype Patient rh Status Prepregnancy Weight lbs Domestic Partner Domestic Partner Phone Father Name Turner Off Status 12/02/19 25 1 CLOSED Fetus Data First Name Last Name Admitted to NICU Weight (g) Sex Living Outcome Pediatric Complications Fetus ID Race Codes Race Delivery Type 3061.74 6 F Full Term [address] Vaginal Delivery Artis Calculation Initial Artis Date [...] Domestic Partner Domestic Partner Phone Father Name Turner Off Status 12/02/19 25 1 A Negative 147 Akshat Hildebr and OPEN Fetus Data First Name Last Name Admitted to NICU Weight (g) Sex Living Outcome Pediatric Complications Fetus ID Race Codes Race Delivery Type [id number] Problems Problem Notes Problem Name Start Date End Date Resolution Snomed Code Not e Placenta succenturiata 01/26/2025 751217 03 serial growth US RhD negative 12/03/2024 095730663 A-, ne ed rhogam 28 weeks referral [facility] faxed 03/04 cancelled due to insurance - [facility] final report A Negative , weak D present [facility] recommends Rhogam Artis Calculation Initial Artis Date Initial Exam Date Initial Exam Provider Initial Ultrasound Date Last Menstrual Period Date Ultra Sound Weeks Gestation 05/16/2025 10/19/2024 [email or web address] 10/19/2024 08/09/2024 6 Eighteen To Twenty Week Artis Update Ultra Sound Date Fundal Height At Umbil Quickening Date Ultra Sound Latest Weeks Gestation Final Artis Confirmed By Final Artis Confirmed Date Final Artis Date Ultra Sound Latest Days Gestation 0 06/11/20 25 0 Pre- Flowsheet Flowsheet Date 12/01/2024 Mcdonough Score Blood Edema Fundus Height Fundus Units Glucose Ketones Leukocytes Nitrite Labor Signs Protein Cervic Dilation Cervic Effacement Cervic Station neg none none trace Type Weight in lbs Pre/Post Dialysis Refused Weight 148.748491204127 BP Diastolic BP Location Tested BP Systolic BP Type 66 104 Fetus Heart Rate Present Fetus Movement A No Comments hx of 3 previous uncomplicat ed vaginal deliveries, precautions and education, NIPT and labs today, begin routine care Flowsheet Date 12/29/2024 Mcdonough Score Blood Edema Fundus Height Fundus Units Glucose Ketones Leukocytes Nitrite Labor Signs Protein Cervic Dilation Cervic Effacement Cervic Station Type Weight in lbs Pre/Post Dialysis Refused 153.298048689356 BP Diastolic BP Location Tested BP Systolic BP Type 72 L arm 106 sitting Fetus Heart Rate Present A 152 Fetus Movement A No Comments +FM, doing well, education a nd precautions plan anatomy in 4 weeks Flowsheet Date 01/26/2025 Mcdonough Score Blood Edema Fundus Height Fundus Units Glucose Ketones Leukocytes Nitrite Labor Signs Protein Cervic Dilation Cervic Effacement Cervic Station Type Weight in lbs Pre/Post Dialysis Refused BP Diastolic BP Location Tested BP Systolic BP Type Fetus Heart Rate Present Fetus Movement Comments Flowsheet Date 01/26/2025 Mcdonough Score Blood Edema Fundus Height Fundus Units Glucose Ketones Leukocytes Nitrite Labor Signs Protein Cervic Dilation Cervic Effacement Cervic Station Type Weight in lbs Pre/Post Dialysis Refused Weight 153.814894083191 BP Diastolic BP Location Tested BP Systolic BP Type 63 100 Fetus Heart Rate Present Fetus Movement A Yes Comments +fm, precautions and educati on, anatomy complete accessory lobe rpt growth 4 weeks, f/u 4 weeks Flowsheet Date 02/23/2025 Mcdonough Score Blood Edema Fundus Height Fundus Units Glucose Ketones Leukocytes Nitrite Labor Signs Protein Cervic Dilation Cervic Effacement Cervic Station Type Weight in lbs Pre/Post Dialysis Refused BP Diastolic BP Location Tested BP Systolic BP Type Fetus Heart Rate Present Fetus Movement Comments Flowsheet Date 02/23/2025 Mcdonough Score Blood Edema Fundus Height Fundus Units Glucose Ketones Leukocytes Nitrite Labor Signs Protein Cervic Dilation Cervic Effacement Cervic Station Type Weight in lbs Pre/Post Dialysis Refused Weight 155.834552693777 BP Diastolic BP Location Tested BP Systolic BP Type 65 L arm 104 sitting Fetus Heart Rate Present Fetus Movement A Yes Comments +FM doing well growth 44%, e ducation and precautions considering tdap and rsv no flu f/u 4 weeks with growth Flowsheet Date 03/23/2025 Mcdonough Score Blood Edema Fundus Height Fundus Units Glucose Ketones Leukocytes Nitrite Labor Signs Protein Cervic Dilation Cervic Effacement Cervic Station Type Weight in lbs Pre/Post Dialysis Refused Weight 158.650974170340 BP Diastolic BP Location Tested BP Systolic BP Type 70 L arm 108 sitting Fetus Heart Rate Present Fetus Movement A Yes Comments Flowsheet Date 03/23/2025 Mcdonough Score Blood Edema Fundus Height Fundus Units Glucose Ketones Leukocytes Nitrite Labor Signs Protein Cervic Dilation Cervic Effacement Cervic Station Type Weight in lbs Pre/Post Dialysis Refused 158.849251882105 BP Diastolic BP Location Tested BP Systolic BP Type 70 108 Fetus Heart Rate Present A 140 Fetus Movement A Yes Comments Doing well, good movem ent. GCT and labs at [place] for Rhogam. Was seen by [facility], recommend Rhogam for weak D. [facility]W wnl at [facility]. Discussed tdap and RSV vaccine. RTC 2 weeks. Menstrual History Last Menstrual Date Menses Monthly [...] Domestic Partner Domestic Partner Phone Father Name Turner Off Status 12/02/19 25 1 CLOSED Fetus Data First Name Last Name Admitted to NICU Weight (g) Sex Living Outcome Pediatric Complications Fetus ID Race Codes Race Delivery Type 3259.96 5704 F Full Term 92323 Vaginal Delivery Artis Calculation Initial Artis Date [...] Domestic Partner Domestic Partner Phone Father Name Turner Off Status 12/02/19 25 1 CLOSED Fetus Data First Name Last Name Admitted to NICU Weight (g) Sex Living Outcome Pediatric Complications Fetus ID Race Codes Race Delivery Type 3175.14 4 F Full Term [address] Vaginal Delivery Artis Calculation Initial Artis Date [...]
--- OUTSIDE RECORDS SUMMARY | 2025-04-06 17:44 | XMS_ITS | Clinical Summary ---
Author Organization [facility] Virtual Care Address [address] [place] [phone] Phone Care Team Providers Care Gold Miner Name Role Phone No, Physician Primary Care Provider [phone] Allergies Active Allergy Reactions Criticality Noted Date Comments Latex Rash Medium 03/21/2025 Medications 28 mg iron- 800 mcg tablet Take 1 tablet by mouth daily 03/07/2025 Active metoclopramide (REGLAN) 10 mg tablet Take 1 tablet (10 mg total) by mouth 4 (four) times a day Active Active Problems Problem Noted Date Diagnosed Date Bilobed placenta 03/21/2025 Overview (03/21/2025): US 03/21/25: Bilobed placenta with cord insertion in the posterior component. Reviewed increased risk for retained placenta at the time of delivery. Patient reports plan for serial growth ultrasounds that are ongoing with primary OB Assessment & Plan (03/21/2025 10:55 AM CDT): US 03/21/25: Bilobed placenta with cord insertion in the posterior component. Reviewed increased risk for retained placenta at the time of delivery. Patient reports plan for serial growth ultrasounds that are ongoing with primary OB Weak positive anti-D blood type 03/14/2025 Overview (03/21/2025): History - Rh results: [12/01/24: A-. 02/23/25: A-, 02/25/25: A+]. Patient reports A+ blood type in all prior pregnancies. No history of blood transfusion. Patient reports all children have positive blood type and are healthy without complications at , patient brought records (scanned) T&S repeated 03/21/25 at [facility]: A negative, indirect Adolfo negative, +weak D antigen present Discussed lab results with blood bank. Rh is weakly positive (1+) on their assay. They reported that 2+ results are generally reported as Rh positive. Thus today's final result for blood type is considered A negative. Counseling In the past, a woman whose blood was typed as weak D (formerly known as Du) was thought to have blood cells positive for a variant of the Rh D antigen. The prevalence of serologic weak D phenotypes varies by race and ethnicity. Serologic weak D phenotypes are the most common D variants detected in [place] and the [place]. An estimated 0.2-1.0% of Caucasians inherit RHD genes that code for serologic weak D phenotypes and, in the [place], 80% are associated with weak D type 1, 2, or 3. Some of these individuals express reduced numbers of normal Rh D antigens whereas others express partial or abnormal Rh D antigens. It is possible for the latter group to develop antibodies against the part of the Rh D antigen that they are missing, and several cases of clinically severe Rh D alloimmunization have been reported in weak D phenotype women. Accordingly, the [place] [employer] Dasil[employer] (AABB) recommends that testing for weak D is unnecessary in individuals who will be transfusion recipients of red blood cells. This approach categorizes individuals with weak D as Rh D negative for transfusion, and if , they are considered a candidate for anti-D immune globulin, hence avoiding potential Rh D alloimmunization. Recommendations [] Patient should receive RhoGam during if any bleeding [] Standard RhoGam administration at 28 weeks and - patient desired to wait until confirmatory T&S was completed today. I discussed the result with her via phone after our clinic visit. She will obtain Rhogam with primary OB. Assessment & Plan (03/21/2025 2:44 PM CDT): History - Rh results: [12/01/24: A-. 02/23/25: A-, 02/25/25: A+]. Patient reports A+ blood type in all prior pregnancies. No history of blood transfusion. Patient reports all children have positive blood type and are healthy without complications at , patient brought records (scanned) T&S repeated 03/21/25 at [facility]: A negative, indirect Adolfo negative, +weak D antigen present Discussed lab results with blood bank. Rh is weakly positive (1+) on their assay. They reported that 2+ results are generally reported as Rh positive. Thus today's final result for blood type is considered A negative. Counseling In the past, a woman whose blood was typed as weak D (formerly known as Du) was thought to have blood cells positive for a variant of the Rh D antigen. The prevalence of serologic weak D phenotypes varies by race and ethnicity. Serologic weak D phenotypes are the most common D variants detected in [place] and the [place]. An estimated 0.2-1.0% of Caucasians inherit RHD genes that code for serologic weak D phenotypes and, in the [place], 80% are associated with weak D type 1, 2, or 3. Some of these individuals express reduced numbers of normal Rh D antigens whereas others express partial or abnormal Rh D antigens. It is possible for the latter group to develop antibodies against the part of the Rh D antigen that they are missing, and several cases of clinically severe Rh D alloimmunization have been reported in weak D phenotype women. Accordingly, the [place] [employer] Blood Dasilva (AABB) recommends that testing for weak D is unnecessary in individuals who will be transfusion recipients of red blood cells. This approach categorizes individuals with weak D as Rh D negative for transfusion, and if , they are considered a candidate for anti-D immune globulin, hence avoiding potential Rh D alloimmunization. Recommendations [] Patient should receive RhoGam during if any bleeding [] Standard RhoGam administration at 28 weeks and - patient desired to wait until confirmatory T&S was completed today. I discussed the result with her via phone after our clinic visit. She will obtain Rhogam with primary OB. Supervision of high-risk , second trime ster 03/14/2025 Overview (03/21/2025): [x] OB consult only, [] Co-management vs. [] Full MFM Care; [] Red Team [] Blue Team Referring Provider: Shantelle Reyes [phone] [] or Medicare Insurance [x] Dating Criteria: LMP 08/09/24 w/ KATEY of 05/16/25, US 10/19/24 with KATEY 06/11/25 (page 15/43 in media tab). Dated by 1T US [x] Labs: Rh [12/01/24: A-. 02/23/25: A-, 02/25/25: A+], Ab [negative], Rubella [immune], HIV [non-reactive], HepBSAg [non-reactive], HepBSAb [not done], HepBCAb [not done], RPR [non-reactive], Hep C [non-reactive], Varicella [not done], GC/CT [negative/negative] [x] Aneuploidy Screening: NIPT low risk [x] Carrier Screening: CF negative, SMA negative, Alpha-Thalassemia negative, Sickle Cell/Beta-Thalassemia/Hemoglobinopathies negative [x] Hgb electrophoresis: negative per carrier screen [x] CBC/Hgb: 12.4/36.6/plt 220 [x] Hgb A1c 12/01/24: 4.8 [x] UCx: 12/01/24: no growth [] Pap: requested 03/14 [] LD ASA (if indicated): [] EPDS [ ]; PNBHS referral (if indicated): 2nd Trimester [x] Anatomy ultrasound: complete and wnl 03/21 [] CBC/1hr gtt at 24-28wks: [] Rhogam at 28 wks (if Rh neg): 3rd Trimester [] CBC/HIV/RPR/T&S: [] GBS: [] GC/CT (if indicated): [] testing: Counseling [] MOD: [] Place of delivery: [] Epidural: [] Accepts Blood Products: [] Stop ASA: [] MOC: [] Method of feeding: [] Mask Designer (specifically which provider): [] PP Depression Discussed: [] PP visits scheduled: Vaccines [] Flu Shot (Feb-May): [] COVID vaccine: [] Tdap (27-36wks): [] RSV vaccine (32-36wks): [] PP HPV vaccine counseling (<=26 yo): Assessment & Plan (03/21/2025 2:44 PM CDT): Further MFM visits are not necessary at this time. Plan for continued care and delivery with primary OB. Estimated Date of Delivery Comme nts Yes 06/11/2025 Based on Ultraso und Encounters Date Type Department Care Team Description 04/06/2025 Telephone [facility] Maternal- Medicine [address] [place] [address] [facility] Floor [address] [place] [phone] Pamela Shen, QIANA rhogam 04/06/2025 Orders Only [facility] Medicine Maternal- Medicine [address] [place] [address] Floor [address] [place] [address] Pamela Loredo, QIANA Supervision of high-risk , second trimester (Primary Dx); Weak positive anti-D blood type 03/21/2025 10:30 AM CDT Lab [address] [address] Supervision of high-risk , second trimester; Weak positive anti-D blood type 03/21/2025 9:30 AM CDT Office Visit [facility] Maternal- Medicine [address] [place] [address] Floor [address] [place] [phone] Supervision of high-risk , second trimester (Primary Dx); Weak positive anti-D blood type; Bilobed placenta 03/21/2025 8:08 AM CDT - 03/21/2025 11:59 PM CDT Hospital Encounter [facility] Outpatient [facility] - Ultrasound [address] [place] [address], [address] [place] [address], [address] [facility] [place] [address] Supervision of high-risk , unspecified trimester Discharge Disposition: Discharge to home or self care 03/10/2025 Telephone [facility] Maternal- Medicine [address] [place] [address] Floor [address] [place] [phone] Kelly Kim, CURT Scheduling US/OBC from Last 3 Months Family History Medical History Relation Name Comments No Known Problems Father No Known Problems Mother Relation Name Status Comments Father Alive Mother Alive Social History Tobacco Use Types Packs/Day Years [...] PM CDT Sexual Orientation Not on file Obstetrics History Para Term AB IAB SAB Ectopic Multiple Livin g Live Births 4 3 3 3 3 Date Outcome GA Total Labor Labor/2nd/3rd Weight Sex Type Anes PTL Edward A1 A5 Name Clin 04/01 Term 41w 0d 3.26 kg (7 lb 3 oz) F Vaginal Living 03/30 Term 39w 0d 3.062 kg (6 lb 12 oz) F Vaginal Living 10/04 Term 39w 0d 3.175 kg (7 lb) F Vaginal Living Current Summary Episode Dates Number of Fetuses Estimated Date of Delivery 03/14/2025 - Present (04/06/2025) 06/11/2025 (set by Yosef Butt MD on 03/21/2025 based on Ultrasound on 10/19/2024) Dating Summary Based On KATEY [place] Diff Last Menstrual Period on 08/09/2024 05/16/2025 +3w5d Ultrasound on 10/19/2024 06/11/2025 Working GA:6w3d Ultrasound on 12/01/2024 06/09/2025 +2d GA:12w6d Ultrasound on 01/26/2025 06/12/2025 -1d GA:20w3d Ultrasound on 02/23/2025 06/12/2025 -1d GA:24w3d Vitals Pregravid Weight Height TWG (As of 04/06/2025) Pregrav id BMI 167.6 cm (5' 6) Date GA Fund Present FHR Mvmt BP Weight Edema Alb Glu Ket Dil/ Eff/Sta 28w2d Inpatient data not displayed here. See encounter summary. Notes Progress Notes - Office Visi t - 03/21/2025 - GA:28w2d 03/21/2025 - 28w2d - Anna Butt MD Maternal Medicine Consult Note Reason for Consult: Concern for weak D antigen Requesting Provider: Shantelle Reyes NP Dear Shantelle Reyes NP, We had the pleasure of seeing your patient Sahra Novak in our office today. As you know, she is a 34 y.o. at 28w2d by 1st trimester Ultrasound here today for a consult regarding possible weak D antigen. Her is also complicated by bi-lobed placenta. Patient has records today demonstrating her blood type in prior pregnancies as A positive. All 3 prior children have Rh positive blood types. Today she is doing well, she reports no complaints. No vaginal bleeding during this . No current bleeding, contractions or LOF. Active movement. PMH: None History reviewed. No pertinent surgical history. Past Gynecologic History: Prior STIs: denies History of abnormal pap: denies Patient's last menstrual period was 08/09/2024. Denies history of uterine anomalies or fibroids OB History Para Term AB Living 4 3 3 3 SAB IAB Ectopic Multiple Live Births 3 # Outcome Date GA Lbr Jhonathan/2nd Weight Sex Type Anes PTL Lv 4 Current 3 Term 10/04/17 39w0d 3.175 kg (7 lb) F Vaginal EDWARD 2 Term 03/30/13 39w0d 3.062 kg (6 lb 12 oz) F Vaginal EDWARD 1 Term 04/01/12 41w0d 3.26 kg (7 lb 3 oz) F Vaginal EDWARD Current Outpatient Medications Medication Sig Dispense Refill 28 mg iron- 800 mcg tablet Take 1 tablet by mouth daily metoclopramide (REGLAN) 10 mg tablet Take 1 tablet (10 mg total) by mouth 4 (four) times a day (Patient not taking: Reported on 03/21/2025) No current facility-administered medications for this visit. Family History: Family History Problem Relation Age of Onset No Known Problems Father No Known Problems Mother Neural tube defects: No Down syndrome or other chromosomal anomalies: No Hemophilia, sickle cell, bleeding/clotting disorder: No Muscular dystrophy: No Cystic fibrosis: No Intellectual disability or Fragile X: No Jone disease: No Other defects or genetic disorders: No Allergies Allergen Reactions Latex Rash Social History Tobacco Use Smoking status: Never Smokeless tobacco: Never Substance and Sexual Activity Drug use: Never Sexual activity: Yes Partners: Male control/protection: None Alcohol Use: Not on file 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 [employer] Lives with children and father of children Smoke cigarettes, cigars, E-cigs: No Beer, wine, or liquor: No Street drugs/marijuana: No Dating: Estimated Date of Delivery: 06/11/25 based on 6 wk US, inconsistent with LMP Review of Systems Review of systems per HPI and otherwise all systems are negative Physical Exam Vitals BP 96/58 (BP Location: Left arm, Patient Position: Sitting) Pulse 81 Ht 167.6 cm (5' 6) Wt 159 lb (72.1 kg) LMP 08/09/2024 SpO2 100% BMI 25.66 kg/m General: Healthy, alert, active, cooperative, and in no distress The rest of the exam was deferred due to the consultative nature of this visit. Ultrasound 03/21/2025: IMPRESSION: Normal biometry and amniotic fluid. Anatomic assessment as above which appeared grossly normal within the limitations of ultrasound. Normal adnexa. Bilobed placenta with cord insertion in the posterior component. Please see the separate report for full details Assessment: Ms. Sahra Novak is a justo 34 y.o. at 28w2d here today for a consult regarding: Recommendations: Bilobed placenta US 03/21/25: Bilobed placenta with cord insertion in the posterior component. Reviewed increased risk for retained placenta at the time of delivery. Patient reports plan for serial growth ultrasounds that are ongoing with primary OB Weak positive anti-D blood type History - Rh results: [12/01/24: A-. 02/23/25: A-, 02/25/25: A+]. Patient reports A+ blood type in all prior pregnancies. No history of blood transfusion. Patient reports all children have positive blood type and are healthy without complications at , patient brought records (scanned) T&S repeated 03/21/25 at [facility]: A negative, indirect Adolfo negative, +weak D antigen present Discussed lab results with blood bank. Rh is weakly positive (1+) on their assay. They reported that 2+ results are generally reported as Rh positive. Thus today's final result for blood type is considered A negative. Counseling In the past, a woman whose blood was typed as weak D (formerly known as Du) was thought to have blood cells positive for a variant of the Rh D antigen. The prevalence of serologic weak D phenotypes varies by race and ethnicity. Serologic weak D phenotypes are the most common D variants detected in [place] and the [place]. An estimated 0.2-1.0% of Caucasians inherit RHD genes that code for serologic weak D phenotypes and, in the [place], 80% are associated with weak D type 1, 2, or 3. Some of these individuals express reduced numbers of normal Rh D antigens whereas others express partial or abnormal Rh D antigens. It is possible for the latter group to develop antibodies against the part of the Rh D antigen that they are missing, and several cases of clinically severe Rh D alloimmunization have been reported in weak D phenotype women. Accordingly, the [place] [employer] Blood Dasilva (AABB) recommends that testing for weak D is unnecessary in individuals who will be transfusion recipients of red blood cells. This approach categorizes individuals with weak D as Rh D negative for transfusion, and if , they are considered a candidate for anti-D immune globulin, hence avoiding potential Rh D alloimmunization. Recommendations [] Patient should receive RhoGam during if any bleeding [] Standard RhoGam administration at 28 weeks and - patient desired to wait until confirmatory T&S was completed today. I discussed the result with her via phone after our clinic visit. She will obtain Rhogam with primary OB. Supervision of high-risk , second trimester Further MFM visits are not necessary at this time. Plan for continued care and delivery with primary OB. Need for Rhogam discussed with primary OB office via phone 03/21/25 Thank you for the opportunity to be involved in the care of your patient. Should you have any further questions or concerns, please do not hesitate to call us. Anna Butt MD Maternal Medicine 03/21/2025 My total encounter time on 03/21/2025 was 45 minutes which was spent in the activities documented in the note. This includes time spent prior to the visit and after the visit in direct care of the patient. This time does not include time spent in any separately reportable services. Progress Notes - Abstract - 03/14/2025 - GA:27w2d 03/14/2025 - 27w2d - Marlin Quinn RMA Current OB records are under media tab. 03/14 requested pap smear results from referring. Last Filed Vital Signs Vital Sign Reading Time Taken Comments Blood Pressure 96/58 03/21/2025 9:21 AM CDT Pulse 81 03/21/2025 9:21 AM CDT Temperature - - Respiratory Rate - - Oxygen Saturation 100% 03/21/2025 9:21 AM CDT Inhaled Oxygen Concentration - - Weight 72.1 kg (159 lb) 03/21/2025 9:21 AM CDT Height 167.6 cm (5' 6) 03/21/2025 9:21 AM CDT Body Mass Index 25.66 03/21/2025 9:21 AM CDT Plan of Treatment Health Maintenance Due Date Last Done Comments Cervical Cancer Screening 1990 Depression Screening 1990 Varicella Vaccines (1 of 2 - 13+ 2-dose series) 12/24/2003 Regular Well Visit/Exam 18-64 2008 HPV Vaccines (2 - 3-dose series) 06/08/2013 05/11/2013 Influenza Vaccine (#1) 2025 03/26/2017 DTaP/Tdap/Td Vaccine (3 - Td or Tdap) 09/06/2029 09/07/2019, 07/22/2017 Hepatitis B Screening Completed 05/12/2013 Hepatitis C Screening Completed 12/01/2024 Pneumococcal vaccine <65 Aged Out No longer eligible based on patient's age to complete this topic Procedures Procedure Name Priority Date/Time Associated Diagnosis Comments TYPE AND SCREEN Routine 03/21/2025 10:33 AM CDT Supervision of high-risk , second trimester Weak positive anti-D blood type US OB 14 WEEKS OR OVER Schedule Routine, Read Routine (OP Routine) 03/21/2025 8:08 AM CDT Supervision of high-risk , unspecified trimester HEPATITIS C ANTIBODY Routine 12/01/2024 from Last 3 Months or Most Recently Relevant to Health Maintenance Results * Type and screen (03/21/2025 10:33 AM CDT) ABO Rh A Negative Adolfo, indirect Negative LADAN MONAHAN Blood 03/21/2025 10:3 3 AM CDT 03/21/2025 11:49 AM CDT Narrative LADAN BETANCUR - 03/21/2025 1:20 PM CDT Concern for weak D antigen Has the patient had Daratumumab or Isatuximab in the past 6 months?->Unknown us Anna Butt MD LAB BLOOD BANK TEST ORDERA BLES Final Result LADAN [facility] [place] [address] * US Ob 14 Weeks Or Over (03/21/2025 8:08 AM CDT) Fetus# Fetus1 VIEWPOINT Estimated Weight 1,096 g&grams VIEWPOINT Placenta Details bilobed placenta, Previa-no, no placental masses VIEWPOINT Presentation Vertex VIEWPOINT Anatomical Region Laterality Modality Abdomen N/A Ultrasound 03/21/2025 8:09 AM CDT Impressions 03/21/2025 9:55 AM CDT Normal biometry and amniotic fluid. Anatomic assessment as above which appeared grossly normal within the limitations of ultrasound. Normal adnexa. jBilobed placenta with cord insertion in the posterior component. Narrative Procedure Note Yolette Dhillon MD - 03/21/2025 IMPRESSION: Normal biometry and amniotic fluid. Anatomic assessment as above whichappeared grossly normal within the limitations of ultrasound.Normal adnexa. jBilobed placenta with cord insertion in the posteriorcomponent. us Shantelle Reyes SYSTEM AUDITOR IMG OB US PROCEDURES Final R esult * Hepatitis C antibody Blood (12/01/2024) SCRIBED HCV ab non-reacti ve Blood Shantelle Reyes NP LAB MICROBIOLOGY - GENERAL O RDERABLES Final Result from Last 3 Months or Most Recently Relevant to Health Maintenance Insurance [facility] Member Subscriber Plan / Payer ( fective 2025-Present) Name:Sahra Novak Relation to Subscriber:Self Name:Sahra Novak Payer ID:[id number] (NAIC) Group ID:Not on file Type:MEDICAID RISK OTHER Address: [place] [id number] Care Teams Gold Miner Relationship Specialty Start Date End Date No, Physician PCP - General 03/08/25
[2025-04-06] MEDS: RHO(D) IMMUNE GLOBULIN 300 MCG/2 ML SYRINGE IM (20:30)
== END 2025-04-06 16:16 | disposition home or self-care (01) ==
LOC: ANHLAB 16:17
PROVIDERS: PCP Internal Medicine Gastroenterology; Visit Provider Obstetrics & Gynecology
DX: O36.0130 Maternal care for anti-D [Rh] antibodies, third trimester, not applicable or unspecified (principal); Z3A.00 Weeks of gestation of pregnancy not specified; Z36.89 Encounter for other specified antenatal screening
CPT/HCPCS: 36415; 85461; 86850; 86900; 86901; 90384; 96372; J2790

== ENCOUNTER 2025-06-10 16:59 | Inpatient (IN) | payer OTHER, SELFPAY ==
[2025-06-10] VITALS (26 sets, daily range): BP systolic 83–122; BP diastolic 38–86; PULSE 64–95; TEMP 36.8–36.9; BMI 27.1
--- OUTSIDE RECORDS SUMMARY | 2025-06-10 17:04 | XMS_ITS | Continuity of Care Document ---
Author Organization [facility] Address [address] [place] [address] [place] [address] Assessment No assessment recorded. Plan of Treatment Reminders Order Date Submit Date Provider Last Modified By Organization Details Last Modified Time Details Appointments OB ROUTINE 2024 08:30A M Shantelle Reyes CNM Not available Not available Not available Lab None recorded . Referral None recorded . Procedures None recorded . Surgeries None recorded . Imaging None recorded . Medication Orders None recorded . Patient TargetsNo targets recorded. Patient InstructionsNo instructions recorded. Reason for Referral None Reported. Results Created Date Observation Date Name Description Value Unit Range Abnormal Flag Note LastModifiedBy Organization Detail LastModifiedTime 12/08/1912/07/2024 [UNIT Y] ANEUP LOIDY NIPT fraction 11.1% normal Not Available [facility] [address], [place], [address], 12/07/2024 07:43:35 12/08/19 25 12/07/2024 [UNIT Y] ANEUP LOIDY NIPT 22Q11.2 microdeletio n LOW RISK <1 in 10,000 normal Not Available [facility] [address], [place], [address], 12/07/2024 07:43:35 12/08/19 25 12/07/2024 [UNIT Y] ANEUP LOIDY NIPT sex chromosome aneuploidy NOT DETECT ED normal Not Available [facility] [address], [place], [address], 12/07/2024 07:43:35 12/08/19 25 12/07/2024 [UNIT Y] ANEUP LOIDY NIPT monosomy X LOW RISK <1 in 10,000 normal Not Available [facility] [address], [place], [address], 12/07/2024 07:43:35 12/08/19 25 12/07/2024 [UNIT Y] ANEUP LOIDY NIPT trisomy 13 LOW RISK <1 in 10,000 normal Not Available [facility] [address], [place], [address], 12/07/2024 07:43:35 12/08/19 25 12/07/2024 [UNIT Y] ANEUP LOIDY NIPT trisomy 18 LOW RISK <1 in 10,000 normal Not Available [facility] [address], [place], [address], 12/07/2024 07:43:35 12/08/19 25 12/07/2024 [UNIT Y] ANEUP LOIDY NIPT trisomy 21 LOW RISK <1 in 10,000 normal Not Available [facility] [address], [place], [address], 12/07/2024 07:43:35 12/08/19 25 12/07/2024 [UNIT Y] ANEUP LOIDY NIPT sex FEMALE normal Not Available [facility] [address], [place], [address], 12/07/2024 07:43:35 12/08/19 25 12/07/2024 [UNIT Y] ANEUP LOIDY NIPT gestation SINGLE TON normal Not Available [facility] [address], [place], [address], 12/07/2024 07:43:35 12/08/19 25 12/07/2024 [UNIT Y] ANEUP LOIDY NIPT for detailed report, see pdf See PDF normal Not Available [facility] [address], [place], [address], 12/07/2024 07:43:35 12/23/19 25 12/22/2024 [UNIT Y] GUILLERMO MCCARTYWanda Herrera sickle cell disease/beta -thalassemia /hemoglobino pathies carrier screen NEGATI VE normal Not Available [facility] [address], [place], [address], 12/22/2024 23:42:40 12/23/19 25 12/22/2024 [UNIT Y] GUILLERMO MCCARTYWanda Herrera alpha-thalas semia carrier screen NEGATI VE normal Not Available [facility] [address], [place], [address], 12/22/2024 23:42:40 12/23/19 25 12/22/2024 [UNIT Y] GUILLERMO SIVAN LULWanda Herrera cystic fibrosis carrier screen NEGATI VE normal Not Available [facility] [address], [place], [address], 12/22/2024 23:42:40 12/23/19 25 12/22/2024 [UNIT Y] GUILLERMO SIVAN LULWanda Herrera spinal muscular atrophy carrier screen NEGATI VE 2 SMN1 copies , SNP not presen t normal Not Available [facility] [address], [place], [address], 12/22/2024 23:42:40 12/23/19 25 12/22/2024 [UNIT Y] GUILLERMO SIVAN LULWanda Herrera for detailed report, see pdf See PDF normal Not Available [facility] [address], [place], [address], 12/22/2024 23:42:40 12/02/19 25 12/01/2024 HIV 1/2 ANTIG EN/AN TIBOD Y, REFLE X CONFI RMATI ON HIV antigen/anti body Nonrea ctive nonrea ctive HIV-1 antig en and HIV-1 /HIV- 2 antib odies were not detec julieta. No labor atory evide nce of HIV infec tion. Not Available [facility] (Lab) [address], [place], [address], 12/02/2024 10:19:34 12/02/1912/01/2024 HEPAT ITIS B SURFA CE ANTIG EN hepatitis B surface antigen Non-re active non-re active This assay was perfo rmed using [employer] ratio n reage nts and test kits. Value s obtai edison with other assay metho ds or kits canno t be used inter kelley eably . Not Available [facility] (Lab) [address], [place], [address], 12/02/2024 10:19:35 12/02/1912/01/2024 HEPAT ITIS C ANTIB MOLLY SCREE N, REFLE X TO CONFI RMATI ON hepatitis C antibody Non-re active non-re active Antib odies to HCV Not Detec julieta, does not exclu de the possi bilit y of expos ure to HCV. Not Available [facility] (Lab) [address], [place], [address], 12/02/2024 10:19:35 12/02/1912/01/2024 CBC W/DIF F WBC 8.1 10'3/ uL 3.5-10 .5 Not Available [facility] (Lab) [address], [place], [address], 12/02/2024 10:19:35 12/02/1912/01/2024 CBC W/DIF F RBC 3.87 10'6/ uL (based on docume nted legal sex) 3.80-5 .20 Not Available [facility] (Lab) [address], [place], [address], 12/02/2024 10:19:35 12/02/19 25 12/01/2024 CBC W/DIF F HGB 12.4 g/dL (based on docume nted legal sex) 11.6-1 5.4 Not Available [facility] (Lab) [address], [place], [address], 12/02/2024 10:19:35 12/02/19 25 12/01/2024 CBC W/DIF F HCT 36.6 % (based on docume nted legal sex) 34.0-4 5.0 Not Available [facility] (Lab) [address], [place], [address], 12/02/2024 10:19:35 12/02/19 25 12/01/2024 CBC W/DIF F MCV 94.6 fL 80.0-9 9.0 Not Available [facility] (Lab) [address], [place], [address], 12/02/2024 10:19:35 12/02/19 25 12/01/2024 CBC W/DIF F MCH 32.0 pg 27.0-3 4.0 Not Available [facility] (Lab) [address], [place], [address], 12/02/2024 10:19:35 12/02/19 25 12/01/2024 CBC W/DIF F MCHC 33.9 g/dL 32.0-3 5.5 Not Available [facility] (Lab) [address], [place], [address], 12/02/2024 10:19:35 12/02/19 25 12/01/2024 CBC W/DIF F RDW 12.2 % 11.0-1 5.0 Not Available [facility] (Lab) [address], [place], [address], 12/02/2024 10:19:35 12/02/19 25 12/01/2024 CBC W/DIF F plt 220 10'3/ uL 150-40 0 Not Available [facility] (Lab) [address], [place], [address], 12/02/2024 10:19:35 12/02/19 25 12/01/2024 CBC W/DIF F MPV 11.6 fL 8.8-12 .1 Not Available [facility] (Lab) [address], [place], [address], 12/02/2024 10:19:35 12/02/1912/01/2024 CBC W/DIF F NRBC's 0.0 % 0.0 Not Available [facility] (Lab) [address], [place], [address], 12/02/2024 10:19:35 12/02/19 25 12/01/2024 CBC W/DIF F absolute NRBCs 0.0 10'3/ uL no refere nce range establ ished Not Available [facility] (Lab) [address], [place], [address], 12/02/2024 10:19:35 12/02/1912/01/2024 CBC W/DIF F neutrophils 77.4 % 34.0-7 3.0 high Not Available [facility] (Lab) [address], [place], [address], 12/02/2024 10:19:35 12/02/19 25 12/01/2024 CBC W/DIF F lymphocytes 15.0 % 15.0-5 0.0 Not Available [facility] (Lab) [address], [place], [address], 12/02/2024 10:19:35 12/02/1912/01/2024 CBC W/DIF F monocytes 6.3 % 1.0-15 .0 Not Available [facility] (Lab) [address], [place], [address], 12/02/2024 10:19:35 12/02/1912/01/2024 CBC W/DIF F eosinophils 0.7 % 0.0-8. 0 Not Available [facility] (Lab) [address] [place], [address], 12/02/2024 10:19:35 12/02/19 25 12/01/2024 CBC W/DIF F basophils 0.2 % 0.0-2. 0 Not Available [facility] (Lab) [address] , [place], [address], 12/02/2024 10:19:35 12/02/19 25 12/01/2024 CBC W/DIF [...] separ ately if prese nt. Not Available [facility] (Lab) [address], [place], [address], 12/02/2024 10:19:35 12/02/19 25 12/01/2024 CBC W/DIF F absolute neutrophils 6.3 10'3/ uL 1.5-8. 0 Not Available [facility] (Lab) [address], [place], [address], 12/02/2024 10:19:35 12/02/19 25 12/01/2024 CBC W/DIF F absolute lymphocytes 1.2 10'3/ uL 1.0-4. 0 Not Available [facility] (Lab) [address], [place], [address], 12/02/2024 10:19:35 12/02/19 25 12/01/2024 CBC W/DIF F absolute monocytes 0.5 10'3/ uL 0.2-1. 0 Not Available [facility] (Lab) [address], [place], [address], 12/02/2024 10:19:35 12/02/19 25 12/01/2024 CBC W/DIF F absolute eosinophils 0.1 10'3/ uL 0.0-0. 6 Not Available [facility] (Lab) [address], [place], [address], 12/02/2024 10:19:35 12/02/19 25 12/01/2024 CBC W/DIF F absolute basophils 0.0 10'3/ uL 0.0-0. 3 Not Available [facility] (Lab) [address], [place], [address], 12/02/2024 10:19:35 12/02/19 25 12/01/2024 CBC W/DIF F absolute immature granulocytes 0.0 10'3/ uL 0.00-0 .10 Refer ence range s for nonbi nary/ inter sex or unspe cifie d gende r patie nts have not been estab lishe d. Pleas e refer to the [facility] for range s estab lishe d for cisge nder patie nts and evalu ate in the clini daniel paula xt of the indiv idual patie nt: https ://la capoand book. nm.or g/gen derx Not Available [facility] (Lab) [address], [place], [address], 12/02/2024 10:19:35 12/02/19 25 12/01/2024 RUBEL LA IGG ANTIB MOLLY, QUANT rubella antibodies, IgG Reacti ve reacti ve Not Available [facility] (Lab) [address], [place], [address], 12/02/2024 10:19:36 12/02/19 25 12/01/2024 RUBEL LA IGG ANTIB MOLLY, QUANT rubella antibodies, IgG quant 17.9 IU/mL >=10 Non-r eacti ve (Non- Immun e) <10 IU/mL React marely (Immu ne) > or = 10 IU/mL Not Available [facility] (Lab) [address], [place], [address], 12/02/2024 10:19:36 12/02/19 25 12/01/2024 TYPE/ RH/SC REEN ABO/Rh type A NEG Not Available [facility] (Lab) [address], [place], [address], 12/02/2024 10:19:36 12/02/19 25 12/01/2024 TYPE/ RH/SC REEN antibody screen NEG Not Available [facility] (Lab) [address], [place], [address], 12/02/2024 10:19:36 12/02/19 25 12/01/2024 TYPE/ RH/SC REEN exp date 2024 23:59 Not Available [facility] (Lab) [address], [place], [address], 12/02/2024 10:19:36 12/02/19 25 12/01/2024 HEMOG LOBIN A1C hemoglobin A1C 4.8 % 4.0-5. 6 The Ameri can [employer] [facility] [employer] i[employer] n recom mends that a prima ry goal of thera py shoul d be a HBA1C of < 7% and that physi cians shoul d reeva luate the treat ment regim en in patie nts with HBA1C value s consi stent ly > 8%. <5.7% Mar l 5.7 - 6.4% Incre ased risk for diabe niki >=6.5 % Diagn ostic of diabe niki <7.0% Goal of thera py >8.0% Actio n sugge sted Not Available [facility] (Lab) [address], [place], [address], 12/02/2024 10:19:37 12/02/19 25 12/01/2024 RPR SCREE N, REFLE X TITER /CONF IRMAT ION RPR qualitative Nonrea ctive nonrea ctive Not Available [facility] (Lab) [address], [place], [address], 12/02/2024 10:19:37 12/02/19 25 12/01/2024 CULTU RE: URINE result report SEE RESULT S BELOW Test: Cultu re: Urine Speci men Sourc e: Urine Voide d Speci men Type: Urine Speci men Date: 2024 1100 Resul t Date: 2024 2144 Resul t Statu s: Final resul t Abnor mal: No Resul ting Lab: [facility] [address] [address] Tel: CULTU RE ----- ----- ----- --- No growt h in 1 day (dete ction level of 10,00 0 colon ies / ml.) Not Available [facility] (Lab) [address], [place], [address], 12/02/2024 22:47:13 12/02/19 25 12/01/2024 drug scree n, urine Amphetamines : negati ve Not Available [facility] [address], [place], [address], 12/01/2024 11:13:13 12/02/19 25 12/01/2024 drug scree n, urine Cannabinoids : negati ve Not Available [facility] [address], [place], [address], 12/01/2024 11:13:13 12/02/19 25 12/01/2024 drug scree n, urine Cocaine: negati ve Not Available [facility] [address], [place], [address], 12/01/2024 11:13:13 12/02/19 25 12/01/2024 drug scree n, urine Opiates: negati ve Not Available [facility] [address], [place], [address], 12/01/2024 11:13:13 12/02/19 25 12/01/2024 drug scree n, urine Phenocyclidi ne: negati ve Not Available [facility] [address], [place], [address], 12/01/2024 11:13:13 06/11/12/01/2024 drug scree n, urine Barbiturates : negati ve Not Available [facility], [place], [address], 12/01/2024 11:13:13 12/02/19 25 12/01/2024 drug scree n, urine Benzodiazepi haris: negati ve Not Available [facility] [address], [place], [address], 12/01/2024 11:13:13 12/02/19 25 12/01/2024 drug scree n, urine Ethanol: negati ve Not Available [facility], [place], [address], 12/01/2024 11:13:13 12/02/19 25 12/01/2024 drug scree n, urine Hallucinogen s: negati ve Not Available [facility] [address], [place], [address], 12/01/2024 11:13:13 12/02/19 25 12/01/2024 drug scree n, urine Inhalants: negati ve Not Available [facility], [place], [address], 12/01/2024 11:13:13 12/02/19 25 12/01/2024 drug scree n, urine Anabolic Steroids: negati ve Not Available [facility], [place], [address], 12/01/2024 11:13:13 12/02/19 25 12/01/2024 drug scree n, urine Other: positi ve Not Available [address], [place], [address], 12/01/2024 11:13:13 02/24/20 25 02/23/2025 TYPE/ RH/SC REEN ABO/Rh type A NEG Not Available [facility] (Lab) [address], [place], [address], 02/24/2025 08:26:42 02/24/2002/23/2025 TYPE/ RH/SC REEN antibody screen NEG Not Available [facility] (Lab) [address], [place], [address], 02/24/2025 08:26:42 02/24/2002/23/2025 TYPE/ RH/SC REEN exp date 2024 23:59 Not Available [facility] (Lab) [address], [place], [address], 02/24/2025 08:26:42 05/18/2005/18/2025 CULTU RE: GROUP B STREP SCREE N, REFLE X SUSCE PTIBI LITY result report SEE RESULT S BELOW abnormal Test: Cultu re: Group B Strep , Refle x Susce ptibi lity ([facility] ) Speci men Sourc e: Vagin a/Rec bay Speci men Type: Vagin al/Re ctal Speci men Date: 05/18 1713 Resul t Date: 05/22 1438 Resul t Statu s: Final resul t Abnor mal: Yes Resul nakia Lab: [facility] [address] [facility] [address] Tel: CULTU RE ----- ----- ----- --- Posit marely for Strep tococ cus agala ctiae (Grou p B) (Abno rmal) Clind amyci n = resis tant, eryth romyc in = resis tant. Cefaz glenis may be used for intra partu m proph ylaxi s in penic illin -isabel rgic women at low risk, and Vanco mycin is recom erick d for women at high risk for anaph ylaxi s. Susce ptibi lity testi ng is not neces armando for these drugs . Not Available [facility] (Lab) [address], [place], [address], 05/22/2025 15:40:39 12/02/19 25 12/01/2024 US, obste tric, nucha l trans lucen cy No observ ation record ed. [email or web address] [address], [place], [address], 12/01/2024 14:38:13 12/02/19 25 12/01/2024 US, obste tric, follo w-up No observ ation record ed. [email or web address] [address], [place], [address], 12/01/2024 18:45:45 01/27/20 25 01/26/2025 US, obste tric, 2nd or 3rd trime ster No observ ation record ed. [email or web address] [address], [place], [address], 01/26/2025 12:36:41 01/27/20 25 01/26/2025 US, obste tric, 2nd or 3rd trime ster No observ ation record ed. [email or web address] [address], [place], [address], 01/26/2025 12:39:35 02/24/20 25 02/23/2025 US, obste tric, follo w-up No observ ation record ed. [email or web address] [address], [place], [address], 02/23/2025 18:48:54 02/24/20 25 02/23/2025 US, obste tric, follo w-up No observ ation record ed. [email or web address] [address], [place], [address], 02/23/2025 16:57:13 02/24/20 25 02/23/2025 US, obste tric, follo w-up No observ ation record ed. [email or web address] [address], [place], [address], 02/23/2025 16:55:34 03/21/20 25 03/21/2025 US, obste tric, follo w-up No observ ation record ed. [email or web address] [facility]iatry Department) [address], [place], [address], 03/23/2025 16:02:35 03/21/20 25 03/21/2025 US, obste tric, follo w-up No observ ation record ed. [email or web address] [facility] [address], [place], [address], 03/22/2025 10:18:20 04/22/2004/22/2025 US, obste tric, follo w-up No observ ation record ed. [email or web address] [address], [place], [address], 04/27/2025 11:38:48 04/22/2004/22/2025 US, obste tric, follo w-up No observ ation record ed. [facility] [address], [place], [address], 04/22/2025 17:08:34 05/18/20 25 05/18/2025 US, obste tric, follo w-up No observ ation record ed. [facility] [address], [place], [address], 05/18/2025 18:24:57 05/18/20 25 05/18/2025 US, obste tric, follo w-up No observ ation record ed. [email or web address] [address], [place], [address], 05/25/2025 10:56:46 Result Notes None recorded. Problems Name Problem SNOMED Code Status Onset Date Resolution Date Notes Provider Name and Address Organization Details Recorded Time 65824686 Active 2024 Mary Murillo [facility] 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 21:45:57 Placenta succentur iata 88981021 Active 2024 serial growth US Elizabet Otto [facility] 12:38:22 Problem Notes None recorded. Procedures Surgical History Date Name Laterality Status Provider Name and Address Organization Details Recorded Time 05/09/2024 Date of Last Pap Smear completed Katherine Hardwick [facility] 03/23/2025 10:52:23 Imaging Results None recorded. Procedure Notes None recorded. Medical Equipment None Reported. Allergies Allergen ID Allergen Name Allergen Category Reaction Reaction Severity Criticality Documentation Date Start Date Code Code System Note Provider Name and Address Organization Details Recorded Time 56627 latex environme nt,medica tion Not available Not available Not available 12/01/2024 96285 91 RxNorm Mary Murillo [facility] 5 11:38:56 20790 ethinyl estradiol / norelgest romin medicatio n hives Not available Not available 05/06/2025 94880 7 RxNorm Not Available nieves - External Data Service - prod 09:42:49 Medications Name Sig Start Date Stop Date [...] TAKE 1 TABLET BY MOUTH TWICE DAILY 05/06 completed Not Available Not Available Not Available oseltamivir 75 mg capsule TAKE 1 CAPSULE BY MOUTH TWICE DAILY 12/01 completed Not Available Not Available Not Available metocloprami de 10 mg tablet TAKE 1 TABLET BY MOUTH FOUR TIMES DAILY 05/06 completed Not Available Not Available Not Available Vitamin 05/06 completed Not Available Not Available Not Available 28 mg iron-800 mcg tablet TAKE [...] completed Not Available Not Available Not Available Sterile Water Diluent Component for Abrysvo injection syringe INJECT 0.5 ML IN THE MUSCLE ONCE active Not Available Not Available No t Available Vitals None Recorded Social History Question Answer Notes LastModified by Organizat ion Details LastModified Time Tobacco Smoking Status Never Smoker [facility] 12/01/2024 11:12:14 Do You Have An Advance Directive? No Information n ot available 12/01/2024 If You Are , What Was Your Level Of Alcohol Consumption Prior To ? Occasional [email or web address] Information not available 12/01/2024 How Many Years Have You Consumed Alcohol? 0 [email or web address] Information not available 12/01/2024 Are You Blind Or Do You Have Difficulty Seeing? No [email or web address] Information n ot available 12/01/2024 What Is Your Level Of Caffeine Consumption? Moderate Information not available 12/01/2024 How Much Tobacco Do You Chew? None [email or web address] Information not available 12/01/2024 In The 14 Days Before Symptom Onset, Have You Had Close Contact With A Laboratory-confirm ed COVID-19 While That Case Was Ill? No [email or web address] Information n ot available 12/01/2024 In The 14 Days Before Symptom Onset, Have You Had Close Contact With A Person Who Is Under Investigation For COVID-19 While That Person Was Ill? No [email or web address] Information not available 12/01/2024 Have You Been To An Area Known To Be High Risk For COVID-19? No [email or web address] Information not available 12/01/2024 Are You Deaf Or Do You Have Serious Difficulty Hearing? No [email or web address] Information not available 12/01/2024 What Type Of Diet Are You Following? REGULAR [email or web address] Information n ot available 12/01/2024 What Is The Highest Grade Or Level Of School You Have Completed Or The Highest Degree You Have Received? GB86090-2 [email or web address] Information not available 12/01/2024 Are There Any Guns Present In Your Home? No [email or web address] Information not available 12/01/2024 Do You Use Protection During Sex? No Information not available 12/01/2024 Do You Use Your Seat Belt Or Car Seat Routinely? Yes [email or web address] Information not available 12/01/2024 Do You Have Smoke And Carbon Monoxide Detectors In Your Home? Yes [email or web address] Information not available 12/01/2024 How Much Tobacco Do You Smoke? No [email or web address] Information not available 12/01/2024 Do You Use Sunscreen Routinely? Yes [email or web address] Information not available 12/01/2024 Has Tobacco Cessation Counseling Been Provided? Yes [email or web address] Information not available 12/01/2024 On What Date Was Tobacco Cessation Counseling Provided? 12/01/2024 [email or web address] Information not available 12/01/2024 How Many Years Have You Smoked Tobacco? 0 Information not available 12/01/2024 Have You Used IV Drugs? No [email or web address] Information not available 12/01/2024 Do You Have Difficulty Walking Or Climbing Stairs? No [email or web address] Information not available 12/01/2024 Sex: Unknown Functional Status Question Answer Note LastModified by Organizat ion Details LastModified Time Do you use any illicit or recreational drugs? No [email or web address] Information not available 03/23/2025 Do you or have you ever used any other forms of tobacco or nicotine? No [email or web address] Information not available 12/01/2024 What is your level of alcohol consumption? None [email or web address] Information not available 12/01/2024 Are you able to walk independently without assistance or assistive devices? YESWOREST [email or web address] Information not available 12/01/2024 Are you able to care for yourself independently? 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 Occasional [email or web address] Information not available 12/01/2024 Mental Status Question Answer Note LastModified by Organization D etails LastModified Time Do you feel stressed (tense, restless, nervous, or anxious, or unable to sleep at night)? [id number] [email or web address] Information not available 12/01/2024 Family History Relationship Description Onset Age of this Age Resolved Age Notes LastModified by Organization Details LastModified Time Unspecified Relation Family history unknown [email or web address] Not available 05/23 09:26:51 Maternal Grandmother Diabetes mellitus [email or web address] Not available 2024 16:45:50 Maternal Grandmother Hypertensive disorder [email or web address] Not available 2024 16:45:50 Maternal Grandmother Hypercholest erolemia [email or web address] Not available 2024 16:45:50 Medical History Condition Response Allergies (Food, seasonal, environmental ) N Other N Drug/Latex Allergies/Reactions N Breast Cancer N Blood Transfusion N Lung Disease N Dermatologic Disorders N Defects or Inherited Disease N Breast Problem N Gestational Diabetes N Hematologic disorders N Anesthesia Complications N History of STI N Deep Vein Thrombosis N Polycystic ovary syndrome N Anxiety Disorder N Autoimmune disease N Arthritis N Polyps N Infertility N History of abnormal pap N Acid Reflux (GERD) N Cancer N Varicosities N Stroke N Neurologic/Epilepsy N Endometriosis N High Cholesterol N Headaches N Fibromyalgia N Kidney Disease N Heart Problems N Thyroid Problems N Kidney or Bladder Problems N GI Problems N Eating Disorder [...] ICD10 Code Diagnosis IMO Codes Diagnosis Note [id number] Clayton Byrd MD [place] [address] [place] [address] 05/18/2025 15:46:51 05/18/2025 16:39:24 Placenta succenturiata [id number] O43.193 Z3A.36 [id number] [facility] [address] [place] [address] 05/18/2025 15:47:05 05/18/2025 16:47:42 Gestation period, 36 weeks [id number] Z3A.36 [id number] cont pnv [id number] [facility] [address] [place] [address] 05/25/2025 09:12:15 05/25/2025 09:45:37 Gestation period, 37 weeks [id number] Z3A.37 [id number] cont pnv [id number] [facility] [address] [address] 05/31/2025 10:22:20 05/31/2025 10:55:42 Gestation period, 38 weeks [id number] Z3A.38 [id number] cont pnv [id number] [facility] [address] [address] 06/10/2025 09:26:48 06/10/2025 10:06:45 Gestation period, 39 weeks [id number] Z3A.39 [id number] cont pnv Health Concerns Section Related Observation LastModified by Organization Detai ls LastModified Time None Recorded Concern Status LastModified by Organization Details LastModified Time None Recorded Payers Encounter Date Sequence Insurance Name Policy Number Policy Botello Covered Member ID Botello Member ID Guarantor Name 06/10/2025 1 [facility] (MEDICAID HMO) [id number] Sahra Novak [id number] Sahralauren Novak OBGyn Episode Ob Episode Information Episode Created Date Number of Fetuses Patient Bloodtype Patient rh Status Prepregnancy Weight lbs Domestic Partner Domestic Partner Phone Father Name Transport Truck Driver Status 12/02/19 25 1 A Negative 147 Akshat Hildebr and OPEN Fetus Data First Name Last Name Admitted to NICU Weight (g) Sex Living Outcome Pediatric Complications Fetus ID Race Codes Race Delivery Type [id number] Problems Problem Notes Problem Name Start Date End Date Resolution Snomed Code Not e Placenta succenturiata 01/26/2025 [id number] serial growth US RhD negative 12/03/2024 [id number] A-, ne ed rhogam 28 weeks referral [facility] faxed 03/04 cancelled due to insurance - [facility] final report A Negative , weak D present [facility] recommends Rhogam pt rhogam on 04/06/25 Dwayne Artis Calculation Initial Artis Date Initial Exam Date Initial Exam Provider Initial Ultrasound Date Last Menstrual Period Date Ultra Sound Weeks Gestation 05/16/2025 10/19/2024 [email or web address] 10/19/2024 08/09/2024 6 Eighteen To Twenty Week [...] Weight in lbs Pre/Post Dialysis Refused Weight 148.999363772251 BP Diastolic BP Location Tested BP Systolic [...] Type Weight in lbs Pre/Post Dialysis Refused 153.828226652163 BP Diastolic BP Location Tested BP Systolic [...] Weight in lbs Pre/Post Dialysis Refused Weight 153.358532469948 BP Diastolic BP Location Tested BP Systolic [...] Weight in lbs Pre/Post Dialysis Refused Weight 155.201990947253 BP Diastolic BP Location Tested BP Systolic [...] Weight in lbs Pre/Post Dialysis Refused Weight 158.886014132556 BP Diastolic BP Location Tested BP Systolic BP Type 70 L arm 108 sitting Fetus Heart Rate Present Fetus Movement A Yes Comments Flowsheet Date 03/23/2025 Mcdonough Score Blood Edema Fundus Height Fundus Units Glucose Ketones Leukocytes Nitrite Labor Signs Protein Cervic Dilation Cervic Effacement Cervic Station Type Weight in lbs Pre/Post Dialysis Refused 158.606562768241 BP Diastolic BP Location Tested BP Systolic BP Type 70 108 Fetus Heart Rate Present A 140 Fetus Movement A Yes Comments Doing well, good movem ent. GCT and labs at [place] for Rhogam. Was seen by [facility], recommend Rhogam for weak D. EFW wnl at [facility] US. Discussed tdap and RSV vaccine. RTC 2 weeks. Flowsheet Date 04/08/2025 Mcdonough Score Blood Edema Fundus Height Fundus Units Glucose Ketones Leukocytes Nitrite Labor Signs Protein Cervic Dilation Cervic Effacement Cervic Station Type Weight in lbs Pre/Post Dialysis Refused Weight 159.280937430979 BP Diastolic BP Location Tested BP Systolic BP Type 67 L arm 107 sitting Fetus Heart Rate Present A 145 Fetus Movement A Yes Comments Good movement. No cram ping or bleeding. Received Rhogam. Repeat growth US next appointment. RTC 2 weeks. Flowsheet Date 04/22/2025 Mcdonough Score Blood Edema Fundus Height Fundus Units Glucose Ketones Leukocytes Nitrite Labor Signs Protein Cervic Dilation Cervic Effacement Cervic Station Type Weight in lbs Pre/Post Dialysis Refused BP Diastolic BP Location Tested BP Systolic BP Type Fetus Heart Rate Present Fetus Movement Comments Flowsheet Date 04/22/2025 Mcdonough Score Blood Edema Fundus Height Fundus Units Glucose Ketones Leukocytes Nitrite Labor Signs Protein Cervic Dilation Cervic Effacement Cervic Station Type Weight in lbs Pre/Post Dialysis Refused BP Diastolic BP Location Tested BP Systolic BP Type Fetus Heart Rate Present Fetus Movement Comments +FM, call for preadmit, try to prior auth, efw 19%, precautions and education f/u 2 weeks Flowsheet Date 05/06/2025 Mcdonough Score Blood Edema Fundus Height Fundus Units Glucose Ketones Leukocytes Nitrite Labor Signs Protein Cervic Dilation Cervic Effacement Cervic Station Type Weight in lbs Pre/Post Dialysis Refused Weight 164.825594195608 BP Diastolic BP Location Tested BP Systolic BP Type 67 L arm 118 sitting Fetus Heart Rate Present A 147 Present Fetus Movement A Yes Comments +FM, education and precautio ns, preadmit scheduled tdap done rsv not covered, f/u 2 weeks Flowsheet Date 05/18/2025 Mcdonough Score Blood Edema Fundus Height Fundus Units Glucose Ketones Leukocytes Nitrite Labor Signs Protein Cervic Dilation Cervic Effacement Cervic Station Type Weight in lbs Pre/Post Dialysis Refused BP Diastolic BP Location Tested BP Systolic BP Type Fetus Heart Rate Present Fetus Movement Comments Flowsheet Date 05/18/2025 Mcdonough Score Blood Edema Fundus Height Fundus Units Glucose Ketones Leukocytes Nitrite Labor Signs Protein Cervic Dilation Cervic Effacement Cervic Station 1cm 50% Type Weight in lbs Pre/Post Dialysis Refused Weight 165.427794721677 BP Diastolic BP Location Tested BP Systolic BP Type 74 L arm 112 sitting Fetus Heart Rate Present Fetus Movement A Yes Comments +FM efw 15%, precautions and education gbs collected f/u one week Flowsheet Date 05/25/2025 Mcdonough Score Blood Edema Fundus Height Fundus Units Glucose Ketones Leukocytes Nitrite Labor Signs Protein Cervic Dilation Cervic Effacement Cervic Station 1cm 50% -2 Type Weight in lbs Pre/Post Dialysis Refused Weight 165.315072678477 BP Diastolic BP Location Tested BP Systolic BP Type 75 L arm 114 sitting Fetus Heart Rate Present Fetus Movement A Yes Comments +FM, doing well, some contra ctions, reviewed precautions and education Flowsheet Date 05/31/2025 Mcdonough Score Blood Edema Fundus Height Fundus Units Glucose Ketones Leukocytes Nitrite Labor Signs Protein Cervic Dilation Cervic Effacement Cervic Station 1cm 50% -2 Type Weight in lbs Pre/Post Dialysis Refused 168.717624321188 BP Diastolic BP Location Tested BP Systolic BP Type 72 L arm 121 sitting Fetus Heart Rate Present A 140 Present Fetus Movement A Yes Comments +FM doing well, occ contract ions, precautions and education f/u one week Flowsheet Date 06/10/2025 Mcdonough Score Blood Edema Fundus Height Fundus Units Glucose Ketones Leukocytes Nitrite Labor Signs Protein Cervic Dilation Cervic Effacement Cervic Station 1cm 60% -2 Type Weight in lbs Pre/Post Dialysis Refused BP Diastolic BP Location Tested BP Systolic BP Type Fetus Heart Rate Present A 136 Present Fetus Movement Comments membrane sweep +FM plan IOL tonight, precautions and education Menstrual History Last Menstrual Date Menses Monthly [...]
--- OUTSIDE RECORDS SUMMARY | 2025-06-10 17:04 | XMS_ITS | Continuity of Care Document ---
Author Organization [facility] [place] Address [address] [place] [address] [place] [address] Assessment No assessment recorded. Plan of Treatment Reminders Order Date Submit Date Provider Last Modified By Organization Details Last Modified Time Details Appointments OB ROUTINE 2024 08:30A M Shantelle Reyes CNM Not available Not available Not available Lab None recorded . Referral None recorded . Procedures None recorded . Surgeries None recorded . Imaging US, obstetri c, follow-u p 2024 025 [email or web address] [email or web address], [address], [place], [address], 05/24/2025 17:45:05 Medication Orders None recorded . Patient TargetsNo targets recorded. Patient InstructionsNo instructions recorded. Reason for Referral None Reported. Results Created Date Observation Date Name Description Value Unit Range Abnormal Flag Note LastModifiedBy Organization Detail LastModifiedTime 12/08/1912/07/2024 [UNIT Y] ANEUP LOIDY NIPT fraction 11.1% normal Not Available [facility] [address], [place], [address], 12/07/2024 07:43:35 12/08/19 25 12/07/2024 [UNIT Y] ANEUP LOIDY NIPT 22Q11.2 microdeletio n LOW RISK <1 in 10,000 normal Not Available [facility] [address], [place], [address], 12/07/2024 07:43:35 12/08/19 25 12/07/2024 [UNIT Y] ANEUP LOIDY NIPT sex chromosome aneuploidy NOT DETECT ED normal Not Available [facility] [address], [place], [address], 12/07/2024 07:43:35 12/08/19 25 12/07/2024 [UNIT Y] ANEUP LOIDY NIPT monosomy X LOW RISK <1 in 10,000 normal Not Available [facility] [address], [place], [address], 12/07/2024 07:43:35 12/08/19 25 12/07/2024 [UNIT Y] ANEUP LOIDY NIPT trisomy 13 LOW RISK <1 in 10,000 normal Not Available [facility] [address], [place], [address], 12/07/2024 07:43:35 12/08/19 25 12/07/2024 [UNIT Y] ANEUP LOIDY NIPT trisomy 18 LOW RISK <1 in 10,000 normal Not Available [facility] [address], [place], [address], 12/07/2024 07:43:35 12/08/19 25 12/07/2024 [UNIT Y] ANEUP LOIDY NIPT trisomy 21 LOW RISK <1 in 10,000 normal Not Available [facility] [address], [place], [address], 12/07/2024 07:43:35 12/08/19 25 12/07/2024 [UNIT Y] ANEUP LOIDY NIPT sex FEMALE normal Not Available [facility] [address], [place], [address], 12/07/2024 07:43:35 12/08/19 25 12/07/2024 [UNIT Y] ANEUP LOIDY NIPT gestation SINGLE TON normal Not Available [facility] [address], [place], [address], 12/07/2024 07:43:35 12/08/19 25 12/07/2024 [UNIT Y] ANEUP NAEEMIDY NIPT for detailed report, see pdf See PDF normal Not Available [facility] [address], [place], [address], 12/07/2024 07:43:35 12/23/19 25 12/22/2024 [UNIT Y] GUILLERMO Herrera sickle cell disease/beta -thalassemia /hemoglobino pathies carrier screen NEGATI VE normal Not Available [facility] [address], [place], [address], 12/22/2024 23:42:40 12/23/19 25 12/22/2024 [UNIT Y] GUILLERMO Herrera alpha-thalas semia carrier screen NEGATI VE normal Not Available [facility] [address], [place], [address], 12/22/2024 23:42:40 12/23/19 25 12/22/2024 [UNIT Y] GUILLERMO Herrera cystic fibrosis carrier screen NEGATI VE normal Not Available [facility] [address], [place], [address], 12/22/2024 23:42:40 12/23/19 25 12/22/2024 [UNIT Y] GUILLERMO Herrera spinal muscular atrophy carrier screen NEGATI VE 2 SMN1 copies , SNP not presen t normal Not Available [facility] [address], [place], [address], 12/22/2024 23:42:40 12/23/19 25 12/22/2024 [UNIT Y] GUILLERMO Herrera for detailed report, see pdf See PDF normal Not Available [facility] [address], [place], [address], 12/22/2024 23:42:40 12/02/19 25 12/01/2024 HIV 1/2 ANTIG EN/AN TIBOD Y, REFLE X CONFI RMATI ON HIV antigen/anti body Nonrea ctive nonrea ctive HIV-1 antig en and HIV-1 /HIV- 2 antib odies were not detec julieta. No labor atory evide nce of HIV infec tion. Not Available [facility] (Lab) [address], [place], [address], 12/02/2024 10:19:34 12/02/1912/01/2024 HEPAT ITIS B SURFA CE ANTIG EN hepatitis B surface antigen Non-re active non-re active This assay was perfo rmed using [employer] ratio n reage nts and test kits. Value s obtai edison with other assay metho ds or kits canno t be used inter kelley eably . Not Available [facility] (Lab) [address], [place], [address], 12/02/2024 10:19:35 12/02/1912/01/2024 HEPAT ITIS C ANTIB MOLLY SCREE N, REFLE X TO CONFI RMATI ON hepatitis C antibody Non-re active non-re active Antib odies to HCV Not Detec julieta, does not exclu de the possi bilit y of expos ure to HCV. Not Available [facility] (Lab) [address], [place], [address], 12/02/2024 10:19:35 12/02/1912/01/2024 CBC W/DIF F WBC 8.1 10'3/ uL 3.5-10 .5 Not Available [facility] (Lab) [address], [place], [address], 12/02/2024 10:19:35 12/02/1912/01/2024 CBC W/DIF F RBC 3.87 10'6/ uL (based on docume nted legal sex) 3.80-5 .20 Not Available [facility] (Lab) [address], [place], [address], 12/02/2024 10:19:35 12/02/19 25 12/01/2024 CBC W/DIF F HGB 12.4 g/dL (based on docume nted legal sex) 11.6-1 5.4 Not Available [facility] (Lab) [address], [place], [address], 12/02/2024 10:19:35 12/02/19 25 12/01/2024 CBC W/DIF F HCT 36.6 % (based on docume nted legal sex) 34.0-4 5.0 Not Available [facility] (Lab) [address], [place], [address], 12/02/2024 10:19:35 12/02/19 25 12/01/2024 CBC W/DIF F MCV 94.6 fL 80.0-9 9.0 Not Available [facility] (Lab) [address], [place], [address], 12/02/2024 10:19:35 12/02/19 25 12/01/2024 CBC W/DIF F MCH 32.0 pg 27.0-3 4.0 Not Available [facility] (Lab) [address], [place], [address], 12/02/2024 10:19:35 12/02/19 25 12/01/2024 CBC W/DIF F MCHC 33.9 g/dL 32.0-3 5.5 Not Available [facility] (Lab) [address], [place], [address], 12/02/2024 10:19:35 12/02/19 25 12/01/2024 CBC W/DIF F RDW 12.2 % 11.0-1 5.0 Not Available [facility] (Lab) [address], [place], [address], 12/02/2024 10:19:35 12/02/19 25 12/01/2024 CBC W/DIF F plt 220 10'3/ uL 150-40 0 Not Available [facility] (Lab) [address], [place], [address], 12/02/2024 10:19:35 12/02/19 25 12/01/2024 CBC W/DIF F MPV 11.6 fL 8.8-12 .1 Not Available [facility] (Lab) [address], [place], [address], 12/02/2024 10:19:35 12/02/19 25 12/01/2024 CBC W/DIF F NRBC's 0.0 % 0.0 Not Available [facility] (Lab) [address], [place], [address], 12/02/2024 10:19:35 12/02/19 25 12/01/2024 CBC W/DIF F absolute NRBCs 0.0 10'3/ uL no refere nce range establ ished Not Available [facility] (Lab) [address], [place], [address], 12/02/2024 10:19:35 12/02/19 25 12/01/2024 CBC W/DIF F neutrophils 77.4 % 34.0-7 3.0 high Not Available [facility] (Lab) [address], [place], [address], 12/02/2024 10:19:35 12/02/19 25 12/01/2024 CBC W/DIF F lymphocytes 15.0 % 15.0-5 0.0 Not Available [facility] (Lab) [address], [place], [address], 12/02/2024 10:19:35 12/02/19 25 12/01/2024 CBC W/DIF F monocytes 6.3 % 1.0-15 .0 Not Available [facility] (Lab) [address], [place], [address], 12/02/2024 10:19:35 12/02/19 25 12/01/2024 CBC W/DIF F eosinophils 0.7 % 0.0-8. 0 Not Available [facility] (Lab) [address], [place], [address], 12/02/2024 10:19:35 12/02/1912/01/2024 CBC W/DIF F basophils 0.2 % 0.0-2. 0 Not Available [facility] (Lab) [address], [place], [address], 12/02/2024 10:19:35 12/02/1912/01/2024 CBC W/DIF F immature granulocytes 0.4 % no define d refere nce range Immat ure Granu locyt es (IG) repre sents autom ated enume ratio n of Metam yeloc ytes, Myelo cytes and Promy elocy niki when IG is < 5%. Blast s are not inclu ded in IG and repor julieta separ ately if prese nt. Not Available [facility] (Lab) [address], [place], [address], 12/02/2024 10:19:35 12/02/1912/01/2024 CBC W/DIF F absolute neutrophils 6.3 10'3/ uL 1.5-8. 0 Not Available [facility] (Lab) [address], [place], [address], 12/02/2024 10:19:35 12/02/1912/01/2024 CBC W/DIF F absolute lymphocytes 1.2 10'3/ uL 1.0-4. 0 Not Available [facility] (Lab) [address], [place], [address], 12/02/2024 10:19:35 12/02/1912/01/2024 CBC W/DIF F absolute monocytes 0.5 10'3/ uL 0.2-1. 0 Not Available [facility] (Lab) [address], [place], [address], 12/02/2024 10:19:35 12/02/19 25 12/01/2024 CBC W/DIF F absolute eosinophils 0.1 10'3/ uL 0.0-0. 6 Not Available [facility] (Lab) [address], [place], [address], 12/02/2024 10:19:35 12/02/19 25 12/01/2024 CBC W/DIF F absolute basophils 0.0 10'3/ uL 0.0-0. 3 Not Available [facility] (Lab) [address], [place], [address], 12/02/2024 10:19:35 12/02/19 25 12/01/2024 CBC W/DIF F absolute immature granulocytes 0.0 10'3/ uL 0.00-0 .10 Refer ence range s for nonbi nary/ inter sex or unspe cifie d gende r patie nts have not been estab lishe d. Pleas e refer to the josselino wing table for range s estab lishe d for cisge nder patie nts and evalu ate in the clini daniel paula xt of the indiv idual patie nt: https :[email or web address] tucker book. nm.or g/gen derx Not Available [facility] (Lab) [address], [place], [address], 12/02/2024 10:19:35 12/02/19 25 12/01/2024 RUBEL LA IGG ANTIB MOLLY, QUANT rubella antibodies, IgG Reacti ve reacti ve Not Available [facility] (Lab) [address], [place], [address], 12/02/2024 10:19:36 12/02/19 25 12/01/2024 RUBEL LA IGG ANTIB MOLLY, QUANT rubella antibodies, IgG quant 17.9 IU/mL >=10 Non-r eacti ve (Non- Immun e) <10 IU/mL React marely (Immu ne) > or = 10 IU/mL Not Available [facility] (Lab) [address] [place], [address], 12/02/2024 10:19:36 12/02/19 25 12/01/2024 TYPE/ RH/SC REEN ABO/Rh type A NEG Not Available [facility] (Lab) [address], [place], [address], 12/02/2024 10:19:36 12/02/19 25 12/01/2024 TYPE/ RH/SC REEN antibody screen NEG Not Available [facility] (Lab) [address], [place], [address], 12/02/2024 10:19:36 12/02/1912/01/2024 TYPE/ RH/SC REEN exp date 2024 23:59 Not Available [facility] (Lab) [address], [place], [address], 12/02/2024 10:19:36 12/02/19 25 12/01/2024 HEMOG LOBIN A1C hemoglobin A1C 4.8 % 4.0-5. 6 The Ameri can [employer] niki [employer] iatio n recom mends that a prima ry goal of thera py anamika allen be a HBA1C of < 7% and that physi cians anamika d reeva luate the treat ment regim en in patie nts with HBA1C value s consi stent ly > 8%. <5.7% Mar l 5.7 - 6.4% Incre ased risk for diabe niki >=6.5 % Diagn ostic of diabe niki <7.0% Goal of thera py >8.0% Actio n sugge sted Not Available [facility] (Lab) [address], [place], [address], 12/02/2024 10:19:37 12/02/19 25 12/01/2024 RPR SCREE N, REFLE X TITER /CONF IRMAT ION RPR qualitative Nonrea ctive nonrea ctive Not Available [facility] (Lab) [address], [place], [address], 12/02/2024 10:19:37 12/02/19 25 12/01/2024 CULTU RE: URINE result report SEE RESULT S BELOW Test: Cultu re: Urine Speci men Sourc e: Urine Voide d Speci men Type: Urine Speci men Date: 2024 1100 Resul t Date: 2024 2144 Resul t Statu s: Final resul t Abnor mal: No Resul ting Lab: [facility] [address] [facility] [address] Tel: CULTU RE ----- ----- ----- --- No growt h in 1 day (dete ction level of 10,00 0 colon ies / ml.) Not Available [facility] (Lab) [address], [place], [address], 12/02/2024 22:47:13 12/02/19 25 12/01/2024 drug scree n, urine Amphetamines : negati ve Not Available [place] [address], [place], [address], 12/01/2024 11:13:13 12/02/19 25 12/01/2024 drug scree n, urine Cannabinoids : negati ve Not Available [place] [address], [place], [address], 12/01/2024 11:13:13 12/02/19 25 12/01/2024 drug scree n, urine Cocaine: negati ve Not Available [place] [address], [place], [address], 12/01/2024 11:13:13 12/02/19 25 12/01/2024 drug scree n, urine Opiates: negati ve Not Available [place] [address], [place], [address], 12/01/2024 11:13:13 12/02/19 25 12/01/2024 drug scree n, urine Phenocyclidi ne: negati ve Not Available [place] [address], [place], [address], 12/01/2024 11:13:13 12/02/19 25 12/01/2024 drug scree n, urine Barbiturates : negati ve Not Available [place] [address], [place], [address], 12/01/2024 11:13:13 12/02/19 25 12/01/2024 drug scree n, urine Benzodiazepi haris: negati ve Not Available [place] [address], [place], [address], 12/01/2024 11:13:13 12/02/19 25 12/01/2024 drug scree n, urine Ethanol: negati ve Not Available [place] [address], [place], [address], 12/01/2024 11:13:13 12/02/19 25 12/01/2024 drug scree n, urine Hallucinogen s: negati ve Not Available [place] [address], [place], [address], 12/01/2024 11:13:13 12/02/19 25 12/01/2024 drug scree n, urine Inhalants: negati ve Not Available [place] [address], [place], [address], 12/01/2024 11:13:13 12/02/19 25 12/01/2024 drug scree n, urine Anabolic Steroids: negati ve Not Available [place] [address], [place], [address], 12/01/2024 11:13:13 12/02/19 25 12/01/2024 drug scree n, urine Other: positi ve Not Available [place] [address], [place], [address], 12/01/2024 11:13:13 02/24/2002/23/2025 TYPE/ RH/SC REEN ABO/Rh type A NEG Not Available [facility] (Lab) [address], [place], [address], 02/24/2025 08:26:42 02/24/2002/23/2025 TYPE/ RH/SC REEN antibody screen NEG Not Available [facility] (Lab) [address], [place], [address], 02/24/2025 08:26:42 02/24/2002/23/2025 TYPE/ RH/SC REEN exp date 2024 23:59 Not Available [facility] (Lab) [address], [place], [address], 02/24/2025 08:26:42 05/18/2005/18/2025 CULTU RE: GROUP B STREP SCREE N, REFLE X SUSCE PTIBI LITY result report SEE RESULT S BELOW abnormal Test: Cultu re: Group B Strep , Refle x Susce ptibi lity ([facility] ) Speci men Sourc e: Vagin a/Rec bay Speci men Type: Vagin al/Re ctal Speci men Date: 05/18 1713 Resul t Date: 05/22 1438 Resul t Statu s: Final resul t Abnor mal: Yes Resul nakia Lab: [facility] [address] [facility] [address] Tel: CULTU RE ----- ----- ----- --- [...] at high risk for anaph ylaxi s. Alex ptibi judy frey is not neces armando for these drugs . Not Available [facility] (Lab) [address], [place], [address], 05/22/2025 15:40:39 12/02/19 25 12/01/2024 US, obste tric, nucha l trans lucen cy No observ ation record ed. [email or web address] [address] [address], [place], [address], 12/01/2024 14:38:13 12/02/19 25 12/01/2024 US, obste tric, follo w-up No observ ation record ed. [email or web address] [address], [place], [address], 12/01/2024 18:45:45 01/27/20 25 01/26/2025 US, obste tric, 2nd or 3rd trime ster No observ ation record ed. [email or web address] [place] [address], [place], [address], 01/26/2025 12:36:41 01/27/20 25 01/26/2025 US, obste tric, 2nd or 3rd trime ster No observ ation record ed. [email or web address] [address], [place], [address], 01/26/2025 12:39:35 02/24/20 25 02/23/2025 US, obste tric, follo w-up No observ ation record ed. [email or web address] [place] [address], [place], [address], 02/23/2025 18:48:54 02/24/20 25 02/23/2025 US, obste tric, follo w-up No observ ation record ed. [email or web address] [address], [place], [address], 02/23/2025 16:57:13 02/24/20 25 02/23/2025 US, obste tric, follo w-up No observ ation record ed. [address], [place], [address], 02/23/2025 16:55:34 03/21/20 25 03/21/2025 US, obste tric, follo w-up No observ ation record ed. [email or web address] [facility] (Psychiatry Department) [address], [place], [address], 03/23/2025 16:02:35 03/21/20 25 03/21/2025 US, obste tric, follo w-up No observ ation record ed. [email or web address] [facility] [address], [place], [address], 03/22/2025 10:18:20 04/22/20 25 04/22/2025 US, obste tric, follo w-up No observ ation record ed. [email or web address] [address], [place], [address], 04/27/2025 11:38:48 04/22/20 25 04/22/2025 US, obste tric, follo w-up No observ ation record ed. [facility] [address], [place], [address], 04/22/2025 17:08:34 05/18/20 25 05/18/2025 US, obste tric, follo w-up No observ ation record ed. [facility] [address], [place], [address], 05/18/2025 18:24:57 05/18/2005/18/2025 US, obste tric, follo w-up No observ ation record ed. [email or web address] [address] [place] [address] [address], [place], [address], 05/25/2025 10:56:46 Result Notes None recorded. Problems Name Problem SNOMED Code Status Onset Date Resolution Date Notes Provider Name and Address Organization Details Recorded Time 70687020 Active [address] [facility] 11:32:03 RhD negative 520769309 Active 2024 A-, need rhogam 28 weeks referral M faxed 03/04 cancelled due to insurance - [facility]21 [facility] final report A Negative , weak D present [facility] recommends Rhogam pt rhogam on 04/06/[address] [facility] 21:45:57 Placenta succentur iata 75407311 Active 2024 serial growth US Elizabet Otto [facility] 12:38:22 Problem Notes None recorded. Procedures Surgical History Date Name Laterality Status Provider Name and Address Organization Details Recorded Time 05/09/2024 Date of Last Pap Smear completed Katherine Hardwick [facility] 03/23/2025 10:52:23 Imaging Results None recorded. Procedure Notes None recorded. Medical Equipment None Reported. Allergies Allergen ID Allergen Name Allergen Category Reaction Reaction Severity Criticality Documentation Date Start Date Code Code System Note Provider Name and Address Organization Details Recorded Time 64224 latex environme nt,medica tion Not available Not available Not available 12/01/2024 45741 91 RxNorm Mary Murillo [facility] 11:38:56 52232 ethinyl estradiol / norelgest romin medicatio n hives Not available Not available 05/06/2025 61077 7 RxNorm Not Available nieves - External [...] Available Not Available Not Available Blisovi Fe /20 (28) 1 mg-20 mcg (21)/75 mg (7) tablet TAKE 1 TABLET BY MOUTH EVERY DAY 12/01 completed Not Available Not Available Not Available Sterile Water Diluent Component for Abrysvo injection syringe INJECT 0.5 ML IN THE MUSCLE ONCE active Not Available Not Available No t Available Vitals Date Recorded Body height Body mass index (BMI) Body weight Systolic And Diastolic Provider Name and Address Organization Details Last Updated DateTime 05/18/2025 167.64 cm 26.6 kg/m2 90387.74 g 112/74 mm[Hg] ALANNA MCINTYRE [facility] 05/18/2025 16:39:17 Social History Question Answer Notes LastModified by Organizat ion Details LastModified Time Tobacco Smoking Status Never Smoker Mary britton, [facility] 12/01/2024 11:12:14 Do You Have An Advance Directive? No [email or web address] Information n ot available 12/01/2024 If You Are , What Was Your Level Of Alcohol Consumption Prior To ? Occasional [email or web address] Information not available 12/01/2024 How Many Years Have You Consumed Alcohol? 0 [email or web address] Information not available 12/01/2024 Are You Blind Or Do You Have Difficulty Seeing? No Information n ot available 12/01/2024 What Is Your Level Of Caffeine Consumption? Moderate [email or web address] Information not available 12/01/2024 How Much Tobacco Do You Chew? None [email or web address] Information not available 12/01/2024 In The 14 Days Before Symptom Onset, Have You Had Close Contact With A Laboratory-confirm ed COVID-19 While That Case Was Ill? No [email or web address] Information n ot available 12/01/2024 In The 14 Days Before Symptom Onset, Have You Had Close Contact With A Person Who Is Under Investigation For COVID-19 While That Person Was Ill? No [email or web address] Information not available 12/01/2024 Have You Been To An Area Known To Be High Risk For COVID-19? No [email or web address] Information not available 12/01/2024 Are You Deaf Or Do You Have Serious Difficulty Hearing? No [email or web address] Information not available 12/01/2024 What Type Of Diet Are You Following? REGULAR [email or web address] Information n ot available 12/01/2024 What Is The Highest Grade Or Level Of School You Have Completed Or The Highest Degree You Have Received? RH67010-5 [email or web address] Information not available 12/01/2024 Are There Any Guns Present In Your Home? No [email or web address] Information not available 12/01/2024 Do You Use Protection During Sex? No [email or web address] Information not available 12/01/2024 Do You Use Your Seat Belt Or Car Seat Routinely? Yes [email or web address] Information not available 12/01/2024 Do You Have Smoke And Carbon Monoxide Detectors In Your Home? Yes [email or web address] Information not available 12/01/2024 How Much Tobacco Do You Smoke? No [email or web address] Information not available 12/01/2024 Do You Use Sunscreen Routinely? Yes Information not available 12/01/2024 Has Tobacco Cessation Counseling Been Provided? Yes [email or web address] Information not available 12/01/2024 On What Date Was Tobacco Cessation Counseling Provided? 12/01/2024 [email or web address] Information not available 12/01/2024 How Many Years Have You Smoked Tobacco? 0 [email or web address] Information not available 12/01/2024 Have You Used IV Drugs? No [email or web address] Information not available 12/01/2024 Do You Have Difficulty Walking Or Climbing Stairs? No [email or web address] Information not available 12/01/2024 Sex: Unknown Functional Status Question Answer Note LastModified by Organizat ion Details LastModified Time Do you use any illicit or recreational drugs? No [email or web address] Information not available 03/23/2025 Do you or have you ever used any other forms of tobacco or nicotine? No [email or web address] Information not available 12/01/2024 What is your level of alcohol consumption? None [email or web address] Information not available 12/01/2024 Are you able to walk independently without assistance or assistive devices? [email or web address] Information not available 12/01/2024 Are you able to care for yourself independently? 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 Occasional [email or web address] Information not available 12/01/2024 Mental Status Question Answer Note LastModified by Organization D etails LastModified Time Do you feel stressed (tense, restless, nervous, or anxious, or unable to sleep at night)? [id number] [email or web address] Information not available 12/01/2024 Family History Relationship Description Onset Age of this Age Resolved Age Notes LastModified by Organization Details LastModified Time Unspecified Relation Family history unknown [email or web address] Not available 05/23 09:26:51 Maternal Grandmother Diabetes mellitus [email or web address] Not available 2024 16:45:50 Maternal Grandmother Hypertensive disorder [email or web address] Not available 2024 16:45:50 Maternal Grandmother Hypercholest erolemia [email or web address] Not available 2024 16:45:50 Medical History Condition [...] ICD10 Code Diagnosis IMO Codes Diagnosis Note [id number] Clayton Byrd MD [place] [address] [address] 04/22/2025 16:23:16 04/22/2025 18:15:42 Placenta succenturiata 56894865 O43.193 Z3A.32 [id number] [facility] [address],[place] [address] 04/22/2025 16:23:39 04/23/2025 09:50:03 Gestation period, 32 weeks 4100691 Z3A.32 [id number] cont pnv [id number] Shantelle Reyes CNM [place] [address],[place] [address] 05/06/2025 09:41:55 05/06/2025 10:16:52 Gestation period, 34 weeks 92171010 Z3A.34 4739242 cont pnv [id number] Clayton Byrd MD [place] [address],[place] [address] 05/18/2025 15:46:51 05/18/2025 16:39:24 Placenta succenturiata 18045569 O43.193 Z3A.36 47832150 [id number] Shantelle Reyes CNM [place] [address],[place] [address] 05/18/2025 15:47:05 05/18/2025 16:47:42 Gestation period, 36 weeks 13432843 Z3A.36 [id number] cont pnv Health Concerns Section Related Observation LastModified by Organization Detai ls LastModified Time None Recorded Concern Status LastModified by Organization Details LastModified Time None Recorded Payers Encounter Date Sequence Insurance Name Policy Number Policy Botello Covered Member ID Botello Member ID Guarantor Name 05/18/2025 1 [facility] (MEDICAID HMO) [id number] Sahra Novak [id number] Sahra Novak Notes Date Note Type Note Provider Name and Address Organization Details Recorded Time 05/18/2025 text/html Generic HPI TemplateReported by Patient Shantelle Reyes CNM [address], [place], [address], [facility] 05/18/2025 16:47:36 OBGyn Episode Ob Episode Information Episode Created Date Number of Fetuses Patient Bloodtype Patient rh Status Prepregnancy Weight lbs Domestic Partner Domestic Partner Phone Father Name Tapper Balance Wheel Screw Hole Status 12/02/19 25 1 A Negative 147 Akshat Hildebr and OPEN Fetus Data First Name Last Name Admitted to NICU Weight (g) Sex Living Outcome Pediatric Complications Fetus ID Race Codes Race Delivery Type [id number] Problems Problem Notes Problem Name Start Date End Date Resolution Snomed Code Not e Placenta succenturiata 01/26/2025 [id number] 03 serial growth US RhD negative 12/03/2024 [id number] A-, ne ed rhogam 28 weeks referral [facility] faxed 03/04 cancelled due to insurance - referral faxed to [facility] final report A Negative , weak D present [facility] recommends Rhogam pt rhogam on 04/06/25 Dwayne Artis Calculation Initial Artis Date Initial Exam Date Initial Exam Provider Initial Ultrasound Date Last Menstrual Period Date Ultra Sound Weeks Gestation 05/16/2025 10/19/2024 [email or web address] 10/19/2024 08/09/2024 6 Eighteen To Twenty Week [...] Weight in lbs Pre/Post Dialysis Refused Weight 148.548149481840 BP Diastolic BP Location Tested BP Systolic [...] Type Weight in lbs Pre/Post Dialysis Refused 153.199257198487 BP Diastolic BP Location Tested BP Systolic [...] Weight in lbs Pre/Post Dialysis Refused Weight 153.439804164310 BP Diastolic BP Location Tested BP Systolic [...] Weight in lbs Pre/Post Dialysis Refused Weight 155.235323416108 BP Diastolic BP Location Tested BP Systolic [...] Weight in lbs Pre/Post Dialysis Refused Weight 158.980038112754 BP Diastolic BP Location Tested BP Systolic BP Type 70 L arm 108 sitting Fetus Heart Rate Present Fetus Movement A Yes Comments Flowsheet Date 03/23/2025 Mcdonough Score Blood Edema Fundus Height Fundus Units Glucose Ketones Leukocytes Nitrite Labor Signs Protein Cervic Dilation Cervic Effacement Cervic Station Type Weight in lbs Pre/Post Dialysis Refused 158.618024905925 BP Diastolic BP Location Tested BP Systolic BP Type 70 108 Fetus Heart Rate Present A 140 Fetus Movement A Yes Comments Doing well, good movem ent. GCT and labs at [facility] for Rhogam. Was seen by [facility], recommend Rhogam for weak D. EFW wnl at [facility] US. Discussed tdap and RSV vaccine. RTC 2 weeks. Flowsheet Date 04/08/2025 Mcdonough Score Blood Edema Fundus Height Fundus Units Glucose Ketones Leukocytes Nitrite Labor Signs Protein Cervic Dilation Cervic Effacement Cervic Station Type Weight in lbs Pre/Post Dialysis Refused Weight 159.776107207209 BP Diastolic BP Location Tested BP Systolic [...] Weight in lbs Pre/Post Dialysis Refused Weight 164.964654729984 BP Diastolic BP Location Tested BP Systolic [...] Weight in lbs Pre/Post Dialysis Refused Weight 165.784661189524 BP Diastolic BP Location Tested BP Systolic [...] Weight in lbs Pre/Post Dialysis Refused Weight 165.487450325010 BP Diastolic BP Location Tested BP Systolic [...] Type Weight in lbs Pre/Post Dialysis Refused 168.141425129308 BP Diastolic BP Location Tested BP Systolic [...]
--- OUTSIDE RECORDS SUMMARY | 2025-06-10 17:04 | XMS_ITS | Continuity of Care Document ---
Author Organization [facility] Address [address] [address] Assessment No assessment recorded. Plan of Treatment [...] [facility] n[facility] [address], [place], [address], 12/07/2024 07:43:35 12/08/19 25 12/07/2024 [UNIT Y] ANEUP LOIDY NIPT 22Q11.2 microdeletio n LOW RISK <1 in 10,000 normal Not Available [facility] [address], [place], [address], 12/07/2024 07:43:35 12/08/19 25 12/07/2024 [UNIT Y] ANEUP LOIDY NIPT sex chromosome aneuploidy NOT DETECT ED normal Not Available [facility] [address], [place], [address], 12/07/2024 07:43:35 12/08/19 25 12/07/2024 [UNIT Y] ANEUP LOIDY NIPT monosomy X LOW RISK <1 in 10,000 normal Not Available [facility] [address], [place], [address], 12/07/2024 07:43:35 12/08/19 25 12/07/2024 [UNIT Y] ANEUP LOIDY NIPT trisomy 13 LOW RISK <1 in 10,000 normal Not Available [facility] [address], [place], [address], 12/07/2024 07:43:35 12/08/19 25 12/07/2024 [UNIT Y] ANEUP LOIDY NIPT trisomy 18 LOW RISK <1 in 10,000 normal Not Available [facility] [address], [place], [address], 12/07/2024 07:43:35 12/08/19 25 12/07/2024 [UNIT Y] ANEUP LOIDY NIPT trisomy 21 LOW RISK <1 in 10,000 normal Not Available [facility] [address], [place], [address], 12/07/2024 07:43:35 12/08/19 25 12/07/2024 [UNIT Y] ANEUP LOIDY NIPT sex FEMALE normal Not Available [facility] [address], [place], [address], 12/07/2024 07:43:35 12/08/19 25 12/07/2024 [UNIT Y] ANEUP LOIDY NIPT gestation SINGLE TON normal Not Available [facility] [address], [place], [address], 12/07/2024 07:43:35 12/08/19 25 12/07/2024 [UNIT Y] ANEUP LOIDY NIPT for detailed report, see pdf See PDF normal Not Available [facility] [address], [place], [address], 12/07/2024 07:43:35 12/23/19 25 12/22/2024 [UNIT Y] GUILLERMO MCCARTYWanda Herrera sickle cell disease/beta -thalassemia /hemoglobino pathies carrier screen NEGATI VE normal Not Available [facility] [address], [place], [address], 12/22/2024 23:42:40 12/23/19 25 12/22/2024 [UNIT Y] GUILLERMO MCCARTYWanda Herrera alpha-thalas semia carrier screen NEGATI VE normal Not Available [facility] [address], [place], [address], 12/22/2024 23:42:40 12/23/19 25 12/22/2024 [UNIT Y] GUILLERMO SIVAN LULWanda Herrera cystic fibrosis carrier screen NEGATI VE normal Not Available [facility] [address], [place], [address], 12/22/2024 23:42:40 12/23/19 25 12/22/2024 [UNIT Y] GUILLERMO SIVAN LULWanda Herrera spinal muscular atrophy carrier screen NEGATI VE 2 SMN1 copies , SNP not presen t normal Not Available [facility] [address], [place], [address], 12/22/2024 23:42:40 12/23/19 25 12/22/2024 [UNIT Y] GUILLERMO SIVAN LULWanda Herrera for detailed report, see pdf See PDF normal Not Available [facility] [address], [place], [address], 12/22/2024 23:42:40 12/02/19 25 12/01/2024 HIV 1/2 ANTIG EN/AN TIBOD Y, REFLE X CONFI RMATI ON HIV antigen/anti body Nonrea ctive nonrea ctive HIV-1 antig en and HIV-1 /HIV- 2 antib odies were not detec julieta. No labor atory evide nce of HIV infec tion. Not Available [facility] (Lab) [address], [place], [address], 12/02/2024 10:19:34 12/02/1912/01/2024 HEPAT ITIS B SURFA CE ANTIG EN hepatitis B surface antigen Non-re active non-re active This assay was perfo rmed using [employer] ratio n reage nts and test kits. Value s obtai edison with other assay metho ds or kits canno t be used inter kelley eably . Not Available [facility] (Lab) [address], [place], [address], 12/02/2024 10:19:35 12/02/1912/01/2024 HEPAT ITIS C ANTIB MOLLY SCREE N, REFLE X TO CONFI RMATI ON hepatitis C antibody Non-re active non-re active Antib odies to HCV Not Detec julieta, does not exclu de the possi bilit y of expos ure to HCV. Not Available [facility] (Lab) [address], [place], [address], 12/02/2024 10:19:35 12/02/1912/01/2024 CBC W/DIF F WBC 8.1 10'3/ uL 3.5-10 .5 Not Available [facility] (Lab) [address], [place], [address], 12/02/2024 10:19:35 12/02/1912/01/2024 CBC W/DIF F RBC 3.87 10'6/ uL (based on docume nted legal sex) 3.80-5 .20 Not Available [facility] (Lab) [address], [place], [address], 12/02/2024 10:19:35 12/02/19 25 12/01/2024 CBC W/DIF F HGB 12.4 g/dL (based on docume nted legal sex) 11.6-1 5.4 Not Available [facility] (Lab) [address] [facility], [place], [address], 12/02/2024 10:19:35 12/02/19 25 12/01/2024 CBC W/DIF F HCT 36.6 % (based on docume nted legal sex) 34.0-4 5.0 Not Available [facility] (Lab) [address], [place], [address], 12/02/2024 10:19:35 12/02/19 25 12/01/2024 CBC W/DIF F MCV 94.6 fL 80.0-9 9.0 Not Available [facility] (Lab) [address], [place], [address], 12/02/2024 10:19:35 12/02/19 25 12/01/2024 CBC W/DIF F MCH 32.0 pg 27.0-3 4.0 Not Available [facility] (Lab) [address], [place], [address], 12/02/2024 10:19:35 12/02/19 25 12/01/2024 CBC W/DIF F MCHC 33.9 g/dL 32.0-3 5.5 Not Available [facility] (Lab) [address] [facility], [place], [address], 12/02/2024 10:19:35 12/02/19 25 12/01/2024 CBC W/DIF F RDW 12.2 % 11.0-1 5.0 Not Available [facility] (Lab) [address] [facility] [address], [place], [address], 12/02/2024 10:19:35 12/02/19 25 12/01/2024 CBC W/DIF F plt 220 10'3/ uL 150-40 0 Not Available [facility] (Lab) [address], [place], [address], 12/02/2024 10:19:35 12/02/19 25 12/01/2024 CBC W/DIF F MPV 11.6 fL 8.8-12 .1 Not Available [facility] (Lab) [address] [facility], [place], [address], 12/02/2024 10:19:35 12/02/1912/01/2024 CBC W/DIF F NRBC's 0.0 % 0.0 Not Available [facility] (Lab) [address] [facility] [address], [place], [address], 12/02/2024 10:19:35 12/02/19 25 12/01/2024 CBC W/DIF F absolute NRBCs 0.0 10'3/ uL no refere nce range establ ished Not Available [facility] (Lab) [address], [place], [address], 12/02/2024 10:19:35 12/02/1912/01/2024 CBC W/DIF F neutrophils 77.4 % 34.0-7 3.0 high Not Available [facility] (Lab) [address] [facility], [place], [address], 12/02/2024 10:19:35 12/02/19 25 12/01/2024 CBC W/DIF F lymphocytes 15.0 % 15.0-5 0.0 Not Available [facility] (Lab) [address] [facility], [place], [address], 12/02/2024 10:19:35 12/02/1912/01/2024 CBC W/DIF F monocytes 6.3 % 1.0-15 .0 Not Available [facility] (Lab) [address] [facility] [address], [place], [address], 12/02/2024 10:19:35 12/02/1912/01/2024 CBC W/DIF F eosinophils 0.7 % 0.0-8. 0 Not Available [facility] (Lab) [address] [place], [address], 12/02/2024 10:19:35 12/02/19 25 12/01/2024 CBC W/DIF F basophils 0.2 % 0.0-2. 0 Not Available [facility] (Lab) [address] , [place], [address], 12/02/2024 10:19:35 12/02/19 25 12/01/2024 CBC W/DIF [...] separ ately if prese nt. Not Available [facility] (Lab) [address], [place], [address], 12/02/2024 10:19:35 12/02/19 25 12/01/2024 CBC W/DIF F absolute neutrophils 6.3 10'3/ uL 1.5-8. 0 Not Available [facility] (Lab) [address] [facility], [place], [address], 12/02/2024 10:19:35 12/02/19 25 12/01/2024 CBC W/DIF F absolute lymphocytes 1.2 10'3/ uL 1.0-4. 0 Not Available [facility] (Lab) [address] [facility], [place], [address], 12/02/2024 10:19:35 12/02/19 25 12/01/2024 CBC W/DIF F absolute monocytes 0.5 10'3/ uL 0.2-1. 0 Not Available [facility] (Lab) [address] [facility], [place], [address], 12/02/2024 10:19:35 12/02/19 25 12/01/2024 CBC W/DIF F absolute eosinophils 0.1 10'3/ uL 0.0-0. 6 Not Available [facility] (Lab) [address] [facility], [place], [address], 12/02/2024 10:19:35 12/02/19 25 12/01/2024 CBC W/DIF F absolute basophils 0.0 10'3/ uL 0.0-0. 3 Not Available [facility] (Lab) [address], [place], [address], 12/02/2024 10:19:35 12/02/19 25 12/01/2024 CBC W/DIF F absolute immature granulocytes 0.0 10'3/ uL 0.00-0 .10 Refer ence range s for nonbi nary/ inter sex or unspe cifie d gende r patie nts have not been estab lishe d. [facility]as [facility] for range s estab lishe d for cisge nder patie nts and evalu ate in the clini daniel paula xt of the indiv idual patie nt: https ://la capoand book. nm.or g/gen derx Not Available [facility] (Lab) [address], [place], [address], 12/02/2024 10:19:35 12/02/19 25 12/01/2024 RUBEL LA IGG ANTIB MOLLY, QUANT rubella antibodies, IgG Reacti ve reacti ve Not Available [facility] (Lab) [address], [place], [address], 12/02/2024 10:19:36 12/02/19 25 12/01/2024 RUBEL LA IGG ANTIB MOLLY, QUANT rubella antibodies, IgG quant 17.9 IU/mL >=10 Non-r eacti ve (Non- Immun e) <10 IU/mL React marely (Immu ne) > or = 10 IU/mL Not Available [facility] (Lab) [address], [place], [address], 12/02/2024 10:19:36 12/02/19 25 12/01/2024 TYPE/ RH/SC REEN ABO/Rh type A NEG Not Available [facility] (Lab) [address], [place], [address], 12/02/2024 10:19:36 12/02/19 25 12/01/2024 TYPE/ RH/SC REEN antibody screen NEG Not Available [facility] (Lab) [address], [place], [address], 12/02/2024 10:19:36 12/02/19 25 12/01/2024 TYPE/ RH/SC REEN exp date 2024 23:59 Not Available [facility] (Lab) [address], [place], [address], 12/02/2024 10:19:36 12/02/19 25 12/01/2024 HEMOG LOBIN [...] >8.0% Actio n sugge sted Not Available [facility] (Lab) [address], [place], [address], 12/02/2024 10:19:37 12/02/19 25 12/01/2024 RPR SCREE N, REFLE X TITER /CONF IRMAT ION RPR qualitative Nonrea ctive nonrea ctive Not Available [facility] (Lab) [address], [place], [address], 12/02/2024 10:19:37 12/02/19 25 12/01/2024 CULTU RE: URINE result report SEE RESULT S BELOW Test: Cultu re: Urine Speci men Sourc e: Urine Voide d Speci men Type: Urine Speci men Date: 2024 1100 Resul t Date: 2024 2144 Resul t Statu s: Final resul t Abnor mal: No Resul ting Lab: [facility] [address] [facility] [address] Tel: CULTU RE ----- ----- ----- --- No growt h in 1 day (dete ction level of 10,00 0 colon ies / ml.) Not Available [facility] (Lab) [address], [place], [address], 12/02/2024 22:47:13 12/02/19 25 12/01/2024 drug scree n, urine Amphetamines : negati ve Not Available [facility] [address], [place], [address], 12/01/2024 11:13:13 12/02/19 25 12/01/2024 drug scree n, urine Cannabinoids : negati ve Not Available [place] [facility] [address], [place], [address], 12/01/2024 11:13:13 12/02/19 25 12/01/2024 drug scree n, urine Cocaine: negati ve Not Available [place] [facility] [address], [place], [address], 12/01/2024 11:13:13 12/02/19 25 12/01/2024 drug scree n, urine Opiates: negati ve Not Available [place] [facility] [address], [place], [address], 12/01/2024 11:13:13 12/02/19 25 12/01/2024 drug scree n, urine Phenocyclidi ne: negati ve Not Available [place] [facility] [address], [place], [address], 12/01/2024 11:13:13 06/11/12/01/2024 drug scree n, urine Barbiturates : negati ve Not Available [place] [facility] [address], [place], [address], 12/01/2024 11:13:13 12/02/19 25 12/01/2024 drug scree n, urine Benzodiazepi haris: negati ve Not Available [place] [facility] [address], [place], [address], 12/01/2024 11:13:13 12/02/19 25 12/01/2024 drug scree n, urine Ethanol: negati ve Not Available [place] [facility] [address], [place], [address], 12/01/2024 11:13:13 12/02/19 25 12/01/2024 drug scree n, urine Hallucinogen s: negati ve Not Available [facility] [address], [place], [address], 12/01/2024 11:13:13 12/02/19 25 12/01/2024 drug scree n, urine Inhalants: negati ve Not Available [place] [facility] [address], [place], [address], 12/01/2024 11:13:13 12/02/19 25 12/01/2024 drug scree n, urine Anabolic Steroids: negati ve Not Available [place] [facility] [address], [place], [address], 12/01/2024 11:13:13 12/02/19 25 12/01/2024 drug scree n, urine Other: positi ve Not Available [place] [address], [place], [address], 12/01/2024 11:13:13 02/24/20 25 02/23/2025 TYPE/ RH/SC REEN ABO/Rh type A NEG Not Available [facility] (Lab) [address], [place], [address], 02/24/2025 08:26:42 02/24/20 25 02/23/2025 TYPE/ RH/SC REEN antibody screen NEG Not Available [facility] (Lab) [address], [place], [address], 02/24/2025 08:26:42 02/24/20 25 02/23/2025 TYPE/ RH/SC REEN exp date 2024 23:59 Not Available [facility] (Lab) [address], [place], [address], 02/24/2025 08:26:42 12/02/19 25 12/01/2024 US, obste tric, nucha l trans lucen cy No observ ation record ed. [email or web address] [place] [address], [place], [address], 12/01/2024 14:38:13 12/02/19 25 12/01/2024 US, obste tric, follo w-up No observ ation record ed. [email or web address] [address], [place], [address], 12/01/2024 18:45:45 01/27/20 25 01/26/2025 US, obste tric, 2nd or 3rd trime ster No observ ation record ed. [email or web address] [place] [address], [place], [address], 01/26/2025 12:36:41 01/27/20 25 01/26/2025 US, obste tric, 2nd or 3rd trime ster No observ ation record ed. [email or web address] [address], [place], [address], 01/26/2025 12:39:35 02/24/20 25 02/23/2025 US, obste tric, follo w-up No observ ation record ed. [email or web address] [place] [address], [place], [address], 02/23/2025 18:48:54 02/24/20 25 02/23/2025 US, obste tric, follo w-up No observ ation record ed. Annalise [address], [place], [address], 02/23/2025 16:57:13 02/24/20 25 02/23/2025 US, obste tric, follo w-up No observ ation record ed. Annalise [address], [place], [address], 02/23/2025 16:55:34 03/21/20 25 03/21/2025 US, obste tric, follo w-up No observ ation record ed. [email or web address] [facility] [address], [place], [address], 03/23/2025 16:02:35 03/21/20 25 03/21/2025 US, obste tric, follo w-up No observ ation record ed. [email or web address] [facility] [address], [place], [address], 03/22/2025 10:18:20 04/22/20 25 04/22/2025 US, obste tric, follo w-up No observ ation record ed. [email or web address] [address], [place], [address], 04/27/2025 11:38:48 04/22/20 25 04/22/2025 US, obste tric, follo w-up No observ ation record ed. [email or web address] [place] [address], [place], [address], 04/22/2025 17:08:34 05/18/2005/18/2025 US, obste tric, follo w-up No observ ation record ed. [facility] [address], [place], [address], 05/18/2025 18:24:57 05/18/20 25 05/18/2025 US, obste tric, follo w-up No observ ation record ed. [email or web address] [address], [place], [address], 05/25/2025 10:56:46 Result Notes None recorded. Problems Name Problem SNOMED Code Status Onset Date Resolution Date Notes Provider Name and Address Organization Details Recorded Time 75472537 Active 2024 Mary Murillo [facility] 11:32:03 RhD negative 873232501 Active 2024 A-, need rhogam 28 weeks referral M faxed 03/04 cancelled due to insurance - referral faxed to [facility] 03/08 03/21 [facility] final report A Negative , weak D present [facility] recommends Rhogam pt rhogam on 04/06/25 Dwayne Lindquist [facility] 21:45:57 Placenta succentur iata 67303116 Active 2024 serial growth Elizabet Clarita [facility] 12:38:22 Problem Notes None recorded. Procedures Surgical History Date Name Laterality Status Provider Name and Address Organization Details Recorded Time 05/09/2024 Date of Last Pap Smear completed Katherine Hardwick [facility] 03/23/2025 10:52:23 Imaging Results None recorded. Procedure Notes None recorded. Medical Equipment None Reported. Allergies Allergen ID Allergen Name Allergen Category Reaction Reaction Severity Criticality Documentation Date Start Date Code Code System Note Provider Name and Address Organization Details Recorded Time 20318 latex environme nt,medica tion Not available Not available Not available 12/01/2024 52436 91 RxNorm [facility] 5 11:38:56 86019 ethinyl estradiol / norelgest romin medicatio n hives Not available Not available 05/06/2025 68343 7 RxNorm Not Available nieves - External Data Service - prod 5 09:42:49 Medications Name Sig Start Date Stop [...] No t Available Vitals Date Recorded Body weight Systolic And Diastolic Provider Name and Address Organization Details Last Updated DateTime 03/23/2025 02365.71208 g 108/70 mm[Hg] VIK FINN MD [address], [place], [address], [facility] 03/23/2025 14:23:36 Date Recorded Body height Body mass index (BMI) Body weight Systolic And Diastolic Provider Name and Address Organization Details Last Updated DateTime 03/23/2025 167.64 cm 25.5 kg/m2 90667.59 g 108/70 mm[Hg] Katherine Hardwick [facility] 03/23/2025 10:51:52 Social History Question Answer Notes LastModified by Organizat ion Details LastModified Time Tobacco Smoking Status Never Smoker Mary britton, [facility] 12/01/2024 11:12:14 Do You Have An Advance Directive? No [email or web address] Information n ot available 12/01/2024 If You Are , What Was Your Level Of Alcohol Consumption Prior To ? Occasional [email or web address] Information not available 12/01/2024 How Many Years Have You Consumed Alcohol? 0 [email or web address] Information not available 12/01/2024 Are You Blind Or Do You Have Difficulty Seeing? No [email or web address] Information n ot available 12/01/2024 What Is Your Level Of Caffeine Consumption? Moderate [email or web address] Information not available 12/01/2024 How Much Tobacco Do You Chew? None [email or web address] Information not available 12/01/2024 In The 14 Days Before Symptom Onset, Have You Had Close Contact With A Laboratory-confirm ed COVID-19 While That Case Was Ill? No [email or web address] Information n ot available 12/01/2024 In The 14 Days Before Symptom Onset, Have You Had Close Contact With A Person Who Is Under Investigation For COVID-19 While That Person Was Ill? No [email or web address] Information not available 12/01/2024 Have You Been To An Area Known To Be High Risk For COVID-19? No [email or web address] Information not available 12/01/2024 Are You Deaf Or Do You Have Serious Difficulty Hearing? No [email or web address] Information not available 12/01/2024 What Type Of Diet Are You Following? REGULAR Information n ot available 12/01/2024 What Is The Highest Grade Or Level Of School You Have Completed Or The Highest Degree You Have Received? OC67760-1 [email or web address] Information not available 12/01/2024 Are There Any Guns Present In Your Home? No [email or web address] Information not available 12/01/2024 Do You Use Protection During Sex? No Information not available 12/01/2024 Do You Use Your Seat Belt Or Car Seat Routinely? Yes [email or web address] Information not available 12/01/2024 Do You Have Smoke And Carbon Monoxide Detectors In Your Home? Yes [email or web address] Information not available 12/01/2024 How Much Tobacco Do You Smoke? No [email or web address] Information not available 12/01/2024 Do You Use Sunscreen Routinely? Yes [email or web address] Information not available 12/01/2024 Has Tobacco Cessation Counseling Been Provided? Yes [email or web address] Information not available 12/01/2024 On What Date Was Tobacco Cessation Counseling Provided? 12/01/2024 [email or web address] Information not available 12/01/2024 How Many Years Have You Smoked Tobacco? 0 [email or web address] Information not available 12/01/2024 Have You Used IV Drugs? No [email or web address] Information not available 12/01/2024 Do You Have Difficulty Walking Or Climbing Stairs? No Information not available 12/01/2024 Sex: Unknown Functional Status Question Answer Note LastModified by Organizat ion Details LastModified Time Do you use any illicit or recreational drugs? No Information not available 03/23/2025 Do you or have you ever used any other forms of tobacco or nicotine? No [email or web address] Information not available 12/01/2024 What is your level of alcohol consumption? None [email or web address] Information not available 12/01/2024 Are you able to walk independently without assistance or assistive devices? YESWOREST [email or web address] Information not available 12/01/2024 Are you able to care for yourself independently? 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 Occasional [email or web address] Information not available 12/01/2024 Mental Status Question Answer Note LastModified by Organization D etails LastModified Time Do you feel stressed (tense, restless, nervous, or anxious, or unable to sleep at night)? [id number] [email or web address] Information not available 12/01/2024 Family History Relationship Description Onset Age of this Age Resolved Age Notes LastModified by Organization Details LastModified Time Unspecified Relation Family history unknown [email or web address] Not available 05/23 09:26:51 Maternal Grandmother Diabetes mellitus [email or web address] Not available 2024 16:45:50 Maternal Grandmother Hypertensive disorder [email or web address] Not available 2024 16:45:50 Maternal Grandmother Hypercholest erolemia [email or web address] Not available 2024 16:45:50 Medical History Condition [...] ICD10 Code Diagnosis IMO Codes Diagnosis Note [id number] Clayton Byrd MD [place] [address] [address] 02/23/2025 11:22:36 02/23/2025 12:06:35 Anomaly of placenta 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 O43.102 Z3A.24 1174366 [id number] Shantelle Reyes [facility] [address] [address] 02/23/2025 11:22:59 02/23/2025 12:20:26 Gestation period, 24 weeks 684744342 Z3A.24 4055576 [id number] Shantelle Reyes [facility] [address] [address] 03/23/2025 10:11:18 03/25/2025 14:07:08 [id number] VIK FINN MD [place] [address],[place] [address] 03/23/2025 11:39:03 03/23/2025 14:31:27 Placenta succenturiata 05022692 O43.192 28256502 - serial growth US RhD negative 586008101 O 26.899 Z67.91 052311 - weak D antigen, seen by MFM who recommends RHogam Gestation period, 28 weeks 69442026 Z3A.28 5321505 - continue [facility] Concerns Section Related Observation LastModified by Organization Detai ls LastModified Time None Recorded Concern Status LastModified by Organization Details LastModified Time None Recorded Payers Encounter Date Sequence Insurance Name Policy Number Policy Botello Covered Member ID Botello Member ID Guarantor Name 03/23/2025 1 [facility] (MEDICAID HMO) [id number] Sahra Novak [id number] Sahra Novak Notes Date Note Type Note Provider Name and Address Organization Details Recorded Time 03/23/2025 text/html Generic HPI TemplateReported by Patient Shantelle Esquedae, ROSE [address], [place], [address], [place] - [facility] 03/25/2025 14:07:07 OBGyn Episode Ob Episode Information Episode Created Date Number of Fetuses Patient Bloodtype Patient rh Status Prepregnancy Weight lbs Domestic Partner Domestic Partner Phone Father Name Photovoltaic Technician Status 12/02/19 25 1 A Negative 147 Akshat [facility]etus Data First Name Last Name Admitted to NICU Weight (g) Sex Living Outcome Pediatric Complications Fetus ID Race Codes Race Delivery Type [id number] Problems Problem Notes Problem Name Start Date End Date Resolution Snomed Code Not e Placenta succenturiata 01/26/2025 [id number] serial growth US RhD negative 12/03/2024 [id number] A-, ne ed rhogam 28 weeks referral M faxed 03/04 cancelled due to insurance - referral faxed to [facility] final report A Negative , weak D present [facility] recommends Rhogam pt rhogam on 04/06/25 Dwayne Artis Calculation Initial Artis Date Initial Exam Date Initial Exam Provider Initial Ultrasound Date Last Menstrual Period Date Ultra Sound Weeks Gestation 05/16/2025 10/19/2024 [email or web address] 10/19/2024 08/09/2024 6 Eighteen To Twenty Week [...] Weight in lbs Pre/Post Dialysis Refused Weight 148.688153403250 BP Diastolic BP Location Tested BP Systolic [...] Type Weight in lbs Pre/Post Dialysis Refused 153.707071458782 BP Diastolic BP Location Tested BP Systolic [...] Weight in lbs Pre/Post Dialysis Refused Weight 153.674774141448 BP Diastolic BP Location Tested BP Systolic [...] Weight in lbs Pre/Post Dialysis Refused Weight 155.656844290244 BP Diastolic BP Location Tested BP Systolic [...] Weight in lbs Pre/Post Dialysis Refused Weight 158.680144662720 BP Diastolic BP Location Tested BP Systolic BP Type 70 L arm 108 sitting Fetus Heart Rate Present Fetus Movement A Yes Comments Flowsheet Date 03/23/2025 Mcdonough Score Blood Edema Fundus Height Fundus Units Glucose Ketones Leukocytes Nitrite Labor Signs Protein Cervic Dilation Cervic Effacement Cervic Station Type Weight in lbs Pre/Post Dialysis Refused 158.372060809480 BP Diastolic BP Location Tested BP Systolic BP Type 70 108 Fetus Heart Rate Present A 140 Fetus Movement A Yes Comments Doing well, good movem ent. GCT and labs at [facility] for Rhogam. Was seen by [facility], recommend Rhogam for weak D. EFW wnl at [facility] US. Discussed tdap and RSV vaccine. RTC 2 weeks. Flowsheet Date 04/08/2025 Mcdonough Score Blood Edema Fundus Height Fundus Units Glucose Ketones Leukocytes Nitrite Labor Signs Protein Cervic Dilation Cervic Effacement Cervic Station Type Weight in lbs Pre/Post Dialysis Refused Weight 159.241177974465 BP Diastolic BP Location Tested BP Systolic [...] Weight in lbs Pre/Post Dialysis Refused Weight 164.220234114261 BP Diastolic BP Location Tested BP Systolic [...] Weight in lbs Pre/Post Dialysis Refused Weight 165.005848099225 BP Diastolic BP Location Tested BP Systolic [...] Weight in lbs Pre/Post Dialysis Refused Weight 165.278228291686 BP Diastolic BP Location Tested BP Systolic [...] Type Weight in lbs Pre/Post Dialysis Refused 168.535679475421 BP Diastolic BP Location Tested BP Systolic [...]
--- OUTSIDE RECORDS SUMMARY | 2025-06-10 17:05 | XMS_ITS | Continuity of Care Document ---
Author Organization [facility] Address [address] [place] [address] [place] [address] Assessment No assessment recorded. Plan of Treatment Reminders Order Date Submit Date Provider Last Modified By Organization Details Last Modified Time Details Appointments OB ROUTINE 2024 08:30A M Shantelle Reyes CNM Not available Not available Not available Lab None recorded . Referral None recorded . Procedures None recorded . Surgeries None recorded . Imaging US, obstetri c, follow-u p 2024 025 [email or web address] [address], [address], [place], [address], 04/24/2025 20:49:15 Medication Orders None recorded . Patient TargetsNo targets recorded. Patient InstructionsNo instructions recorded. Reason for Referral None Reported. Results Created Date Observation Date Name Description Value Unit Range Abnormal Flag Note LastModifiedBy Organization Detail LastModifiedTime 12/08/1912/07/2024 [UNIT Y] ANEUP LOIDY NIPT fraction 11.1% normal Not Available [facility] [address], [place], [address], 12/07/2024 07:43:35 12/08/19 25 12/07/2024 [UNIT Y] ANEUP LOIDY NIPT 22Q11.2 microdeletio n LOW RISK <1 in 10,000 normal Not Available [facility] [address], [place], [address], 12/07/2024 07:43:35 12/08/19 25 12/07/2024 [UNIT Y] ANEUP LOIDY NIPT sex chromosome aneuploidy NOT DETECT ED normal Not Available [facility] [address], [place], [address], 12/07/2024 07:43:35 12/08/19 25 12/07/2024 [UNIT Y] ANEUP LOIDY NIPT monosomy X LOW RISK <1 in 10,000 normal Not Available [facility] [address], [place], [address], 12/07/2024 07:43:35 12/08/19 25 12/07/2024 [UNIT Y] ANEUP LOIDY NIPT trisomy 13 LOW RISK <1 in 10,000 normal Not Available [facility] [address], [place], [address], 12/07/2024 07:43:35 12/08/19 25 12/07/2024 [UNIT Y] ANEUP LOIDY NIPT trisomy 18 LOW RISK <1 in 10,000 normal Not Available [facility] [address], [place], [address], 12/07/2024 07:43:35 12/08/19 25 12/07/2024 [UNIT Y] ANEUP LOIDY NIPT trisomy 21 LOW RISK <1 in 10,000 normal Not Available [facility] [address], [place], [address], 12/07/2024 07:43:35 12/08/19 25 12/07/2024 [UNIT Y] ANEUP LOIDY NIPT sex FEMALE normal Not Available [facility] [address], [place], [address], 12/07/2024 07:43:35 12/08/19 25 12/07/2024 [UNIT Y] ANEUP LOIDY NIPT gestation SINGLE TON normal Not Available [facility] [address], [place], [address], 12/07/2024 07:43:35 12/08/19 25 12/07/2024 [UNIT Y] ANEUP NAEEMIDY NIPT for detailed report, see pdf See PDF normal Not Available [facility] [address], [place], [address], 12/07/2024 07:43:35 12/23/19 25 12/22/2024 [UNIT Y] GUILLERMO Herrera sickle cell disease/beta -thalassemia /hemoglobino pathies carrier screen NEGATI VE normal Not Available [facility] [address], [place], [address], 12/22/2024 23:42:40 12/23/19 25 12/22/2024 [UNIT Y] GUILLERMO Herrera alpha-thalas semia carrier screen NEGATI VE normal Not Available [facility] [address], [place], [address], 12/22/2024 23:42:40 12/23/19 25 12/22/2024 [UNIT Y] GUILLERMO Herrera cystic fibrosis carrier screen NEGATI VE normal Not Available [facility] [address], [place], [address], 12/22/2024 23:42:40 12/23/19 25 12/22/2024 [UNIT Y] GUILLERMO Herrera spinal muscular atrophy carrier screen NEGATI VE 2 SMN1 copies , SNP not presen t normal Not Available [facility] [address], [place], [address], 12/22/2024 23:42:40 12/23/19 25 12/22/2024 [UNIT Y] GUILLERMO Herrera for detailed report, see pdf See PDF normal Not Available [facility] [address], [place], [address], 12/22/2024 23:42:40 12/02/19 25 12/01/2024 HIV 1/2 ANTIG EN/AN TIBOD Y, REFLE X CONFI RMATI ON HIV antigen/anti body Nonrea ctive nonrea ctive HIV-1 antig en and HIV-1 /HIV- 2 antib odies were not detec julieta. No labor atory evide nce of HIV infec tion. Not Available [facility] (Lab) [address], [place], [address], 12/02/2024 10:19:34 12/02/1912/01/2024 HEPAT ITIS B SURFA CE ANTIG EN hepatitis B surface antigen Non-re active non-re active This assay was perfo rmed using [employer] ratio n reage nts and test kits. Value s obtai edison with other assay metho ds or kits canno t be used inter kelley eably . Not Available [facility] (Lab) [address], [place], [address], 12/02/2024 10:19:35 12/02/1912/01/2024 HEPAT ITIS C ANTIB MOLLY SCREE N, REFLE X TO CONFI RMATI ON hepatitis C antibody Non-re active non-re active Antib odies to HCV Not Detec julieta, does not exclu de the possi bilit y of expos ure to HCV. Not Available [facility] (Lab) [address], [place], [address], 12/02/2024 10:19:35 12/02/1912/01/2024 CBC W/DIF F WBC 8.1 10'3/ uL 3.5-10 .5 Not Available [facility] (Lab) [address], [place], [address], 12/02/2024 10:19:35 12/02/1912/01/2024 CBC W/DIF F RBC 3.87 10'6/ uL (based on docume nted legal sex) 3.80-5 .20 Not Available [facility] (Lab) [address] [facility], [place], [address], 12/02/2024 10:19:35 12/02/19 25 12/01/2024 CBC W/DIF F HGB 12.4 g/dL (based on docume nted legal sex) 11.6-1 5.4 Not Available [facility] (Lab) [address] [facility], [place], [address], 12/02/2024 10:19:35 12/02/19 25 12/01/2024 CBC W/DIF F HCT 36.6 % (based on docume nted legal sex) 34.0-4 5.0 Not Available [facility] (Lab) [address] [facility], [place], [address], 12/02/2024 10:19:35 12/02/19 25 12/01/2024 CBC W/DIF F MCV 94.6 fL 80.0-9 9.0 Not Available [facility] (Lab) [address] [facility], [place], [address], 12/02/2024 10:19:35 12/02/19 25 12/01/2024 CBC W/DIF F MCH 32.0 pg 27.0-3 4.0 Not Available [facility] (Lab) [address], [place], [address], 12/02/2024 10:19:35 12/02/19 25 12/01/2024 CBC W/DIF F MCHC 33.9 g/dL 32.0-3 5.5 Not Available [facility] (Lab) [address] [facility], [place], [address], 12/02/2024 10:19:35 12/02/19 25 12/01/2024 CBC W/DIF F RDW 12.2 % 11.0-1 5.0 Not Available [facility] (Lab) [address] [facility], [place], [address], 12/02/2024 10:19:35 12/02/19 25 12/01/2024 CBC W/DIF F plt 220 10'3/ uL 150-40 0 Not Available [facility] (Lab) [address] [facility], [place], [address], 12/02/2024 10:19:35 12/02/19 25 12/01/2024 CBC W/DIF F MPV 11.6 fL 8.8-12 .1 Not Available [facility] (Lab) [address] [facility], [place], [address], 12/02/2024 10:19:35 12/02/19 25 12/01/2024 CBC W/DIF F NRBC's 0.0 % 0.0 Not Available [facility] (Lab) [address] [facility], [place], [address], 12/02/2024 10:19:35 12/02/19 25 12/01/2024 CBC W/DIF F absolute NRBCs 0.0 10'3/ uL no refere nce range establ ished Not Available [facility] (Lab) [address] [facility], [place], [address], 12/02/2024 10:19:35 12/02/19 25 12/01/2024 CBC W/DIF F neutrophils 77.4 % 34.0-7 3.0 high Not Available [facility] (Lab) [address] [facility], [place], [address], 12/02/2024 10:19:35 12/02/19 25 12/01/2024 CBC W/DIF F lymphocytes 15.0 % 15.0-5 0.0 Not Available [facility] (Lab) [address] [facility], [place], [address], 12/02/2024 10:19:35 12/02/19 25 12/01/2024 CBC W/DIF F monocytes 6.3 % 1.0-15 .0 Not Available [facility] (Lab) [address] [facility], [place], [address], 12/02/2024 10:19:35 12/02/19 25 12/01/2024 CBC W/DIF F eosinophils 0.7 % 0.0-8. 0 Not Available [facility] (Lab) [address] [facility], [place], [address], 12/02/2024 10:19:35 12/02/1912/01/2024 CBC W/DIF F basophils 0.2 % 0.0-2. 0 Not Available [facility] (Lab) [address] [facility], [place], [address], 12/02/2024 10:19:35 12/02/1912/01/2024 CBC W/DIF F immature granulocytes 0.4 % no define d refere nce range Immat ure Granu locyt es (IG) repre sents autom ated enume ratio n of Metam yeloc ytes, Myelo cytes and Promy elocy niki when IG is < 5%. Blast s are not inclu ded in IG and repor julieta separ ately if prese nt. Not Available [facility] (Lab) [address] [facility], [place], [address], 12/02/2024 10:19:35 12/02/1912/01/2024 CBC W/DIF F absolute neutrophils 6.3 10'3/ uL 1.5-8. 0 Not Available [facility] (Lab) [address] [facility], [place], [address], 12/02/2024 10:19:35 12/02/1912/01/2024 CBC W/DIF F absolute lymphocytes 1.2 10'3/ uL 1.0-4. 0 Not Available [facility] (Lab) [address] [facility], [place], [address], 12/02/2024 10:19:35 12/02/1912/01/2024 CBC W/DIF F absolute monocytes 0.5 10'3/ uL 0.2-1. 0 Not Available [facility] (Lab) [address] [facility], [place], [address], 12/02/2024 10:19:35 12/02/19 25 12/01/2024 CBC W/DIF F absolute eosinophils 0.1 10'3/ uL 0.0-0. 6 Not Available [facility] (Lab) [address] [facility], [place], [address], 12/02/2024 10:19:35 12/02/19 25 12/01/2024 CBC W/DIF F absolute basophils 0.0 10'3/ uL 0.0-0. 3 Not Available [facility] (Lab) [address] [facility], [place], [address], 12/02/2024 10:19:35 12/02/19 25 12/01/2024 CBC W/DIF [...] tucker book. nm.or g/gen derx Not Available [facility] (Lab) [address] [facility], [place], [address], 12/02/2024 10:19:35 12/02/19 25 12/01/2024 RUBEL LA IGG ANTIB MOLLY, QUANT rubella antibodies, IgG Reacti ve reacti ve Not Available [facility] (Lab) [address] [facility], [place], [address], 12/02/2024 10:19:36 12/02/19 25 12/01/2024 RUBEL LA IGG ANTIB MOLLY, QUANT rubella antibodies, IgG quant 17.9 IU/mL >=10 Non-r eacti ve (Non- Immun e) <10 IU/mL React marely (Immu ne) > or = 10 IU/mL Not Available [facility] (Lab) [address] [place], [address], 12/02/2024 10:19:36 12/02/19 25 12/01/2024 TYPE/ RH/SC REEN ABO/Rh type A NEG Not Available [facility] (Lab) [address], [place], [address], 12/02/2024 10:19:36 12/02/19 25 12/01/2024 TYPE/ RH/SC REEN antibody screen NEG Not Available [facility] (Lab) [address] [facility], [place], [address], 12/02/2024 10:19:36 12/02/1912/01/2024 TYPE/ RH/SC REEN exp date 2024 23:59 Not Available [facility] (Lab) [address] [facility], [place], [address], 12/02/2024 10:19:36 12/02/19 25 12/01/2024 HEMOG LOBIN [...] >8.0% Actio n sugge sted Not Available [facility] (Lab) [address], [place], [address], 12/02/2024 10:19:37 12/02/19 25 12/01/2024 RPR SCREE N, REFLE X TITER /CONF IRMAT ION RPR qualitative Nonrea ctive nonrea ctive Not Available [facility] (Lab) [address], [place], [address], 12/02/2024 10:19:37 12/02/19 25 12/01/2024 CULTU RE: URINE result report SEE RESULT S BELOW Test: Cultu re: Urine Speci men Sourc e: Urine Voide d Speci men Type: Urine Speci men Date: 2024 1100 Resul t Date: 2024 2144 Resul t Statu s: Final resul t Abnor mal: No Resul ting Lab: [facility] [address] [facility] [address] Tel: CULTU RE ----- ----- ----- --- No growt h in 1 day (dete ction level of 10,00 0 colon ies / ml.) Not Available [facility] (Lab) [address] [facility], [place], [address], 12/02/2024 22:47:13 12/02/19 25 12/01/2024 drug scree n, urine Amphetamines : negati ve Not Available [place] [address], [place], [address], 12/01/2024 11:13:13 12/02/19 25 12/01/2024 drug scree n, urine Cannabinoids : negati ve Not Available [place] [address], [place], [address], 12/01/2024 11:13:13 12/02/19 25 12/01/2024 drug scree n, urine Cocaine: negati ve Not Available [address], [place], [address], 12/01/2024 11:13:13 12/02/19 25 12/01/2024 drug scree n, urine Opiates: negati ve Not Available [address] [address], [place], [address], 12/01/2024 11:13:13 12/02/19 25 12/01/2024 drug scree n, urine Phenocyclidi ne: negati ve Not Available [address], [place], [address], 12/01/2024 11:13:13 12/02/19 25 12/01/2024 drug scree n, urine Barbiturates : negati ve Not Available [address], [place], [address], 12/01/2024 11:13:13 12/02/19 25 12/01/2024 drug scree n, urine Benzodiazepi haris: negati ve Not Available [address], [place], [address], 12/01/2024 11:13:13 12/02/19 25 12/01/2024 drug scree n, urine Ethanol: negati ve Not Available [place] [address], [place], [address], 12/01/2024 11:13:13 12/02/19 25 12/01/2024 drug scree n, urine Hallucinogen s: negati ve Not Available [address], [place], [address], 12/01/2024 11:13:13 12/02/19 25 12/01/2024 drug scree n, urine Inhalants: negati ve Not Available [address] [address], [place], [address], 12/01/2024 11:13:13 12/02/19 25 12/01/2024 drug scree n, urine Anabolic Steroids: negati ve Not Available [address] [address], [place], [address], 12/01/2024 11:13:13 12/02/19 25 12/01/2024 drug scree n, urine Other: positi ve Not Available [address], [place], [address], 12/01/2024 11:13:13 02/24/20 25 02/23/2025 TYPE/ RH/SC REEN ABO/Rh type A NEG Not Available [facility] (Lab) [address] [facility], [place], [address], 02/24/2025 08:26:42 02/24/20 25 02/23/2025 TYPE/ RH/SC REEN antibody screen NEG Not Available [facility] (Lab) [address] [facility], [place], [address], 02/24/2025 08:26:42 02/24/20 25 02/23/2025 TYPE/ RH/SC REEN exp date 2024 23:59 Not Available [facility] (Lab) [address] [facility], [place], [address], 02/24/2025 08:26:42 12/02/19 25 12/01/2024 US, obste tric, nucha l trans lucen cy No observ ation record ed. [email or web address] [address] [address], [place], [address], 12/01/2024 14:38:13 12/02/19 25 12/01/2024 US, obste tric, follo w-up No observ ation record ed. [email or web address] [address] [place] [address] [address], [place], [address], 12/01/2024 18:45:45 01/27/20 25 01/26/2025 US, obste tric, 2nd or 3rd trime ster No observ ation record ed. [email or web address] [address] [address], [place], [address], 01/26/2025 12:36:41 01/27/20 25 01/26/2025 US, obste tric, 2nd or 3rd trime ster No observ ation record ed. [email or web address] [address], [place], [address], 01/26/2025 12:39:35 02/24/2002/23/2025 US, obste tric, follo w-up No observ ation record ed. [email or web address] [place] [address], [place], [address], 02/23/2025 18:48:54 02/24/20 25 02/23/2025 US, obste tric, follo w-up No observ ation record ed. [email or web address] [address], [place], [address], 02/23/2025 16:57:13 02/24/20 25 02/23/2025 US, obste tric, follo w-up No observ ation record ed. [email or web address] [address], [place], [address], 02/23/2025 16:55:34 03/21/20 25 03/21/2025 US, obste tric, follo w-up No observ ation record ed. [email or web address] [facility] [address], [place], [address], 03/23/2025 16:02:35 03/21/2003/21/2025 US, obste tric, follo w-up No observ ation record ed. [email or web address] [facility] [address] [facility] [address], [place], [address], 03/22/2025 10:18:20 04/22/2004/22/2025 US, obste tric, follo w-up No observ ation record ed. [email or web address] [address], [place], [address], 04/27/2025 11:38:48 04/22/2004/22/2025 US, obste tric, follo w-up No observ ation record ed. [facility] [address], [place], [address], 04/22/2025 17:08:34 05/18/2005/18/2025 US, obste tric, follo w-up No observ ation record ed. [facility] [address], [place], [address], 05/18/2025 18:24:57 05/18/2005/18/2025 US, obste tric, follo w-up No observ ation record ed. [email or web address] [address], [place], [address], 05/25/2025 10:56:46 Result Notes None recorded. Problems Name Problem SNOMED Code Status Onset Date Resolution Date Notes Provider Name and Address Organization Details Recorded Time 83951897 Active [address] [facility] 11:32:03 RhD negative 288153007 Active 2024 A-, need rhogam 28 weeks referral M faxed 03/04 cancelled due to insurance - [facility]21 [facility] final report A Negative , weak D present [facility] recommends Rhogam pt rhogam on 04/06/25 Dwayne Lind[facility] 21:45:57 Placenta succentur iata 92761525 Active 2024 serial growth US Elizabet Otto [facility] 12:38:22 Problem Notes None recorded. Procedures Surgical History Date Name Laterality Status Provider Name and Address Organization Details Recorded Time 05/09/2024 Date of Last Pap Smear completed Katherine Hardwick [facility] 03/23/2025 10:52:23 Imaging Results None recorded. Procedure Notes None recorded. Medical Equipment None Reported. Allergies Allergen ID Allergen Name Allergen Category Reaction Reaction Severity Criticality Documentation Date Start Date Code Code System Note Provider Name and Address Organization Details Recorded Time 15637 latex environme nt,medica tion Not available Not available Not available 12/01/2024 13324 91 RxNorm Mary Murillo [facility] 5 11:38:56 19420 ethinyl estradiol / norelgest romin medicatio n hives Not available Not available 05/06/2025 11973 7 RxNorm Not Available nieves - External [...] Tobacco Smoking Status Never Smoker Mary Murillo [facility] 12/01/2024 11:12:14 Do You Have An Advance Directive? No [email or web address] Information n ot available 12/01/2024 If You Are , What Was Your Level Of Alcohol Consumption Prior To ? Occasional [email or web address] Information not available 12/01/2024 How Many Years Have You Consumed Alcohol? 0 [email or web address] Information not available 12/01/2024 Are You Blind Or Do You Have Difficulty Seeing? No Information n ot available 12/01/2024 What Is Your Level Of Caffeine Consumption? Moderate [email or web address] Information not available 12/01/2024 How Much Tobacco Do You Chew? None [email or web address] Information not available 12/01/2024 In The 14 Days Before Symptom Onset, Have You Had Close Contact With A Laboratory-confirm ed COVID-19 While That Case Was Ill? No Information n ot available 12/01/2024 In The 14 Days Before Symptom Onset, Have You Had Close Contact With A Person Who Is Under Investigation For COVID-19 While That Person Was Ill? No [email or web address] Information not available 12/01/2024 Have You Been To An Area Known To Be High Risk For COVID-19? No [email or web address] Information not available 12/01/2024 Are You Deaf Or Do You Have Serious Difficulty Hearing? No [email or web address] Information not available 12/01/2024 What Type Of Diet Are You Following? REGULAR [email or web address] Information n ot available 12/01/2024 What Is The Highest Grade Or Level Of School You Have Completed Or The Highest Degree You Have Received? [id number] [email or web address] Information not available 12/01/2024 Are There Any Guns Present In Your Home? No Information not available 12/01/2024 Do You Use Protection During Sex? No [email or web address] Information not available 12/01/2024 Do You Use Your Seat Belt Or Car Seat Routinely? Yes [email or web address] Information not available 12/01/2024 Do You Have Smoke And Carbon Monoxide Detectors In Your Home? Yes [email or web address] Information not available 12/01/2024 How Much Tobacco Do You Smoke? No [email or web address] Information not available 12/01/2024 Do You Use Sunscreen Routinely? Yes [email or web address] Information not available 12/01/2024 Has Tobacco Cessation Counseling Been Provided? Yes [email or web address] Information not available 12/01/2024 On What Date Was Tobacco Cessation Counseling Provided? 12/01/2024 [email or web address] Information not available 12/01/2024 How Many Years Have You Smoked Tobacco? 0 [email or web address] Information not available 12/01/2024 Have You Used IV Drugs? No [email or web address] Information not available 12/01/2024 Do You Have Difficulty Walking Or Climbing Stairs? No [email or web address] Information not available 12/01/2024 Sex: Unknown Functional Status Question Answer Note LastModified by Organizat ion Details LastModified Time Do you use any illicit or recreational drugs? No [email or web address] Information not available 03/23/2025 Do you or have you ever used any other forms of tobacco or nicotine? No [email or web address] Information not available 12/01/2024 What is your level of alcohol consumption? None Information not available 12/01/2024 Are you able to walk independently without assistance or assistive devices? YESWOREST [email or web address] Information not available 12/01/2024 Are you able to care for yourself independently? 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 Occasional Information not available 12/01/2024 Mental Status Question Answer Note LastModified by Organization D etails LastModified Time Do you feel stressed (tense, restless, nervous, or anxious, or unable to sleep at night)? [id number] [email or web address] Information not available 12/01/2024 Family History Relationship Description Onset Age of this Age Resolved Age Notes LastModified by Organization Details LastModified Time Unspecified Relation Family history unknown [email or web address] Not available 05/23 09:26:51 Maternal Grandmother Diabetes mellitus [email or web address] Not available 2024 16:45:50 Maternal Grandmother Hypertensive disorder [email or web address] Not available 2024 16:45:50 Maternal Grandmother Hypercholest erolemia [email or web address] Not available 2024 16:45:50 Medical History Condition Response Other N Blood Transfusion N Dermatologic Disorders N Gestational Diabetes N Anxiety Disorder N Autoimmune disease N Arthritis N Polyps N Infertility N Acid Reflux (GERD) N Cancer N Varicosities N Stroke N Neurologic/Epilepsy N Fibromyalgia N Headaches N Kidney Disease N Heart Problems N Kidney or Bladder Problems N Eating Disorder N Art (IVF or FET) N Hepatitis/Liver Disease N No Past Medical History Y Urinary Tract Infection N Asthma N Trauma/Violence N Thrombophilias N Allergies (Food, seasonal, environmental ) N Breast Cancer N Drug/Latex Allergies/Reactions N Lung Disease N Defects or Inherited Disease N Breast Problem N Hematologic disorders N Anesthesia Complications N History of STI N Deep Vein Thrombosis N Polycystic ovary syndrome N History of abnormal pap N Endometriosis N High Cholesterol N Thyroid Problems N GI Problems N Anemia N Psychiatric Illness N Ovarian Cancer N Diabetes N Pulmonary (TB, Asthma) N Eczema N Abuse/Domestic Violence N Depression/ depression N Heart Disease N Pre-Eclampsia N Hypertension N Osteoporosis N Gynecological History Statement/Question Response Date of [...] ICD10 Code Diagnosis IMO Codes Diagnosis Note [id number] Shantelle Reyes, ROSE [place] [address] [address] 03/23/2025 10:11:18 03/25/2025 14:07:08 [id number] VIK FINN MD [place] [address] [address] 03/23/2025 11:39:03 03/23/2025 14:31:27 Placenta succenturiata [id number] O43.192 [id number] - serial growth US RhD negative [id number] O 26.899 Z67.91 014952 - weak D antigen, seen by [facility] who recommends RHogam Gestation period, 28 weeks 14970303 Z3A.28 [id number] - continue PNV [id number] VIK FINN MD [place] [address],[place] [address] 04/08/2025 16:31:58 04/11/2025 09:14:19 Placenta succenturiata 47071979 O43.192 60491527 - serial growth US RhD negative 297482939 O 26.899 Z67.91 830910 - weak D antigen, seen by [facility] who recommends RHogam- rhogam given at 30 weeks Gestation period, 30 weeks 04993885 Z3A.30 4155443 - continue PNV [id number] Clayton Byrd MD [place] [address],[place] [address] 04/22/2025 16:23:16 04/22/2025 18:15:42 Placenta succenturiata 23338215 O43.193 Z3A.32 [id number] [facility] [address],[place] [address] 04/22/2025 16:23:39 04/23/2025 09:50:03 Gestation period, 32 weeks 4780567 Z3A.32 [id number] cont pnv Health Concerns Section Related Observation LastModified by Organization Detai ls LastModified Time None Recorded Concern Status LastModified by Organization Details LastModified Time None Recorded Payers Encounter Date Sequence Insurance Name Policy Number Policy Botello Covered Member ID Botello Member ID Guarantor Name 04/22/2025 1 FORMERLY [facility] (MEDICAID HMO) [id number] Sahra Novak [id number] Sahra Novak OBGyn Episode Ob Episode Information Episode Created Date Number of Fetuses Patient Bloodtype Patient rh Status Prepregnancy Weight lbs Domestic Partner Domestic Partner Phone Father Name Service Establishment Attendant Status 12/02/19 25 1 A Negative 147 Akshat Hildebr and OPEN Fetus Data First Name Last Name Admitted to NICU Weight (g) Sex Living Outcome Pediatric Complications Fetus ID Race Codes Race Delivery Type [id number] Problems Problem Notes Problem Name Start Date End Date Resolution Snomed Code Not e Placenta succenturiata 01/26/2025 [id number] 03 serial growth US RhD negative 12/03/2024 [id number] A-, ne ed rhogam 28 weeks referral [...] Date Ultra Sound Weeks Gestation 05/16/2025 10/19/2024 [email or web address] 10/19/2024 08/09/2024 6 Eighteen To Twenty Week [...] Weight in lbs Pre/Post Dialysis Refused Weight 148.082408259400 BP Diastolic BP Location Tested BP Systolic [...] Type Weight in lbs Pre/Post Dialysis Refused 153.684455728573 BP Diastolic BP Location Tested BP Systolic [...] Weight in lbs Pre/Post Dialysis Refused Weight 153.750580651707 BP Diastolic BP Location Tested BP Systolic [...] Weight in lbs Pre/Post Dialysis Refused Weight 155.156473715370 BP Diastolic BP Location Tested BP Systolic [...] Weight in lbs Pre/Post Dialysis Refused Weight 158.250702487509 BP Diastolic BP Location Tested BP Systolic BP Type 70 L arm 108 sitting Fetus Heart Rate Present Fetus Movement A Yes Comments Flowsheet Date 03/23/2025 Mcdonough Score Blood Edema Fundus Height Fundus Units Glucose Ketones Leukocytes Nitrite Labor Signs Protein Cervic Dilation Cervic Effacement Cervic Station Type Weight in lbs Pre/Post Dialysis Refused 158.281036262831 BP Diastolic BP Location Tested BP Systolic BP Type 70 108 Fetus Heart Rate Present A 140 Fetus Movement A Yes Comments Doing well, good movem ent. GCT and labs at [place] for Rhogam. Was seen by [facility], recommend Rhogam for weak D. EFW wnl at [facility] US. Discussed tdap and RSV vaccine. RTC 2 weeks. Flowsheet Date 04/08/2025 Mcdonough Score Blood Edema Fundus Height Fundus Units Glucose Ketones Leukocytes Nitrite Labor Signs Protein Cervic Dilation Cervic Effacement Cervic Station Type Weight in lbs Pre/Post Dialysis Refused Weight 159.676370427676 BP Diastolic BP Location Tested BP Systolic [...] Weight in lbs Pre/Post Dialysis Refused Weight 164.538834440736 BP Diastolic BP Location Tested BP Systolic [...] Weight in lbs Pre/Post Dialysis Refused Weight 165.399008033771 BP Diastolic BP Location Tested BP Systolic [...] Weight in lbs Pre/Post Dialysis Refused Weight 165.072869447939 BP Diastolic BP Location Tested BP Systolic [...] Type Weight in lbs Pre/Post Dialysis Refused 168.460684958124 BP Diastolic BP Location Tested BP Systolic [...]
--- OUTSIDE RECORDS SUMMARY | 2025-06-10 17:05 | XMS_ITS | Clinical Summary ---
Author Organization [facility] Virtual Care Address [address] [place] [phone] Phone Care Team Providers Care Transit Mixer Operator Name Role Phone No, Physician Primary Care Provider [phone] Allergies Active Allergy Reactions Criticality Noted Date [...] brought records (scanned) T&S repeated 03/21/25 at [facility]: A negative, indirect Adolfo negative, +weak D [...] in weak D phenotype women. Accordingly, the [place] [employer] (AABB) recommends that [...] brought records (scanned) T&S repeated 03/21/25 at [facility]: A negative, indirect Adolfo negative, +weak D [...] in weak D phenotype women. Accordingly, the [place] [employer] (AABB) recommends that [...] [] Blue Team Referring Provider: Shantelle Reyes [phone] [] or Medicare Insurance [x] Dating Criteria: [...] [] MOC: [] Method of feeding: [] Blueprint Processor (specifically which provider): [] PP Depression Discussed: [...] Type Department Care Team Description 04/06/2025 Telephone [facility] M[facility]- Medicine [address] [place] [address] Health 7th Floor [address] [place] [address] Pamela Shen, QIANA rhogam 04/06/2025 Orders Only [facility] [address] [place] [address] 7th Floor [address] [place] [address] Pamela Loredo, QIANA Supervision of high-risk , second trimester (Primary Dx); Weak positive anti-D blood type 03/21/2025 10:30 AM CDT Lab [address] [address] Supervision of high-risk , second trimester; Weak positive anti-D blood type 03/21/2025 9:30 AM CDT Office Visit [facility] [address] [place] [address] 7th Floor [address] [place] [address] Supervision of high-risk , second trimester (Primary Dx); Weak positive anti-D blood type; Bilobed placenta 03/21/2025 8:08 AM CDT - 03/21/2025 11:59 PM CDT Hospital Encounter [facility]patient [facility] - Ultrasound [address] [place] [address], 7th Floor, [address] [facility] [place] [address] Supervision of high-risk , unspecified trimester Discharge Disposition: Discharge to home or self care from Last 3 Months Family History Medical [...] Estimated Date of Delivery 03/14/2025 - Present (06/10/2025) 06/11/2025 (set by Yosef Butt MD on 03/21/2025 based on Ultrasound on 10/19/2024) Dating Summary Based On [facility] Diff Last Menstrual Period on 08/09/2024 05/16/2025 +3w5d Ultrasound on 10/19/2024 06/11/2025 Working GA:6w3d Ultrasound on 12/01/2024 06/09/2025 +2d GA:12w6d Ultrasound on 01/26/2025 06/12/2025 -1d GA:20w3d Ultrasound on 02/23/2025 06/12/2025 -1d GA:24w3d Vitals Pregravid Weight Height TWG (As of 06/10/2025) Pregrav id BMI 167.6 cm (5' 6) [...] No Intellectual disability or Fragile X: No Stitzer disease: No Other defects or genetic disorders: No Allergies Allergen Reactions Latex Rash Social History Tobacco Use Smoking status: Never Smokeless tobacco: Never Substance and Sexual Activity Drug use: Never Sexual activity: Yes Partners: Male control/protection: None Alcohol Use: Not on file 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 Accordingly, the [place] [employer] (AABB) recommends that [...] ABO Rh A Negative Adolfo, indirect Negative [facility]ERNER [facility] Blood 03/21/2025 10:3 3 AM CDT 03/21/2025 11:49 AM CDT Narrative LADAN BETANCUR - 03/21/2025 1:20 PM CDT Concern for weak D antigen Has the patient had Daratumumab or Isatuximab in the past 6 months?->Unknown Anna Butt MD LAB BLOOD BANK TEST ORDERA BLES Final Result [facility] [place] [address] * US Ob 14 Weeks Or Over [...] insertion in the posteriorcomponent. us Shantelle Reyes CUSTOMER ACCOUNT MANAGER IMG OB US PROCEDURES Final R esult * Hepatitis C antibody Blood (12/01/2024) SCRIBED HCV ab non-reacti ve Blood us Shantelle Reyes NP LAB MICROBIOLOGY - GENERAL O RDERABLES Final Result from Last 3 Months or Most Recently Relevant to Health Maintenance Insurance [facility] Care Teams Transit Mixer Operator Relationship Specialty Start Date End Date No, Physician PCP - General 03/08/25
--- OUTSIDE RECORDS SUMMARY | 2025-06-10 17:05 | XMS_ITS | Continuity of Care Document ---
Author Organization [facility] Address [address] [address] [place] [address] Assessment Encounter Date Assessment Date Assessment LastModified by Organization Details LastModified Time 05/18/2025 05/18/2025 Patient is __36_weeks . Discussed plan. Not available 05/18/2025 16:47:11 Plan of Treatment Reminders Order Date Submit [...] NIPT fraction 11.1% normal Not Available [facility] [address], [place], [address], 12/07/2024 07:43:35 12/08/19 25 12/07/2024 [UNIT Y] ANEUP LOIDY NIPT 22Q11.2 microdeletio n LOW RISK <1 in 10,000 normal Not Available [facility] [address], [place], [address], 12/07/2024 07:43:35 12/08/19 25 12/07/2024 [UNIT Y] ANEUP LOIDY NIPT sex chromosome aneuploidy NOT DETECT ED normal Not Available [facility] [address], [place], [address], 12/07/2024 07:43:35 12/08/19 25 12/07/2024 [UNIT Y] ANEUP LOIDY NIPT monosomy X LOW RISK <1 in 10,000 normal Not Available [facility] [address], [place], [address], 12/07/2024 07:43:35 12/08/19 25 12/07/2024 [UNIT Y] ANEUP LOIDY NIPT trisomy 13 LOW RISK <1 in 10,000 normal Not Available [facility] [address], [place], [address], 12/07/2024 07:43:35 12/08/19 25 12/07/2024 [UNIT Y] ANEUP LOIDY NIPT trisomy 18 LOW RISK <1 in 10,000 normal Not Available [facility] [address], [place], [address], 12/07/2024 07:43:35 12/08/19 25 12/07/2024 [UNIT Y] ANEUP LOIDY NIPT trisomy 21 LOW RISK <1 in 10,000 normal Not Available [facility] [address], [place], [address], 12/07/2024 07:43:35 12/08/19 25 12/07/2024 [UNIT Y] ANEUP LOIDY NIPT sex FEMALE normal Not Available [facility] [address], [place], [address], 12/07/2024 07:43:35 12/08/19 25 12/07/2024 [UNIT Y] ANEUP LOIDY NIPT gestation SINGLE TON normal Not Available [facility] [address], [place], [address], 12/07/2024 07:43:35 12/08/19 25 12/07/2024 [UNIT Y] ANEUP TITUSY NIPT for detailed report, see pdf See PDF normal Not Available [facility] [address], [place], [address], 12/07/2024 07:43:35 12/23/19 25 12/22/2024 [UNIT Y] GUILLERMO Herrera sickle cell disease/beta -thalassemia /hemoglobino pathies carrier screen NEGATI VE normal Not Available [facility] [address], [place], [address], 12/22/2024 23:42:40 12/23/19 25 12/22/2024 [UNIT Y] GUILLERMO Herrera alpha-thalas semia carrier screen NEGATI VE normal Not Available [facility] [address], [place], [address], 12/22/2024 23:42:40 12/23/19 25 12/22/2024 [UNIT Y] GUILLERMO Herrera cystic fibrosis carrier screen NEGATI VE normal Not Available [facility] [address], [place], [address], 12/22/2024 23:42:40 12/23/19 25 12/22/2024 [UNIT Y] GUILLERMO Herrera spinal muscular atrophy carrier screen NEGATI VE 2 SMN1 copies , SNP not presen t normal Not Available [facility] [address], [place], [address], 12/22/2024 23:42:40 12/23/19 25 12/22/2024 [UNIT Y] GUILLERMO Herrera for detailed report, see pdf See PDF normal Not Available [facility] [address], [place], [address], 12/22/2024 23:42:40 12/02/19 25 12/01/2024 HIV 1/2 ANTIG EN/AN TIBOD Y, REFLE X CONFI RMATI ON HIV antigen/anti body Nonrea ctive nonrea ctive HIV-1 antig en and HIV-1 /HIV- 2 antib odies were not detec julieta. No labor atory evide nce of HIV infec tion. Not Available [facility] (Lab) [address], [place], [address], 12/02/2024 10:19:34 12/02/1912/01/2024 HEPAT ITIS B SURFA CE ANTIG EN hepatitis B surface antigen Non-re active non-re active This assay was perfo rmed using [employer] ratio n reage nts and test kits. Value s obtai edison with other assay metho ds or kits canno t be used inter kelley eably . Not Available [facility] (Lab) [address], [place], [address], 12/02/2024 10:19:35 12/02/1912/01/2024 HEPAT ITIS C ANTIB MOLLY SCREE N, REFLE X TO CONFI RMATI ON hepatitis C antibody Non-re active non-re active Antib odies to HCV Not Detec julieta, does not exclu de the possi bilit y of expos ure to HCV. Not Available [facility] (Lab) [address], [place], [address], 12/02/2024 10:19:35 12/02/19 25 12/01/2024 CBC W/DIF F WBC 8.1 10'3/ uL 3.5-10 .5 Not Available [facility] (Lab) [address], [place], [address], 12/02/2024 10:19:35 12/02/19 25 12/01/2024 CBC W/DIF F RBC 3.87 10'6/ uL (based on docume nted legal sex) 3.80-5 .20 Not Available [facility] (Lab) [address], [place], [address], 12/02/2024 10:19:35 12/02/19 25 12/01/2024 CBC W/DIF F HGB 12.4 g/dL (based on docume nted legal sex) 11.6-1 5.4 Not Available [facility] (Lab) [address], [place], [address], 12/02/2024 10:19:35 12/02/19 25 12/01/2024 CBC W/DIF F HCT 36.6 % (based on docume nted legal sex) 34.0-4 5.0 Not Available [facility] (Lab) [address], [place], [address], 12/02/2024 10:19:35 12/02/19 25 12/01/2024 CBC W/DIF F MCV 94.6 fL 80.0-9 9.0 Not Available [facility] (Lab) [address], [place], [address], 12/02/2024 10:19:35 12/02/19 25 12/01/2024 CBC W/DIF F MCH 32.0 pg 27.0-3 4.0 Not Available [facility] (Lab) [address], [place], [address], 12/02/2024 10:19:35 12/02/19 25 12/01/2024 CBC W/DIF F MCHC 33.9 g/dL 32.0-3 5.5 Not Available [facility] (Lab) [address], [place], [address], 12/02/2024 10:19:35 12/02/19 25 12/01/2024 CBC W/DIF F RDW 12.2 % 11.0-1 5.0 Not Available [facility] (Lab) [address], [place], [address], 12/02/2024 10:19:35 12/02/19 25 12/01/2024 CBC W/DIF F plt 220 10'3/ uL 150-40 0 Not Available [facility] (Lab) [address], [place], [address], 12/02/2024 10:19:35 12/02/19 25 12/01/2024 CBC W/DIF F MPV 11.6 fL 8.8-12 .1 Not Available [facility] (Lab) [address], [place], [address], 12/02/2024 10:19:35 12/02/19 25 12/01/2024 CBC W/DIF F NRBC's 0.0 % 0.0 Not Available [facility] (Lab) [address], [place], [address], 12/02/2024 10:19:35 12/02/19 25 12/01/2024 CBC W/DIF F absolute NRBCs 0.0 10'3/ uL no refere nce range establ ished Not Available [facility] (Lab) [address], [place], [address], 12/02/2024 10:19:35 12/02/19 25 12/01/2024 CBC W/DIF F neutrophils 77.4 % 34.0-7 3.0 high Not Available [facility] (Lab) [address], [place], [address], 12/02/2024 10:19:35 12/02/19 25 12/01/2024 CBC W/DIF F lymphocytes 15.0 % 15.0-5 0.0 Not Available [facility] (Lab) [address], [place], [address], 12/02/2024 10:19:35 12/02/19 25 12/01/2024 CBC W/DIF F monocytes 6.3 % 1.0-15 .0 Not Available [facility] (Lab) [address], [place], [address], 12/02/2024 10:19:35 12/02/19 25 12/01/2024 CBC W/DIF F eosinophils 0.7 % 0.0-8. 0 Not Available [facility] (Lab) [address], [place], [address], 12/02/2024 10:19:35 12/02/19 25 12/01/2024 CBC W/DIF F basophils 0.2 % 0.0-2. 0 Not Available [facility] (Lab) [address], [place], [address], 12/02/2024 10:19:35 12/02/19 25 12/01/2024 CBC W/DIF [...] separ ately if prese nt. Not Available [facility] (Lab) [address], [place], [address], 12/02/2024 10:19:35 12/02/19 25 12/01/2024 CBC W/DIF F absolute neutrophils 6.3 10'3/ uL 1.5-8. 0 Not Available [facility] (Lab) [address], [place], [address], 12/02/2024 10:19:35 12/02/19 25 12/01/2024 CBC W/DIF F absolute lymphocytes 1.2 10'3/ uL 1.0-4. 0 Not Available [facility] (Lab) [address], [place], [address], 12/02/2024 10:19:35 12/02/19 25 12/01/2024 CBC W/DIF F absolute monocytes 0.5 10'3/ uL 0.2-1. 0 Not Available [facility] (Lab) [address], [place], [address], 12/02/2024 10:19:35 12/02/19 25 12/01/2024 CBC W/DIF F absolute eosinophils 0.1 10'3/ uL 0.0-0. 6 Not Available [facility] (Lab) [address], [place], [address], 12/02/2024 10:19:35 12/02/19 25 12/01/2024 CBC W/DIF F absolute basophils 0.0 10'3/ uL 0.0-0. 3 Not Available [facility] (Lab) [address], [place], [address], 12/02/2024 10:19:35 12/02/19 25 12/01/2024 CBC W/DIF [...] the indiv idual patie nt: https ://la bhand book. nm.or g/gen derx Not Available [facility] (Lab) [address], [place], [address], 12/02/2024 10:19:35 12/02/19 25 12/01/2024 RUBEL LA IGG ANTIB MOLLY, QUANT rubella antibodies, IgG Reacti ve reacti ve Not Available [facility] (Lab) [address] , [place], [address], 12/02/2024 10:19:36 12/02/19 25 12/01/2024 RUBEL LA IGG ANTIB MOLLY, QUANT rubella antibodies, IgG quant 17.9 IU/mL >=10 Non-r eacti ve (Non- Immun e) <10 IU/mL React marely (Immu ne) > or = 10 IU/mL Not Available [facility] (Lab) [address], [place], [address], 12/02/2024 10:19:36 12/02/19 25 12/01/2024 TYPE/ RH/SC REEN ABO/Rh type A NEG Not Available [facility] (Lab) [address], [place], [address], 12/02/2024 10:19:36 12/02/19 25 12/01/2024 TYPE/ RH/SC REEN antibody screen NEG Not Available [facility] (Lab) [address], [place], [address], 12/02/2024 10:19:36 12/02/1912/01/2024 TYPE/ RH/SC REEN exp date 2024 23:59 Not Available [facility] (Lab) [address], [place], [address], 12/02/2024 10:19:36 12/02/19 25 12/01/2024 HEMOG LOBIN [...] >8.0% Actio n sugge sted Not Available [facility] (Lab) [address], [place], [address], 12/02/2024 10:19:37 12/02/19 25 12/01/2024 RPR SCREE N, REFLE X TITER /CONF IRMAT ION RPR qualitative Nonrea ctive nonrea ctive Not Available [facility] (Lab) [address], [place], [address], 12/02/2024 10:19:37 12/02/1912/01/2024 CULTU RE: URINE result report SEE RESULT S BELOW Test: Cultu re: Urine Speci men Sourc e: Urine Voide d Speci men Type: Urine Speci men Date: 2024 1100 Resul t Date: 20244 Resul t Statu s: Final resul t Abnor mal: No Resul ting Lab: [facility] [address] [facility] [address] [facility] [address] Tel: CULTU RE ----- ----- ----- --- No growt h in 1 day (dete ction level of 10,00 0 colon ies / ml.) Not Available [facility] (Lab) [address], [place], [address], 12/02/2024 22:47:13 12/02/19 25 12/01/2024 drug scree n, urine Amphetamines : negati ve Not Available [facility] [address], [place], [address], 12/01/2024 11:13:13 12/02/19 25 12/01/2024 drug scree n, urine Cannabinoids : negati ve Not Available [facility] [address], [place], [address], 12/01/2024 11:13:13 12/02/19 25 12/01/2024 drug scree n, urine Cocaine: negati ve Not Available [facility] [address], [place], [address], 12/01/2024 11:13:13 12/02/19 25 12/01/2024 drug scree n, urine Opiates: negati ve Not Available [facility] [address], [place], [address], 12/01/2024 11:13:13 12/02/19 25 12/01/2024 drug scree n, urine Phenocyclidi ne: negati ve Not Available [facility] [address], [place], [address], 12/01/2024 11:13:13 12/02/19 25 12/01/2024 drug scree n, urine Barbiturates : negati ve Not Available [facility] [address], [place], [address], 12/01/2024 11:13:13 12/02/19 25 12/01/2024 drug scree n, urine Benzodiazepi haris: negati ve Not Available [facility] [address], [place], [address], 12/01/2024 11:13:13 12/02/19 25 12/01/2024 drug scree n, urine Ethanol: negati ve Not Available [address], [place], [address], 12/01/2024 11:13:13 12/02/19 25 12/01/2024 drug scree n, urine Hallucinogen s: negati ve Not Available [address], [place], [address], 12/01/2024 11:13:13 12/02/19 25 12/01/2024 drug scree n, urine Inhalants: negati ve Not Available [address], [place], [address], 12/01/2024 11:13:13 12/02/19 25 12/01/2024 drug scree n, urine Anabolic Steroids: negati ve Not Available [address] [address], [place], [address], 12/01/2024 11:13:13 12/02/19 25 12/01/2024 drug scree n, urine Other: positi ve Not Available [address], [place], [address], 12/01/2024 11:13:13 02/24/2002/23/2025 TYPE/ RH/SC REEN ABO/Rh type A NEG Not Available [facility] (Lab) [address], [place], [address], 02/24/2025 08:26:42 02/24/2002/23/2025 TYPE/ RH/SC REEN antibody screen NEG Not Available [facility] (Lab) [address], [place], [address], 02/24/2025 08:26:42 02/24/2002/23/2025 TYPE/ RH/SC REEN exp date 2024 23:59 Not Available [facility] (Lab) [address] [place], [address], 02/24/2025 08:26:42 05/18/20 25 05/18/2025 CULTU RE: GROUP B STREP SCREE N, REFLE X SUSCE PTIBI LITY result report SEE RESULT S BELOW abnormal Test: Cultu re: Group B Strep , Refle x Susce ptibi lity ([facility]/ [facility] ) Speci men Sourc e: Vagin a/Rec bay Speci men Type: Vagin al/Re ctal Speci men Date: 05/18 1713 Resul t Date: 05/22 1438 Resul t Statu s: Final resul t Abnor mal: Yes Resul prudenceg Lab: [facility] [address] [facility] [address] Tel: CULTU RE ----- ----- ----- --- [...] risk for anaph ylaxi s. Alex ptibi lity testi ng is not neces armando for these drugs . Not Available [facility] (Lab) [address], [place], [address], 05/22/2025 15:40:39 12/02/19 25 12/01/2024 US, obste tric, nucha l trans lucen cy No observ ation record ed. [email or web address] [address], [place], [address], 12/01/2024 14:38:13 12/02/19 25 12/01/2024 US, obste tric, follo w-up No observ ation record ed. [email or web address] [address], [place], [address], 12/01/2024 18:45:45 01/27/20 25 01/26/2025 US, obste tric, 2nd or 3rd trime ster No observ ation record ed. [email or web address] [address] [address], [place], [address], 01/26/2025 12:36:41 01/27/20 25 01/26/2025 US, obste tric, 2nd or 3rd trime ster No observ ation record ed. [email or web address] [address], [place], [address], 01/26/2025 12:39:35 02/24/20 25 02/23/2025 US, obste tric, follo w-up No observ ation record ed. [email or web address] [address], [place], [address], 02/23/2025 18:48:54 02/24/20 25 02/23/2025 US, obste tric, follo w-up No observ ation record ed. Annalise [address], [place], [address], 02/23/2025 16:57:13 02/24/20 25 02/23/2025 US, obste tric, follo w-up No observ ation record ed. [email or web address] [address], [place], [address], 02/23/2025 16:55:34 03/21/20 25 03/21/2025 US, obste tric, follo w-up No observ ation record ed. [email or web address] [facility] (Psychiatry Department) [address] [facility] [facility] [address], [place], [address], 03/23/2025 16:02:35 03/21/20 25 03/21/2025 US, obste tric, follo w-up No observ ation record ed. [email or web address] [facility] [address] [address], [place], [address], 03/22/2025 10:18:20 04/22/20 25 04/22/2025 US, obste tric, follo w-up No observ ation record ed. radha Woody [address], [place], [address], 04/27/2025 11:38:48 04/22/2004/22/2025 US, obste tric, follo w-up No observ ation record ed. [facility] [address], [place], [address], 04/22/2025 17:08:34 05/18/20 25 05/18/2025 US, obste tric, follo w-up No observ ation record ed. [facility] [address], [place], [address], 05/18/2025 18:24:57 05/18/20 25 05/18/2025 US, obste tric, follo w-up No observ ation record ed. [email or web address] [address], [place], [address], 05/25/2025 10:56:46 Result Notes None recorded. Problems Name Problem SNOMED Code Status Onset Date Resolution Date Notes Provider Name and Address Organization Details Recorded Time 65693110 Active 2024 Mary Murillo [facility] 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 21:45:57 Placenta succentur iata 24734450 Active 2024 serial growth US Elizabet Otto [facility] 5 12:38:22 Problem Notes None recorded. Procedures Surgical History Date Name Laterality Status Provider Name and Address Organization Details Recorded Time 05/09/2024 Date of Last Pap Smear completed Katherine Hardwick [facility] 03/23/2025 10:52:23 Imaging Results None recorded. Procedure Notes None recorded. Medical Equipment None Reported. Allergies Allergen ID Allergen Name Allergen Category Reaction Reaction Severity Criticality Documentation Date Start Date Code Code System Note Provider Name and Address Organization Details Recorded Time 58445 latex environme nt,medica tion Not available Not available Not available 12/01/2024 42708 91 RxNorm Mary Murillo [facility] 11:38:56 29151 ethinyl estradiol / norelgest romin medicatio n hives Not available Not available 05/06/2025 49484 7 RxNorm Not Available nieves - External [...] Updated DateTime 05/18/2025 167.64 cm 26.6 kg/m2 65237.74 g 112/74 mm[Hg] ALANNA MCINTYRE [facility] 05/18/2025 16:39:17 Social History Question Answer Notes LastModified by Organizat ion Details LastModified Time Tobacco Smoking Status Never Smoker Mary britton, [facility] 12/01/2024 11:12:14 Do You Have An Advance Directive? No [email or web address] Information n ot available 12/01/2024 If You Are , What Was Your Level Of Alcohol Consumption Prior To ? Occasional [email or web address] Information not available 12/01/2024 How Many Years Have You Consumed Alcohol? 0 [email or web address] Information not available 12/01/2024 Are You Blind Or Do You Have Difficulty Seeing? No [email or web address] Information n ot available 12/01/2024 What Is Your Level Of Caffeine Consumption? Moderate Information not available 12/01/2024 How Much Tobacco Do You Chew? None [email or web address] Information not available 12/01/2024 In The 14 Days Before Symptom Onset, Have You Had Close Contact With A Laboratory-confirm ed COVID-19 While That Case Was Ill? No [email or web address] Information n ot available 12/01/2024 In The 14 Days Before Symptom Onset, Have You Had Close Contact With A Person Who Is Under Investigation For COVID-19 While That Person Was Ill? No [email or web address] Information not available 12/01/2024 Have You Been To An Area Known To Be High Risk For COVID-19? No [email or web address] Information not available 12/01/2024 Are You Deaf Or Do You Have Serious Difficulty Hearing? No [email or web address] Information not available 12/01/2024 What Type Of Diet Are You Following? REGULAR [email or web address] Information n ot available 12/01/2024 What Is The Highest Grade Or Level Of School You Have Completed Or The Highest Degree You Have Received? [id number] [email or web address] Information not available 12/01/2024 Are There Any Guns Present In Your Home? No [email or web address] Information not available 12/01/2024 Do You Use Protection During Sex? No [email or web address] Information not available 12/01/2024 Do You Use Your Seat Belt Or Car Seat Routinely? Yes [email or web address] Information not available 12/01/2024 Do You Have Smoke And Carbon Monoxide Detectors In Your Home? Yes Information not available 12/01/2024 How Much Tobacco Do You Smoke? No Information not available 12/01/2024 Do You Use Sunscreen Routinely? Yes [email or web address] Information not available 12/01/2024 Has Tobacco Cessation Counseling Been Provided? Yes Information not available 12/01/2024 On What Date Was Tobacco Cessation Counseling Provided? 12/01/2024 [email or web address] Information not available 12/01/2024 How Many Years Have You Smoked Tobacco? 0 [email or web address] Information not available 12/01/2024 Have You Used IV Drugs? No [email or web address] Information not available 12/01/2024 Do You Have Difficulty Walking Or Climbing Stairs? No [email or web address] Information not available 12/01/2024 Sex: Unknown Functional Status Question Answer Note LastModified by Organizat ion Details LastModified Time Do you use any illicit or recreational drugs? No [email or web address] Information not available 03/23/2025 Do you or have you ever used any other forms of tobacco or nicotine? No [email or web address] Information not available 12/01/2024 What is your level of alcohol consumption? None [email or web address] Information not available 12/01/2024 Are you able to walk independently without assistance or assistive devices? YESWOREST [email or web address] Information not available 12/01/2024 Are you able to care for yourself independently? 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 Occasional [email or web address] Information not available 12/01/2024 Mental Status Question Answer Note LastModified by Organization D etails LastModified Time Do you feel stressed (tense, restless, nervous, or anxious, or unable to sleep at night)? [id number] [email or web address] Information not available 12/01/2024 Family History Relationship Description Onset Age of this Age Resolved Age Notes LastModified by Organization Details LastModified Time Unspecified Relation Family history unknown [email or web address] Not available 05/23 09:26:51 Maternal Grandmother Diabetes mellitus [email or web address] Not available 2024 16:45:50 Maternal Grandmother Hypertensive disorder [email or web address] Not available 2024 16:45:50 Maternal Grandmother Hypercholest erolemia [email or web address] Not available 2024 16:45:50 Medical History Condition [...] ICD10 Code Diagnosis IMO Codes Diagnosis Note [id number] Clayton Byrd MD [facility] [address] [address] 04/22/2025 16:23:16 04/22/2025 18:15:42 Placenta succenturiata 97543396 O43.193 Z3A.32 [id number] Shantelle Reyes CNM [facility] [address] [address] 04/22/2025 16:23:39 04/23/2025 09:50:03 Gestation period, 32 weeks 9249057 Z3A.32 [id number] cont pnv [id number] Shantelle Reyes CNM [facility] [address] [address] 05/06/2025 09:41:55 05/06/2025 10:16:52 Gestation period, 34 weeks 39751382 Z3A.34 1635523 cont pnv [id number] Clayton Byrd MD [facility] [address] [address] 05/18/2025 15:46:51 05/18/2025 16:39:24 Placenta succenturiata 27566100 O43.193 Z3A.36 [id number] Shantelle Reyes CNM [facility] [address] [address] 05/18/2025 15:47:05 05/18/2025 16:47:42 Gestation period, 36 weeks 75822216 Z3A.36 9587975 cont pnv Health Concerns Section Related Observation LastModified by Organization Detai ls LastModified Time None Recorded Concern Status LastModified by Organization Details LastModified Time None Recorded Payers Encounter Date Sequence Insurance Name Policy Number Policy Botello Covered Member ID Botello Member ID Guarantor Name 05/18/2025 1 [facility] (MEDICAID HMO) [id number] 0003 Sahra Kishore [id number] Sahra Novak Notes Date Note Type Note Provider Name and Address Organization Details Recorded Time 05/18/2025 text/html Generic HPI TemplateReported by Patient Shantelle Reyes CNM [address], [place], [address], [facility] 05/18/2025 16:47:36 OBGyn Episode Ob Episode Information Episode Created Date Number of Fetuses Patient Bloodtype Patient rh Status Prepregnancy Weight lbs Domestic Partner Domestic Partner Phone Father Name Technology Specialist Status 12/02/19 25 1 A Negative 147 Akshat Hildebr and OPEN Fetus Data First Name Last Name Admitted to NICU Weight (g) Sex Living Outcome Pediatric Complications Fetus ID Race Codes Race Delivery Type [id number] Problems Problem Notes Problem Name Start Date End Date Resolution Snomed Code Not e Placenta succenturiata 01/26/2025 412374 03 serial growth US RhD negative 12/03/2024 966957605 A-, ne ed rhogam 28 weeks referral [facility] faxed 03/04 cancelled due to insurance - referral faxed to Mary [facility] Mary [facility] final report A Negative , weak D present [facility] recommends Rhogam pt rhogam on 04/06/25 Dwayne Artis Calculation Initial Artis Date Initial Exam Date Initial Exam Provider Initial Ultrasound Date Last Menstrual Period Date Ultra Sound Weeks Gestation 05/16/2025 10/19/2024 [email or web address] 10/19/2024 08/09/2024 6 Eighteen To Twenty Week [...] Weight in lbs Pre/Post Dialysis Refused Weight 148.102203370857 BP Diastolic BP Location Tested BP Systolic [...] Type Weight in lbs Pre/Post Dialysis Refused 153.458643469917 BP Diastolic BP Location Tested BP Systolic [...] Weight in lbs Pre/Post Dialysis Refused Weight 153.585120832376 BP Diastolic BP Location Tested BP Systolic [...] Weight in lbs Pre/Post Dialysis Refused Weight 155.045311172700 BP Diastolic BP Location Tested BP Systolic [...] Weight in lbs Pre/Post Dialysis Refused Weight 158.090624036321 BP Diastolic BP Location Tested BP Systolic BP Type 70 L arm 108 sitting Fetus Heart Rate Present Fetus Movement A Yes Comments Flowsheet Date 03/23/2025 Mcdonough Score Blood Edema Fundus Height Fundus Units Glucose Ketones Leukocytes Nitrite Labor Signs Protein Cervic Dilation Cervic Effacement Cervic Station Type Weight in lbs Pre/Post Dialysis Refused 158.908562646558 BP Diastolic BP Location Tested BP Systolic BP Type 70 108 Fetus Heart Rate Present A 140 Fetus Movement A Yes Comments Doing well, good movem ent. GCT and labs at [place] for Rhogam. Was seen by [facility], recommend Rhogam for weak D. EFW wnl at [facility] US. Discussed tdap and RSV vaccine. RTC 2 weeks. Flowsheet Date 04/08/2025 Mcdonough Score Blood Edema Fundus Height Fundus Units Glucose Ketones Leukocytes Nitrite Labor Signs Protein Cervic Dilation Cervic Effacement Cervic Station Type Weight in lbs Pre/Post Dialysis Refused Weight 159.273391493177 BP Diastolic BP Location Tested BP Systolic [...] Weight in lbs Pre/Post Dialysis Refused Weight 164.531519583206 BP Diastolic BP Location Tested BP Systolic [...] Weight in lbs Pre/Post Dialysis Refused Weight 165.914323972845 BP Diastolic BP Location Tested BP Systolic [...] Weight in lbs Pre/Post Dialysis Refused Weight 165.844084028612 BP Diastolic BP Location Tested BP Systolic [...] Type Weight in lbs Pre/Post Dialysis Refused 168.422317793001 BP Diastolic BP Location Tested BP Systolic [...]
--- OUTSIDE RECORDS SUMMARY | 2025-06-10 17:05 | XMS_ITS | Data Portability ---
Author Organization [facility] Address [address] [address] [place] [address] Assessment Encounter Date Assessment Date Assessment LastModified by Organization Details LastModified Time 05/18/2025 05/18/2025 Patient is __36_weeks . Discussed plan. Not available 05/18/2025 16:47:11 05/25/2025 05/25/2025 Patient is __37_weeks . Discussed plan. [email or web address] Not available 05/25/2025 09:44:24 05/31/2025 05/31/2025 Patient is _38__weeks . Discussed plan. Not available 05/31/2025 10:51:09 Plan of Treatment Reminders Order Date Submit Date Provider Last Modified By Organization Details Last Modified Time Details Appointments OB ROUTINE 2024 08:30A M Shantelle Reyes CNM Not available Not available Not available Lab None recorded . Referral None recorded . Procedures None recorded . Surgeries None recorded . Imaging US, obstetri c, follow-u p 2024 025 [email or web address] [place], [address], [place], [address], 05/24/2025 17:45:05 Medication Orders None recorded . Patient TargetsNo targets recorded. Patient InstructionsNo instructions recorded. Reason for Referral None Reported. Results Created Date Observation Date Name Description Value Unit Range Abnormal Flag Note LastModifiedBy Organization Detail LastModifiedTime 05/18/2005/18/2025 CULTU RE: GROUP B STREP SCREE [...] Final resul t Abnor mal: Yes Resul ting Lab: [facility] [address] [facility] [address] Tel: CULTU RE ----- ----- ----- --- [...] armando for these drugs . Not Available [facility] (Lab) [address] [facility], [place], [address], 05/22/2025 15:40:39 04/22/20 25 04/22/2025 US, obste tric, follo w-up No observ ation record ed. [email or web address] Woody [address], [place], [address], 04/27/2025 11:38:48 04/22/20 25 04/22/2025 , obste tric, follo w-up No observ ation record ed. [facility] [address], [place], [address], 04/22/2025 17:08:34 05/18/20 25 05/18/2025 , obste tric, follo w-up No observ ation record ed. [facility] [address], [place], [address], 05/18/2025 18:24:57 05/18/20 25 05/18/2025 US, obste tric, follo w-up No observ ation record ed. [email or web address] Annalise [address], [place], [address], 05/25/2025 10:56:46 Result Notes None recorded. Problems Name Problem SNOMED Code Status Onset Date Resolution Date Notes Provider Name and Address Organization Details Recorded Time 47714214 Active 2024 Mary Murillo [facility] 11:32:03 RhD negative 806734084 Active 2024 A-, need rhogam 28 weeks referral M faxed 03/04 cancelled due to insurance - [facility] final report A Negative , weak D present [facility] recommends Rhogam pt rhogam on 04/06/25 Dwayne Lindquist [facility], [facility] 5 21:45:57 Placenta succentur iata 54855388 Active 2024 serial growth Elizabet Otto [facility] 5 12:38:22 Problem Notes None recorded. Procedures Surgical History Date Name Laterality Status Provider Name and Address Organization Details Recorded Time 05/09/2024 Date of Last Pap Smear completed Katherine Hardwick [facility] 03/23/2025 10:52:23 Imaging Results None recorded. Procedure Notes None recorded. Medical Equipment None Reported. Allergies Allergen ID Allergen Name Allergen Category Reaction Reaction Severity Criticality Documentation Date Start Date Code Code System Note Provider Name and Address Organization Details Recorded Time 49690 latex environme nt,medica tion Not available Not available Not available 12/01/2024 08522 91 RxNorm Mary britton [facility] 11:38:56 71466 ethinyl estradiol / norelgest romin medicatio n hives Not available Not available 05/06/2025 11543 7 RxNorm Not Available [place] - External Data Service - prod 09:42:49 [...] Updated DateTime 05/18/2025 167.64 cm 26.6 kg/m2 62171.74 g 112/74 mm[Hg] ALANNA MCINTYRE [facility] 05/18/2025 16:39:17 Date Recorded Body height Body mass index (BMI) Body weight Systolic And Diastolic Provider Name and Address Organization Details Last Updated DateTime 05/25/2025 167.64 cm 26.6 kg/m2 65879.74 g 114/75 mm[Hg] ALANNA MCINTYRE [facility] 05/25/2025 09:27:41 Date Recorded Body weight Systolic And Diastolic Provider Name and Address Organization Details Last Updated DateTime 05/31/2025 49666.95708 g 121/72 mm[Hg] Sandy Shahid [facility] 05/31/2025 10:42:06 Social History Question Answer Notes LastModified by Organizat ion Details LastModified Time Tobacco Smoking Status Never Smoker Mary britton, [facility] 12/01/2024 11:12:14 Do You Have An Advance Directive? No [email or web address] Information n ot available 12/01/2024 If You Are , What Was Your Level Of Alcohol Consumption Prior To ? Occasional Information not available 12/01/2024 How Many Years Have You Consumed Alcohol? 0 [email or web address] Information not available 12/01/2024 Are You Blind Or Do You Have Difficulty Seeing? No [email or web address] Information n ot available 12/01/2024 What Is Your Level Of Caffeine Consumption? Moderate [email or web address] Information not available 12/01/2024 How Much Tobacco Do You Chew? None [email or web address] Information not available 12/01/2024 In The 14 Days Before Symptom Onset, Have You Had Close Contact With A Laboratory-confirm ed COVID-19 While That Case Was Ill? No [email or web address] Information n ot available 12/01/2024 In The 14 Days Before Symptom Onset, Have You Had Close Contact With A Person Who Is Under Investigation For COVID-19 While That Person Was Ill? No [email or web address] Information not available 12/01/2024 Have You Been To An Area Known To Be High Risk For COVID-19? No [email or web address] Information not available 12/01/2024 Are You Deaf Or Do You Have Serious Difficulty Hearing? No [email or web address] Information not available 12/01/2024 What Type Of Diet Are You Following? REGULAR [email or web address] Information n ot available 12/01/2024 What Is The Highest Grade Or Level Of School You Have Completed Or The Highest Degree You Have Received? HE78555-5 [email or web address] Information not available 12/01/2024 Are There Any Guns Present In Your Home? No [email or web address] Information not available 12/01/2024 Do You Use Protection During Sex? No [email or web address] Information not available 12/01/2024 Do You Use Your Seat Belt Or Car Seat Routinely? Yes [email or web address] Information not available 12/01/2024 Do You Have Smoke And Carbon Monoxide Detectors In Your Home? Yes [email or web address] Information not available 12/01/2024 How Much Tobacco Do You Smoke? No [email or web address] Information not available 12/01/2024 Do You Use Sunscreen Routinely? Yes [email or web address] Information not available 12/01/2024 Has Tobacco Cessation Counseling Been Provided? Yes [email or web address] Information not available 12/01/2024 On What Date Was Tobacco Cessation Counseling Provided? 12/01/2024 [email or web address] Information not available 12/01/2024 How Many Years Have You Smoked Tobacco? 0 [email or web address] Information not available 12/01/2024 Have You Used IV Drugs? No Information not available 12/01/2024 Do You Have Difficulty Walking Or Climbing Stairs? No [email or web address] Information not available 12/01/2024 Sex: Unknown Functional Status Question Answer Note LastModified by Organizat ion Details LastModified Time Do you use any illicit or recreational drugs? No [email or web address] Information not available 03/23/2025 Do you or have you ever used any other forms of tobacco or nicotine? No [email or web address] Information not available 12/01/2024 What is your level of alcohol consumption? None [email or web address] Information not available 12/01/2024 Are you able to walk independently without assistance or assistive devices? YESWOREST Information not available 12/01/2024 Are you able to care for yourself independently? 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 Occasional Information not available 12/01/2024 Mental Status Question Answer Note LastModified by Organization D etails LastModified Time Do you feel stressed (tense, restless, nervous, or anxious, or unable to sleep at night)? [id number] Information not available 12/01/2024 Family History Relationship Description Onset Age of this Age Resolved Age Notes LastModified by Organization Details LastModified Time Unspecified Relation Family history unknown [email or web address] Not available 05/23 09:26:51 Maternal Grandmother Diabetes mellitus [email or web address] Not available 2024 16:45:50 Maternal Grandmother Hypertensive disorder [email or web address] Not available 2024 16:45:50 Maternal Grandmother Hypercholest erolemia Not available 2024 16:45:50 Medical History Condition Response Allergies (Food, seasonal, environmental ) N Other N Drug/Latex Allergies/Reactions N Blood Transfusion N Breast Cancer N Dermatologic Disorders N Lung Disease N Defects or Inherited Disease N Breast Problem N Gestational Diabetes N Hematologic disorders N Anesthesia Complications N History of STI N Deep Vein Thrombosis N Polycystic ovary syndrome N Anxiety Disorder N Autoimmune disease N Arthritis N Polyps N Infertility N Acid Reflux (GERD) N History of abnormal pap N Cancer N Varicosities N Stroke N Neurologic/Epilepsy N Endometriosis N High Cholesterol N Fibromyalgia N Headaches N Kidney Disease [...] ICD10 Code Diagnosis IMO Codes Diagnosis Note [id number] Clayton Byrd MD [place] [address] [address] 10/19/2024 10:46:34 10/19/2024 11:38:51 Fundal height high for dates 889845218 O26.849 Z3A.01 263001 [id number] Shantelle Reyes [facility] [address] [address] 10/19/2024 10:47:32 10/19/2024 12:29:28 Amenorrhea 29239540 N91.2 89401 pnv dailyregla n as needed for nasueapap up to dateprecau tions and educationr eviewed US, will change EDC to 06/11/25f/ u new ob and first look Nausea and vomiting 1693 1999 R11.2 2004704203 Bacterial disease screening 488461373 Z11.8 83765 [id number] Shantelle Reyes [facility] [address] [place] [address] 12/01/2024 09:44:23 12/01/2024 13:21:24 state of fetus 18368960 Z34.90 2941494910 Gestation period, 12 weeks 06084497 Z3A.12 3107856 [id number] Clayton Byrd MD [place] [address] [place] [address] 12/01/2024 09:45:29 12/01/2024 10:45:00 screening 448095586 Z36.82 Z3A.12 4312148286 [id number] Shantelle Reyes [facility] [address] [place] [address] 12/29/2024 15:47:58 12/29/2024 16:21:54 Gestation period, 16 weeks 67051609 Z3A.16 6631235 [id number] Clayton Byrd MD [place] [address] [address] 01/26/2025 09:17:33 01/26/2025 10:29:55 Ultrasound scan - obstetric 099303855 Z36.3 Z3A.20 68340 [id number] [facility] [address] [address] 01/26/2025 09:17:48 01/26/2025 10:36:03 Gestation period, 20 weeks 94453560 Z3A.20 8878712 Placenta succenturiata 33866372 O43.192 31448945 [id number] Clayton Byrd MD [place] [address] [address] 02/23/2025 11:22:36 02/23/2025 12:06:35 Anomaly of placenta 19575537 O43.102 Z3A.24 2683555 [id number] [facility] [address] [place] [address] 02/23/2025 11:22:59 02/23/2025 12:20:26 Gestation period, 24 weeks 958475048 Z3A.24 3843721 [id number] [facility] [address] [address] 03/23/2025 10:11:18 03/25/2025 14:07:08 [id number] VIK FINN MD [place] [address] [place] [address] 03/23/2025 11:39:03 03/23/2025 14:31:27 Placenta succenturiata 10630425 O43.192 30004122 - serial growth US RhD negative 013564804 O 26.899 Z67.91 959348 - weak D antigen, seen by MFM who recommends RHogam Gestation period, 28 weeks 51488790 Z3A.28 6176365 - continue PNV [id number] VIK FINN MD [place] [address] [address] 04/08/2025 16:31:58 04/11/2025 09:14:19 Placenta succenturiata 65011426 O43.192 18194236 - serial growth US RhD negative 867969038 O 26.899 Z67.91 807025 - weak D antigen, seen by MFM who recommends RHogam- rhogam given at 30 weeks Gestation period, 30 weeks 29359590 Z3A.30 5920434 - continue PNV [id number] Clayton Byrd MD [place] [address] [address] 04/22/2025 16:23:16 04/22/2025 18:15:42 Placenta succenturiata 32512947 O43.193 Z3A.32 46099166 [id number] [facility] [address] [address] 04/22/2025 16:23:39 04/23/2025 09:50:03 Gestation period, 32 weeks 4928588 Z3A.32 6680597 cont pnv [id number] [facility] [address] [address] 05/06/2025 09:41:55 05/06/2025 10:16:52 Gestation period, 34 weeks 82793632 Z3A.34 3037196 cont pnv [id number] Clayton Byrd MD [place] [address] [address] 05/18/2025 15:46:51 05/18/2025 16:39:24 Placenta succenturiata 30963056 O43.193 Z3A.36 86380841 [id number] Shantelle Reyes CNM [place] [address] [address] 05/18/2025 15:47:05 05/18/2025 16:47:42 Gestation period, 36 weeks 41813324 Z3A.36 0816959 cont pnv [id number] Shantelle Reyes CNM [place] [address] [address] 05/25/2025 09:12:15 05/25/2025 09:45:37 Gestation period, 37 weeks 15050556 Z3A.37 5249629 cont pnv [id number] Shantelle Reyes CNM [place] [address] [address] 05/31/2025 10:22:20 05/31/2025 10:55:42 Gestation period, 38 weeks 75892635 Z3A.38 0343870 cont pnv [id number] Shantelle Reyes CNM [place] [address] [address] 06/10/2025 09:26:48 06/10/2025 10:06:45 Gestation period, 39 weeks 33140390 Z3A.39 2313396 cont pnv Health Concerns Section Related Observation LastModified by Organization Detai ls LastModified Time None Recorded Concern Status LastModified by Organization Details LastModified Time None Recorded Advance Directives Directive N: Payers Insurance Date Sequence Insurance Name Policy Number Policy Botello Covered Member ID Botello Member ID Guarantor Name 06/09/2025 1 [facility] (MEDICAID HMO) [id number] Sahralauren Martinezson [id number] Sahra Novak Notes Date Note Type Note Provider Name and Address Organization Details Recorded Time 05/18/2025 text/html Generic HPI TemplateReported by Patient [address] [place], [address], [facility] 05/18/2025 16:47:36 05/25/2025 text/html Generic HPI TemplateReported by Patient [address] [place], [address], [facility] 05/25/2025 09:44:50 05/31/2025 text/html Generic HPI TemplateReported by Patient Shantelle Esquedae, [place] [address], [place], [address], [place] - [facility] 05/31/2025 10:51:31 OBGyn Episode Ob Episode Information Episode Created Date Number of Fetuses Patient Bloodtype Patient rh Status Prepregnancy Weight lbs Domestic Partner Domestic Partner Phone Father Name Sand Conditioner Status 12/02/19 25 1 CLOSED Fetus Data First Name Last Name Admitted to NICU Weight (g) Sex Living Outcome Pediatric Complications Fetus ID Race Codes Race Delivery Type 3061.74 6 F Full Term [address]10 Vaginal Delivery Artis Calculation Initial Artis Date [...] Domestic Partner Domestic Partner Phone Father Name Sand Conditioner Status 12/02/19 1 A Negative 147 Akshat Hildebr and OPEN Fetus Data First Name Last Name Admitted to NICU Weight (g) Sex Living Outcome Pediatric Complications Fetus ID Race Codes Race Delivery Type 63742 Problems Problem Notes Problem Name Start Date End Date Resolution Snomed Code Not e Placenta succenturiata 01/26/2025 879945 03 serial growth US RhD negative 12/03/2024 699685483 A-, ne ed rhogam 28 weeks referral M faxed 03/04 cancelled due to insurance - referral faxed to Mary [facility] final report A Negative , weak D present [facility] recommends Rhogam pt rhogam on 04/06/25 Dwayne Artis Calculation Initial Artis Date Initial Exam Date Initial Exam Provider Initial Ultrasound Date Last Menstrual Period Date Ultra Sound Weeks Gestation 05/16/2025 10/19/2024 [email or web address] 10/19/2024 08/09/2024 6 Eighteen To Twenty Week [...] Weight in lbs Pre/Post Dialysis Refused Weight 148.206725772752 BP Diastolic BP Location Tested BP Systolic [...] Type Weight in lbs Pre/Post Dialysis Refused 153.032813915319 BP Diastolic BP Location Tested BP Systolic [...] Weight in lbs Pre/Post Dialysis Refused Weight 153.296807601721 BP Diastolic BP Location Tested BP Systolic [...] Weight in lbs Pre/Post Dialysis Refused Weight 155.148331376774 BP Diastolic BP Location Tested BP Systolic [...] Weight in lbs Pre/Post Dialysis Refused Weight 158.824705403578 BP Diastolic BP Location Tested BP Systolic BP Type 70 L arm 108 sitting Fetus Heart Rate Present Fetus Movement A Yes Comments Flowsheet Date 03/23/2025 Mcdonough Score Blood Edema Fundus Height Fundus Units Glucose Ketones Leukocytes Nitrite Labor Signs Protein Cervic Dilation Cervic Effacement Cervic Station Type Weight in lbs Pre/Post Dialysis Refused 158.610919530786 BP Diastolic BP Location Tested BP Systolic BP Type 70 108 Fetus Heart Rate Present A 140 Fetus Movement A Yes Comments Doing well, good movem ent. GCT and labs at [facility] for Rhogam. Was seen by [facility], recommend Rhogam for weak D. EFW wnl at [facility] US. Discussed tdap and RSV vaccine. RTC 2 weeks. Flowsheet Date 04/08/2025 Mcdonough Score Blood Edema Fundus Height Fundus Units Glucose Ketones Leukocytes Nitrite Labor Signs Protein Cervic Dilation Cervic Effacement Cervic Station Type Weight in lbs Pre/Post Dialysis Refused Weight 159.022178659139 BP Diastolic BP Location Tested BP Systolic [...] Weight in lbs Pre/Post Dialysis Refused Weight 164.066079647540 BP Diastolic BP Location Tested BP Systolic [...] Weight in lbs Pre/Post Dialysis Refused Weight 165.256195130339 BP Diastolic BP Location Tested BP Systolic [...] Weight in lbs Pre/Post Dialysis Refused Weight 165.440468699816 BP Diastolic BP Location Tested BP Systolic [...] Type Weight in lbs Pre/Post Dialysis Refused 168.128759759228 BP Diastolic BP Location Tested BP Systolic [...] Domestic Partner Domestic Partner Phone Father Name Sand Conditioner Status 12/02/19 25 1 CLOSED Fetus Data First Name Last Name Admitted to NICU Weight (g) Sex Living Outcome Pediatric Complications Fetus ID Race Codes Race Delivery Type 3259.96 5704 F Full Term 42752 Vaginal Delivery Artis Calculation Initial Artis Date [...] Domestic Partner Domestic Partner Phone Father Name Sand Conditioner Status 12/02/19 25 1 CLOSED Fetus Data First Name Last Name Admitted to NICU Weight (g) Sex Living Outcome Pediatric Complications Fetus ID Race Codes Race Delivery Type 3175.14 4 F Full Term 66586 Vaginal Delivery Artis Calculation Initial Artis Date [...]
--- OUTSIDE RECORDS SUMMARY | 2025-06-10 17:05 | XMS_ITS | Clinical Summary ---
Author Organization [facility] Address [address] [place] [address] Care Team Providers Care Event Marketing Coordinator Name Role Phone Unavailable Primary Care Provider Unavailabl e Source Comments [facility],non-owned Affiliates and Associated Physician Practices is amultiple site organization consisting of ambulatory clinics and hospital sitesin [place], [place], [place] and [place]. This disclosure is being madepursuant to the Care Everywhere program and may not contain all information available regarding this patient. Last updated 18.[facility] Encounters Date Type Department Care Team Description 03/11/2025 Telephone [facility] Women's Health Maternal & Care [address] [place] [id number] Teresa Pacheco, RN Question (New info received about patient's insurance and called provider to check in ) from Last 3 Months Social History Tobacco Use Types Packs/Day Years Used Date Smoking Tobacco: Never Assessed Comments Yes Sex and Gender Information Value Date Recorded Sex Assigned at Not on file Legal Sex Female 5:35 AM [employer]SE[employer] Gender Identity Not on file Sexual Orientation Not on file Plan of Treatment Health Maintenance Due Date Last Done Comments HIV SCREENING 2005 HEPATITIS C SCREENING 12/18/2008 DTAP/TDAP/TD VACCINES (1 - Tdap) 2009 HEPATITIS B VACCINE (1 of 3 - 19+ 3-dose series) 2009 PAP SMEAR 12/24/2011 HPV VACCINE (1 - 3-dose SCDM series) 2017 DEPRESSION SCREENING 06/23/2024 COVID-19 VACCINE (1 - 2024-2 6 season) 2025 INFLUENZA VACCINE (#1) 2025 ZOSTER [...]
--- OUTSIDE RECORDS SUMMARY | 2025-06-10 17:05 | XMS_ITS | Continuity of Care Document ---
Author Organization [facility] Address [address] [place] [address] [place] [address] Assessment No assessment recorded. Plan of Treatment [...] Billio n[facility]one [address], [place], [address], 12/07/2024 07:43:35 12/08/19 25 12/07/2024 [UNIT Y] ANEUP LOIDY NIPT 22Q11.2 microdeletio n LOW RISK <1 in 10,000 normal Not Available [facility] [address], [place], [address], 12/07/2024 07:43:35 12/08/19 25 12/07/2024 [UNIT Y] ANEUP LOIDY NIPT sex chromosome aneuploidy NOT DETECT ED normal Not Available [facility] [address], [place], [address], 12/07/2024 07:43:35 12/08/19 25 12/07/2024 [UNIT Y] ANEUP LOIDY NIPT monosomy X LOW RISK <1 in 10,000 normal Not Available [facility] [address], [place], [address], 12/07/2024 07:43:35 12/08/19 25 12/07/2024 [UNIT Y] ANEUP LOIDY NIPT trisomy 13 LOW RISK <1 in 10,000 normal Not Available [facility] [address], [place], [address], 12/07/2024 07:43:35 12/08/19 25 12/07/2024 [UNIT Y] ANEUP LOIDY NIPT trisomy 18 LOW RISK <1 in 10,000 normal Not Available [facility] [address], [place], [address], 12/07/2024 07:43:35 12/08/19 25 12/07/2024 [UNIT Y] ANEUP LOIDY NIPT trisomy 21 LOW RISK <1 in 10,000 normal Not Available [facility] [address], [place], [address], 12/07/2024 07:43:35 12/08/19 25 12/07/2024 [UNIT Y] ANEUP LOIDY NIPT sex FEMALE normal Not Available [facility] [address], [place], [address], 12/07/2024 07:43:35 12/08/19 25 12/07/2024 [UNIT Y] ANEUP LOIDY NIPT gestation SINGLE TON normal Not Available [facility] [address], [place], [address], 12/07/2024 07:43:35 12/08/19 25 12/07/2024 [UNIT Y] ANEUP LOIDY NIPT for detailed report, see pdf See PDF normal Not Available [facility] [address], [place], [address], 12/07/2024 07:43:35 12/23/19 25 12/22/2024 [UNIT Y] GUILLERMO MCCARTYWanda Herrera sickle cell disease/beta -thalassemia /hemoglobino pathies carrier screen NEGATI VE normal Not Available [facility] [address], [place], [address], 12/22/2024 23:42:40 12/23/19 25 12/22/2024 [UNIT Y] GUILLERMO MCCARTYWanda Herrera alpha-thalas semia carrier screen NEGATI VE normal Not Available [facility] [address], [place], [address], 12/22/2024 23:42:40 12/23/19 25 12/22/2024 [UNIT Y] GUILLERMO SIVAN LULWanda Herrera cystic fibrosis carrier screen NEGATI VE normal Not Available [facility] [address], [place], [address], 12/22/2024 23:42:40 12/23/19 25 12/22/2024 [UNIT Y] GUILLERMO SIVAN LULWanda Herrera spinal muscular atrophy carrier screen NEGATI VE 2 SMN1 copies , SNP not presen t normal Not Available [facility] [address], [place], [address], 12/22/2024 23:42:40 12/23/19 25 12/22/2024 [UNIT Y] GUILLERMO SIVAN LULWanda Herrera for detailed report, see pdf See PDF normal Not Available [facility] [address], [place], [address], 12/22/2024 23:42:40 12/02/19 25 12/01/2024 HIV 1/2 ANTIG EN/AN TIBOD Y, REFLE X CONFI RMATI ON HIV antigen/anti body Nonrea ctive nonrea ctive HIV-1 antig en and HIV-1 /HIV- 2 antib odies were not detec julieta. No labor atory evide nce of HIV infec tion. Not Available [facility] (Lab) [address] [facility], [place], [address], 12/02/2024 10:19:34 12/02/1912/01/2024 HEPAT ITIS B SURFA CE ANTIG EN hepatitis B surface antigen Non-re active non-re active This assay was perfo rmed using [employer] ratio n reage nts and test kits. Value s obtai edison with other assay metho ds or kits canno t be used inter kelley eably . Not Available [facility] (Lab) [address] [facility], [place], [address], 12/02/2024 10:19:35 12/02/1912/01/2024 HEPAT ITIS C ANTIB MOLLY SCREE N, REFLE X TO CONFI RMATI ON hepatitis C antibody Non-re active non-re active Antib odies to HCV Not Detec julieta, does not exclu de the possi bilit y of expos ure to HCV. Not Available [facility] (Lab) [address] [facility] [facility], [place], [address], 12/02/2024 10:19:35 12/02/1912/01/2024 CBC W/DIF F WBC 8.1 10'3/ uL 3.5-10 .5 Not Available [facility] (Lab) [address] [facility], [place], [address], 12/02/2024 10:19:35 12/02/1912/01/2024 CBC W/DIF F RBC 3.87 10'6/ uL (based on docume nted legal sex) 3.80-5 .20 Not Available [facility] (Lab) [address] [facility] [facility], [place], [address], 12/02/2024 10:19:35 12/02/19 25 12/01/2024 CBC W/DIF F HGB 12.4 g/dL (based on docume nted legal sex) 11.6-1 5.4 Not Available [facility] (Lab) [address] [facility] [facility], [place], [address], 12/02/2024 10:19:35 12/02/19 25 12/01/2024 CBC W/DIF F HCT 36.6 % (based on docume nted legal sex) 34.0-4 5.0 Not Available [facility] (Lab) [address] [facility] [facility], [place], [address], 12/02/2024 10:19:35 12/02/19 25 12/01/2024 CBC W/DIF F MCV 94.6 fL 80.0-9 9.0 Not Available [facility] (Lab) [address] [facility] [facility], [place], [address], 12/02/2024 10:19:35 12/02/19 25 12/01/2024 CBC W/DIF F MCH 32.0 pg 27.0-3 4.0 Not Available [facility] (Lab) [address] [facility] [facility], [place], [address], 12/02/2024 10:19:35 12/02/19 25 12/01/2024 CBC W/DIF F MCHC 33.9 g/dL 32.0-3 5.5 Not Available [facility] (Lab) [address] [facility] [facility], [place], [address], 12/02/2024 10:19:35 12/02/19 25 12/01/2024 CBC W/DIF F RDW 12.2 % 11.0-1 5.0 Not Available [facility] (Lab) [address] [facility] [facility], [place], [address], 12/02/2024 10:19:35 12/02/19 25 12/01/2024 CBC W/DIF F plt 220 10'3/ uL 150-40 0 Not Available [facility] (Lab) [address] [facility] [facility], [place], [address], 12/02/2024 10:19:35 12/02/19 25 12/01/2024 CBC W/DIF F MPV 11.6 fL 8.8-12 .1 Not Available [facility] (Lab) [address] [facility], [place], [address], 12/02/2024 10:19:35 12/02/1912/01/2024 CBC W/DIF F NRBC's 0.0 % 0.0 Not Available [facility] (Lab) [address] [facility] [facility], [place], [address], 12/02/2024 10:19:35 12/02/19 25 12/01/2024 CBC W/DIF F absolute NRBCs 0.0 10'3/ uL no refere nce range establ ished Not Available [facility] (Lab) [address] [facility] [facility], [place], [address], 12/02/2024 10:19:35 12/02/1912/01/2024 CBC W/DIF F neutrophils 77.4 % 34.0-7 3.0 high Not Available [facility] (Lab) [address] [facility] [facility], [place], [address], 12/02/2024 10:19:35 12/02/19 25 12/01/2024 CBC W/DIF F lymphocytes 15.0 % 15.0-5 0.0 Not Available [facility] (Lab) [address] [facility] [facility], [place], [address], 12/02/2024 10:19:35 12/02/1912/01/2024 CBC W/DIF F monocytes 6.3 % 1.0-15 .0 Not Available [facility] (Lab) [address] [facility], [place], [address], 12/02/2024 10:19:35 12/02/1912/01/2024 CBC W/DIF F eosinophils 0.7 % 0.0-8. 0 Not Available [facility] (Lab) [address] [place], [address], 12/02/2024 10:19:35 12/02/19 25 12/01/2024 CBC W/DIF F basophils 0.2 % 0.0-2. 0 Not Available [facility] (Lab) [address] , [place], [address], 12/02/2024 10:19:35 12/02/19 25 12/01/2024 CBC W/DIF [...] separ ately if prese nt. Not Available [facility] (Lab) [address], [place], [address], 12/02/2024 10:19:35 12/02/19 25 12/01/2024 CBC W/DIF F absolute neutrophils 6.3 10'3/ uL 1.5-8. 0 Not Available [facility] (Lab) [address] [facility], [place], [address], 12/02/2024 10:19:35 12/02/19 25 12/01/2024 CBC W/DIF F absolute lymphocytes 1.2 10'3/ uL 1.0-4. 0 Not Available [facility] (Lab) [address] [facility], [place], [address], 12/02/2024 10:19:35 12/02/19 25 12/01/2024 CBC W/DIF F absolute monocytes 0.5 10'3/ uL 0.2-1. 0 Not Available [facility] (Lab) [address] [facility], [place], [address], 12/02/2024 10:19:35 12/02/19 25 12/01/2024 CBC W/DIF F absolute eosinophils 0.1 10'3/ uL 0.0-0. 6 Not Available [facility] (Lab) [address] [facility], [place], [address], 12/02/2024 10:19:35 12/02/19 25 12/01/2024 CBC W/DIF F absolute basophils 0.0 10'3/ uL 0.0-0. 3 Not Available [facility] (Lab) [address], [place], [address], 12/02/2024 10:19:35 12/02/19 25 12/01/2024 CBC W/DIF F absolute immature granulocytes 0.0 10'3/ uL 0.00-0 .10 Refer ence range s for nonbi nary/ inter sex or unspe cifie d gende r patie nts have not been estab lishe d. Pleas e refer to the [facility] table for range s estab lishe d for cisge nder patie nts and evalu ate in the clini daniel paula xt of the indiv idual patie nt: https ://la capoand book. nm.or g/gen derx Not Available [facility] (Lab) [address], [place], [address], 12/02/2024 10:19:35 12/02/19 25 12/01/2024 RUBEL LA IGG ANTIB MOLLY, QUANT rubella antibodies, IgG Reacti ve reacti ve Not Available [facility] (Lab) [address], [place], [address], 12/02/2024 10:19:36 12/02/19 25 12/01/2024 RUBEL LA IGG ANTIB MOLLY, QUANT rubella antibodies, IgG quant 17.9 IU/mL >=10 Non-r eacti ve (Non- Immun e) <10 IU/mL React marely (Immu ne) > or = 10 IU/mL Not Available [facility] (Lab) [address], [place], [address], 12/02/2024 10:19:36 12/02/19 25 12/01/2024 TYPE/ RH/SC REEN ABO/Rh type A NEG Not Available [facility] (Lab) [address], [place], [address], 12/02/2024 10:19:36 12/02/19 25 12/01/2024 TYPE/ RH/SC REEN antibody screen NEG Not Available [facility] (Lab) [address], [place], [address], 12/02/2024 10:19:36 12/02/19 25 12/01/2024 TYPE/ RH/SC REEN exp date 2024 23:59 Not Available [facility] (Lab) [address] [facility], [place], [address], 12/02/2024 10:19:36 12/02/19 25 12/01/2024 HEMOG LOBIN [...] >8.0% Actio n sugge sted Not Available [facility] (Lab) [address], [place], [address], 12/02/2024 10:19:37 12/02/19 25 12/01/2024 RPR SCREE N, REFLE X TITER /CONF IRMAT ION RPR qualitative Nonrea ctive nonrea ctive Not Available [facility] (Lab) [address] [facility], [place], [address], 12/02/2024 10:19:37 12/02/19 25 12/01/2024 CULTU RE: URINE result report SEE RESULT S BELOW Test: Cultu re: Urine Speci men Sourc e: Urine Voide d Speci men Type: Urine Speci men Date: 2024 1100 Resul t Date: 2024 2144 Resul t Statu s: Final resul t Abnor mal: No Resul ting Lab: [facility] [address] [facility] [address] Tel: CULTU RE ----- ----- ----- --- No growt h in 1 day (dete ction level of 10,00 0 colon ies / ml.) Not Available [facility] (Lab) [address] [facility], [place], [address], 12/02/2024 22:47:13 12/02/19 25 12/01/2024 drug scree n, urine Amphetamines : negati ve Not Available [facility] [address], [place], [address], 12/01/2024 11:13:13 12/02/19 25 12/01/2024 drug scree n, urine Cannabinoids : negati ve Not Available [facility] [address], [place], [address], 12/01/2024 11:13:13 12/02/19 25 12/01/2024 drug scree n, urine Cocaine: negati ve Not Available [facility] [address], [place], [address], 12/01/2024 11:13:13 12/02/19 25 12/01/2024 drug scree n, urine Opiates: negati ve Not Available [facility] [address], [place], [address], 12/01/2024 11:13:13 12/02/19 25 12/01/2024 drug scree n, urine Phenocyclidi ne: negati ve Not Available [facility] [address], [place], [address], 12/01/2024 11:13:13 06/11/12/01/2024 drug scree n, urine Barbiturates : negati ve Not Available [facility] [address], [place], [address], 12/01/2024 11:13:13 12/02/19 25 12/01/2024 drug scree n, urine Benzodiazepi haris: negati ve Not Available [facility] [address], [place], [address], 12/01/2024 11:13:13 12/02/19 25 12/01/2024 drug scree n, urine Ethanol: negati ve Not Available [facility] [address], [place], [address], 12/01/2024 11:13:13 12/02/19 25 12/01/2024 drug scree n, urine Hallucinogen s: negati ve Not Available [facility] [address], [place], [address], 12/01/2024 11:13:13 12/02/19 25 12/01/2024 drug scree n, urine Inhalants: negati ve Not Available [facility] [address], [place], [address], 12/01/2024 11:13:13 12/02/19 25 12/01/2024 drug scree n, urine Anabolic Steroids: negati ve Not Available [facility] [address], [place], [address], 12/01/2024 11:13:13 12/02/19 25 12/01/2024 drug scree n, urine Other: positi ve Not Available [facility] [address], [place], [address], 12/01/2024 11:13:13 02/24/20 25 02/23/2025 TYPE/ RH/SC REEN ABO/Rh type A NEG Not Available [facility] (Lab) [address], [place], [address], 02/24/2025 08:26:42 02/24/20 25 02/23/2025 TYPE/ RH/SC REEN antibody screen NEG Not Available [facility] (Lab) [address], [place], [address], 02/24/2025 08:26:42 02/24/20 25 02/23/2025 TYPE/ RH/SC REEN exp date 2024 23:59 Not Available [facility] (Lab) [address] [facility], [place], [address], 02/24/2025 08:26:42 12/02/19 25 12/01/2024 US, obste tric, nucha l trans lucen cy No observ ation record ed. [email or web address] [facility] [address], [place], [address], 12/01/2024 14:38:13 12/02/19 25 12/01/2024 US, obste tric, follo w-up No observ ation record ed. Annalise [address], [place], [address], 12/01/2024 18:45:45 01/27/20 25 01/26/2025 US, obste tric, 2nd or 3rd trime ster No observ ation record ed. [email or web address] [facility] [address], [place], [address], 01/26/2025 12:36:41 01/27/20 25 01/26/2025 US, obste tric, 2nd or 3rd trime ster No observ ation record ed. [email or web address] [address]nal[address], [place], [address], 01/26/2025 12:39:35 02/24/20 25 02/23/2025 US, obste tric, follo w-up No observ ation record ed. [email or web address] [facility] [address], [place], [address], 02/23/2025 18:48:54 02/24/20 25 02/23/2025 US, obste tric, follo w-up No observ ation record ed. Annalise [address], [place], [address], 02/23/2025 16:57:13 02/24/20 25 02/23/2025 US, obste tric, follo w-up No observ ation record ed. [email or web address] [address]nalise [address], [place], [address], 02/23/2025 16:55:34 03/21/20 25 03/21/2025 US, obste tric, follo w-up No observ ation record ed. [email or web address] [facility] (Psychiatry Department) [address] [facility] [address], [place], [address], 03/23/2025 16:02:35 03/21/20 25 03/21/2025 US, obste tric, follo w-up No observ ation record ed. [email or web address] [facility] [address] [facility] [address], [place], [address], 03/22/2025 10:18:20 04/22/20 25 04/22/2025 US, obste tric, follo w-up No observ ation record ed. [email or web address] Annalise [address], [place], [address], 04/27/2025 11:38:48 04/22/20 25 04/22/2025 US, obste tric, follo w-up No observ ation record ed. marino [facility] [address], [place], [address], 04/22/2025 17:08:34 05/18/2005/18/2025 US, obste tric, follo w-up No observ ation record ed. [facility] [address], [place], [address], 05/18/2025 18:24:57 05/18/20 25 05/18/2025 US, obste tric, follo w-up No observ ation record ed. [email or web address] [address]nal[address], [place], [address], 05/25/2025 10:56:46 Result Notes None recorded. Problems Name Problem SNOMED Code Status Onset Date Resolution Date Notes Provider Name and Address Organization Details Recorded Time 90536954 Active [address] [facility] 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 21:45:57 Placenta succentur iata 49330665 Active 2024 serial growth Elizabet Clarita [facility] 12:38:22 Problem Notes None recorded. Procedures Surgical History Date Name Laterality Status Provider Name and Address Organization Details Recorded Time 05/09/2024 Date of Last Pap Smear completed Katherine Hardwick [facility] 03/23/2025 10:52:23 Imaging Results None recorded. Procedure Notes None recorded. Medical Equipment None Reported. Allergies Allergen ID Allergen Name Allergen Category Reaction Reaction Severity Criticality Documentation Date Start Date Code Code System Note Provider Name and Address Organization Details Recorded Time 35386 latex environme nt,medica tion Not available Not available Not available 12/01/2024 91314 91 RxNorm [facility] 5 11:38:56 21289 ethinyl estradiol / norelgest romin medicatio n hives Not available Not available 05/06/2025 42880 7 RxNorm Not Available [facility] - External Data Service - prod 5 [...] and Address Organization Details Last Updated DateTime 04/08/2025 167.64 cm 25.7 kg/m2 36860.62 g 107/67 mm[Hg] Cherelle Maddox [facility] 04/08/2025 16:46:04 Social History Question Answer Notes LastModified by Organizat ion Details LastModified Time Tobacco Smoking Status Never Smoker Mary Murillo reba, [facility] 12/01/2024 11:12:14 Do You Have An Advance Directive? No [email or web address] Information n ot available 12/01/2024 If You Are , What Was Your Level Of Alcohol Consumption Prior To ? Occasional [email or web address] Information not available 12/01/2024 How Many Years Have You Consumed Alcohol? 0 [email or web address] Information not available 12/01/2024 Are You Blind Or Do You Have Difficulty Seeing? No [email or web address] Information n ot available 12/01/2024 What Is Your Level Of Caffeine Consumption? Moderate [email or web address] Information not available 12/01/2024 How Much Tobacco Do You Chew? None [email or web address] Information not available 12/01/2024 In The 14 Days Before Symptom Onset, Have You Had Close Contact With A Laboratory-confirm ed COVID-19 While That Case Was Ill? No [email or web address] Information n ot available 12/01/2024 In The 14 Days Before Symptom Onset, Have You Had Close Contact With A Person Who Is Under Investigation For COVID-19 While That Person Was Ill? No [email or web address] Information not available 12/01/2024 Have You Been To An Area Known To Be High Risk For COVID-19? No [email or web address] Information not available 12/01/2024 Are You Deaf Or Do You Have Serious Difficulty Hearing? No [email or web address] Information not available 12/01/2024 What Type Of Diet Are You Following? REGULAR [email or web address] Information n ot available 12/01/2024 What Is The Highest Grade Or Level Of School You Have Completed Or The Highest Degree You Have Received? EX33472-0 [email or web address] Information not available 12/01/2024 Are There Any Guns Present In Your Home? No [email or web address] Information not available 12/01/2024 Do You Use Protection During Sex? No [email or web address] Information not available 12/01/2024 Do You Use Your Seat Belt Or Car Seat Routinely? Yes [email or web address] Information not available 12/01/2024 Do You Have Smoke And Carbon Monoxide Detectors In Your Home? Yes [email or web address] Information not available 12/01/2024 How Much Tobacco Do You Smoke? No [email or web address] Information not available 12/01/2024 Do You Use Sunscreen Routinely? Yes [email or web address] Information not available 12/01/2024 Has Tobacco Cessation Counseling Been Provided? Yes [email or web address] Information not available 12/01/2024 On What Date Was Tobacco Cessation Counseling Provided? 12/01/2024 [email or web address] Information not available 12/01/2024 How Many Years Have You Smoked Tobacco? 0 [email or web address] Information not available 12/01/2024 Have You Used IV Drugs? No [email or web address] Information not available 12/01/2024 Do You Have Difficulty Walking Or Climbing Stairs? No [email or web address] Information not available 12/01/2024 Sex: Unknown Functional Status Question Answer Note LastModified by Organizat ion Details LastModified Time Do you use any illicit or recreational drugs? No [email or web address] Information not available 03/23/2025 Do you or have you ever used any other forms of tobacco or nicotine? No [email or web address] Information not available 12/01/2024 What is your level of alcohol consumption? None [email or web address] Information not available 12/01/2024 Are you able to walk independently without assistance or assistive devices? YESWOREST [email or web address] Information not available 12/01/2024 Are you able to care for yourself independently? 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 Occasional [email or web address] Information not available 12/01/2024 Mental Status Question Answer Note LastModified by Organization D etails LastModified Time Do you feel stressed (tense, restless, nervous, or anxious, or unable to sleep at night)? [id number] [email or web address] Information not available 12/01/2024 Family History Relationship Description Onset Age of this Age Resolved Age Notes LastModified by Organization Details LastModified Time Unspecified Relation Family history unknown [email or web address] Not available 05/23 09:26:51 Maternal Grandmother Diabetes mellitus [email or web address] Not available 2024 16:45:50 Maternal Grandmother Hypertensive disorder [email or web address] Not available 2024 16:45:50 Maternal Grandmother Hypercholest erolemia [email or web address] Not available 2024 16:45:50 Medical History Condition [...] ICD10 Code Diagnosis IMO Codes Diagnosis Note [id number] [facility] [address] [address] 03/23/2025 10:11:18 03/25/2025 14:07:08 [id number] VIK FINN MD [facility] [address] [address] 03/23/2025 11:39:03 03/23/2025 14:31:27 Placenta succenturiata 91363936 O43.192 53652699 - serial growth US RhD negative 634867363 O 26.899 Z67.91 561742 - weak D antigen, seen by MFM who recommends RHogam Gestation period, 28 weeks 72421085 Z3A.28 0570677 - continue PNV [id number] VIK FINN MD [facility] [address] [address] 04/08/2025 16:31:58 04/11/2025 09:14:19 Placenta succenturiata 02138607 O43.192 62392071 - serial growth US RhD negative 395876623 O 26.899 Z67.91 259969 - weak D antigen, seen by MFM who recommends RHogam- rhogam given at 30 weeks Gestation period, 30 weeks 49420628 Z3A.30 5317571 - continue PNV Health Concerns Section Related Observation LastModified by Organization Detai ls LastModified Time None Recorded Concern Status LastModified by Organization Details LastModified Time None Recorded Payers Encounter Date Sequence Insurance Name Policy Number Policy Botello Covered Member ID Botello Member ID Guarantor Name 04/08/2025 1 [employer] [facility] (MEDICAID HMO) [id number] Sahra Kishore [id number] Sahra Novak Notes Date Note Type Note Provider Name and Address Organization Details Recorded Time 04/08/2025 text/html Generic HPI TemplateReported by Patient VIK FINN MD [address], [place], [address], [facility] 04/08/2025 17:19:13 OBGyn Episode Ob Episode Information Episode Created Date Number of Fetuses Patient Bloodtype Patient rh Status Prepregnancy Weight lbs Domestic Partner Domestic Partner Phone Father Name Registration Rep Status 12/02/19 25 1 A Negative 147 Akshat Hildebr and OPEN Fetus Data First Name Last Name Admitted to NICU Weight (g) Sex Living Outcome Pediatric Complications Fetus ID Race Codes Race Delivery Type [id number] Problems Problem Notes Problem Name Start Date End Date Resolution Snomed Code Not e Placenta succenturiata 01/26/2025 682427 03 serial growth US RhD negative 12/03/2024 821748750 A-, ne ed rhogam 28 weeks referral [facility] faxed 03/04 cancelled due to insurance - referral faxed to [facility] Mary [facility] final report A Negative , weak D present [facility] recommends Rhogam pt rhogam on 04/06/25 Dwayne Artis Calculation Initial Artis Date Initial Exam Date Initial Exam Provider Initial Ultrasound Date Last Menstrual Period Date Ultra Sound Weeks Gestation 05/16/2025 10/19/2024 [email or web address] 10/19/2024 08/09/2024 6 Eighteen To Twenty Week [...] Weight in lbs Pre/Post Dialysis Refused Weight 148.732182439228 BP Diastolic BP Location Tested BP Systolic [...] Type Weight in lbs Pre/Post Dialysis Refused 153.204533102741 BP Diastolic BP Location Tested BP Systolic [...] Weight in lbs Pre/Post Dialysis Refused Weight 153.323620734456 BP Diastolic BP Location Tested BP Systolic [...] Weight in lbs Pre/Post Dialysis Refused Weight 155.746478990143 BP Diastolic BP Location Tested BP Systolic [...] Weight in lbs Pre/Post Dialysis Refused Weight 158.355927152857 BP Diastolic BP Location Tested BP Systolic BP Type 70 L arm 108 sitting Fetus Heart Rate Present Fetus Movement A Yes Comments Flowsheet Date 03/23/2025 Mcdonough Score Blood Edema Fundus Height Fundus Units Glucose Ketones Leukocytes Nitrite Labor Signs Protein Cervic Dilation Cervic Effacement Cervic Station Type Weight in lbs Pre/Post Dialysis Refused 158.267787670921 BP Diastolic BP Location Tested BP Systolic BP Type 70 108 Fetus Heart Rate Present A 140 Fetus Movement A Yes Comments Doing well, good movem ent. GCT and labs at [place] for Rhogam. Was seen by [facility], recommend Rhogam for weak D. EFW wnl at [facility] US. Discussed tdap and RSV vaccine. RTC 2 weeks. Flowsheet Date 04/08/2025 Mcdonough Score Blood Edema Fundus Height Fundus Units Glucose Ketones Leukocytes Nitrite Labor Signs Protein Cervic Dilation Cervic Effacement Cervic Station Type Weight in lbs Pre/Post Dialysis Refused Weight 159.073528638029 BP Diastolic BP Location Tested BP Systolic [...] Weight in lbs Pre/Post Dialysis Refused Weight 164.413562575586 BP Diastolic BP Location Tested BP Systolic [...] Weight in lbs Pre/Post Dialysis Refused Weight 165.409058323716 BP Diastolic BP Location Tested BP Systolic [...] Weight in lbs Pre/Post Dialysis Refused Weight 165.989742962720 BP Diastolic BP Location Tested BP Systolic [...] Type Weight in lbs Pre/Post Dialysis Refused 168.535823176479 BP Diastolic BP Location Tested BP Systolic [...]
--- OUTSIDE RECORDS SUMMARY | 2025-06-10 17:05 | XMS_ITS | Continuity of Care Document ---
Author Organization [facility] Address [address] [place] [place] [address] Assessment Encounter Date Assessment Date Assessment LastModified by Organization Details LastModified Time 05/06/2025 05/06/2025 Patient is _34__weeks . Discussed plan. Not available 05/06/2025 10:15:11 Plan of Treatment Reminders Order Date Submit [...] Not Available [facility] [address], [place], [address], 12/07/2024 07:43:35 12/08/19 25 12/07/2024 [UNIT Y] ANEUP LOIDY NIPT 22Q11.2 microdeletio n LOW RISK <1 in 10,000 normal Not Available [facility] [address], [place], [address], 12/07/2024 07:43:35 12/08/19 25 12/07/2024 [UNIT Y] ANEUP LOIDY NIPT sex chromosome aneuploidy NOT DETECT ED normal Not Available [facility] [address], [place], [address], 12/07/2024 07:43:35 12/08/19 25 12/07/2024 [UNIT Y] ANEUP LOIDY NIPT monosomy X LOW RISK <1 in 10,000 normal Not Available [facility] [address], [place], [address], 12/07/2024 07:43:35 12/08/19 25 12/07/2024 [UNIT Y] ANEUP LOIDY NIPT trisomy 13 LOW RISK <1 in 10,000 normal Not Available [facility] [address], [place], [address], 12/07/2024 07:43:35 12/08/19 25 12/07/2024 [UNIT Y] ANEUP LOIDY NIPT trisomy 18 LOW RISK <1 in 10,000 normal Not Available [facility] [address], [place], [address], 12/07/2024 07:43:35 12/08/19 25 12/07/2024 [UNIT Y] ANEUP LOIDY NIPT trisomy 21 LOW RISK <1 in 10,000 normal Not Available [facility] [address], [place], [address], 12/07/2024 07:43:35 12/08/19 25 12/07/2024 [UNIT Y] ANEUP LOIDY NIPT sex FEMALE normal Not Available [facility] [address], [place], [address], 12/07/2024 07:43:35 12/08/19 25 12/07/2024 [UNIT Y] ANEUP LOIDY NIPT gestation SINGLE TON normal Not Available [facility] [address], [place], [address], 12/07/2024 07:43:35 12/08/19 25 12/07/2024 [UNIT Y] ANEUP TITUSY NIPT for detailed report, see pdf See PDF normal Not Available [facility] [address], [place], [address], 12/07/2024 07:43:35 12/23/19 25 12/22/2024 [UNIT Y] GUILLERMO Herrera sickle cell disease/beta -thalassemia /hemoglobino pathies carrier screen NEGATI VE normal Not Available [facility] [address], [place], [address], 12/22/2024 23:42:40 12/23/19 25 12/22/2024 [UNIT Y] GUILLERMO Herrera alpha-thalas semia carrier screen NEGATI VE normal Not Available [facility] [address], [place], [address], 12/22/2024 23:42:40 12/23/19 25 12/22/2024 [UNIT Y] GUILLERMO Herrera cystic fibrosis carrier screen NEGATI VE normal Not Available [facility] [address], [place], [address], 12/22/2024 23:42:40 12/23/19 25 12/22/2024 [UNIT Y] GUILLERMO Herrera spinal muscular atrophy carrier screen NEGATI VE 2 SMN1 copies , SNP not presen t normal Not Available [facility] [address], [place], [address], 12/22/2024 23:42:40 12/23/19 25 12/22/2024 [UNIT Y] GUILLERMO Herrera for detailed report, see pdf See PDF normal Not Available [facility] [address], [place], [address], 12/22/2024 23:42:40 12/02/19 25 12/01/2024 HIV 1/2 ANTIG EN/AN TIBOD Y, REFLE X CONFI RMATI ON HIV antigen/anti body Nonrea ctive nonrea ctive HIV-1 antig en and HIV-1 /HIV- 2 antib odies were not detec julieta. No labor atory evide nce of HIV infec tion. Not Available [facility] (Lab) [address], [place], [address], 12/02/2024 10:19:34 12/02/1912/01/2024 HEPAT ITIS B SURFA CE ANTIG EN hepatitis B surface antigen Non-re active non-re active This assay was perfo rmed using [employer] ratio n reage nts and test kits. Value s obtai edison with other assay metho ds or kits canno t be used inter kelley eably . Not Available [facility] (Lab) [address], [place], [address], 12/02/2024 10:19:35 12/02/1912/01/2024 HEPAT ITIS C ANTIB MOLLY SCREE N, REFLE X TO CONFI RMATI ON hepatitis C antibody Non-re active non-re active Antib odies to HCV Not Detec julieta, does not exclu de the possi bilit y of expos ure to HCV. Not Available [facility] (Lab) [address], [place], [address], 12/02/2024 10:19:35 12/02/19 25 12/01/2024 CBC W/DIF F WBC 8.1 10'3/ uL 3.5-[address] [facility] (Lab) [address], [place], [address], 12/02/2024 10:19:35 12/02/19 25 12/01/2024 CBC W/DIF F RBC 3.87 10'6/ uL (based on docume nted legal sex) 3.80-[address] [facility] (Lab) [address], [place], [address], 12/02/2024 10:19:35 12/02/19 25 12/01/2024 CBC W/DIF F HGB 12.4 g/dL (based on docume nted legal sex) 11.6-[address] [facility] (Lab) [address], [place], [address], 12/02/2024 10:19:35 12/02/19 25 12/01/2024 CBC W/DIF F HCT 36.6 % (based on docume nted legal sex) 34.0-[address] [facility] (Lab) [address], [place], [address], 12/02/2024 10:19:35 12/02/19 25 12/01/2024 CBC W/DIF F MCV 94.6 fL 80.0-[address] [facility] (Lab) [address], [place], [address], 12/02/2024 10:19:35 12/02/19 25 12/01/2024 CBC W/DIF F MCH 32.0 pg 27.0-[address] [facility] (Lab) [address], [place], [address], 12/02/2024 10:19:35 12/02/19 25 12/01/2024 CBC W/DIF F MCHC 33.9 g/dL 32.0-[address] [facility] (Lab) [address], [place], [address], 12/02/2024 10:19:35 12/02/19 25 12/01/2024 CBC W/DIF F RDW 12.2 % 11.0-[address] [facility] (Lab) [address], [place], [address], 12/02/2024 10:19:35 12/02/19 25 12/01/2024 CBC W/DIF F plt 220 10'3/ uL 150-[address] [facility] (Lab) [address], [place], [address], 12/02/2024 10:19:35 12/02/19 25 12/01/2024 CBC W/DIF F MPV 11.6 fL 8.8-[address] [facility] (Lab) [address], [place], [address], 12/02/2024 10:19:35 12/02/19 25 12/01/2024 CBC W/DIF F NRBC's 0.0 % 0.[address] [facility] (Lab) [address], [place], [address], 12/02/2024 10:19:35 12/02/19 25 12/01/2024 CBC W/DIF F absolute NRBCs 0.0 10'3/ uL no refere nce range establ ished Not Available [facility] (Lab) [address], [place], [address], 12/02/2024 10:19:35 12/02/19 25 12/01/2024 CBC W/DIF F neutrophils 77.4 % 34.0-7 3.[address] [facility] (Lab) [address], [place], [address], 12/02/2024 10:19:35 12/02/19 25 12/01/2024 CBC W/DIF F lymphocytes 15.0 % 15.0-[address] [facility] (Lab) [address], [place], [address], 12/02/2024 10:19:35 12/02/19 25 12/01/2024 CBC W/DIF F monocytes 6.3 % 1.0-[address] [facility] (Lab) [address], [place], [address], 12/02/2024 10:19:35 12/02/19 25 12/01/2024 CBC W/DIF F eosinophils 0.7 % 0.0-8. [address] [facility] (Lab) [address], [place], [address], 12/02/2024 10:19:35 12/02/19 25 12/01/2024 CBC W/DIF F basophils 0.2 % 0.0-2. [address] [facility] (Lab) [address], [place], [address], 12/02/2024 10:19:35 12/02/19 25 12/01/2024 CBC W/DIF [...] separ ately if prese nt. Not Available [facility] (Lab) [address], [place], [address], 12/02/2024 10:19:35 12/02/19 25 12/01/2024 CBC W/DIF F absolute neutrophils 6.3 10'3/ uL 1.5-8. [address] [facility] (Lab) [address], [place], [address], 12/02/2024 10:19:35 12/02/19 25 12/01/2024 CBC W/DIF F absolute lymphocytes 1.2 10'3/ uL 1.0-4. [address] [facility] (Lab) [address], [place], [address], 12/02/2024 10:19:35 12/02/19 25 12/01/2024 CBC W/DIF F absolute monocytes 0.5 10'3/ uL 0.2-1. [address] [facility] (Lab) [address], [place], [address], 12/02/2024 10:19:35 12/02/19 25 12/01/2024 CBC W/DIF F absolute eosinophils 0.1 10'3/ uL 0.0-0. [address] [facility] (Lab) [address], [place], [address], 12/02/2024 10:19:35 12/02/19 25 12/01/2024 CBC W/DIF F absolute basophils 0.0 10'3/ uL 0.0-0. [address] [facility] (Lab) [address], [place], [address], 12/02/2024 10:19:35 12/02/19 25 12/01/2024 CBC W/DIF [...] bhand book. nm.or g/gen derx Not Available [facility] (Lab) [address], [place], [address], 12/02/2024 10:19:35 12/02/19 25 12/01/2024 RUBEL LA IGG ANTIB MOLLY, QUANT rubella antibodies, IgG Reacti ve reacti ve Not Available [facility] (Lab) [address] , [place], [address], 12/02/2024 10:19:36 12/02/19 25 12/01/2024 RUBEL LA IGG ANTIB MOLLY, QUANT rubella antibodies, IgG quant 17.9 IU/mL >=10 Non-r eacti ve (Non- Immun e) <10 IU/mL React marely (Immu ne) > or = 10 IU/mL Not Available [facility] (Lab) [address], [place], [address], 12/02/2024 10:19:36 12/02/19 25 12/01/2024 TYPE/ RH/SC REEN ABO/Rh type A NEG Not Available [facility] (Lab) [address], [place], [address], 12/02/2024 10:19:36 12/02/19 25 12/01/2024 TYPE/ RH/SC REEN antibody screen NEG Not Available [facility] (Lab) [address], [place], [address], 12/02/2024 10:19:36 12/02/1912/01/2024 TYPE/ RH/SC REEN exp date 2024 23:[address] [facility] (Lab) [address], [place], [address], 12/02/2024 10:19:36 12/02/19 25 12/01/2024 HEMOG LOBIN [...] >8.0% Actio n sugge sted Not Available [facility] (Lab) [address], [place], [address], 12/02/2024 10:19:37 12/02/19 25 12/01/2024 RPR SCREE N, REFLE X TITER /CONF IRMAT ION RPR qualitative Nonrea ctive nonrea ctive Not Available [facility] (Lab) [address], [place], [address], 12/02/2024 10:19:37 12/02/1912/01/2024 CULTU RE: URINE result report SEE RESULT S BELOW Test: Cultu re: Urine Speci men Sourc e: Urine Voide d Speci men Type: Urine Speci men Date: 2024 1100 Resul t Date: 20244 Resul t Statu s: Final resul t Abnor mal: No Resul ting Lab: [facility] [address] [facility] [place] [address] Tel: CULTU RE ----- ----- ----- --- No growt h in 1 day (dete ction level of 10,00 0 colon ies / ml.) Not Available [facility] (Lab) [address], [place], [address], 12/02/2024 22:47:13 12/02/19 25 12/01/2024 drug scree n, urine Amphetamines : negati ve Not Available [facility] [address], [place], [address], 12/01/2024 11:13:13 12/02/19 25 12/01/2024 drug scree n, urine Cannabinoids : negati ve Not Available [facility] [address], [place], [address], 12/01/2024 11:13:13 12/02/19 25 12/01/2024 drug scree n, urine Cocaine: negati ve Not Available [facility] [address], [place], [address], 12/01/2024 11:13:13 12/02/19 25 12/01/2024 drug scree n, urine Opiates: negati ve Not Available [facility] [address], [place], [address], 12/01/2024 11:13:13 12/02/19 25 12/01/2024 drug scree n, urine Phenocyclidi ne: negati ve Not Available [facility] [address], [place], [address], 12/01/2024 11:13:13 12/02/19 25 12/01/2024 drug scree n, urine Barbiturates : negati ve Not Available [facility] [address], [place], [address], 12/01/2024 11:13:13 12/02/19 25 12/01/2024 drug scree n, urine Benzodiazepi haris: negati ve Not Available [facility] [address], [place], [address], 12/01/2024 11:13:13 12/02/19 25 12/01/2024 drug scree n, urine Ethanol: negati ve Not Available [facility] [address], [place], [address], 12/01/2024 11:13:13 12/02/19 25 12/01/2024 drug scree n, urine Hallucinogen s: negati ve Not Available [facility] [address], [place], [address], 12/01/2024 11:13:13 12/02/19 25 12/01/2024 drug scree n, urine Inhalants: negati ve Not Available [facility] [address], [place], [address], 12/01/2024 11:13:13 12/02/19 25 12/01/2024 drug scree n, urine Anabolic Steroids: negati ve Not Available [facility] [address], [place], [address], 12/01/2024 11:13:13 12/02/19 25 12/01/2024 drug scree n, urine Other: positi ve Not Available [facility] [address], [place], [address], 12/01/2024 11:13:13 02/24/20 25 02/23/2025 TYPE/ RH/SC REEN ABO/Rh type A NEG Not Available [facility] (Lab) [address], [place], [address], 02/24/2025 08:26:42 02/24/20 25 02/23/2025 TYPE/ RH/SC REEN antibody screen NEG Not Available [facility] (Lab) [address], [place], [address], 02/24/2025 08:26:42 02/24/20 25 02/23/2025 TYPE/ RH/SC REEN exp date 2024 23:[address] [facility] (Lab) [address], [place], [address], 02/24/2025 08:26:42 12/02/19 25 12/01/2024 US, obste tric, nucha l trans lucen cy No observ ation record ed. [email or web address] [facility] [address], [place], [address], 12/01/2024 14:38:13 12/02/19 25 12/01/2024 US, obste tric, follo w-up No observ ation record ed. [email or web address] [facility] [address], [place], [address], 12/01/2024 18:45:45 01/27/20 25 01/26/2025 US, obste tric, 2nd or 3rd trime ster No observ ation record ed. [email or web address] [facility] [address], [place], [address], 01/26/2025 12:36:41 01/27/20 25 01/26/2025 US, obste tric, 2nd or 3rd trime ster No observ ation record ed. [email or web address] [address], [place], [address], 01/26/2025 12:39:35 02/24/20 25 02/23/2025 US, obste tric, follo w-up No observ ation record ed. [email or web address] [facility] [address], [place], [address], 02/23/2025 18:48:54 02/24/20 25 02/23/2025 US, obste tric, follo w-up No observ ation record ed. [email or web address] [address], [place], [address], 02/23/2025 16:57:13 02/24/20 25 02/23/2025 US, obste tric, follo w-up No observ ation record ed. [email or web address] [address], [place], [address], 02/23/2025 16:55:34 03/21/20 25 03/21/2025 US, obste tric, follo w-up No observ ation record ed. [email or web address] [facility]ry Department[facility] [address], [place], [address], 03/23/2025 16:02:35 03/21/20 25 03/21/2025 US, obste tric, follo w-up No observ ation record ed. [email or web address] [facility] [address], [place], [address], 03/22/2025 10:18:20 04/22/2004/22/2025 US, obste tric, follo w-up No observ ation record ed. [email or web address] [address], [place], [address], 04/27/2025 11:38:48 10/31/20 25 04/22/2025 US, obste tric, follo w-up No observ ation record ed. [facility] [address], [place], [address], 04/22/2025 17:08:34 05/18/2005/18/2025 US, obste tric, follo w-up No observ ation record ed. [facility] [address], [place], [address], 05/18/2025 18:24:57 05/18/2005/18/2025 US, obste tric, follo w-up No observ ation record ed. [email or web address] [address], [place], [address], 05/25/2025 10:56:46 Result Notes None recorded. Problems Name Problem SNOMED Code Status Onset Date Resolution Date Notes Provider Name and Address Organization Details Recorded Time 45699177 Active 2024 Mary Murillo [facility] 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 21:45:57 Placenta succentur iata 92013608 Active 2024 serial growth Elizabet Ruff [facility] 12:38:22 Problem Notes None recorded. Procedures Surgical History Date Name Laterality Status Provider Name and Address Organization Details Recorded Time 05/09/2024 Date of Last Pap Smear completed Katherine Hardwick [facility] 03/23/2025 10:52:23 Imaging Results None recorded. Procedure Notes None recorded. Medical Equipment None Reported. Allergies Allergen ID Allergen Name Allergen Category Reaction Reaction Severity Criticality Documentation Date Start Date Code Code System Note Provider Name and Address Organization Details Recorded Time 99662 latex environme nt,medica tion Not available Not available Not available 12/01/2024 64156 91 RxNorm Mary Murillo [facility] 11:38:56 83073 ethinyl estradiol / norelgest romin medicatio n hives Not available Not available 05/06/2025 32301 7 RxNorm Not Available nieves - External [...] and Address Organization Details Last Updated DateTime 05/06/2025 167.64 cm 26.5 kg/m2 27838.15 g 118/67 mm[Hg] Sandy Shahid [facility] 05/06/2025 10:04:35 Social History Question Answer Notes LastModified by Organizat ion Details LastModified Time Tobacco Smoking Status Never Smoker Mary Lidia null, [facility] 12/01/2024 11:12:14 Do You Have An Advance Directive? No [email or web address] Information n ot available 12/01/2024 If You Are , What Was Your Level Of Alcohol Consumption Prior To ? Occasional [email or web address] Information not available 12/01/2024 How Many Years Have You Consumed Alcohol? 0 [email or web address] Information not available 12/01/2024 Are You Blind Or Do You Have Difficulty Seeing? No [email or web address] Information n ot available 12/01/2024 What Is Your Level Of Caffeine Consumption? Moderate Information not available 12/01/2024 How Much Tobacco Do You Chew? None [email or web address] Information not available 12/01/2024 In The 14 Days Before Symptom Onset, Have You Had Close Contact With A Laboratory-confirm ed COVID-19 While That Case Was Ill? No [email or web address] Information n ot available 12/01/2024 In The 14 Days Before Symptom Onset, Have You Had Close Contact With A Person Who Is Under Investigation For COVID-19 While That Person Was Ill? No [email or web address] Information not available 12/01/2024 Have You Been To An Area Known To Be High Risk For COVID-19? No [email or web address] Information not available 12/01/2024 Are You Deaf Or Do You Have Serious Difficulty Hearing? No Information not available 12/01/2024 What Type Of Diet Are You Following? REGULAR [email or web address] Information n ot available 12/01/2024 What Is The Highest Grade Or Level Of School You Have Completed Or The Highest Degree You Have Received? DT91535-6 [email or web address] Information not available 12/01/2024 Are There Any Guns Present In Your Home? No [email or web address] Information not available 12/01/2024 Do You Use Protection During Sex? No [email or web address] Information not available 12/01/2024 Do You Use Your Seat Belt Or Car Seat Routinely? Yes [email or web address] Information not available 12/01/2024 Do You Have Smoke And Carbon Monoxide Detectors In Your Home? Yes [email or web address] Information not available 12/01/2024 How Much Tobacco Do You Smoke? No [email or web address] Information not available 12/01/2024 Do You Use Sunscreen Routinely? Yes [email or web address] Information not available 12/01/2024 Has Tobacco Cessation Counseling Been Provided? Yes [email or web address] Information not available 12/01/2024 On What Date Was Tobacco Cessation Counseling Provided? 12/01/2024 [email or web address] Information not available 12/01/2024 How Many Years Have You Smoked Tobacco? 0 [email or web address] Information not available 12/01/2024 Have You Used IV Drugs? No [email or web address] Information not available 12/01/2024 Do You Have Difficulty Walking Or Climbing Stairs? No [email or web address] Information not available 12/01/2024 Sex: Unknown Functional Status Question Answer Note LastModified by Organizat ion Details LastModified Time Do you use any illicit or recreational drugs? No [email or web address] Information not available 03/23/2025 Do you or have you ever used any other forms of tobacco or nicotine? No [email or web address] Information not available 12/01/2024 What is your level of alcohol consumption? None Information not available 12/01/2024 Are you able to walk independently without assistance or assistive devices? YESWOREST [email or web address] Information not available 12/01/2024 Are you able to care for yourself independently? 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 Occasional [email or web address] Information not available 12/01/2024 Mental Status Question Answer Note LastModified by Organization D etails LastModified Time Do you feel stressed (tense, restless, nervous, or anxious, or unable to sleep at night)? [id number] [email or web address] Information not available 12/01/2024 Family History Relationship Description Onset Age of this Age Resolved Age Notes LastModified by Organization Details LastModified Time Unspecified Relation Family history unknown [email or web address] Not available 05/23 09:26:51 Maternal Grandmother Diabetes mellitus [email or web address] Not available 2024 16:45:50 Maternal Grandmother Hypertensive disorder [email or web address] Not available 2024 16:45:50 Maternal Grandmother Hypercholest erolemia [email or web address] Not available 2024 16:45:50 Medical History Condition [...] ICD10 Code Diagnosis IMO Codes Diagnosis Note [id number] VIK FINN MD [facility] [address] [address] 04/08/2025 16:31:58 04/11/2025 09:14:19 Placenta succenturiata 79238047 O43.192 25958571 - serial growth US RhD negative 976455903 O 26.899 Z67.91 351708 - weak D antigen, seen by [facility] who recommends RHogam- rhogam given at 30 weeks Gestation period, 30 weeks 77799128 Z3A.30 2511489 - continue PNV [id number] Clayton Byrd MD [facility] [address] [address] 04/22/2025 16:23:16 04/22/2025 18:15:42 Placenta succenturiata 21923049 O43.193 Z3A.32 36790273 [id number] [facility] [address] [address] 04/22/2025 16:23:39 04/23/2025 09:50:03 Gestation period, 32 weeks 3146975 Z3A.32 7591840 cont pnv [id number] [facility] [address] [address] 05/06/2025 09:41:55 05/06/2025 10:16:52 Gestation period, 34 weeks 61361485 Z3A.34 [id number] cont pnv Health Concerns Section Related Observation LastModified by Organization Detai ls LastModified Time None Recorded Concern Status LastModified by Organization Details LastModified Time None Recorded Payers Encounter Date Sequence Insurance Name Policy Number Policy Botello Covered Member ID Botello Member ID Guarantor Name 05/06/2025 1 [facility] (MEDICAID HMO) [id number] Sahra Novak [id number] Sahra Novak Notes Date Note Type Note Provider Name and Address Organization Details Recorded Time 05/06/2025 text/html Generic HPI TemplateReported by Patient Shantelle Pendleton Amy, RO[facility] [address], [place], [address], [place] [facility] 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 final report A Negative , weak D present [facility] recommends Rhogam pt rhogam on 04/06/25 Dwayne Artis Calculation Initial Artis Date Initial Exam Date Initial Exam Provider Initial Ultrasound Date Last Menstrual Period Date Ultra Sound Weeks Gestation 05/16/2025 10/19/2024 [email or web address] 10/19/2024 08/09/2024 6 Eighteen To Twenty Week [...] Weight in lbs Pre/Post Dialysis Refused Weight 148.072499508664 BP Diastolic BP Location Tested BP Systolic [...] Type Weight in lbs Pre/Post Dialysis Refused 153.013097695179 BP Diastolic BP Location Tested BP Systolic [...] Weight in lbs Pre/Post Dialysis Refused Weight 153.476340139440 BP Diastolic BP Location Tested BP Systolic [...] Weight in lbs Pre/Post Dialysis Refused Weight 155.561450128268 BP Diastolic BP Location Tested BP Systolic [...] Weight in lbs Pre/Post Dialysis Refused Weight 158.157151701523 BP Diastolic BP Location Tested BP Systolic BP Type 70 L arm 108 sitting Fetus Heart Rate Present Fetus Movement A Yes Comments Flowsheet Date 03/23/2025 Mcdonough Score Blood Edema Fundus Height Fundus Units Glucose Ketones Leukocytes Nitrite Labor Signs Protein Cervic Dilation Cervic Effacement Cervic Station Type Weight in lbs Pre/Post Dialysis Refused 158.132705818818 BP Diastolic BP Location Tested BP Systolic BP Type 70 108 Fetus Heart Rate Present A 140 Fetus Movement A Yes Comments Doing well, good movem ent. GCT and labs at [place] for Rhogam. Was seen by [facility], recommend Rhogam for weak D. EFW wnl at [facility] US. Discussed tdap and RSV vaccine. RTC 2 weeks. Flowsheet Date 04/08/2025 Mcdonough Score Blood Edema Fundus Height Fundus Units Glucose Ketones Leukocytes Nitrite Labor Signs Protein Cervic Dilation Cervic Effacement Cervic Station Type Weight in lbs Pre/Post Dialysis Refused Weight 159.685926561080 BP Diastolic BP Location Tested BP Systolic [...] Weight in lbs Pre/Post Dialysis Refused Weight 164.249866700540 BP Diastolic BP Location Tested BP Systolic [...] Weight in lbs Pre/Post Dialysis Refused Weight 165.961500911846 BP Diastolic BP Location Tested BP Systolic [...] Weight in lbs Pre/Post Dialysis Refused Weight 165.317350840446 BP Diastolic BP Location Tested BP Systolic [...] Type Weight in lbs Pre/Post Dialysis Refused 168.683161462315 BP Diastolic BP Location Tested BP Systolic [...]
--- OUTSIDE RECORDS SUMMARY | 2025-06-10 17:05 | XMS_ITS | Continuity of Care Document ---
Author Organization [facility] Address [address] [place] [address] [place] [address] Assessment Encounter Date Assessment Date Assessment LastModified by Organization Details LastModified Time 05/25/2025 05/25/2025 Patient is __37_weeks . Discussed plan. Not available 05/25/2025 09:44:24 Plan of Treatment Reminders Order Date Submit [...] Not Available [facility] [address], [place], [address], 12/07/2024 07:43:35 12/08/19 25 12/07/2024 [UNIT Y] ANEUP LOIDY NIPT 22Q11.2 microdeletio n LOW RISK <1 in 10,000 normal Not Available [facility] [address], [place], [address], 12/07/2024 07:43:35 12/08/19 25 12/07/2024 [UNIT Y] ANEUP LOIDY NIPT sex chromosome aneuploidy NOT DETECT ED normal Not Available [facility] [address], [place], [address], 12/07/2024 07:43:35 12/08/19 25 12/07/2024 [UNIT Y] ANEUP LOIDY NIPT monosomy X LOW RISK <1 in 10,000 normal Not Available [facility] [address], [place], [address], 12/07/2024 07:43:35 12/08/19 25 12/07/2024 [UNIT Y] ANEUP LOIDY NIPT trisomy 13 LOW RISK <1 in 10,000 normal Not Available [facility] [address], [place], [address], 12/07/2024 07:43:35 12/08/19 25 12/07/2024 [UNIT Y] ANEUP LOIDY NIPT trisomy 18 LOW RISK <1 in 10,000 normal Not Available [facility] [address], [place], [address], 12/07/2024 07:43:35 12/08/19 25 12/07/2024 [UNIT Y] ANEUP LOIDY NIPT trisomy 21 LOW RISK <1 in 10,000 normal Not Available [facility] [address], [place], [address], 12/07/2024 07:43:35 12/08/19 25 12/07/2024 [UNIT Y] ANEUP LOIDY NIPT sex FEMALE normal Not Available [facility] [address], [place], [address], 12/07/2024 07:43:35 12/08/19 25 12/07/2024 [UNIT Y] ANEUP LOIDY NIPT gestation SINGLE TON normal Not Available [facility] [address], [place], [address], 12/07/2024 07:43:35 12/08/19 25 12/07/2024 [UNIT Y] ANEUP TITUSY NIPT for detailed report, see pdf See PDF normal Not Available [facility] [address], [place], [address], 12/07/2024 07:43:35 12/23/19 25 12/22/2024 [UNIT Y] GUILLERMO Herrera sickle cell disease/beta -thalassemia /hemoglobino pathies carrier screen NEGATI VE normal Not Available [facility] [address], [place], [address], 12/22/2024 23:42:40 12/23/19 25 12/22/2024 [UNIT Y] GUILLERMO Herrera alpha-thalas semia carrier screen NEGATI VE normal Not Available [facility] [address], [place], [address], 12/22/2024 23:42:40 12/23/19 25 12/22/2024 [UNIT Y] GUILLERMO Herrera cystic fibrosis carrier screen NEGATI VE normal Not Available [facility] [address], [place], [address], 12/22/2024 23:42:40 12/23/19 25 12/22/2024 [UNIT Y] GUILLERMO Herrera spinal muscular atrophy carrier screen NEGATI VE 2 SMN1 copies , SNP not presen t normal Not Available [facility] [address], [place], [address], 12/22/2024 23:42:40 12/23/19 25 12/22/2024 [UNIT Y] GUILLERMO Herrera for detailed report, see pdf See PDF normal Not Available [facility] [address], [place], [address], 12/22/2024 23:42:40 12/02/19 25 12/01/2024 HIV 1/2 ANTIG EN/AN TIBOD Y, REFLE X CONFI RMATI ON HIV antigen/anti body Nonrea ctive nonrea ctive HIV-1 antig en and HIV-1 /HIV- 2 antib odies were not detec julieta. No labor atory evide nce of HIV infec tion. Not Available [facility] (Lab) [address], [place], [address], 12/02/2024 10:19:34 12/02/1912/01/2024 HEPAT ITIS B SURFA CE ANTIG EN hepatitis B surface antigen Non-re active non-re active This assay was perfo rmed using [employer] ratio n reage nts and test kits. Value s obtai edison with other assay metho ds or kits canno t be used inter kelley eably . Not Available [facility] (Lab) [address], [place], [address], 12/02/2024 10:19:35 12/02/1912/01/2024 HEPAT ITIS C ANTIB MOLLY SCREE N, REFLE X TO CONFI RMATI ON hepatitis C antibody Non-re active non-re active Antib odies to HCV Not Detec julieta, does not exclu de the possi bilit y of expos ure to HCV. Not Available [facility] (Lab) [address], [place], [address], 12/02/2024 10:19:35 12/02/19 25 12/01/2024 CBC W/DIF F WBC 8.1 10'3/ uL 3.5-10 .5 Not Available [facility] (Lab) [address], [place], [address], 12/02/2024 10:19:35 12/02/19 25 12/01/2024 CBC W/DIF F RBC 3.87 10'6/ uL (based on docume nted legal sex) 3.80-5 .20 Not Available [facility] (Lab) [address], [place], [address], 12/02/2024 10:19:35 12/02/19 25 12/01/2024 CBC W/DIF F HGB 12.4 g/dL (based on docume nted legal sex) 11.6-1 5.4 Not Available [facility] (Lab) [address], [place], [address], 12/02/2024 10:19:35 12/02/19 25 12/01/2024 CBC W/DIF F HCT 36.6 % (based on docume nted legal sex) 34.0-4 5.0 Not Available [facility] (Lab) [address], [place], [address], 12/02/2024 10:19:35 12/02/19 25 12/01/2024 CBC W/DIF F MCV 94.6 fL 80.0-9 9.0 Not Available [facility] (Lab) [address], [place], [address], 12/02/2024 10:19:35 12/02/19 25 12/01/2024 CBC W/DIF F MCH 32.0 pg 27.0-3 4.0 Not Available [facility] (Lab) [address], [place], [address], 12/02/2024 10:19:35 12/02/19 25 12/01/2024 CBC W/DIF F MCHC 33.9 g/dL 32.0-3 5.5 Not Available [facility] (Lab) [address], [place], [address], 12/02/2024 10:19:35 12/02/19 25 12/01/2024 CBC W/DIF F RDW 12.2 % 11.0-1 5.0 Not Available [facility] (Lab) [address], [place], [address], 12/02/2024 10:19:35 12/02/19 25 12/01/2024 CBC W/DIF F plt 220 10'3/ uL 150-40 0 Not Available [facility] (Lab) [address], [place], [address], 12/02/2024 10:19:35 12/02/19 25 12/01/2024 CBC W/DIF F MPV 11.6 fL 8.8-12 .1 Not Available [facility] (Lab) [address], [place], [address], 12/02/2024 10:19:35 12/02/19 25 12/01/2024 CBC W/DIF F NRBC's 0.0 % 0.0 Not Available [facility] (Lab) [address], [place], [address], 12/02/2024 10:19:35 12/02/19 25 12/01/2024 CBC W/DIF F absolute NRBCs 0.0 10'3/ uL no refere nce range establ ished Not Available [facility] (Lab) [address], [place], [address], 12/02/2024 10:19:35 12/02/19 25 12/01/2024 CBC W/DIF F neutrophils 77.4 % 34.0-7 3.0 high Not Available [facility] (Lab) [address], [place], [address], 12/02/2024 10:19:35 12/02/19 25 12/01/2024 CBC W/DIF F lymphocytes 15.0 % 15.0-5 0.0 Not Available [facility] (Lab) [address], [place], [address], 12/02/2024 10:19:35 12/02/19 25 12/01/2024 CBC W/DIF F monocytes 6.3 % 1.0-15 .0 Not Available [facility] (Lab) [address], [place], [address], 12/02/2024 10:19:35 12/02/19 25 12/01/2024 CBC W/DIF F eosinophils 0.7 % 0.0-8. 0 Not Available [facility] (Lab) [address], [place], [address], 12/02/2024 10:19:35 12/02/19 25 12/01/2024 CBC W/DIF F basophils 0.2 % 0.0-2. 0 Not Available [facility] (Lab) [address], [place], [address], 12/02/2024 10:19:35 12/02/19 25 12/01/2024 CBC W/DIF [...] separ ately if prese nt. Not Available [facility] (Lab) [address], [place], [address], 12/02/2024 10:19:35 12/02/19 25 12/01/2024 CBC W/DIF F absolute neutrophils 6.3 10'3/ uL 1.5-8. 0 Not Available [facility] (Lab) [address], [place], [address], 12/02/2024 10:19:35 12/02/19 25 12/01/2024 CBC W/DIF F absolute lymphocytes 1.2 10'3/ uL 1.0-4. 0 Not Available [facility] (Lab) [address], [place], [address], 12/02/2024 10:19:35 12/02/19 25 12/01/2024 CBC W/DIF F absolute monocytes 0.5 10'3/ uL 0.2-1. 0 Not Available [facility] (Lab) [address], [place], [address], 12/02/2024 10:19:35 12/02/19 25 12/01/2024 CBC W/DIF F absolute eosinophils 0.1 10'3/ uL 0.0-0. 6 Not Available [facility] (Lab) [address], [place], [address], 12/02/2024 10:19:35 12/02/19 25 12/01/2024 CBC W/DIF F absolute basophils 0.0 10'3/ uL 0.0-0. 3 Not Available [facility] (Lab) [address], [place], [address], 12/02/2024 10:19:35 12/02/19 25 12/01/2024 CBC W/DIF [...] bhand book. nm.or g/gen derx Not Available [facility] (Lab) [address], [place], [address], 12/02/2024 10:19:35 12/02/19 25 12/01/2024 RUBEL LA IGG ANTIB MOLLY, QUANT rubella antibodies, IgG Reacti ve reacti ve Not Available [facility] (Lab) [address] , [place], [address], 12/02/2024 10:19:36 12/02/19 25 12/01/2024 RUBEL LA IGG ANTIB MOLLY, QUANT rubella antibodies, IgG quant 17.9 IU/mL >=10 Non-r eacti ve (Non- Immun e) <10 IU/mL React marely (Immu ne) > or = 10 IU/mL Not Available [facility] (Lab) [address], [place], [address], 12/02/2024 10:19:36 12/02/19 25 12/01/2024 TYPE/ RH/SC REEN ABO/Rh type A NEG Not Available [facility] (Lab) [address], [place], [address], 12/02/2024 10:19:36 12/02/19 25 12/01/2024 TYPE/ RH/SC REEN antibody screen NEG Not Available [facility] (Lab) [address], [place], [address], 12/02/2024 10:19:36 12/02/1912/01/2024 TYPE/ RH/SC REEN exp date 2024 23:59 Not Available [facility] (Lab) [address], [place], [address], 12/02/2024 10:19:36 12/02/19 25 12/01/2024 HEMOG LOBIN [...] >8.0% Actio n sugge sted Not Available [facility] (Lab) [address], [place], [address], 12/02/2024 10:19:37 12/02/19 25 12/01/2024 RPR SCREE N, REFLE X TITER /CONF IRMAT ION RPR qualitative Nonrea ctive nonrea ctive Not Available [facility] (Lab) [address], [place], [address], 12/02/2024 10:19:37 12/02/1912/01/2024 CULTU RE: URINE result report SEE RESULT S BELOW Test: Cultu re: Urine Speci men Sourc e: Urine Voide d Speci men Type: Urine Speci men Date: 2024 1100 Resul t Date: 20244 Resul t Statu s: Final resul t Abnor mal: No Resul ting Lab: [facility] [address] [facility] [address] Tel: CULTU RE ----- ----- ----- --- No growt h in 1 day (dete ction level of 10,00 0 colon ies / ml.) Not Available [facility] (Lab) [address], [place], [address], 12/02/2024 22:47:13 12/02/19 25 12/01/2024 drug scree n, urine Amphetamines : negati ve Not Available [facility] [address], [place], [address], 12/01/2024 11:13:13 12/02/19 25 12/01/2024 drug scree n, urine Cannabinoids : negati ve Not Available [facility] [address], [place], [address], 12/01/2024 11:13:13 12/02/19 25 12/01/2024 drug scree n, urine Cocaine: negati ve Not Available [facility] [address], [place], [address], 12/01/2024 11:13:13 12/02/19 25 12/01/2024 drug scree n, urine Opiates: negati ve Not Available [facility] [address], [place], [address], 12/01/2024 11:13:13 12/02/19 25 12/01/2024 drug scree n, urine Phenocyclidi ne: negati ve Not Available [facility] [address], [place], [address], 12/01/2024 11:13:13 12/02/19 25 12/01/2024 drug scree n, urine Barbiturates : negati ve Not Available [facility] [address], [place], [address], 12/01/2024 11:13:13 12/02/19 25 12/01/2024 drug scree n, urine Benzodiazepi haris: negati ve Not Available [facility] [address], [place], [address], 12/01/2024 11:13:13 12/02/19 25 12/01/2024 drug scree n, urine Ethanol: negati ve Not Available [facility] [address], [place], [address], 12/01/2024 11:13:13 12/02/19 25 12/01/2024 drug scree n, urine Hallucinogen s: negati ve Not Available [facility] [address], [place], [address], 12/01/2024 11:13:13 12/02/19 25 12/01/2024 drug scree n, urine Inhalants: negati ve Not Available [facility] [address], [place], [address], 12/01/2024 11:13:13 12/02/19 25 12/01/2024 drug scree n, urine Anabolic Steroids: negati ve Not Available [facility] [address], [place], [address], 12/01/2024 11:13:13 12/02/19 25 12/01/2024 drug scree n, urine Other: positi ve Not Available [facility] [address], [place], [address], 12/01/2024 11:13:13 02/24/2002/23/2025 TYPE/ RH/SC REEN ABO/Rh type A NEG Not Available [facility] (Lab) [address], [place], [address], 02/24/2025 08:26:42 02/24/2002/23/2025 TYPE/ RH/SC REEN antibody screen NEG Not Available [facility] (Lab) [address], [place], [address], 02/24/2025 08:26:42 02/24/2002/23/2025 TYPE/ RH/SC REEN exp date 2024 23:59 Not Available [facility] (Lab) [address] [place], [address], 02/24/2025 08:26:42 05/18/20 25 05/18/2025 CULTU RE: [...] Resul prudenceg Lab: [facility] [address] [facility] [address] Tel: CULTU RE ----- ----- ----- --- [...] armando for these drugs . Not Available [facility] (Lab) [address], [place], [address], 05/22/2025 15:40:39 12/02/19 25 12/01/2024 US, obste tric, nucha l trans lucen cy No observ ation record ed. [email or web address] [facility] [address], [place], [address], 12/01/2024 14:38:13 12/02/19 25 12/01/2024 US, obste tric, follo w-up No observ ation record ed. [email or web address] [address], [place], [address], 12/01/2024 18:45:45 01/27/20 25 01/26/2025 US, obste tric, 2nd or 3rd trime ster No observ ation record ed. [email or web address] [facility] [address], [place], [address], 01/26/2025 12:36:41 01/27/20 25 01/26/2025 US, obste tric, 2nd or 3rd trime ster No observ ation record ed. [email or web address] [address], [place], [address], 01/26/2025 12:39:35 02/24/20 25 02/23/2025 US, obste tric, follo w-up No observ ation record ed. [email or web address] [facility] [address], [place], [address], 02/23/2025 18:48:54 02/24/20 25 02/23/2025 US, obste tric, follo w-up No observ ation record ed. [email or web address] [address], [place], [address], 02/23/2025 16:57:13 02/24/20 25 02/23/2025 US, obste tric, follo w-up No observ ation record ed. [email or web address] [address]nal[address], [place], [address], 02/23/2025 16:55:34 03/21/20 25 03/21/2025 US, obste tric, follo w-up No observ ation record ed. [email or web address] [facility] [address], [place], [address], 03/23/2025 16:02:35 03/21/20 25 03/21/2025 US, obste tric, follo w-up No observ ation record ed. [email or web address] [facility] [address], [place], [address], 03/22/2025 10:18:20 04/22/20 25 04/22/2025 US, obste tric, follo w-up No observ ation record ed. radha Woody [address], [place], [address], 04/27/2025 11:38:48 04/22/2004/22/2025 US, obste tric, follo w-up No observ ation record ed. [facility] [address], [place], [address], 04/22/2025 17:08:34 05/18/20 25 05/18/2025 US, obste tric, follo w-up No observ ation record ed. [facility] [address], [place], [address], 05/18/2025 18:24:57 05/18/20 25 05/18/2025 US, obste tric, follo w-up No observ ation record ed. [email or web address] [address]nal[address], [place], [address], 05/25/2025 10:56:46 Result Notes None recorded. Problems Name Problem SNOMED Code Status Onset Date Resolution Date Notes Provider Name and Address Organization Details Recorded Time 18097004 Active 2024 Mary Murillo [facility] 5 11:32:03 RhD negative 987170750 Active 2024 A-, need rhogam 28 weeks referral [facility] faxed 03/04 cancelled due to insurance - referral faxed to Mary [facility] 03/08 03/21 Mary [facility] final report A Negative , weak D present [facility] recommends Rhogam pt rhogam on 04/06/25 Dwayne Lindquist [facility] 21:45:57 Placenta succentur iata 54004814 Active 2024 serial growth US Elizabet Otto [facility] 5 12:38:22 Problem Notes None recorded. Procedures Surgical History Date Name Laterality Status Provider Name and Address Organization Details Recorded Time 05/09/2024 Date of Last Pap Smear completed Katherine Hardwick [facility] 03/23/2025 10:52:23 Imaging Results None recorded. Procedure Notes None recorded. Medical Equipment None Reported. Allergies Allergen ID Allergen Name Allergen Category Reaction Reaction Severity Criticality Documentation Date Start Date Code Code System Note Provider Name and Address Organization Details Recorded Time 27038 latex environme nt,medica tion Not available Not available Not available 12/01/2024 55755 91 RxNorm Mary Murillo [facility] 11:38:56 89431 ethinyl estradiol / norelgest romin medicatio n hives Not available Not available 05/06/2025 52085 7 RxNorm Not Available nieves - External [...] Updated DateTime 05/25/2025 167.64 cm 26.6 kg/m2 85894.74 g 114/75 mm[Hg] ALANNA MCINTYRE [facility] 05/25/2025 09:27:41 Social History Question Answer Notes LastModified by Organizat ion Details LastModified Time Tobacco Smoking Status Never Smoker Mary britton, [facility] 12/01/2024 11:12:14 Do You Have An Advance Directive? No [email or web address] Information n ot available 12/01/2024 If You Are , What Was Your Level Of Alcohol Consumption Prior To ? Occasional [email or web address] Information not available 12/01/2024 How Many Years Have You Consumed Alcohol? 0 [email or web address] Information not available 12/01/2024 Are You Blind Or Do You Have Difficulty Seeing? No [email or web address] Information n ot available 12/01/2024 What Is Your Level Of Caffeine Consumption? Moderate [email or web address] Information not available 12/01/2024 How Much Tobacco Do You Chew? None Information not available 12/01/2024 In The 14 Days Before Symptom Onset, Have You Had Close Contact With A Laboratory-confirm ed COVID-19 While That Case Was Ill? No [email or web address] Information n ot available 12/01/2024 In The 14 Days Before Symptom Onset, Have You Had Close Contact With A Person Who Is Under Investigation For COVID-19 While That Person Was Ill? No [email or web address] Information not available 12/01/2024 Have You Been To An Area Known To Be High Risk For COVID-19? No [email or web address] Information not available 12/01/2024 Are You Deaf Or Do You Have Serious Difficulty Hearing? No [email or web address] Information not available 12/01/2024 What Type Of Diet Are You Following? REGULAR [email or web address] Information n ot available 12/01/2024 What Is The Highest Grade Or Level Of School You Have Completed Or The Highest Degree You Have Received? [id number] [email or web address] Information not available 12/01/2024 Are There Any Guns Present In Your Home? No Information not available 12/01/2024 Do You Use Protection During Sex? No [email or web address] Information not available 12/01/2024 Do You Use Your Seat Belt Or Car Seat Routinely? Yes [email or web address] Information not available 12/01/2024 Do You Have Smoke And Carbon Monoxide Detectors In Your Home? Yes [email or web address] Information not available 12/01/2024 How Much Tobacco Do You Smoke? No [email or web address] Information not available 12/01/2024 Do You Use Sunscreen Routinely? Yes [email or web address] Information not available 12/01/2024 Has Tobacco Cessation Counseling Been Provided? Yes Information not available 12/01/2024 On What Date Was Tobacco Cessation Counseling Provided? 12/01/2024 Information not available 12/01/2024 How Many Years Have You Smoked Tobacco? 0 [email or web address] Information not available 12/01/2024 Have You Used IV Drugs? No Information not available 12/01/2024 Do You Have Difficulty Walking Or Climbing Stairs? No [email or web address] Information not available 12/01/2024 Sex: Unknown Functional Status Question Answer Note LastModified by Organizat ion Details LastModified Time Do you use any illicit or recreational drugs? No [email or web address] Information not available 03/23/2025 Do you or have you ever used any other forms of tobacco or nicotine? No [email or web address] Information not available 12/01/2024 What is your level of alcohol consumption? None [email or web address] Information not available 12/01/2024 Are you able to walk independently without assistance or assistive devices? YESWOREST [email or web address] Information not available 12/01/2024 Are you able to care for yourself independently? 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 Occasional [email or web address] Information not available 12/01/2024 Mental Status Question Answer Note LastModified by Organization D etails LastModified Time Do you feel stressed (tense, restless, nervous, or anxious, or unable to sleep at night)? [id number] Information not available 12/01/2024 Family History Relationship Description Onset Age of this Age Resolved Age Notes LastModified by Organization Details LastModified Time Unspecified Relation Family history unknown [email or web address] Not available 05/23 09:26:51 Maternal Grandmother Diabetes mellitus [email or web address] Not available 2024 16:45:50 Maternal Grandmother Hypertensive disorder [email or web address] Not available 2024 16:45:50 Maternal Grandmother Hypercholest erolemia [email or web address] Not available 2024 16:45:50 Medical History Condition [...] ICD10 Code Diagnosis IMO Codes Diagnosis Note [id number] Shantelle Reyes CNM [facility] [address] [address] 05/06/2025 09:41:55 05/06/2025 10:16:52 Gestation period, 34 weeks 01998279 Z3A.34 [id number] cont pnv [id number] Clayton Byrd MD [facility] [address] [address] 05/18/2025 15:46:51 05/18/2025 16:39:24 Placenta succenturiata 55900848 O43.193 Z3A.36 [id number] Shantelle Reyes CNM [facility] [address],[facility] [place] [place] [address] 05/18/2025 15:47:05 05/18/2025 16:47:42 Gestation period, 36 weeks 12737139 Z3A.36 2109716 cont pnv [id number] Shantelle Reyes CNM [facility] [address],[facility] [place] [place] [address] 05/25/2025 09:12:15 05/25/2025 09:45:37 Gestation period, 37 weeks 80044635 Z3A.37 0548154 cont pnv Health Concerns Section Related Observation LastModified by Organization Detai ls LastModified Time None Recorded Concern Status LastModified by Organization Details LastModified Time None Recorded Payers Encounter Date Sequence Insurance Name Policy Number Policy Botello Covered Member ID Botello Member ID Guarantor Name 05/25/2025 1 [facility] (MEDICAID HMO) [id number] Sahra Novak [id number] Sahra Kishore Notes Date Note Type Note Provider Name and Address Organization Details Recorded Time 05/25/2025 text/html Generic HPI TemplateReported by Patient Shantelle Reyes CNM [address], [place], [address], [facility] 05/25/2025 09:44:50 OBGyn Episode Ob Episode Information Episode Created Date Number of Fetuses Patient Bloodtype Patient rh Status Prepregnancy Weight lbs Domestic Partner Domestic Partner Phone Father Name Psych Arnp Status 12/02/19 25 1 A Negative 147 Akshat Hildebr and OPEN Fetus Data First Name Last Name Admitted to NICU Weight (g) Sex Living Outcome Pediatric Complications Fetus ID Race Codes Race Delivery Type [id number] Problems Problem Notes Problem Name Start Date End Date Resolution Snomed Code Not e Placenta succenturiata 01/26/2025 [id number] serial growth US RhD negative 12/03/2024 [id number] A-, ne ed rhogam 28 weeks referral [facility] faxed 03/04 cancelled due to insurance - referral faxed to Mary VITALE Mary [facility] final report A Negative , weak D present [facility] recommends Rhogam pt rhogam on 04/06/25 Dwayne Artis Calculation Initial Artis Date Initial Exam Date Initial Exam Provider Initial Ultrasound Date Last Menstrual Period Date Ultra Sound Weeks Gestation 05/16/2025 10/19/2024 10/19/2024 08/09/2024 6 Eighteen To Twenty Week [...] Weight in lbs Pre/Post Dialysis Refused Weight 148.995000377228 BP Diastolic BP Location Tested BP Systolic [...] Type Weight in lbs Pre/Post Dialysis Refused 153.620716988920 BP Diastolic BP Location Tested BP Systolic [...] Weight in lbs Pre/Post Dialysis Refused Weight 153.487393754503 BP Diastolic BP Location Tested BP Systolic [...] Weight in lbs Pre/Post Dialysis Refused Weight 155.036107546938 BP Diastolic BP Location Tested BP Systolic [...] Weight in lbs Pre/Post Dialysis Refused Weight 158.981652720726 BP Diastolic BP Location Tested BP Systolic BP Type 70 L arm 108 sitting Fetus Heart Rate Present Fetus Movement A Yes Comments Flowsheet Date 03/23/2025 Mcdonough Score Blood Edema Fundus Height Fundus Units Glucose Ketones Leukocytes Nitrite Labor Signs Protein Cervic Dilation Cervic Effacement Cervic Station Type Weight in lbs Pre/Post Dialysis Refused 158.223168741393 BP Diastolic BP Location Tested BP Systolic BP Type 70 108 Fetus Heart Rate Present A 140 Fetus Movement A Yes Comments Doing well, good movem ent. GCT and labs at [facility] for Rhogam. Was seen by [facility], recommend Rhogam for weak D. EFW wnl at [facility] US. Discussed tdap and RSV vaccine. RTC 2 weeks. Flowsheet Date 04/08/2025 Mcdonough Score Blood Edema Fundus Height Fundus Units Glucose Ketones Leukocytes Nitrite Labor Signs Protein Cervic Dilation Cervic Effacement Cervic Station Type Weight in lbs Pre/Post Dialysis Refused Weight 159.256974129613 BP Diastolic BP Location Tested BP Systolic [...] Weight in lbs Pre/Post Dialysis Refused Weight 164.357105606445 BP Diastolic BP Location Tested BP Systolic [...] Weight in lbs Pre/Post Dialysis Refused Weight 165.174562491574 BP Diastolic BP Location Tested BP Systolic [...] Weight in lbs Pre/Post Dialysis Refused Weight 165.250874047467 BP Diastolic BP Location Tested BP Systolic [...] Type Weight in lbs Pre/Post Dialysis Refused 168.417372228211 BP Diastolic BP Location Tested BP Systolic [...]
--- OUTSIDE RECORDS SUMMARY | 2025-06-10 17:05 | XMS_ITS | Data Portability ---
Author Organization [facility] Address [address] [place] [place] [address] Care Team Providers Care Search Engine Marketing Specialist Name Role Phone SAMMY ANNEOTHY Business Intelligence Developer Unavailable Assessment Encounter Date Assessment Date Assessment LastModified by Organization Details LastModified Time 04/26/2022 04/26/2022 DASIA Villa Not available 04/26/2022 11:34:18 08/09/2024 08/09/2024 Return to office in 1 year or as needed [email or web address] Not available 08/13/2024 09:58:52 Plan of Treatment Reminders Order Date Submit Date Provider Last Modified By Organization Details Last Modified Time Details Appointments None recorded . Lab HIV 1 + 2, meaningf ul use set 2024 025 [facility], [address] [place] [address], [address], [place], [address], 5 08:25:03 RPR (rapid plasma reagin), serum 2024 025 [facility], [address] [place] [address], [address], [place], [address], 5 08:25:01 HBsAg (hepatit is B surface Ag), EIA, serum 2024 025 [facility], [address] [place] [address], [address], [place], [address], 5 08:24:59 Hepatiti s C IgG Ab, qual, serum 2024 025 [facility], [facility] [address], [address], [place], [address], 5 08:24:58 vaginal pathogen s panel, VICKY+prob e, vaginal fluid 2024 025 [facility], [facility] [address], [address], [place], [address], 5 03:08:33 CMP, serum or plasma 2023 024 [facility], [facility] [address], [address], [place], [address], 4 07:12:24 CBC 2023 024 [facility], [address] [place] [address], [address], [place], [address], 4 07:12:28 HbA1c (hemoglo bin A1c), blood 2023 024 [facility], [facility] [address], [address], [place], [address], 4 07:12:27 TSH, ultra-se nsitive, serum 2023 024 [facility], [address] [place], [place] [address]rud[address], [address], [place], [address], 4 07:12:26 lipid panel, serum 2023 024 [facility], [facility] [address], [address], [place], [address], 4 07:12:23 pap, IG + HPV, cervical 2021 022 [facility], [address], [address], [place], [address], 2 07:07:39 pregnanc y test, urine 2021 In-Office Order, Internal Use Only DO Not Attach Compendium DO Not Attach Compendium, Do Not Delete/merge, [id number] 2 15:45:19 Referral behavior al health referral 2023 024 bob Valle (), [address] [place], [address], 4 14:24:39 orthoped ic surgeon referral - Recurren t sprain of R ankle, wants second opinion by ortho 2021 [facility], [address], [place], [address], 2 13:36:36 Procedures None recorded . Surgeries None recorded . Imaging None recorded . Medication Orders Loestrin Fe 07/12 (28-Day) 1 mg-20 mcg (21)/75 mg (7) tablet 2024 025 [id number], [address], [place], [place], [id number], 5 16:17:30 Vitamin 27 mg iron-0.8 mg tablet 2024 025 [facility] #[id number], [address], [place], [id number], 5 16:17:29 Kyleena 17.5 mcg/24 hr (up to 5 years) 19.5 mg intraute rine device 2021 022 [email or web address] Not available 5 15:18:46 Patient TargetsNo targets recorded. Patient Instructions Encounter Date Encounter Id Patient Instructions Last Modified By Organization Details Last Modified Time 04/26/2022 [id number] ankle sprain: ca re instructions Not available 04/26/2022 11:24:30 learning about rice (rest, ice, compression, and elevation) Not available 04/26/2022 11:24:30 ankle sprain: rehab exercises Not available 04/26/2022 11:24:30 learning about control: intrauterine device (iud) Not available 04/26/2022 11:23:59 06/06/2022 [id number] intrauterine device (IUD) for control: care instructions Not available 06/06/2022 15:08:46 intrauterine device (IUD) insertion: care instructions Not available 06/06/2022 15:08:46 A healthy lifestyle: care instructions Not available 06/06/2022 15:07:54 07/18/2022 [id number] A healthy lifestyle: care instructions Not available 07/18/2022 15:18:47 08/09/2024 [id number] Attending Physician Attestation S: 33 yo F [...] my brief note above. Janeen Anne MD [email or web address] Not available 08/09/2024 16:05:47 Reason for Referral Orthopedic Surgeon Referral for Sprain of right ankle Recurrent sprain of R ankle, wants second opinion by ortho Referring Physician: Hilda Darling, Rn Emergency, Encounter Date: 06/06/2022 Behavioral Health Referral f [...] diffe renti ation . Not Available [facility] ([facility]) [address] [place], [address], 06/18/2022 07:07:38 06/06/20 22 06/18/2022 IGP, APTIM A HPV diagnosis: Jade t NEGAT DOMINGO FOR INTRA EPITH ELIAL LESCORINNA N OR ALEJANDRA BROWN . Not Available [facility] ([facility]) [address] [facility], [place], [address], 06/18/2022 07:07:38 06/06/20 22 06/18/2022 IGP, APTIM A HPV specimen adequacy: Jade t Satis facto ry for evalu ation . Endoc ervic al and/o r squam ous metap lasti c cells (endo cervi daniel compo nent) are prese nt. Not Available [facility] ([facility]) [address] [place], [address], 06/18/2022 07:07:38 06/06/20 22 06/18/2022 IGP, APTIM A HPV clinician provided ICD10: Jade salcedo Z01.4 19 Not Available [facility] ([facility]) [address] [place], [address], 06/18/2022 07:07:38 06/06/20 22 06/18/2022 IGP, APTIM A HPV performed by: Jade t Philly headley, Cytot adilene salcedo (ASCP ) Not Available [facility] ([facility]) [address] [facility], [place], [address], 06/18/2022 07:07:38 06/06/20 22 06/18/2022 IGP, APTIM A HPV . . Not Available [facility] ([facility]) [address] [facility], [place], [address], 06/18/2022 07:07:38 06/06/20 22 06/18/2022 IGP, APTIM [...] ts do occur . Not Available [facility] ([facility]) [address] [facility], [place], [address], 06/18/2022 07:07:38 06/06/20 22 06/18/2022 IGP, APTIM A HPV test methodology: Commen t This liqui d based ThinP rep(R ) pap test was scree edison with the use of an image guide d systalfonzo m. Not Available [facility] ([facility]) [address] [facility], [place], [address], 06/18/2022 07:07:38 06/06/20 22 06/06/2022 pregn hillary test, urine HCG negati ve Not Available In-Office Order Internal Use Only DO Not Attach Compendium DO Not Attach Compendium, Do Not Delete/merge, [id number] 06/06/2022 15:08:21 06/15/20 24 06/16/2024 LIPID PANEL cholesterol, total 137 mg/dL 100-19 9 Not Available [facility] ([facility]) [address] [facility], [place], [address], 06/16/2024 07:12:23 06/15/20 24 06/16/2024 LIPID PANEL triglyceride s 56 mg/dL 0-149 Not Available [facility]) [address] [place], [address], 06/16/2024 07:12:23 06/15/20 24 06/16/2024 LIPID PANEL HDL cholesterol 46 mg/dL >39 Not Available [facility] [address] [place], [address], 06/16/2024 07:12:23 06/15/20 24 06/16/2024 LIPID PANEL VLDL cholesterol daniel 12 mg/dL 5-40 Not Available [facility] ([facility]) [address] [place], [address], 06/16/2024 07:12:23 06/15/20 24 06/16/2024 LIPID PANEL LDL chol calc ([facility]) 79 mg/dL 0-99 Not Available [facility] [address] [place], [address], 06/16/2024 07:12:23 06/15/20 24 06/16/2024 COMP. METAB OLIC PANEL (14) glucose 86 mg/dL 70-99 Not Available [facility] ([facility]) [address] [place], [address], 06/16/2024 07:12:24 06/15/20 24 06/16/2024 COMP. METAB OLIC PANEL (14) BUN 8 mg/dL 6-20 Not Available [facility] ([facility]) [address] [place], [address], 06/16/2024 07:12:24 06/15/20 24 06/16/2024 COMP. METAB OLIC PANEL (14) creatinine 0.79 mg/dL 0.57-1 .00 Not Available [facility] ([facility]) [address] [place], [address], 06/16/2024 07:12:24 06/15/20 24 06/16/2024 COMP. METAB OLIC PANEL (14) eGFR 101 mL/mi n/1.7 3 >59 Not Available [facility] ([facility]) [address] [facility], [place], [address], 06/16/2024 07:12:24 06/15/20 24 06/16/2024 COMP. METAB OLIC PANEL (14) BUN/creatini ne ratio 10 9-23 Not Available [facility] ([facility]) [address] [facility], [place], [address], 06/16/2024 07:12:24 06/15/20 24 06/16/2024 COMP. METAB OLIC PANEL (14) sodium 142 mmol/ L 134-14 4 Not Available [facility] ([facility]) [address] [facility], [place], [address], 06/16/2024 07:12:24 06/15/20 24 06/16/2024 COMP. METAB OLIC PANEL (14) potassium 3.7 mmol/ L 3.5-5. 2 Not Available [facility] ([facility]) [address] [facility], [place], [address], 06/16/2024 07:12:24 06/15/20 24 06/16/2024 COMP. METAB OLIC PANEL (14) chloride 102 mmol/ L 96-106 Not Available [facility] ([facility]) [address] [facility], [place], [address], 06/16/2024 07:12:24 06/15/20 24 06/16/2024 COMP. METAB OLIC PANEL (14) carbon dioxide, total 27 mmol/ L 20-29 Not Available [facility] ([facility]) [address] [facility], [place], [address], 06/16/2024 07:12:24 06/15/20 24 06/16/2024 COMP. METAB OLIC PANEL (14) calcium 9.5 mg/dL 8.7-10 .2 Not Available [facility] ([facility]) [address] [place], [address], 06/16/2024 07:12:24 06/15/20 24 06/16/2024 COMP. METAB OLIC PANEL (14) protein, total 6.7 g/dL 6.0-8. 5 Not Available [facility] ([facility]) [address] [place], [address], 06/16/2024 07:12:24 06/15/20 24 06/16/2024 COMP. METAB OLIC PANEL (14) albumin 4.5 g/dL 3.9-4. 9 Not Available [facility] ([facility]) [address] [place], [address], 06/16/2024 07:12:24 06/15/20 24 06/16/2024 COMP. METAB OLIC PANEL (14) globulin, total 2.2 g/dL 1.5-4. 5 Not Available [facility] ([facility]) [address] [place], [address], 06/16/2024 07:12:24 06/15/20 24 06/16/2024 COMP. METAB OLIC PANEL (14) bilirubin, total 0.4 mg/dL 0.0-1. 2 Not Available [facility] ([facility]) [address] [place], [address], 06/16/2024 07:12:24 06/15/20 24 06/16/2024 COMP. METAB OLIC PANEL (14) alkaline phosphatase 64 IU/L 44-121 Not Available [facility] ([facility]) [address] [place], [address], 06/16/2024 07:12:24 06/15/20 24 06/16/2024 COMP. METAB OLIC PANEL (14) AST (SGOT) 17 IU/L 0-40 Not Available [facility] ([facility]) [address] [facility], [place], [address], 06/16/2024 07:12:24 06/15/20 24 06/16/2024 COMP. METAB OLIC PANEL (14) ALT (SGPT) 16 IU/L 0-32 Not Available [facility] ([facility]) [address] [facility], [place], [address], 06/16/2024 07:12:24 06/15/20 24 06/16/2024 TSH RFX ON ABNOR MAL TO FREE T4 TSH 0.590 uIU/m L 0.450- 4.500 Not Available [facility] ([facility]) [address] [facility], [place], [address], 06/16/2024 07:12:26 06/15/20 24 06/16/2024 HEMOG LOBIN A1C hemoglobin A1C 5.2 % 4.8-5. 6 Predi abete s: 5.7 - 6.4 Diabe niki: >6.4 Glyce doc contr ol for adult s with diabe niki: <7.0 Not Available [facility] ([facility]) [address] [facility], [place], [address], 06/16/2024 07:12:27 06/15/20 24 06/16/2024 CBC, PLATE LET, NO DIFFE RENTI AL WBC 6.1 x10e3 /uL 3.4-10 .8 Not Available [facility] ([facility]) [address] [place], [address], 06/16/2024 07:12:28 06/15/20 24 06/16/2024 CBC, PLATE LET, NO DIFFE RENTI AL RBC 4.85 x10e6 /uL 3.77-5 .28 Not Available [facility] ([facility]) [address] [place], [address], 06/16/2024 07:12:28 12/24/20 24 06/16/2024 CBC, PLATE LET, NO DIFFE RENTI AL hemoglobin 15.3 g/dL 11.1-1 5.9 Not Available [facility] ([facility]) [address] [facility], [place], [address], 06/16/2024 07:12:28 06/15/2006/16/2024 CBC, PLATE LET, NO DIFFE RENTI AL hematocrit 45.4 % 34.0-4 6.6 Not Available [facility] ([facility]) [address] [facility], [place], [address], 06/16/2024 07:12:28 06/15/2006/16/2024 CBC, PLATE LET, NO DIFFE RENTI AL MCV 94 fL 79-97 Not Available [facility] ([facility]) [address] [facility], [place], [address], 06/16/2024 07:12:28 06/15/2006/16/2024 CBC, PLATE LET, NO DIFFE RENTI AL MCH 31.5 pg 26.6-3 3.0 Not Available [facility] ([facility]) [address] [facility], [place], [address], 06/16/2024 07:12:28 06/15/20 24 06/16/2024 CBC, PLATE LET, NO DIFFE RENTI AL MCHC 33.7 g/dL 31.5-3 5.7 Not Available [facility] ([facility]) [address] [facility], [place], [address], 06/16/2024 07:12:28 06/15/2006/16/2024 CBC, PLATE LET, NO DIFFE RENTI AL RDW 12.0 % 11.7-1 5.4 Not Available [facility] ([facility]) [address] [facility], [place], [address], 06/16/2024 07:12:28 06/15/2006/16/2024 CBC, PLATE LET, NO DIFFE RENTI AL platelets 257 x10e3 /uL 150-45 0 Not Available [facility] ([facility]) [address] [place], [address], 06/16/2024 07:12:28 08/09/19 25 08/10/2024 INTER PRETA TION: interpretati on: Commen t Not infec julieta with HCV unles s early or acute infec tion is suspe cted (whic h may be delay ed in an immun ocomp romis ed indiv idual ), or other evide nce exist s to indic ate HCV infec tion. Not Available [facility] ([facility]) [address] [facility], [place], [address], 08/10/2024 08:24:57 08/09/1908/10/2024 HCV ANTIB MOLLY RFX TO QUANT PCR HCV Ab NON REACTI VE nonrea ctive Not Available [facility] ([facility]) [address] [facility], [place], [address], 08/10/2024 08:24:58 08/09/1908/10/2024 HBSAG SCREE N HBsAg screen NEGATI VE negati ve Not Available [facility] ([facility]) [address] [place], [address], 08/10/2024 08:24:59 08/09/1908/10/2024 RPR, RFX QN RPR/C ONFIR M TP RPR NON REACTI VE nonrea ctive Not Available [facility] ([facility]) [address] [place], [address], 08/10/2024 08:25:01 08/09/1908/10/2024 HIV AB/P2 4 AG WITH REFLE X HIV Ab/P24 Ag screen NON REACTI VE nonrea ctive HIV-1 /HIV- 2 antib odies and HIV-1 p24 antig en were NOT detec julieta. There is no labor atory evide nce of HIV infec tion. HIV Negat domingo Not Available [facility] ([facility]) [address] [facility], [place], [address], 08/10/2024 08:25:03 08/09/1908/10/2024 NUA B VAGIN ITIS PLUS (VG+) atopobium vaginae HIGH - 2 score abnormal Not Available [facility] ([facility]) [address] [facility], [place], [address], 08/11/2024 03:08:33 08/09/1908/10/2024 NUA B VAGIN ITIS PLUS (VG+) bvab 2 HIGH - 2 score abnormal Not Available [facility] ([facility]) [address] [facility], [place], [address], 08/11/2024 03:08:33 08/09/1908/10/2024 NUA B VAGIN ITIS [...] prese nce of BV. Not Available [facility] ([facility]) [address] [facility], [place], [address], 08/11/2024 03:08:33 08/09/1908/10/2024 NUA B VAGIN ITIS PLUS (VG+) francoise albicans, VICKY NEGATI VE negati ve Not Available [facility] ([facility]) [address] [facility], [place], [address], 08/11/2024 03:08:33 08/09/19 25 08/10/2024 NUA B VAGIN ITIS PLUS (VG+) francoise glabrata, VICKY NEGATI VE negati ve Not Available [facility] ([facility]) [address] [facility], [place], [address], 08/11/2024 03:08:33 08/09/19 25 08/11/2024 NUA B VAGIN ITIS PLUS (VG+) trich vag by VICKY NEGATI VE negati ve Not Available [facility] ([facility]) [address] [facility], [place], [address], 08/11/2024 03:08:33 08/09/1908/11/2024 NUA B VAGIN ITIS PLUS (VG+) chlamydia trachomatis, VICKY NEGATI VE negati ve Not Available [facility] ([facility]) [address] [facility], [place], [address], 08/11/2024 03:08:33 08/09/1908/11/2024 NUA B VAGIN ITIS PLUS (VG+) neisseria gonorrhoeae, VICKY NEGATI VE negati ve Not Available [facility] ([facility]) [address] [facility], [place], [address], 08/11/2024 03:08:33 04/26/20 22 04/26/2022 XR, ankle , 3 or more view No observ ation record ed. BARCODE Not Available 2021 11:36:53 Result Notes None recorded. Problems Name Problem SNOMED Code Status Onset Date Resolution Date Notes Provider Name and Address Organization Details Recorded Time Subcutaneou s contracepti ve implant palpable 373259375 Completed 201605/27/2017 CARY Rojas [place] - [facility] 7 16:29:13 Contracepti on care Completed 201605/27/2017 SIVAKUMAR [place] 7 17:43:11 Gynecologic examination Completed 201605/27/2017 CARY Rojas [place] [facility] 7 16:29:17 Candidiasis of vagina 67479533 Completed 201603/24/2019 ELSA BARBER Attn: Krystlejose ramon lou,[address] [facility], [place], [address], [place] - [facility] 9 14:12:38 Bacterial vaginosis 183696321 Completed 201603/24/2019 Mara Hernadez MD Attn: Jeffrey lou,[address] [facility], [place], [address], [place] [facility] 5 09:49:12 Bacterial vaginosis 281924443 Completed 2016 Letty Wu [place] null, [place] [facility] 8 10:58:35 84125848 Completed 201605/27/2017 Josesito Covarrubias [place] [facility] 7 17:43:08 Serum thyroid stimulating hormone level outside reference range 957003397 Completed 201605/27/2017 Josesito FreyMarci [place] [facility] 7 17:42:59 Adult health examination Active 2023 Raji Slade MD Attn: Jeffrey lou,[address] [place], [address], [place] [facility] 4 10:20:01 Family history of diabetes mellitus 072323916 Active 2023 Mara Hernadez MD Attn: Jeffrey lou,[address] [place], [address], [place] [facility] 5 15:00:26 History of mood disorder 768109783 Active 2023 Mara Hernadez MD Attn: Jeffrey lou,[address] [place], [address], [place] [facility] 5 15:00:28 Bacterial vaginosis 118147661 Active 2024 Mara Hernadez MD Attn: Jeffrey lou,[address] [place], [address], [place] [facility] 5 09:49:11 Marijuana user 277797087 Active 2024 Mara Hernadez MD Attn: Jeffrey lou,[address] [facility], [place], [address], [place] [facility] 5 09:57:41 Removal of intrauterin e contracepti ve device Active 2024 Mara Hernadez MD Attn: Jeffrey lou,[address] [facility], [place], [address], [place] [facility] 5 09:57:28 Venereal disease screening Active 2024 Mara Hernadez MD Attn: Jeffrey lou,[address] [place], [address], [place] [facility] 5 09:57:30 Contracepti on care management Active 2024 Mara Hernadez MD Attn: Jeffrey lou,[address] [facility], [place], [address], [place] [facility] 5 09:57:31 Problem Notes None recorded. Procedures Surgical History Date Name Laterality Status Provider Name and Address Organization Details Recorded Time 5 IUD Removal completed Mara Hernadez MD Attn: Accounting,[address] [place], [address], [place] [facility] 08/13/2024 09:56:05 2 Control Implant Removal completed ELSA BARBER Attn: Accounting,[address] [place], [address], [place] [facility] 06/06/2022 15:44:04 2 IUD Insertion completed ELSA BARBER Attn: Accounting,[address] [place], [address], [place] [facility] 06/06/2022 15:44:17 2 Date of Last Pap Smear completed Letty Wu [place] [facility] 08/09/2024 15:13:52 8 Control Implant Insertion completed Letty Wu [place] - [facility] 11/10/2017 11:02:06 7 Control Implant Removal completed Donna Hall PA-C Attn: Accounting,[address] [facility] [facility], [place], [address], [facility] - [facility] 08/30/2016 10:13:45 Imaging Results None recorded. Procedure Notes None recorded. Medical Equipment None Reported. Allergies Allergen ID Allergen Name Allergen Category Reaction Reaction Severity Criticality Documentation Date Start Date Code Code System Note Provider Name and Address Organization Details Recorded Time 443156 latex environme nt,medica tion hives Not available Not available 05/05/2019 71716 91 RxNorm Yumiko Swift [place] null, [place] - [facility] 9 14:20:22 744378 adhesive tape environme nt,medica tion hives Not available Not available 05/05/2019 Yumiko Swift [place] null, [place] [facility] 9 14:20:33 503173 ethinyl estradiol / norelgest romin medicatio n hives Not available Not available 05/05/2019 65003 7 RxNorm from the adhes domingo tape ELSA BARBER Attn: Jeffrey g,[address] [facility], [place], [address], [facility] - [facility] 9 14:39:32 Medications Name [...] weight Heart rate Body temperature Oxygen saturation Systolic And Diastolic Provider Name and Address Organization Details Last Updated DateTime 3 165.1 cm 29.8 kg/m2 78206.4 3 g 73 /min 98.7 [degF] 100 % 104/68 mm[Hg] Yumiko Swift MA [facility] 3 15:06:41 Date Recorded Body height Body mass index (BMI) Body weight Systolic And Diastolic Provider Name and Address Organization Details Last Updated DateTime 08/09/2024 165.1 cm 25 kg/m2 58285.86 g 110/68 mm[Hg] Letty Wu MA [facility] 08/09/2024 15:23:39 Date Recorded Body height Body mass index (BMI) Body weight Heart rate Body temperature Oxygen saturation Systolic And Diastolic Provider Name and Address Organization Details Last Updated DateTime 2 165.1 cm 29.9 kg/m2 87576.8 3 g 62 /min 98.7 [degF] 99 % 114/80 mm[Hg] Yumiko Swift MA [facility] 2 10:47:54 Date Recorded Body height Body mass index (BMI) Body weight Heart rate Body temperature Oxygen saturation Systolic And Diastolic Provider Name and Address Organization Details Last Updated DateTime 2 165.1 cm 29.5 kg/m2 20967.6 5 g 83 /min 98.8 [degF] 100 % 104/76 mm[Hg] Yumiko Swift MA [facility] 2 15:04:39 Date Recorded Body height Body mass index (BMI) Body weight Heart rate Oxygen saturation Systolic And Diastolic Provider Name and Address Organization Details Last Updated DateTime 4 165.1 cm 25 kg/m2 51632 g 66 /min 98 % 122/80 mm[Hg] Carmen Rice MA [facility] 4 10:03:37 Social History Question Answer Notes LastModified by Organizat ion Details LastModified Time Tobacco Smoking Status Never Smoker Anna Pina MA null, [facility] 08/30/2016 09:05:57 Do You Have An Advance Directive? No Information not available 02/25/2017 If You Are , What Was Your Level Of Alcohol Consumption Prior To ? Occasional Information not available 02/25/2017 Is Anesthesia Consult Planned? Yes Information not available 02/25/2017 Plan Yes Vaginal With Epidural Information not available 04/30/2017 Is Blood Transfusion [...] To Your Family Or Social Situation? No [email or web address] Information not available 04/30/2017 Frequent Air Travel [...] available 02/25/2017 Are you currently employed? 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 02/25/2017 What is your [...] 50 mcg/0.25mL dose 1 completed Alex britton [place] - [facility] 12/27/2020 17:04:48 COVID-19, mRNA, LNP-S, PF, 100 mcg/0.5mL dose or 50 mcg/0.25mL dose 1 completed Alex britton [place] - [facility] 12/27/2020 17:07:09 Influenza, split virus, quadrivalent, preservative 7 completed Not Available [facility] 07/10/2019 02:34:22 Tdap 8 completed Not Available [facility] 07/10/2019 02:34:56 Past Encounters Encounter ID Performer Location Encounter Start Date Encounter Closed Date Diagnosis/Indication Diagnosis SNOMED-CT Code Diagnosis ICD10 Code Diagnosis IMO Codes Diagnosis Note [id number] MD Tori Cerrato (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) [address] [place] [address] [phone] 0 08/30/2016 08:43:03 09/03/2016 14:40:04 Subcutaneous contraceptive implant palpable 477972359 Z30.49 Removed today - due out 05/11/2016 Contraception care 66002 5005 Z30.40 Patient would like to switch to NuvaringSh e is currently on her cycleAdvis ed to place on oms for the first week [id number] MD Tori Cerrato (Adult Med) [address] [place] [address] [phone] 0 09/24/2016 13:51:20 09/24/2016 17:42:35 Gynecologic examination 40518751 Z01.419 Contraception care 65073 5005 Z30.40 Patient would like to switch to NuvaringSh e is currently on her cycleAdvis ed to place on oms for the first week [id number] 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 [address] [place] [address] [phone] 0 02/25/2017 14:01:32 02/25/2017 15:28:03 Routine care 511124491 Z34.90 Nausea and vomiting 1693 2000 R11.2 [id number] [facility] (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) [address] [place] [address] [phone] 0 03/14/2017 09:17:15 03/14/2017 11:25:55 Routine care 426766524 Z34.90 [id number] [facility]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) [address] [place] [address] 48203-714 0 03/26/2017 14:37:33 03/27/2017 14:31:41 Routine care 552200009 Z34.01 Administra tion of influenza vaccine 91285359 Z23 Bacterial vaginosis 4197 80407 N76.0 [id number] [facility] (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) [address] [place] [address] [id number] 0 04/30/2017 15:33:15 05/01/2017 13:20:34 Routine care 005369500 Z34.01 Serum thyr oid stimulating hormone level outside reference range 088425232 R79.89 [id number] [facility]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) [address] [place] [address] [phone] 0 05/27/2017 16:01:46 05/27/2017 17:19:39 Routine care 428150945 Z34.01 [id number] [facility]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) [address] [place] [address] [id number] 0 06/24/2017 16:33:29 06/24/2017 17:14:45 Routine care 422680577 Z34.01 screening 2437 51986 Z36.9 [id number] [facility]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) [address] [place] [address] [id number] 0 07/22/2017 09:31:39 07/22/2017 12:04:30 Routine care 618587804 Z34.01 [id number] [facility]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) [address] [place] [address] [id number] 0 08/11/2017 10:18:16 08/11/2017 13:35:47 Routine care 106277868 Z34.01 [id number] [facility]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) [address] [place] [address] [phone] 0 08/25/2017 15:00:22 08/25/2017 16:34:25 Routine care 544006450 Z34.01 [id number] [facility]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) [address] [place] [address] [id number] 0 09/11/2017 16:32:24 09/11/2017 17:35:09 Routine care 915677971 Z34.01 Family horacio nning surveillance 673041324 Z30.09 [id number] [facility] (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) [address] [place] [address] [id number] 0 09/25/2017 09:42:46 09/25/2017 10:47:47 Routine care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
--- OUTSIDE RECORDS SUMMARY | 2025-06-10 17:05 | XMS_ITS | Continuity of Care Document ---
Author Organization [facility] Address [address] [place] [address] [place] [address] Assessment Encounter Date Assessment Date Assessment LastModified by Organization Details LastModified Time 03/23/2025 03/23/2025 Patient is ___weeks . Discussed plan. Not available 03/23/2025 10:51:26 Plan of Treatment Reminders Order Date Submit Date Provider Last Modified By Organization Details Last Modified Time Details Appointments OB ROUTINE 2024 08:30A Yosef Reyes CNM Not available Not available Not [...] LOIDY NIPT fraction 11.1% normal Not Available Jaycee huynh [address], [place], [address], 12/07/2024 07:43:35 12/08/19 25 12/07/2024 [UNIT Y] ANEUP LOIDY NIPT 22Q11.2 microdeletio n LOW RISK <1 in 10,000 normal Not Available [facility] [address], [place], [address], 12/07/2024 07:43:35 12/08/19 25 12/07/2024 [UNIT Y] ANEUP LOIDY NIPT sex chromosome aneuploidy NOT DETECT ED normal Not Available [facility] [address], [place], [address], 12/07/2024 07:43:35 12/08/19 25 12/07/2024 [UNIT Y] ANEUP LOIDY NIPT monosomy X LOW RISK <1 in 10,000 normal Not Available [facility] [address], [place], [address], 12/07/2024 07:43:35 12/08/19 25 12/07/2024 [UNIT Y] ANEUP LOIDY NIPT trisomy 13 LOW RISK <1 in 10,000 normal Not Available [facility] [address], [place], [address], 12/07/2024 07:43:35 12/08/19 25 12/07/2024 [UNIT Y] ANEUP LOIDY NIPT trisomy 18 LOW RISK <1 in 10,000 normal Not Available [facility] [address], [place], [address], 12/07/2024 07:43:35 12/08/19 25 12/07/2024 [UNIT Y] ANEUP LOIDY NIPT trisomy 21 LOW RISK <1 in 10,000 normal Not Available [facility] [address], [place], [address], 12/07/2024 07:43:35 12/08/19 25 12/07/2024 [UNIT Y] ANEUP LOIDY NIPT sex FEMALE normal Not Available [facility] [address], [place], [address], 12/07/2024 07:43:35 12/08/19 25 12/07/2024 [UNIT Y] ANEUP LOIDY NIPT gestation SINGLE TON normal Not Available [facility] [address], [place], [address], 12/07/2024 07:43:35 12/08/19 25 12/07/2024 [UNIT Y] ANEUP DARIN NIPT for detailed report, see pdf See PDF normal Not Available [facility] [address], [place], [address], 12/07/2024 07:43:35 12/23/19 25 12/22/2024 [UNIT Y] GUILLERMO Herrera sickle cell disease/beta -thalassemia /hemoglobino pathies carrier screen NEGATI VE normal Not Available [facility] [address], [place], [address], 12/22/2024 23:42:40 12/23/19 25 12/22/2024 [UNIT Y] GUILLERMO Herrera alpha-thalas semia carrier screen NEGATI VE normal Not Available [facility] [address], [place], [address], 12/22/2024 23:42:40 12/23/19 25 12/22/2024 [UNIT Y] GUILLERMO Herrera cystic fibrosis carrier screen NEGATI VE normal Not Available [facility] [address], [place], [address], 12/22/2024 23:42:40 12/23/19 25 12/22/2024 [UNIT Y] GUILLERMO Herrera spinal muscular atrophy carrier screen NEGATI VE 2 SMN1 copies , SNP not presen t normal Not Available [facility] [address], [place], [address], 12/22/2024 23:42:40 12/23/19 25 12/22/2024 [UNIT Y] GUILLERMO Herrera for detailed report, see pdf See PDF normal Not Available [facility] [address], [place], [address], 12/22/2024 23:42:40 12/02/19 25 12/01/2024 HIV 1/2 ANTIG EN/AN TIBOD Y, REFLE X CONFI RMATI ON HIV antigen/anti body Nonrea ctive nonrea ctive HIV-1 antig en and HIV-1 /HIV- 2 antib odies were not detec julieta. No labor atory evide nce of HIV infec tion. Not Available [facility] (Lab) [address], [place], [address], 12/02/2024 10:19:34 12/02/1912/01/2024 HEPAT ITIS B SURFA [...] [facility] (Lab) [address], [place], [address], 12/02/2024 10:19:35 12/02/1912/01/2024 HEPAT ITIS C ANTIB MOLLY SCREE N, REFLE X TO CONFI RMATI ON hepatitis C antibody Non-re active non-re active Antib odies to HCV Not Detec julieta, does not exclu de the possi bilit y of expos ure to HCV. Not Available [facility] (Lab) [address], [place], [address], 12/02/2024 10:19:35 12/02/19 25 12/01/2024 CBC W/DIF F WBC 8.1 10'3/ uL 3.5-10 .5 Not Available [facility] (Lab) [address] [place], [address], 12/02/2024 10:19:35 12/02/19 25 12/01/2024 CBC W/DIF F RBC 3.87 10'6/ uL (based on docume nted legal sex) 3.80-5 .20 Not Available [facility] (Lab) [address] [place], [address], 12/02/2024 10:19:35 12/02/19 25 12/01/2024 CBC W/DIF F HGB 12.4 g/dL (based on docume nted legal sex) 11.6-1 5.4 Not Available [facility] (Lab) [address], [place], [address], 12/02/2024 10:19:35 12/02/19 25 12/01/2024 CBC W/DIF F HCT 36.6 % (based on docume nted legal sex) 34.0-4 5.0 Not Available [facility] (Lab) [address], [place], [address], 12/02/2024 10:19:35 12/02/19 25 12/01/2024 CBC W/DIF F MCV 94.6 fL 80.0-9 9.0 Not Available [facility] (Lab) [address], [place], [address], 12/02/2024 10:19:35 12/02/19 25 12/01/2024 CBC W/DIF F MCH 32.0 pg 27.0-3 4.0 Not Available [facility] (Lab) [address], [place], [address], 12/02/2024 10:19:35 12/02/19 25 12/01/2024 CBC W/DIF F MCHC 33.9 g/dL 32.0-3 5.5 Not Available [facility] (Lab) [address], [place], [address], 12/02/2024 10:19:35 12/02/19 25 12/01/2024 CBC W/DIF F RDW 12.2 % 11.0-1 5.0 Not Available [facility] (Lab) [address], [place], [address], 12/02/2024 10:19:35 12/02/19 25 12/01/2024 CBC W/DIF F plt 220 10'3/ uL 150-40 0 Not Available [facility] (Lab) [address], [place], [address], 12/02/2024 10:19:35 12/02/19 25 12/01/2024 CBC W/DIF F MPV 11.6 fL 8.8-12 .1 Not Available [facility] (Lab) [address], [place], [address], 12/02/2024 10:19:35 12/02/19 25 12/01/2024 CBC W/DIF F NRBC's 0.0 % 0.0 Not Available [facility] (Lab) [address], [place], [address], 12/02/2024 10:19:35 12/02/19 25 12/01/2024 CBC W/DIF F absolute NRBCs 0.0 10'3/ uL no refere nce range establ ished Not Available [facility] (Lab) [address], [place], [address], 12/02/2024 10:19:35 12/02/19 25 12/01/2024 CBC W/DIF F neutrophils 77.4 % 34.0-7 3.0 high Not Available [facility] (Lab) [address], [place], [address], 12/02/2024 10:19:35 12/02/19 25 12/01/2024 CBC W/DIF F lymphocytes 15.0 % 15.0-5 0.0 Not Available [facility] (Lab) [address], [place], [address], 12/02/2024 10:19:35 12/02/19 25 12/01/2024 CBC W/DIF F monocytes 6.3 % 1.0-15 .0 Not Available [facility] (Lab) [address], [place], [address], 12/02/2024 10:19:35 12/02/19 25 12/01/2024 CBC W/DIF F eosinophils 0.7 % 0.0-8. 0 Not Available [facility] (Lab) [address], [place], [address], 12/02/2024 10:19:35 12/02/19 25 12/01/2024 CBC W/DIF F basophils 0.2 % 0.0-2. 0 Not Available [facility] (Lab) [address], [place], [address], 12/02/2024 10:19:35 12/02/19 25 12/01/2024 CBC W/DIF [...] [facility] (Lab) [address], [place], [address], 12/02/2024 10:19:35 12/02/19 25 12/01/2024 CBC W/DIF F absolute neutrophils 6.3 10'3/ uL 1.5-8. 0 Not Available [facility] (Lab) [address], [place], [address], 12/02/2024 10:19:35 12/02/19 25 12/01/2024 CBC W/DIF F absolute lymphocytes 1.2 10'3/ uL 1.0-4. 0 Not Available [facility] (Lab) [address], [place], [address], 12/02/2024 10:19:35 12/02/19 25 12/01/2024 CBC W/DIF F absolute monocytes 0.5 10'3/ uL 0.2-1. 0 Not Available [facility] (Lab) [address], [place], [address], 12/02/2024 10:19:35 12/02/19 25 12/01/2024 CBC W/DIF F absolute eosinophils 0.1 10'3/ uL 0.0-0. 6 Not Available [facility] (Lab) [address], [place], [address], 12/02/2024 10:19:35 12/02/19 25 12/01/2024 CBC W/DIF F absolute basophils 0.0 10'3/ uL 0.0-0. 3 Not Available [facility] (Lab) [address], [place], [address], 12/02/2024 10:19:35 12/02/19 25 12/01/2024 CBC W/DIF [...] the indiv idual patie nt: https :[email or web address] [email or web address] [email or web address] nm.or g/gen derx Not Available [facility] (Lab) [address], [place], [address], 12/02/2024 10:19:35 12/02/19 25 12/01/2024 RUBEL LA IGG ANTIB MOLLY, QUANT rubella antibodies, IgG Reacti ve reacti ve Not Available [facility] (Lab) [address], [place], [address], 12/02/2024 10:19:36 12/02/1912/01/2024 RUBEL LA IGG ANTIB MOLLY, QUANT rubella antibodies, IgG quant 17.9 IU/mL >=10 Non-r eacti ve (Non- Immun e) <10 IU/mL React marely (Immu ne) > or = 10 IU/mL Not Available [facility] (Lab) [address], [place], [address], 12/02/2024 10:19:36 12/02/19 25 12/01/2024 TYPE/ RH/SC REEN ABO/Rh type A NEG Not Available [facility] (Lab) [address], [place], [address], 12/02/2024 10:19:36 12/02/19 25 12/01/2024 TYPE/ RH/SC REEN antibody screen NEG Not Available [facility] (Lab) [address], [place], [address], 12/02/2024 10:19:36 12/02/1912/01/2024 TYPE/ RH/SC REEN exp date 2024 23:59 Not Available [facility] (Lab) [address], [place], [address], 12/02/2024 10:19:36 12/02/1912/01/2024 HEMOG LOBIN A1C hemoglobin A1C 4.8 % [...] [facility] (Lab) [address], [place], [address], 12/02/2024 10:19:37 12/02/1912/01/2024 RPR SCREE N, REFLE X TITER /CONF IRMAT ION RPR qualitative Nonrea ctive nonrea ctive Not Available [facility] (Lab) [address], [place], [address], 12/02/2024 10:19:37 12/02/19 25 12/01/2024 CULTU RE: URINE result report SEE RESULT S BELOW Test: Cultu re: Urine Speci men Sourc e: Urine Voide d Speci men Type: Urine Speci men Date: 2024 1100 Resul t Date: 20244 Resul t Statu s: Final resul t Abnor mal: No Resul ting Lab: [facility] [address] [address] Tel: CULTU RE ----- ----- ----- --- No growt h in 1 day (dete ction level of 10,00 0 colon ies / ml.) Not Available [facility] (Lab) [address], [place], [address], 12/02/2024 22:47:13 12/02/19 25 12/01/2024 drug scree n, urine Amphetamines : negati ve Not Available [place] [address], [place], [address], 12/01/2024 11:13:13 12/02/19 25 12/01/2024 drug scree n, urine Cannabinoids : negati ve Not Available [place] [address], [place], [address], 12/01/2024 11:13:13 12/02/19 25 12/01/2024 drug scree n, urine Cocaine: negati ve Not Available [place] [address], [place], [address], 12/01/2024 11:13:13 12/02/19 25 12/01/2024 drug scree n, urine Opiates: negati ve Not Available [place] [address], [place], [address], 12/01/2024 11:13:13 12/02/19 25 12/01/2024 drug scree n, urine Phenocyclidi ne: negati ve Not Available [place] [address], [place], [address], 12/01/2024 11:13:13 12/02/19 25 12/01/2024 drug scree n, urine Barbiturates : negati ve Not Available [place] [address], [place], [address], 12/01/2024 11:13:13 12/02/19 25 12/01/2024 drug scree n, urine Benzodiazepi haris: negati ve Not Available [place] [address], [place], [address], 12/01/2024 11:13:13 12/02/19 25 12/01/2024 drug scree n, urine Ethanol: negati ve Not Available [place] [address], [place], [address], 12/01/2024 11:13:13 12/02/19 25 12/01/2024 drug scree n, urine Hallucinogen s: negati ve Not Available [place] [address], [place], [address], 12/01/2024 11:13:13 12/02/19 25 12/01/2024 drug scree n, urine Inhalants: negati ve Not Available [place] [address], [place], [address], 12/01/2024 11:13:13 12/02/19 25 12/01/2024 drug scree n, urine Anabolic Steroids: negati ve Not Available [place] [address], [place], [address], 12/01/2024 11:13:13 12/02/19 25 12/01/2024 drug scree n, urine Other: positi ve Not Available [place] [address], [place], [address], 12/01/2024 11:13:13 02/24/20 25 02/23/2025 TYPE/ RH/SC REEN ABO/Rh type A NEG Not Available [facility] (Lab) [address], [place], [address], 02/24/2025 08:26:42 02/24/20 25 02/23/2025 TYPE/ RH/SC REEN antibody screen NEG Not Available [facility] (Lab) [address], [place], [address], 02/24/2025 08:26:42 02/24/20 25 02/23/2025 TYPE/ RH/SC REEN exp date 2024 23:59 Not Available [facility] (Lab) [address] [place], [address], 02/24/2025 08:26:42 12/02/19 25 12/01/2024 US, obste tric, nucha l trans lucen cy No observ ation record ed. [email or web address] [place] [address], [place], [address], 12/01/2024 14:38:13 12/02/19 25 12/01/2024 US, obste tric, follo w-up No observ ation record ed. [email or web address] [address], [place], [address], 12/01/2024 18:45:45 01/27/20 25 01/26/2025 US, obste tric, 2nd or 3rd trime ster No observ ation record ed. [email or web address] [place] [address], [place], [address], 01/26/2025 12:36:41 01/27/20 25 01/26/2025 US, obste tric, 2nd or 3rd trime ster No observ ation record ed. [email or web address] [address], [place], [address], 01/26/2025 12:39:35 02/24/2002/23/2025 US, obste tric, follo w-up No observ ation record ed. [email or web address] [place] [address], [place], [address], 02/23/2025 18:48:54 02/24/2002/23/2025 US, obste tric, follo w-up No observ ation record ed. [email or web address] Annalise [address], [place], [address], 02/23/2025 16:57:13 02/24/20 25 02/23/2025 US, obste tric, follo w-up No observ ation record ed. Annalise [address], [place], [address], 02/23/2025 16:55:34 03/21/20 25 03/21/2025 US, obste tric, follo w-up No observ ation record ed. [email or web address] [facility]Psych[facility]ry [facility] [address], [place], [address], 03/23/2025 16:02:35 03/21/20 25 03/21/2025 US, obste tric, follo w-up No observ ation record ed. [email or web address] [facility] [address], [place], [address], 03/22/2025 10:18:20 04/22/2004/22/2025 US, obste tric, follo w-up No observ ation record ed. [email or web address] Annalise [address], [place], [address], 04/27/2025 11:38:48 04/22/2004/22/2025 US, obste tric, follo w-up No observ ation record ed. [facility] [address], [place], [address], 04/22/2025 17:08:34 05/18/2005/18/2025 US, obste tric, follo w-up No observ ation record ed. [facility] [address], [place], [address], 05/18/2025 18:24:57 05/18/2005/18/2025 US, obste tric, follo w-up No observ ation record ed. [email or web address] Annalise [address], [place], [address], 05/25/2025 10:56:46 Result Notes None recorded. Problems Name Problem SNOMED Code Status Onset Date Resolution Date Notes Provider Name and Address Organization Details Recorded Time 53377318 Active 2024 Mary Murillo [facility] 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 21:45:57 Placenta succentur iata 92772629 Active 2024 serial growth Elizabet Otto [facility] 12:38:22 Problem Notes None recorded. Procedures Surgical History Date Name Laterality Status Provider Name and Address Organization Details Recorded Time 05/09/2024 Date of Last Pap Smear completed Katherine Hardwick [facility] 03/23/2025 10:52:23 Imaging Results None recorded. Procedure Notes None recorded. Medical Equipment None Reported. Allergies Allergen ID Allergen Name Allergen Category Reaction Reaction Severity Criticality Documentation Date Start Date Code Code System Note Provider Name and Address Organization Details Recorded Time 88325 latex environme nt,medica tion Not available Not available Not available 12/01/2024 02288 91 RxNorm Mary Murillo [facility] 5 11:38:56 67486 ethinyl estradiol / norelgest romin medicatio n hives Not available Not available 05/06/2025 07174 7 RxNorm Not Available nieves - External [...] Address Organization Details Last Updated DateTime 03/23/2025 25185.25455 g 108/70 mm[Hg] VIK FINN MD [address], [place], [address], [facility] 03/23/2025 14:23:36 Date Recorded Body height Body mass index (BMI) Body weight Systolic And Diastolic Provider Name and Address Organization Details Last Updated DateTime 03/23/2025 167.64 cm 25.5 kg/m2 10836.59 g 108/70 mm[Hg] Katherine Hardwick [facility] 03/23/2025 10:51:52 Social History Question Answer Notes LastModified by Organizat ion Details LastModified Time Tobacco Smoking Status Never Smoker Mary britton, [facility] 12/01/2024 11:12:14 Do You Have An Advance Directive? No [email or web address] Information n ot available 12/01/2024 If You Are , What Was Your Level Of Alcohol Consumption Prior To ? Occasional [email or web address] Information not available 12/01/2024 How Many Years Have You Consumed Alcohol? 0 [email or web address] Information not available 12/01/2024 Are You Blind Or Do You Have Difficulty Seeing? No [email or web address] Information n ot available 12/01/2024 What Is Your Level Of Caffeine Consumption? Moderate Information not available 12/01/2024 How Much Tobacco Do You Chew? None [email or web address] Information not available 12/01/2024 In The 14 Days Before Symptom Onset, Have You Had Close Contact With A Laboratory-confirm ed COVID-19 While That Case Was Ill? No [email or web address] Information n ot available 12/01/2024 In The 14 Days Before Symptom Onset, Have You Had Close Contact With A Person Who Is Under Investigation For COVID-19 While That Person Was Ill? No [email or web address] Information not available 12/01/2024 Have You Been To An Area Known To Be High Risk For COVID-19? No [email or web address] Information not available 12/01/2024 Are You Deaf Or Do You Have Serious Difficulty Hearing? No [email or web address] Information not available 12/01/2024 What Type Of Diet Are You Following? REGULAR [email or web address] Information n ot available 12/01/2024 What Is The Highest Grade Or Level Of School You Have Completed Or The Highest Degree You Have Received? [id number] [email or web address] Information not available 12/01/2024 Are There Any Guns Present In Your Home? No [email or web address] Information not available 12/01/2024 Do You Use Protection During Sex? No [email or web address] Information not available 12/01/2024 Do You Use Your Seat Belt Or Car Seat Routinely? Yes [email or web address] Information not available 12/01/2024 Do You Have Smoke And Carbon Monoxide Detectors In Your Home? Yes [email or web address] Information not available 12/01/2024 How Much Tobacco Do You Smoke? No [email or web address] Information not available 12/01/2024 Do You Use Sunscreen Routinely? Yes [email or web address] Information not available 12/01/2024 Has Tobacco Cessation Counseling Been Provided? Yes Information not available 12/01/2024 On What Date Was Tobacco Cessation Counseling Provided? 12/01/2024 [email or web address] Information not available 12/01/2024 How Many Years Have You Smoked Tobacco? 0 [email or web address] Information not available 12/01/2024 Have You Used IV Drugs? No [email or web address] Information not available 12/01/2024 Do You Have Difficulty Walking Or Climbing Stairs? No [email or web address] Information not available 12/01/2024 Sex: Unknown Functional Status Question Answer Note LastModified by Organizat ion Details LastModified Time Do you use any illicit or recreational drugs? No [email or web address] Information not available 03/23/2025 Do you or have you ever used any other forms of tobacco or nicotine? No [email or web address] Information not available 12/01/2024 What is your level of alcohol consumption? None [email or web address] Information not available 12/01/2024 Are you able to walk independently without assistance or assistive devices? [email or web address] Information not available 12/01/2024 Are you able to care for yourself independently? 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 Occasional [email or web address] Information not available 12/01/2024 Mental Status Question Answer Note LastModified by Organization D etails LastModified Time Do you feel stressed (tense, restless, nervous, or anxious, or unable to sleep at night)? [id number] [email or web address] Information not available 12/01/2024 Family History Relationship Description Onset Age of this Age Resolved Age Notes LastModified by Organization Details LastModified Time Unspecified Relation Family history unknown [email or web address] Not available 05/23 09:26:51 Maternal Grandmother Diabetes mellitus [email or web address] Not available 2024 16:45:50 Maternal Grandmother Hypertensive disorder [email or web address] Not available 2024 16:45:50 Maternal Grandmother Hypercholest [...] ICD10 Code Diagnosis IMO Codes Diagnosis Note [id number] Clayton Byrd MD [place] [address] [address] 02/23/2025 11:22:36 02/23/2025 12:06:35 Anomaly of placenta 26587877 O43.102 Z3A.24 7127709 [id number] Shantelle Reyes [facility] [address] [address] 02/23/2025 11:22:59 02/23/2025 12:20:26 Gestation period, 24 weeks 016046381 Z3A.24 6399783 732189 Shantelle Reyes [facility] [address],[place] [address] 03/23/2025 10:11:18 03/25/2025 14:07:08 [id number] VIK FINN MD [place] [address] [address] 03/23/2025 11:39:03 03/23/2025 14:31:27 Placenta succenturiata 42639239 O43.192 81408258 - serial growth [place] RhD negative 118584858 O 26.899 Z67.91 741354 - weak D antigen, seen by MFM who recommends RHogam Gestation period, 28 weeks 66827027 Z3A.28 4666065 - continue [facility] Concerns Section Related Observation LastModified by Organization Detai ls LastModified Time None Recorded Concern Status LastModified by Organization Details LastModified Time None Recorded Payers Encounter Date Sequence Insurance Name Policy Number Policy Botello Covered Member ID Botello Member ID Guarantor Name 03/23/2025 1 [facility] (MEDICAID HMO) [id number] Sahra Novak [id number] Sahra Novak Notes Date Note Type Note Provider Name and Address Organization Details Recorded Time 03/23/2025 text/html Generic HPI TemplateReported by Patient Shantelle Reyes CNM [address], [place], [address], [place] [facility] 03/25/2025 14:07:07 OBGyn Episode Ob Episode Information Episode Created Date Number of Fetuses Patient Bloodtype Patient rh Status Prepregnancy Weight lbs Domestic Partner Domestic Partner Phone Father Name Director Long Term Care Status 12/02/19 25 1 A Negative 147 Akshat Hildebr and OPEN Fetus Data First Name Last Name Admitted to NICU Weight (g) Sex Living Outcome Pediatric Complications Fetus ID Race Codes Race Delivery Type [id number] Problems Problem Notes Problem Name Start Date End Date Resolution Snomed Code Not e Placenta succenturiata 01/26/2025 149864 03 serial growth [place] RhD negative 12/03/2024 761720389 A-, ne ed rhogam 28 weeks referral M faxed 03/04 cancelled due to insurance - referral [facility] [facility] final report A Negative , weak D present [facility] recommends Rhogam pt rhogam on 04/06/25 Dwayne Artis Calculation Initial Artis Date Initial Exam Date Initial Exam Provider Initial Ultrasound Date Last Menstrual Period Date Ultra Sound Weeks Gestation 05/16/2025 10/19/2024 [email or web address] 10/19/2024 08/09/2024 6 Eighteen To Twenty Week [...] Weight in lbs Pre/Post Dialysis Refused Weight 148.653321080059 BP Diastolic BP Location Tested BP Systolic [...] Type Weight in lbs Pre/Post Dialysis Refused 153.533702109871 BP Diastolic BP Location Tested BP Systolic [...] Weight in lbs Pre/Post Dialysis Refused Weight 153.514302194970 BP Diastolic BP Location Tested BP Systolic [...] Weight in lbs Pre/Post Dialysis Refused Weight 155.560495512063 BP Diastolic BP Location Tested BP Systolic [...] Weight in lbs Pre/Post Dialysis Refused Weight 158.318510690534 BP Diastolic BP Location Tested BP Systolic BP Type 70 L arm 108 sitting Fetus Heart Rate Present Fetus Movement A Yes Comments Flowsheet Date 03/23/2025 Mcdonough Score Blood Edema Fundus Height Fundus Units Glucose Ketones Leukocytes Nitrite Labor Signs Protein Cervic Dilation Cervic Effacement Cervic Station Type Weight in lbs Pre/Post Dialysis Refused 158.710453487717 BP Diastolic BP Location Tested BP Systolic BP Type 70 108 Fetus Heart Rate Present A 140 Fetus Movement A Yes Comments Doing well, good movem ent. GCT and labs at [place] for Rhogam. Was seen by [facility], recommend Rhogam for weak D. EFW wnl at [facility] US. Discussed tdap and RSV vaccine. RTC 2 weeks. Flowsheet Date 04/08/2025 Mcdonough Score Blood Edema Fundus Height Fundus Units Glucose Ketones Leukocytes Nitrite Labor Signs Protein Cervic Dilation Cervic Effacement Cervic Station Type Weight in lbs Pre/Post Dialysis Refused Weight 159.076031479930 BP Diastolic BP Location Tested BP Systolic [...] Weight in lbs Pre/Post Dialysis Refused Weight 164.398317511565 BP Diastolic BP Location Tested BP Systolic [...] Weight in lbs Pre/Post Dialysis Refused Weight 165.363032966251 BP Diastolic BP Location Tested BP Systolic [...] Weight in lbs Pre/Post Dialysis Refused Weight 165.490799349786 BP Diastolic BP Location Tested BP Systolic [...] Type Weight in lbs Pre/Post Dialysis Refused 168.040781350954 BP Diastolic BP Location Tested BP Systolic [...]
--- OUTSIDE RECORDS SUMMARY | 2025-06-10 17:05 | XMS_ITS | Continuity of Care Document ---
Author Organization [facility] Address [address] [address] Assessment No assessment recorded. Plan of Treatment [...] [facility] [address], [place], [address], 12/07/2024 07:43:35 12/08/19 25 12/07/2024 [UNIT Y] ANEUP LOIDY NIPT 22Q11.2 microdeletio n LOW RISK <1 in 10,000 normal Not Available [facility] [address], [place], [address], 12/07/2024 07:43:35 12/08/19 25 12/07/2024 [UNIT Y] ANEUP LOIDY NIPT sex chromosome aneuploidy NOT DETECT ED normal Not Available [facility] [address], [place], [address], 12/07/2024 07:43:35 12/08/19 25 12/07/2024 [UNIT Y] ANEUP LOIDY NIPT monosomy X LOW RISK <1 in 10,000 normal Not Available [facility] [address], [place], [address], 12/07/2024 07:43:35 12/08/19 25 12/07/2024 [UNIT Y] ANEUP LOIDY NIPT trisomy 13 LOW RISK <1 in 10,000 normal Not Available [facility] [address], [place], [address], 12/07/2024 07:43:35 12/08/19 25 12/07/2024 [UNIT Y] ANEUP LOIDY NIPT trisomy 18 LOW RISK <1 in 10,000 normal Not Available [facility] [address], [place], [address], 12/07/2024 07:43:35 12/08/19 25 12/07/2024 [UNIT Y] ANEUP LOIDY NIPT trisomy 21 LOW RISK <1 in 10,000 normal Not Available [facility] [address], [place], [address], 12/07/2024 07:43:35 12/08/19 25 12/07/2024 [UNIT Y] ANEUP LOIDY NIPT sex FEMALE normal Not Available [facility] [address], [place], [address], 12/07/2024 07:43:35 12/08/19 25 12/07/2024 [UNIT Y] ANEUP LOIDY NIPT gestation SINGLE TON normal Not Available [facility] [address], [place], [address], 12/07/2024 07:43:35 12/08/19 25 12/07/2024 [UNIT Y] ANEUP LOIDY NIPT for detailed report, see pdf See PDF normal Not Available [facility] [address], [place], [address], 12/07/2024 07:43:35 12/23/19 25 12/22/2024 [UNIT Y] GUILLERMO MCCARTYWanda Herrera sickle cell disease/beta -thalassemia /hemoglobino pathies carrier screen NEGATI VE normal Not Available [facility] [address], [place], [address], 12/22/2024 23:42:40 12/23/19 25 12/22/2024 [UNIT Y] GUILLERMO MCCARTYWanda Herrera alpha-thalas semia carrier screen NEGATI VE normal Not Available [facility] [address], [place], [address], 12/22/2024 23:42:40 12/23/19 25 12/22/2024 [UNIT Y] GUILLERMO SIVAN LULWanda Herrera cystic fibrosis carrier screen NEGATI VE normal Not Available [facility] [address], [place], [address], 12/22/2024 23:42:40 12/23/19 25 12/22/2024 [UNIT Y] GUILLERMO SIVAN LULWanda Herrera spinal muscular atrophy carrier screen NEGATI VE 2 SMN1 copies , SNP not presen t normal Not Available [facility] [address], [place], [address], 12/22/2024 23:42:40 12/23/19 25 12/22/2024 [UNIT Y] GUILLERMO SIVAN LULWanda Herrera for detailed report, see pdf See PDF normal Not Available [facility] [address], [place], [address], 12/22/2024 23:42:40 12/02/19 25 12/01/2024 HIV 1/2 ANTIG EN/AN TIBOD Y, REFLE X CONFI RMATI ON HIV antigen/anti body Nonrea ctive nonrea ctive HIV-1 antig en and HIV-1 /HIV- 2 antib odies were not detec julieta. No labor atory evide nce of HIV infec tion. Not Available [facility] (Lab) [address] [facility], [place], [address], 12/02/2024 10:19:34 12/02/1912/01/2024 HEPAT ITIS B SURFA CE ANTIG EN hepatitis B surface antigen Non-re active non-re active This assay was perfo rmed using [employer] ratio n reage nts and test kits. Value s obtai edison with other assay metho ds or kits canno t be used inter kelley eably . Not Available [facility] (Lab) [address] [facility], [place], [address], 12/02/2024 10:19:35 12/02/1912/01/2024 HEPAT ITIS C ANTIB MOLLY SCREE N, REFLE X TO CONFI RMATI ON hepatitis C antibody Non-re active non-re active Antib odies to HCV Not Detec julieta, does not exclu de the possi bilit y of expos ure to HCV. Not Available [facility] (Lab) [address] [facility], [place], [address], 12/02/2024 10:19:35 12/02/1912/01/2024 CBC W/DIF F WBC 8.1 10'3/ uL 3.5-10 .5 Not Available [facility] (Lab) [address] [facility], [place], [address], 12/02/2024 10:19:35 12/02/1912/01/2024 CBC W/DIF F RBC 3.87 10'6/ uL (based on docume nted legal sex) 3.80-5 .20 Not Available [facility] (Lab) [address] [facility], [place], [address], 12/02/2024 10:19:35 12/02/19 25 12/01/2024 CBC W/DIF F HGB 12.4 g/dL (based on docume nted legal sex) 11.6-1 5.4 Not Available [facility] (Lab) [address] [facility], [place], [address], 12/02/2024 10:19:35 12/02/19 25 12/01/2024 CBC W/DIF F HCT 36.6 % (based on docume nted legal sex) 34.0-4 5.0 Not Available [facility] (Lab) [address] [facility], [place], [address], 12/02/2024 10:19:35 12/02/19 25 12/01/2024 CBC W/DIF F MCV 94.6 fL 80.0-9 9.0 Not Available [facility] (Lab) [address] [facility], [place], [address], 12/02/2024 10:19:35 12/02/19 25 12/01/2024 CBC W/DIF F MCH 32.0 pg 27.0-3 4.0 Not Available [facility] (Lab) [address] [facility], [place], [address], 12/02/2024 10:19:35 12/02/19 25 12/01/2024 CBC W/DIF F MCHC 33.9 g/dL 32.0-3 5.5 Not Available [facility] (Lab) [address] [facility], [place], [address], 12/02/2024 10:19:35 12/02/19 25 12/01/2024 CBC W/DIF F RDW 12.2 % 11.0-1 5.0 Not Available [facility] (Lab) [address] [facility], [place], [address], 12/02/2024 10:19:35 12/02/19 25 12/01/2024 CBC W/DIF F plt 220 10'3/ uL 150-40 0 Not Available [facility] (Lab) [address] [facility], [place], [address], 12/02/2024 10:19:35 12/02/19 25 12/01/2024 CBC W/DIF F MPV 11.6 fL 8.8-12 .1 Not Available [facility] (Lab) [address] [facility], [place], [address], 12/02/2024 10:19:35 12/02/1912/01/2024 CBC W/DIF F NRBC's 0.0 % 0.0 Not Available [facility] (Lab) [address] [facility], [place], [address], 12/02/2024 10:19:35 12/02/19 25 12/01/2024 CBC W/DIF F absolute NRBCs 0.0 10'3/ uL no refere nce range establ ished Not Available [facility] (Lab) [address] [facility], [place], [address], 12/02/2024 10:19:35 12/02/1912/01/2024 CBC W/DIF F neutrophils 77.4 % 34.0-7 3.0 high Not Available [facility] (Lab) [address] [facility], [place], [address], 12/02/2024 10:19:35 12/02/19 25 12/01/2024 CBC W/DIF F lymphocytes 15.0 % 15.0-5 0.0 Not Available [facility] (Lab) [address] [facility], [place], [address], 12/02/2024 10:19:35 12/02/1912/01/2024 CBC W/DIF F monocytes 6.3 % 1.0-15 .0 Not Available [facility] (Lab) [address] [facility], [place], [address], 12/02/2024 10:19:35 12/02/1912/01/2024 CBC W/DIF F eosinophils 0.7 % 0.0-8. 0 Not Available [facility] (Lab) [address] [place], [address], 12/02/2024 10:19:35 12/02/19 25 12/01/2024 CBC W/DIF F basophils 0.2 % 0.0-2. 0 Not Available [facility] (Lab) [address] , [place], [address], 12/02/2024 10:19:35 12/02/19 25 12/01/2024 CBC W/DIF [...] separ ately if prese nt. Not Available [facility] (Lab) [address], [place], [address], 12/02/2024 10:19:35 12/02/19 25 12/01/2024 CBC W/DIF F absolute neutrophils 6.3 10'3/ uL 1.5-8. 0 Not Available [facility] (Lab) [address] [facility], [place], [address], 12/02/2024 10:19:35 12/02/19 25 12/01/2024 CBC W/DIF F absolute lymphocytes 1.2 10'3/ uL 1.0-4. 0 Not Available [facility] (Lab) [address] [facility], [place], [address], 12/02/2024 10:19:35 12/02/19 25 12/01/2024 CBC W/DIF F absolute monocytes 0.5 10'3/ uL 0.2-1. 0 Not Available [facility] (Lab) [address] [facility], [place], [address], 12/02/2024 10:19:35 12/02/19 25 12/01/2024 CBC W/DIF F absolute eosinophils 0.1 10'3/ uL 0.0-0. 6 Not Available [facility] (Lab) [address] [facility], [place], [address], 12/02/2024 10:19:35 12/02/19 25 12/01/2024 CBC W/DIF F absolute basophils 0.0 10'3/ uL 0.0-0. 3 Not Available [facility] (Lab) [address], [place], [address], 12/02/2024 10:19:35 12/02/19 25 12/01/2024 CBC W/DIF F absolute immature granulocytes 0.0 10'3/ uL 0.00-0 .10 Refer ence range s for nonbi nary/ inter sex or unspe cifie d gende r patie nts have not been estab lishe d. [facility]as [facility] for range s estab lishe d for cisge nder patie nts and evalu ate in the clini daniel paula xt of the indiv idual patie nt: https ://la capoand book. nm.or g/gen derx Not Available [facility] (Lab) [address], [place], [address], 12/02/2024 10:19:35 12/02/19 25 12/01/2024 RUBEL LA IGG ANTIB MOLLY, QUANT rubella antibodies, IgG Reacti ve reacti ve Not Available [facility] (Lab) [address], [place], [address], 12/02/2024 10:19:36 12/02/19 25 12/01/2024 RUBEL LA IGG ANTIB MOLLY, QUANT rubella antibodies, IgG quant 17.9 IU/mL >=10 Non-r eacti ve (Non- Immun e) <10 IU/mL React marely (Immu ne) > or = 10 IU/mL Not Available [facility] (Lab) [address], [place], [address], 12/02/2024 10:19:36 12/02/19 25 12/01/2024 TYPE/ RH/SC REEN ABO/Rh type A NEG Not Available [facility] (Lab) [address], [place], [address], 12/02/2024 10:19:36 12/02/19 25 12/01/2024 TYPE/ RH/SC REEN antibody screen NEG Not Available [facility] (Lab) [address] [facility], [place], [address], 12/02/2024 10:19:36 12/02/19 25 12/01/2024 TYPE/ RH/SC REEN exp date 2024 23:59 Not Available [facility] (Lab) [address] [facility], [place], [address], 12/02/2024 10:19:36 12/02/19 25 12/01/2024 HEMOG LOBIN [...] >8.0% Actio n sugge sted Not Available [facility] (Lab) [address], [place], [address], 12/02/2024 10:19:37 12/02/19 25 12/01/2024 RPR SCREE N, REFLE X TITER /CONF IRMAT ION RPR qualitative Nonrea ctive nonrea ctive Not Available [facility] (Lab) [address] [facility], [place], [address], 12/02/2024 10:19:37 12/02/19 25 12/01/2024 CULTU RE: URINE result report SEE RESULT S BELOW Test: Cultu re: Urine Speci men Sourc e: Urine Voide d Speci men Type: Urine Speci men Date: 2024 1100 Resul t Date: 2024 2144 Resul t Statu s: Final resul t Abnor mal: No Resul ting Lab: [facility] [address] [facility] [address] Tel: CULTU RE ----- ----- ----- --- No growt h in 1 day (dete ction level of 10,00 0 colon ies / ml.) Not Available [facility] (Lab) [address] [facility], [place], [address], 12/02/2024 22:47:13 12/02/19 25 12/01/2024 drug scree n, urine Amphetamines : negati ve Not Available [facility] [address], [place], [address], 12/01/2024 11:13:13 12/02/19 25 12/01/2024 drug scree n, urine Cannabinoids : negati ve Not Available [facility] [address], [place], [address], 12/01/2024 11:13:13 12/02/19 25 12/01/2024 drug scree n, urine Cocaine: negati ve Not Available [facility] [address], [place], [address], 12/01/2024 11:13:13 12/02/19 25 12/01/2024 drug scree n, urine Opiates: negati ve Not Available [facility] [address], [place], [address], 12/01/2024 11:13:13 12/02/19 25 12/01/2024 drug scree n, urine Phenocyclidi ne: negati ve Not Available [facility] [address], [place], [address], 12/01/2024 11:13:13 06/11/12/01/2024 drug scree n, urine Barbiturates : negati ve Not Available [facility] [address], [place], [address], 12/01/2024 11:13:13 12/02/19 25 12/01/2024 drug scree n, urine Benzodiazepi haris: negati ve Not Available [facility] [address], [place], [address], 12/01/2024 11:13:13 12/02/19 25 12/01/2024 drug scree n, urine Ethanol: negati ve Not Available [facility] [address], [place], [address], 12/01/2024 11:13:13 12/02/19 25 12/01/2024 drug scree n, urine Hallucinogen s: negati ve Not Available [facility] [address], [place], [address], 12/01/2024 11:13:13 12/02/19 25 12/01/2024 drug scree n, urine Inhalants: negati ve Not Available [facility] [address], [place], [address], 12/01/2024 11:13:13 12/02/19 25 12/01/2024 drug scree n, urine Anabolic Steroids: negati ve Not Available [facility] [address], [place], [address], 12/01/2024 11:13:13 12/02/19 25 12/01/2024 drug scree n, urine Other: positi ve Not Available [facility] [address], [place], [address], 12/01/2024 11:13:13 02/24/20 25 02/23/2025 TYPE/ RH/SC REEN ABO/Rh type A NEG Not Available [facility] (Lab) [address] [facility], [place], [address], 02/24/2025 08:26:42 02/24/20 25 02/23/2025 TYPE/ RH/SC REEN antibody screen NEG Not Available [facility] (Lab) [address] [facility], [place], [address], 02/24/2025 08:26:42 02/24/20 25 02/23/2025 TYPE/ RH/SC REEN exp date 2024 23:59 Not Available [facility] (Lab) [address] [facility], [place], [address], 02/24/2025 08:26:42 12/02/19 25 12/01/2024 US, obste tric, nucha l trans lucen cy No observ ation record ed. [email or web address] [facility] [address], [place], [address], 12/01/2024 14:38:13 12/02/19 25 12/01/2024 US, obste tric, follo w-up No observ ation record ed. [email or web address] [address], [place], [address], 12/01/2024 18:45:45 01/27/20 25 01/26/2025 US, obste tric, 2nd or 3rd trime ster No observ ation record ed. [email or web address] [facility] [address], [place], [address], 01/26/2025 12:36:41 01/27/20 25 01/26/2025 US, obste tric, 2nd or 3rd trime ster No observ ation record ed. [email or web address] [address], [place], [address], 01/26/2025 12:39:35 02/24/20 25 02/23/2025 US, obste tric, follo w-up No observ ation record ed. [email or web address] [facility] [address], [place], [address], 02/23/2025 18:48:54 02/24/20 25 02/23/2025 US, obste tric, follo w-up No observ ation record ed. [email or web address] [address], [place], [address], 02/23/2025 16:57:13 02/24/20 25 02/23/2025 US, obste tric, follo w-up No observ ation record ed. [email or web address] [address], [place], [address], 02/23/2025 16:55:34 03/21/20 25 03/21/2025 US, obste tric, follo w-up No observ ation record ed. [email or web address] [facility] [address], [place], [address], 03/23/2025 16:02:35 03/21/20 25 03/21/2025 US, obste tric, follo w-up No observ ation record ed. [email or web address] [facility] [address], [place], [address], 03/22/2025 10:18:20 04/22/20 25 04/22/2025 US, obste tric, follo w-up No observ ation record ed. [email or web address] [address], [place], [address], 04/27/2025 11:38:48 04/22/20 25 04/22/2025 US, obste tric, follo w-up No observ ation record ed. marino [facility] [address], [place], [address], 04/22/2025 17:08:34 05/18/2005/18/2025 US, obste tric, follo w-up No observ ation record ed. [facility] [address], [place], [address], 05/18/2025 18:24:57 05/18/20 25 05/18/2025 US, obste tric, follo w-up No observ ation record ed. [email or web address] [address], [place], [address], 05/25/2025 10:56:46 Result Notes None recorded. Problems Name Problem SNOMED Code Status Onset Date Resolution Date Notes Provider Name and Address Organization Details Recorded Time 39788738 Active 2024 Mary Murillo [facility] 11:32:03 RhD negative 413316450 Active 2024 A-, need rhogam 28 weeks referral M faxed 03/04 cancelled due to insurance - referral faxed to [facility] 03/08 03/21 [facility] final report A Negative , weak D present [facility] recommends Rhogam pt rhogam on 04/06/25 Dwayne Lindquist [facility] 21:45:57 Placenta succentur iata 49296264 Active 2024 serial growth Elizabet Clarita [facility] 12:38:22 Problem Notes None recorded. Procedures Surgical History Date Name Laterality Status Provider Name and Address Organization Details Recorded Time 05/09/2024 Date of Last Pap Smear completed Katherine Hardwick [facility] 03/23/2025 10:52:23 Imaging Results None recorded. Procedure Notes None recorded. Medical Equipment None Reported. Allergies Allergen ID Allergen Name Allergen Category Reaction Reaction Severity Criticality Documentation Date Start Date Code Code System Note Provider Name and Address Organization Details Recorded Time 23078 latex environme nt,medica tion Not available Not available Not available 12/01/2024 87641 91 RxNorm Mary britton, [facility] 5 11:38:56 99962 ethinyl estradiol / norelgest romin medicatio n hives Not available Not available 05/06/2025 43012 7 RxNorm Not Available [email or web address] - External Data Service - prod 5 [...] Tobacco Smoking Status Never Smoker Mary britton, [facility] 12/01/2024 11:12:14 Do You Have An Advance Directive? No [email or web address] Information n ot available 12/01/2024 If You Are , What Was Your Level Of Alcohol Consumption Prior To ? Occasional [email or web address] Information not available 12/01/2024 How Many Years Have You Consumed Alcohol? 0 [email or web address] Information not available 12/01/2024 Are You Blind Or Do You Have Difficulty Seeing? No [email or web address] Information n ot available 12/01/2024 What Is Your Level Of Caffeine Consumption? Moderate [email or web address] Information not available 12/01/2024 How Much Tobacco Do You Chew? None [email or web address] Information not available 12/01/2024 In The 14 Days Before Symptom Onset, Have You Had Close Contact With A Laboratory-confirm ed COVID-19 While That Case Was Ill? No Information n ot available 12/01/2024 In The 14 Days Before Symptom Onset, Have You Had Close Contact With A Person Who Is Under Investigation For COVID-19 While That Person Was Ill? No [email or web address] Information not available 12/01/2024 Have You Been To An Area Known To Be High Risk For COVID-19? No [email or web address] Information not available 12/01/2024 Are You Deaf Or Do You Have Serious Difficulty Hearing? No [email or web address] Information not available 12/01/2024 What Type Of Diet Are You Following? REGULAR [email or web address] Information n ot available 12/01/2024 What Is The Highest Grade Or Level Of School You Have Completed Or The Highest Degree You Have Received? [id number] [email or web address] Information not available 12/01/2024 Are There Any Guns Present In Your Home? No [email or web address] Information not available 12/01/2024 Do You Use Protection During Sex? No [email or web address] Information not available 12/01/2024 Do You Use Your Seat Belt Or Car Seat Routinely? Yes [email or web address] Information not available 12/01/2024 Do You Have Smoke And Carbon Monoxide Detectors In Your Home? Yes [email or web address] Information not available 12/01/2024 How Much Tobacco Do You Smoke? No [email or web address] Information not available 12/01/2024 Do You Use Sunscreen Routinely? Yes [email or web address] Information not available 12/01/2024 Has Tobacco Cessation Counseling Been Provided? Yes Information not available 12/01/2024 On What Date Was Tobacco Cessation Counseling Provided? 12/01/2024 [email or web address] Information not available 12/01/2024 How Many Years Have You Smoked Tobacco? 0 [email or web address] Information not available 12/01/2024 Have You Used IV Drugs? No [email or web address] Information not available 12/01/2024 Do You Have Difficulty Walking Or Climbing Stairs? No Information not available 12/01/2024 Sex: Unknown Functional Status Question Answer Note LastModified by Organizat ion Details LastModified Time Do you use any illicit or recreational drugs? No [email or web address] Information not available 03/23/2025 Do you or have you ever used any other forms of tobacco or nicotine? No [email or web address] Information not available 12/01/2024 What is your level of alcohol consumption? None [email or web address] Information not available 12/01/2024 Are you able to walk independently without assistance or assistive devices? YESWOREST [email or web address] Information not available 12/01/2024 Are you able to care for yourself independently? 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 Occasional Information not available 12/01/2024 Mental Status Question Answer Note LastModified by Organization D etails LastModified Time Do you feel stressed (tense, restless, nervous, or anxious, or unable to sleep at night)? [id number] Information not available 12/01/2024 Family History Relationship Description Onset Age of this Age Resolved Age Notes LastModified by Organization Details LastModified Time Unspecified Relation Family history unknown [email or web address] Not available 05/23 09:26:51 Maternal Grandmother Diabetes mellitus Not available 2024 16:45:50 Maternal Grandmother Hypertensive disorder Not available 2024 16:45:50 Maternal Grandmother Hypercholest erolemia [email or web address] Not available 2024 16:45:50 Medical History Condition [...] ICD10 Code Diagnosis IMO Codes Diagnosis Note [id number] Shantelle Reyes CNM [facility] [address],[facility] [place] [address] 03/23/2025 10:11:18 03/25/2025 14:07:08 [id number] VIK FINN MD [facility] [address] [address] 03/23/2025 11:39:03 03/23/2025 14:31:27 Placenta succenturiata 03847750 O43.192 70685293 - serial growth US RhD negative 956915517 O 26.899 Z67.91 849688 - weak D antigen, seen by [facility] who recommends RHogam Gestation period, 28 weeks 71766011 Z3A.28 3716339 - continue PNV [id number] VIK FINN MD [facility] [address] [address] 04/08/2025 16:31:58 04/11/2025 09:14:19 Placenta succenturiata 25950955 O43.192 16146408 - serial growth US RhD negative 492548847 O 26.899 Z67.91 436661 - weak D antigen, seen by [facility] who recommends RHogam- rhogam given at 30 weeks Gestation period, 30 weeks 36963417 Z3A.30 9196215 - continue PNV [id number] Clayton Byrd MD [facility] [address] [address] 04/22/2025 16:23:16 04/22/2025 18:15:42 Placenta succenturiata 96897017 O43.193 Z3A.32 [id number] Shantelle Reyes CNM [facility] [address] [address] 04/22/2025 16:23:39 04/23/2025 09:50:03 Gestation period, 32 weeks 0704849 Z3A.32 [id number] cont pnv Health Concerns Section Related Observation LastModified by Organization Detai ls LastModified Time None Recorded Concern Status LastModified by Organization Details LastModified Time None Recorded Payers Encounter Date Sequence Insurance Name Policy Number Policy Botello Covered Member ID Botello Member ID Guarantor Name 04/22/2025 1 [facility]LY [facility] (MEDICAID HMO) [id number] Sahra Novak [id number] Sahra BARTONGyligia Episode Ob Episode Information Episode Created Date Number of Fetuses Patient Bloodtype Patient rh Status Prepregnancy Weight lbs Domestic Partner Domestic Partner Phone Father Name 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 Status 12/02/19 25 1 A Negative 147 Akshat Hildebr and OPEN Fetus Data First Name Last Name Admitted to NICU Weight (g) Sex Living Outcome Pediatric Complications Fetus ID Race Codes Race Delivery Type 41490 Problems Problem Notes Problem Name Start Date End Date Resolution Snomed Code Not e Placenta succenturiata 01/26/2025 [id number] serial growth US RhD negative 12/03/2024 [id number] A-, ne ed rhogam 28 weeks referral [facility] faxed 03/04 cancelled due to insurance - referral faxed to Mary VITALE Mary [facility] final report A Negative , weak D present [facility] recommends Rhogam pt rhogam on 04/06/25 Dwayne Artis Calculation Initial Artis Date Initial Exam Date Initial Exam Provider Initial Ultrasound Date Last Menstrual Period Date Ultra Sound Weeks Gestation 05/16/2025 10/19/2024 [email or web address] 10/19/2024 08/09/2024 6 Eighteen To Twenty Week [...] Weight in lbs Pre/Post Dialysis Refused Weight 148.213579246031 BP Diastolic BP Location Tested BP Systolic [...] Type Weight in lbs Pre/Post Dialysis Refused 153.004117459368 BP Diastolic BP Location Tested BP Systolic [...] Weight in lbs Pre/Post Dialysis Refused Weight 153.312809138157 BP Diastolic BP Location Tested BP Systolic [...] Weight in lbs Pre/Post Dialysis Refused Weight 155.933645438240 BP Diastolic BP Location Tested BP Systolic [...] Weight in lbs Pre/Post Dialysis Refused Weight 158.128450348771 BP Diastolic BP Location Tested BP Systolic BP Type 70 L arm 108 sitting Fetus Heart Rate Present Fetus Movement A Yes Comments Flowsheet Date 03/23/2025 Mcdonough Score Blood Edema Fundus Height Fundus Units Glucose Ketones Leukocytes Nitrite Labor Signs Protein Cervic Dilation Cervic Effacement Cervic Station Type Weight in lbs Pre/Post Dialysis Refused 158.001055866680 BP Diastolic BP Location Tested BP Systolic BP Type 70 108 Fetus Heart Rate Present A 140 Fetus Movement A Yes Comments Doing well, good movem ent. GCT and labs at [facility] for Rhogam. Was seen by [facility], recommend Rhogam for weak D. EFW wnl at [facility] US. Discussed tdap and RSV vaccine. RTC 2 weeks. Flowsheet Date 04/08/2025 Mcdonough Score Blood Edema Fundus Height Fundus Units Glucose Ketones Leukocytes Nitrite Labor Signs Protein Cervic Dilation Cervic Effacement Cervic Station Type Weight in lbs Pre/Post Dialysis Refused Weight 159.382249529227 BP Diastolic BP Location Tested BP Systolic [...] Weight in lbs Pre/Post Dialysis Refused Weight 164.091544443373 BP Diastolic BP Location Tested BP Systolic [...] Weight in lbs Pre/Post Dialysis Refused Weight 165.034042406678 BP Diastolic BP Location Tested BP Systolic [...] Weight in lbs Pre/Post Dialysis Refused Weight 165.166729968882 BP Diastolic BP Location Tested BP Systolic [...] Type Weight in lbs Pre/Post Dialysis Refused 168.884799003705 BP Diastolic BP Location Tested BP Systolic [...]
--- NOTE | 2025-06-10 17:33 | LDADM ---
This patient, Sahra Novak, was admitted to Labor/Delivery/Recovery 108 on 06/10/25 at 16:59. Plans for labor, pain management and were discussed with patient. Patient/family oriented to hospital policies and general routines including ID bracelet, bed and alarms, visiting hours, pain management, procedures, bathroom and other care routines, personal items, smoking policy, room service/diet and guest tray routines, security routines, and visiting hours. Patient/Family are encouraged to report perceived risks to care and to ask questions if they do not understand what they are told or what they should do. See OBIX for further documentation.
[2025-06-10 17:51] LABS: Hematocrit 37.3 % (37.0-47.0); Hemoglobin 12.7 g/dL (12.0-15.0); Immature Granulocyte Percent A 0.3 % (0-0.5); Lymphocytes Absolute Auto 1.59 K/mm3 (0.9-3.2); Mean Corpuscular HGB Conc 34.0 g/dl (32-36); Mean Corpuscular Hemoglobin 30.4 pg (26-34); Mean Corpuscular Volume 89.2 fl (80-100); Nucleated Red Blood Cells Absolute Auto 0.000 K/mm3 (0.0-0.012); Nucleated Red Blood Cells Perc 0.0 % (0.0-0.2); Platelet Count Result 235 k/mm3 (150-375); Red Blood Count 4.18 M/mm3 (4.2-5.4); White Blood Count 8.7 K/mm3 (4.5-10.0)
[2025-06-10] MEDS: OXYTOCIN 30 UNITS/NS 500 ML 30 UNITS/500 ML BAG IV CONT (18:05)
[2025-06-10] MEDS: LACTATED RINGERS 1,000 ML 125 ML IV CONT (18:05)
[2025-06-10] MEDS: AMPICILLIN SODIUM 2 GM in SODIUM CHLORIDE 0.9% IV 100 ML 200 ML IVPB (18:06)
--- NOTE | 2025-06-10 18:25 | WPDOBADMIT ---
Obstetrics - Admit Note Admission Note: record reviewed. No pertinent additions to the history and/or any subsequent changes in the physical findings that are not consistent with the expected course of the were found. Additions to the history and/or subsequent changes in the physical findings follow. Admit for IOL, anticipate vaginal delivery
[2025-06-10 18:30] LABS: Syphilis IgG/IgM Antibody Non-Reactive (Nonreactive)
[2025-06-10] MEDS: AMPICILLIN SODIUM 1 GM in SODIUM CHLORIDE 0.9% IV 50 ML 100 ML IVPB (22:59)
[2025-06-11] VITALS (112 sets, daily range): BP systolic 85–143; BP diastolic 40–88; PULSE 56–231; RESP 14–16; TEMP 36.4–37.2; O2SAT 96–100
--- NOTE | 2025-06-11 00:36 | PM.OBPNLAB ---
Pain Control Date/time seen: 06/11/25 00:36 Pelvic Exam Dilation (cm): 4 Effacement (%): 60 station: -2 Amniotic membrane status: Ruptured (AROM clear fluid) Contractions Monitor mode: External Contraction frequency: 3 Contraction pattern: Regular Status status: Category l Assessment and Plan Pitocin rate (mU/min): 6 Assessment: induction ongoing Plan: continuous present management
[2025-06-11] MEDS: LACTATED RINGERS 1,000 ML 125 ML IV CONT (01:35)
--- NOTE | 2025-06-11 02:10 | WPDANESEPP ---
Anes - Eval Pre Procedure Procedure: labor epidural Date/Time: 06/11/25 02:10 Surgeon: cresencio Preop Diagnosis: pain during labor Pre Op Diagnosis: IOL Patient Data Age: 34 Gender: F Height: 1.65 m Weight: 74 kg Last Vital Signs Temp 36.8 C 06/10/25 22:57 Pulse 66 06/11/25 01:45 BP 111/58 L 06/11/25 01:45 Pulse Ox 100 06/11/25 02:05 O2 Del Method Room Air 06/10/25 18:14 Allergies Allergy/AdvReac Type Severity Reaction Status Date / Time Latex, Natural Rubber Allergy Intermediate rash Verified 06/10/25 17:33 Home Medications ?Medication ?Instructions ?Recorded ?Confirmed ?Type vit no.95-ferrous 1 tablet PO DAILY 05/14/25 06/10/25 History fumarate 28 mg-folic acid 800 mcg tablet () Laboratory Tests 06/10/25 17:10 WBC 8.7 K/mm3 (4.5-10.0) RBC 4.18 L M/mm3 (4.2-5.4) Hgb 12.7 g/dL (12.0-15.0) Hct 37.3 % (37.0-47.0) MCV 89.2 fl (80-100) MCH 30.4 pg (26-34) MCHC 34.0 g/dl (32-36) RDW 13.1 % (11.5-14.5) Plt Count 235 k/mm3 (150-375) MPV 10.7 H fl (7.4-10.4) Immature Gran % (Auto) 0.3 % (0-0.5) Neut % (Auto) 71.8 % (45.5-73.1) Lymph % (Auto) 18.3 % (18.3-44.2) Motley % (Auto) 7.5 % (2.6-8.5) Eos % (Auto) 1.8 % (0-4.4) Baso % (Auto) 0.3 % (0.2-1.2) Lymph # (Auto) 1.59 K/mm3 (0.9-3.2) Motley # (Auto) 0.7 H K/mm3 (0.1-0.6) Eos # (Auto) 0.2 K/mm3 (0-0.3) Baso # (Auto) 0.0 K/mm3 (0.0-0.1) Abs Immat Gran (auto) 0.03 K/mm3 (0.00-0.031) Absolute Neuts (auto) 6.2 K/mm3 (1.3-6.7) Absolute Nucleated RBC 0.000 K/mm3 (0.0-0.012) Nucleated RBC % 0.0 % (0.0-0.2) Syphilis IgG/IgM Ab Non-reactive (Nonreactive) Blood Type A Negative Antibody Screen Negative Patient hx anesthesia problems: none Family hx anesthesia problems: none Results Review: All pre-operative results and documents have been reviewed as part of the pre-operative evaluation. [facility] Past Medical History Medical History (Updated 06/11/25 @ 02:12 by Jennifer Devine CRNA) IUP (intrauterine ), incidental Patient denies allergies Family History Family History (Updated 05/14/25 @ 13:26 by Indira Story RN) Grandparent Diabetes mellitus Sarcoidosis Social History Social History Smoking status: Never smoker Substance use: never Lack of Transportation: No Lack of Food: Never True Current Housing: I Have Housing Concerned About Future Housing: No Difficulty Paying Gas/Electric Bills: No Difficulty Paying for Meds: No Currently Unemployed: No Education: High School Diploma/GED Difficulty w/ Childcare or Family Care: No Gender identity (if verbalized by the patient): Female Spiritual care concerns: No Exam Day of Procedure 06/11/25 02:10
[2025-06-11] MEDS: ONDANSETRON INJ 4 MG/2 ML VIAL IV PUSH (02:49)
[2025-06-11] MEDS: AMPICILLIN SODIUM 1 GM in SODIUM CHLORIDE 0.9% IV 50 ML 100 ML IVPB (03:02)
[2025-06-11] MEDS: OXYTOCIN 30 UNITS/NS 500 ML 30 UNITS/500 ML BAG 999 UNITS IV CONT (04:44)
--- NOTE | 2025-06-11 04:57 | PM.OBPRVD ---
OB - Vaginal Delivery Note Procedure Delivery date: 06/11/25 Intrapartal Events: Decelerations (at 10 cm) Induction method: AROM and Per Pitocin Protocol Delivery monitor: External FHT and External Uterine Route of delivery: Episiotomy description: None Laceration Description: None Specimen: No Quantitative Blood Loss (ml): 50 Anesthesia type: Epidural Disposition: Floor Complications: No immediate complications Baby Date of : 06/11/25 Time of : 04:43 Gestational Age by Date: 40 gender: Female presentation: vertex position: Right Occiput Anterior Placenta delivery description: Expressed Cord Vessel Description: 3 Vessels, Nuchal Cord and Reduced score one minute: 8 score five minutes: 9
[2025-06-11] MEDS: OXYTOCIN 30 UNITS/NS 500 ML 30 UNITS/500 ML BAG 125 UNITS IV CONT (05:12)
[2025-06-11] MEDS: BENZOCAINE 20% AER SPR (*SP) 56 GM CAN 1 SPRAY TOPICAL (07:01)
[2025-06-11] MEDS: WITCH HAZEL 40 PADS 1 PAD TOPICAL (07:01)
[2025-06-11] MEDS: MULTIVIT/MIN/PREN/FOL AC/IRON TABLET 1 TAB PO (08:12)
[2025-06-11] MEDS: IBUPROFEN 600 MG TABLET PO ×2 (08:16→20:07)
[2025-06-11] MEDS: ACETAMINOPHEN 325 MG TABLET 650 MG PO (20:07)
[2025-06-12 05:00] VITALS: BP 112/68; PULSE 73; RESP 16; TEMP 36.9
[2025-06-12 05:43] LABS: Hematocrit 35.2 % (37.0-47.0); Hemoglobin 11.8 g/dL (12.0-15.0)
[2025-06-12 07:15] VITALS: BP 111/80; PULSE 61; RESP 18; TEMP 36.8
[2025-06-12] MEDS: ACETAMINOPHEN 325 MG TABLET 650 MG PO (07:19)
[2025-06-12] MEDS: IBUPROFEN 600 MG TABLET PO (07:19)
--- NOTE | 2025-06-12 08:58 | WPDANLDPN2 ---
Anes-Prog Note L&D Date/Time: 06/12/25 08:58 Comfortable throughout: labor and delivery Neuraxial method: epidural Epidural/Spinal procedure site: clean & non-tender Neuro status: Neuro function grossly intact. Cardiovascular status: normal Respiratory status: normal Airway patency: baseline Mental status: baseline Post-Op hydration status: normal Vital Signs: Last Vital Signs Temp 98.2 F 06/12/25 07:15 Pulse 61 06/12/25 07:15 Resp 18 06/12/25 07:15 BP 111/80 06/12/25 07:15 Pulse Ox 98 06/11/25 06:07 O2 Del Method Room Air 06/10/25 18:14 Pain score (VAS): 0 I/O: Intake & Output 06/11/25 06/12/25 06/12/25 23:59 07:59 15:59 Intake Total 240 Balance 240 Post-procedural complaints: none Patient feedback: Patient satisfied with anesthetic care.
--- NOTE | 2025-06-12 11:39 | P.PNOB_ITS ---
OB - PN: Subj Subjective Date/time seen: 06/12/25 11:39 Patient comments: no complaints, pain well controlled, incisional pain, tolerating diet and flatus present OB - PN: Obj Data Labs 06/12/25 05:13 Labs: Laboratory Results - last 24 hr 06/12/25 05:13 Hgb 11.8 L Hct 35.2 L Blood Type A Negative Antibody Screen TNP Screen Positive H Baby's Blood Type A pos Baby's JONI Negative OB - PN A/P Plan day: 1 Plan: routine care Comments: No problems, routine care Time Spent With Patient Time: Total time spent is greater than 50% in coordination of care (as documented) at patient's floor/unit and/or counseling patient: Exam 2 Const: General: comfortable, no acute distress and alert Resp: Effort & Inspection: normal respiratory effort Auscultation: no crackles, no rales and no rhonchi Cardio: Rate: regular rate Heart sounds: no click, no murmurs and no rubs GI: Inspection: non-distended GI Palp: No Tenderness to palpation present (GI) Auscultation: normal bowel sounds Other: Incision - CDI Extrem: General: normal to inspection, no pedal edema and no calf tenderness
--- NOTE | 2025-06-12 11:41 | PM.OBPNVD ---
OB - PN: Subj Subjective Date/time seen: 06/12/25 11:41 Patient comments: no complaints, pain well controlled, incisional pain, tolerating diet and flatus present OB - PN: Obj Data Labs 06/12/25 05:13 Labs: Laboratory Results - last 24 hr 06/12/25 05:13 Hgb 11.8 L Hct 35.2 L Blood Type A Negative Antibody Screen TNP Screen Positive H Baby's Blood Type A pos Baby's JONI Negative OB - PN A/P Plan day: 1 Plan: routine care Comments: No problems, routine care Time Spent With Patient Time: Total time spent is greater than 50% in coordination of care (as documented) at patient's floor/unit and/or counseling patient: Exam Const: General: comfortable, no acute distress and alert Resp: Effort & Inspection: normal respiratory effort Auscultation: no crackles, no rales and no rhonchi Cardio: Rate: regular rate Heart sounds: no click, no murmurs and no rubs GI: Inspection: non-distended GI Palp: No Tenderness to palpation present (GI) Auscultation: normal bowel sounds Other: Incision - CDI Extrem: General: normal to inspection, no pedal edema and no calf tenderness
--- NOTE | 2025-06-12 11:41 | PM.OBDSVD ---
DS: Admitting Diagnosis Discharge Date 06/12/2025 Admitting Diagnosis Term DS: Discharge Diagnosis Discharge Diagnosis (1) Term delivered: Code(s): O80 - Encounter for full-term uncomplicated delivery Status: Acute OB - DS: Summary OB Procedures : None OB Procedures Intrapartum: Spontaneous Vag Delivery OB Procedures: : None Peripartum Data Laceration Description: None Episiotomy description: None Time Spent with Patient Time attestation: Total time spent providing and/or coordinating discharge services: DS: Data Data Completed and Pending Labs on day of discharge: Labs from last 24 hours 06/12/25 05:13 Hgb 11.8 L Hct 35.2 L Blood Type A Negative Antibody Screen TNP Screen Positive H Baby's Blood Type A pos Baby's JONI Negative KB Hemoglobin Pending Doses of RhIg Required Pending Discharge Plan Discharge Discharging Clinician: Clayton Byrd Patient Disposition: Home Activity: pelvic rest Diet: regular Patient Instructions: Antibiotic Form Patient Language: Italian Stand Alone Forms: General Discharge Information Follow-up/Referrals: Clayton Byrd MD [Physician, INTERIOR DESIGN PROGRAM CHAIR] Discharge Medications: Continued PNV no.95-ferrous fumarate-FA [] 28 mg iron- 800 mcg tablet 1 tablet PO DAILY Date of admission: 06/10/25 16:59 Primary Care Provider: Bartolome*Raji Admitting Provider: Clayton Byrd Attending physician on admission: Clayton Byrd Condition: Stable
[2025-06-12] MEDS: RHO(D) IMMUNE GLOBULIN 300 MCG/2 ML SYRINGE IM (12:42)
[2025-06-15 08:58] VITALS: BP 122/65; PULSE 54; RESP 18; TEMP 36.7; O2SAT 100
== END 2025-06-12 13:40 | disposition home or self-care (01) | DRG 560 ==
LOC: ANHLDR 17:02 → ANHOB2 06-11 17:42
PROVIDERS: Admitting Provider Obstetrics & Gynecology; PCP Internal Medicine Gastroenterology; Referring Provider Advanced Practice Midwife; Visit Provider Obstetrics & Gynecology
DX: O99.824 Streptococcus B carrier state complicating childbirth (principal); Z37.0 Single live birth; Z3A.40 40 weeks gestation of pregnancy; O76 Abnormality in fetal heart rate and rhythm complicating labor and delivery; O69.81X0 Labor and delivery complicated by cord around neck, without compression, not applicable or unspecified
CPT/HCPCS: 36415; 85014; 85018; 85025; 85460; 85461; 86593; 86850; 86900; 86901; 90384; A9270; J0290; J2405; J2590; J2790; J2795; J7120